=== PATIENT | male | born 1990 | race Caucasian/White ===

== ENCOUNTER 2021-10-04 11:43 | Outpatient (CLI) | payer OTHER, SELFPAY ==
--- NOTE | 2021-10-04 13:00 | CT_ITS ---
Final Report Patient: EMELYN ASKEW Facility:?[facility] Patient ID:?[id number] Site Patient ID:?[id number]. Site :?[id number] Study:?CT Abdomen/Pelvis W/O-10/04/2021 12:26:21 PM Ordering Physician:Franko Barroso Final Report: INDICATION: Personal history of urinary calculi. TECHNIQUE: CT of the abdomen and pelvis without intravenous contrast. Coronal and sagittal reconstructions. COMPARISON: CT of the abdomen and pelvis 07/11/2021. FINDINGS: There is a stable tiny low-attenuation lesion in the superior right hepatic lobe which is too small to characterize but likely benign. The unenhanced gallbladder, spleen, pancreas, and adrenal glands are normal in appearance. No biliary dilation. Stable small hyperdense lesion arising from the upper pole of the right kidney measuring 43 HU (series 3, image 53). Few tiny bilateral nonobstructing renal caliceal stones. There is a 5 mm stone in the distal right ureter approximately 3 cm above the ureterovesicular junction (series 2 image 110). No significant upstream signs of obstruction. No left hydronephrosis or ureteral dilation. Resolution of previously seen bilateral proximal ureteral stones. The bladder is normal in appearance. Moderately enlarged prostate gland. No bowel dilation. Moderate to large amount of stool throughout the colon. Appendectomy. No intraperitoneal free air or fluid. Retroaortic left renal vein. No lymphadenopathy. The lung bases are clear. Pectus excavatum with leftward tilt of the sternum. IMPRESSION: 1. 5 mm stone in the distal right ureter without significant signs of upstream obstruction. Resolution of previously seen bilateral proximal ureteral stones. Few tiny bilateral nonobstructing renal caliceal stones. 2. Stable small indeterminate lesion arising from the upper pole of the right kidney. This could be further evaluated with renal ultrasound. 3. Moderately enlarged prostate gland greater than expected for patient`s age. 4. Findings discussed with Dharmesh Glynn at 1:09 p.m. on 10/04/2021. Please note that all CT scans at this facility use dose modulation, iterative reconstruction, and/or weight-based dosing when appropriate to reduce radiation dose to as low as reasonably achievable. Dictated by Indira Cedeño MD @ 10/04/2021 1:12:28 PM (Electronic Signature)
== END 2021-10-04 11:44 | disposition home or self-care (01) ==
PROVIDERS: PCP Family Medicine; Visit Provider Family Medicine
DX: R10.9 Unspecified abdominal pain (principal); N20.1 Calculus of ureter; N28.9 Disorder of kidney and ureter, unspecified; N40.0 Benign prostatic hyperplasia without lower urinary tract symptoms; Z87.442 Personal history of urinary calculi
CPT/HCPCS: 74176

== ENCOUNTER 2021-10-04 11:44 | Outpatient (CLI) | payer OTHER, SELFPAY ==
[2021-10-04 15:48] LABS: Albumin* 4.1 g/dL (3.3-5.0); Chloride* 104 mmol/L (96-114)
[2021-10-04 15:49] LABS: Potassium* 4.6 mmol/L (3.6-5.1); Sodium* 140 mmol/L (135-149)
[2021-10-04 15:51] LABS: Aspartate Amino Transferase* 38 U/L (12-35); Carbon Dioxide* 29 mmol/L (20-32); Creatinine* 0.8 mg/dL (0.5-1.5); Estimated Glomerular Filt Rate 119.84; Total Protein* 5.9 g/dL (6.0-8.3)
[2021-10-04 15:52] LABS: Alkaline Phosphatase* 47 U/L (40-150); Blood Urea Nitrogen* 12 mg/dL (5-24); Calcium* 9.3 mg/dL (8.4-10.6); Glucose* 98 mg/dL (60-115)
[2021-10-04 16:46] LABS: Alanine Aminotransferase* 31 U/L (4-50)
== END 2021-10-04 11:45 | disposition home or self-care (01) ==
LOC: NFLDREF 11:46
PROVIDERS: PCP Family Medicine; Visit Provider Family Medicine
DX: R10.9 Unspecified abdominal pain (principal)
CPT/HCPCS: 80053

== ENCOUNTER 2022-10-02 11:10 | Outpatient (CLI) | payer OTHER, SELFPAY | END 2022-10-02 11:11 | disposition home or self-care (01) | LOC: NFLDREF 13:40 | PROVIDERS: PCP Family Medicine; Referring Provider Family Medicine; Visit Provider Family Medicine | DX: Z13.1 Encounter for screening for diabetes mellitus (principal); Z13.6 Encounter for screening for cardiovascular disorders | CPT/HCPCS: 80061; 82947 ==

== ENCOUNTER 2023-09-13 14:54 | Emergency (ER) | payer OTHER, SELFPAY ==
[2023-09-13 14:57] VITALS: BP 114/66; PULSE 76; RESP 14; TEMP 36.8; O2SAT 99; BMI 19.9
--- NOTE | 2023-09-13 15:55 | ED.GENADULT ---
HPI - General Adult General Date Seen: 09/13/23 Chief complaint: Skin/Abscess/Foreign Body Stated complaint: rash Time Seen by Provider: 09/13/23 15:14 Source: patient Mode of arrival: ambulatory Limitations: no limitations History of Present Illness HPI narrative: Patient is a 33-year-old who has had a rash for the past couple of days. He 1st noted it on his flank bilaterally and it has spread to his abdomen, minimally on his back, little bit on his proximal upper extremities. Is not particularly itchy. He does note that he was walking in some tall grasses recently. Not had any systemic symptoms such as fever, chills, fatigue or body aches. No history of similar rash. He took little Benadryl yesterday which did not seem to have any effect. Related Data Home Medications ?Medication ?Instructions ?Recorded ?Confirmed acyclovir 400 mg tablet 400 mg PO DAILY 10/04/22 09/13/23 doxycycline hyclate 100 mg capsule 100 mg PO BID 10/04/22 09/13/23 multivitamin (Daily Multi-Vitamin 1 tab PO QDAY 10/04/22 09/13/23 tablet) Previous Rx's ?Medication ?Instructions ?Recorded bupropion HCl 300 mg 24 hr tablet, 300 mg PO QAM #90 tabs 08/09/23 extended release methylphenidate HCl 18 mg 18 mg PO DAILY #30 tabs 08/27/23 tablet,extended release 24 hr methylphenidate HCl 10 mg tablet 10 mg PO DAILY #30 tabs 08/30/23 Allergies Allergy/AdvReac Type Severity Reaction Status Date / Time No Known Allergies Allergy Verified 09/13/23 14:59 [facility] Medical History (Updated 09/13/23 @ 16:22 by Melissa Burns MD) History of renal calculi (2017) ?Z87.442 - Personal history of urinary calculi (ICD-10) History of herpes simplex keratitis ?Z86.19 - Personal history of other infectious and parasitic diseases (ICD-10) History of chronic kidney disease ?Z87.448 - Personal history of other diseases of urinary system (ICD-10) Surgical History (Updated 08/13/22 @ 18:14 by Nancy Mariscal) History of appendectomy (07/13/18) ?Z90.49 - Acquired absence of other specified parts of digestive tract (ICD-10) Family History Unknown Bladder disorder Kidney disorder Genetic disorder Hyperlipidemia High blood pressure Mental disorder Scoliosis Substance abuse Social History (Updated 08/09/23 @ 16:01 by Octavia Beach~[facility], [facility]) What is your current living situation?: I presently have a place to live Problems where you live: no known problems In the past 12 months, utilities in danger of being shut off: no In past 12 months, lack of transportation kept you from medical appts, meetings, work, or getting things needed for daily living: no In the past 12 mos, have been you worried that your food would run out before you had money to buy more?: never true In the past 12 mos, the food you bought just didn't last and you didn't have money to buy more?: never true Smoking Status: Never smoker How often do you have a drink containing alcohol: never AUDIT-C Alcohol total score: 0 Non-prescribed substance use: denies use How often does anyone, including family, friends and others, physically hurt you: never How often does anyone, including family, friends and others, insult or talk down to you: never How often does anyone, including family, friends and others, threaten you with harm: never How often does anyone, including family, friends and others, scream or curse at you: never Little interest or pleasure in doing things: several days Feeling down, depressed, or hopeless: several days service: No Exam Narrative: Exam Narrative: Signs reviewed In general, alert, well-appearing male. ENT: No intraoral lesions. Skin: Const: Vital Signs, click to edit/add: Vital Signs - 24 hr 09/13/23 14:57 Temperature 98.2 F Pulse Rate [Pulse Oximeter] 76 Respiratory Rate 14 Blood Pressure [Ri ght Upper Arm] 114/66 Pulse Oximetry 99 Oxygen Delivery Me thod Room Air Course Course ED Course: Patient presents with a largely asymptomatic rash over the past couple of days. Diagnostic considerations I think would include pityriasis rosea, tinea versicolor, or good 8 psoriasis. There is not significant scaling at this time, I did do a ANALI which does not show fungal elements. Suspect that this is pityriasis rosacea, discussed natural course of this with him. For now he is not complaining of significant itching but discussed that he can use topical hydrocortisone if he develops any itching. If he is significantly worsening would recommend he come back, otherwise he can follow up with Dermatology if no improvement over the next couple of months or if he feels the rash is changing significantly. Vital Signs Vital signs: Initial Vital Signs Temperature 98.2 F 09/13/23 14:57 Temperature Source Temporal Artery Scan 09/13/23 14:57 Pulse Rate 76 09/13/23 14:57 Respiratory Rate 14 09/13/23 14:57 Blood Pressure 114/66 09/13/23 14:57 Blood Pressure Mean 82 09/13/23 14:57 Blood Pressure Position Sitting 09/13/23 14:57 Pulse Oximetry 99 09/13/23 14:57 Oxygen Delivery Method Room Air 09/13/23 14:57 Vital Signs Temperature 98.2 F 09/13/23 14:57 Pulse Rate 76 09/13/23 14:57 Respiratory Rate 14 09/13/23 14:57 Blood Pressure 114/66 09/13/23 14:57 Pulse Oximetry 99 09/13/23 14:57 Oxygen Delivery Method Room Air 09/13/23 14:57 Temperature 98.2 F 09/13/23 14:57 Pulse Rate 76 09/13/23 14:57 Respiratory Rate 14 09/13/23 14:57 Blood Pressure 114/66 09/13/23 14:57 Pulse Oximetry 99 09/13/23 14:57 Oxygen Delivery Method Room Air 09/13/23 14:57 Medical Decision Making Lab Data Labs: Lab Results 09/13/23 Range/Units 15:35 ANALI Result No Fungal Elements (None Seen) ANALI Prep Source Skin Discharge Plan Discharge Clinical Impression: Pityriasis rosea Patient Disposition: Home, Self-Care Condition: Stable Instructions: Pityriasis rosea (ED) Additional Instructions: I suspect that this is pityriasis rosacea, but there is no specific diagnostic test. If the rash is significantly changing or worsening, if you have new symptoms such as sores in her mouth, high fevers, etcetera, would recommend return to the emergency department. Pityriasis rosea it does not require specific treatment and should resolve on its own over the next 2-3 months. If the rash does not resolve or you feel it is changing, I would recommend dermatology follow-up. You can use a topical hydrocortisone if needed for mild itching. Prescriptions: No Action doxycycline hyclate 100 mg capsule 100 mg PO BID acyclovir 400 mg tablet 400 mg PO DAILY methylphenidate HCl 10 mg tablet 10 mg PO DAILY Qty: 30 0RF Rx Instructions: take in afternoon in addition to long-acting morning methylphenidate multivitamin [Daily Multi-Vitamin] Tablet 1 tab PO QDAY bupropion HCl 300 mg tablet extended release 24 hr 300 mg PO QAM Qty: 90 3RF methylphenidate HCl 18 mg tablet extended release 24hr 18 mg PO DAILY Qty: 30 0RF Follow Up/Referrals: Dharmesh Glynn MD [Primary Care Provider] - Stand Alone Forms: [employer] Apart Info Instructions
--- OUTSIDE RECORDS SUMMARY | 2023-09-13 16:15 | XMS_ITS ---
Author Name Lupillo Ashraf Address Unknown Phone [phone] Organization [facility] al Phone [phone] Care Team Providers Care Equipment Application Specialist Name Role Phone Lupillo Ashraf Attending [phone] Allergies and Intolerances Substance Reaction Severity Activated Date Status No Known Drug Allergies No Known Food Allergies ASSESSMENT Assessment Charted Date/Time No assessment available Encounter Diagnosis Encounter Diagnosis Diagnosis Date/Time Status Hydronephrosis with renal an d ureteral calculous obstruction [N13.2] 08/21/2021 11:35 completed IMMUNIZATIONS Vaccine Administration Date Status Reason COVID-19 PFIZER 08/02/2021 Completed influenza, injectable, quadrivalent 01/25/2021 Compl eted COVID-19 PFIZER 08/23/2020 Completed COVID-19 PFIZER 08/02/2020 Completed Influenza, seasonal, injectable 05/08/2017 Completed Tdap 08/23/2016 Completed Influenza, seasonal, injectable 03/12/2007 Completed H1N1 02/13/2006 Completed meningococcal MCV4P 01/25/2007 Completed H1N1 02/22/2005 Completed H1N1 01/26/2004 Completed Td (adult), adsorbed 03/13/2000 Completed polio, unspecified formulation 03/13/1990 Completed polio, unspecified formulation 1988 Completed polio, unspecified formulation 1988 Completed pneumococcal polysaccharide PPV23 01/25/2004 Complet ed MMR 03/13/2000 Completed MMR 11/07/1989 Completed Hib, unspecified formulation 03/13/1990 Completed Hep B, unspecified formulation 10/16/2000 Completed Hep B, unspecified formulation 03/13/2000 Completed Hep B, unspecified formulation 02/16/2000 Completed DTaP 1988 Completed DTaP 1988 Completed DTaP 03/14/1989 Completed DTaP 03/13/1990 Completed Medications Medication Strength Dosage Route Frequency Start Date Stop Date Status acyclovir 400 mg tablet 400 mg tablet 1 tablet by mouth once a day activ e Concerta 18 mg tablet extended release 24hr 18 mg tablet extended release 24hr 1 tablet by mouth once a day active doxycycline hyclate 50 mg tablet 50 mg tablet 50 tablet by mouth twice a day activ e hydrocodone-acet aminophen 5-325 mg tablet 5-325 mg tablet 1-2 tablet by mouth every four to six hours as needed active Ritalin 10 mg tablet 10 mg tablet 1 tablet by mouth once a day as needed active Plan of Treatment Plan Description Date Medication acyclovir(acyclovir) Medication Concerta(methylphenidate hcl) Medication doxycycline hyclate(doxycycline hyclate) Medication hydrocodone-acetaminophen(hydroc odone-acetaminophen) Medication Ritalin(methylphenidate hcl) Social History SOCIAL HISTORY TOBACCO USE Type Status Start Date End Date Last Reviewed Current Smoking Status Tobacco smoking c onsumption unknown Gender Identity and Sexual O rientation Type Status Last Reviewed Sex Male 00:00
--- OUTSIDE RECORDS SUMMARY | 2023-09-13 16:15 | XMS_ITS ---
Author Name Lupillo Ashraf Address Unknown Phone [phone] Organization [facility] Phone [phone] Care Team Providers Care Education Liaison Name Role Phone Lupillo Ashraf Attending [phone] Lupillo Ashraf Ordering [phone] Allergies and Intolerances Substance Reaction Severity Activated [...] mouth once a day as needed active Procedures Procedure Frequency Last Procedure Date Status CT ABDOMEN/PELVIS WO CONTRAST ONCE 08/22/2021 09:47 completed Vital Signs Description Result Charted Date/Time LOINC Blood Pressure - Systolic mm[Hg] 127 08/22/19 22 11:40 8480-6 Blood Pressure - Diastolic mm[Hg] 80 022 11:40 8462-4 MAP mm/Hg 95.67 08/21/2021 11:40 8478-0 Temperature deg F/Emiliana 96.4 / 35.8 08/21/2021 11:40 83 10-5 Heart Rate /min 57 08/21/2021 11:40 8867-4 Respiration /min 20 08/21/2021 11:40 9279-1 Pain Scale 3 08/21/2021 12:41 53948-5 SpO2 % 100 08/21/2021 11:40 05034-9 Medications Administered Medication Start Date Dosage Route Frequency Last Adm inistered KETOROLAC [30MG/ML] VIAL (TORADOL) 08/21/2021 12:04 30 mg IV PUSH ONCE 08/21/2021 12:08 TAMSULOSIN [0.4MG] CAPSULE (FLOMAX) 08/21/2021 13:11 0.4 mg Oral ONCE 022 13:13 Plan of Treatment Plan Description Date Medication acyclovir(acyclovir) Medication Concerta(methylphenidate hcl) Medication doxycycline hyclate(doxycycline hyclate) Medication hydrocodone-acetaminophen(hydroc odone-acetaminophen) Medication Ritalin(methylphenidate hcl) Social History SOCIAL HISTORY TOBACCO USE Type Status Start Date End Date Last Reviewed Current Smoking Status Tobacco smoking c onsumption unknown Gender Identity and Sexual O rientation Type Status Last Reviewed Sex Male 00:00 Clinical Notes Notes Name Date/Time Description ED Disposition Summary 08/21/2021 13:28 Signed D ate/Time: 08/21/2021 13:28 Signed By: ALFONZO TANG Entered By: ALFONZO TANG <div></div><div class='heade rFont'><b>[facility]</b></div> <div></div><b>Emergency Department Visit Record</b> <div></div><table class='tableFont' border=0 cellspacing=0 cellpadding=0 style= margin-left: 21pt;border-collapse: collapse; border: none> <tr> <td width=16 height=11 style= ></td> <td coysm=714 style= > Patient Name</td> <td width=16 style= > :</td> <td uhgtf=555 style= > EMELYN ASKEW</td> </tr> <tr> <td width=16 height=11 style= ></td> <td bfmks=815 style= > MR #</td> <td width=16 style= > :</td> <td hyzjf=028 style= > [id number]</td> </tr> <tr> <td width=16 height=11 style= ></td> <td hioyb=970 style= > </td> <td width=16 style= > :</td> <td srfbi=045 style= > 1990 [31 years]</td> </tr> <tr> <td width=16 height=11 style= ></td> <td ndcwe=498 style= > Visit #</td> <td width=16 style= > :</td> <td ivnwm=276 style= > [id number]</td> </tr> <tr> <td width=16 height=11 style= ></td> <td lrunu=968 style= > Administrative Gender</td> <td width=16 style= > :</td> <td ofduj=785 style= > Male</td> </tr> <tr> <td width=16 height=11 style= ></td> <td nlkzd=832 style= > Sex</td> <td width=16 style= > :</td> <td xjtjw=623 style= > Male</td> </tr> <tr> <td width=16 height=11 style= ></td> <td vjmaq=844 style= > Admission Date/Time</td> <td width=16 style= > :</td> <td fxuxh=413 style= > 08/21/2021 11:35</td> </tr> <tr> <td width=16 height=11 style= ></td> <td ylcwd=335 style= > Attending Provider</td> <td width=16 style= > :</td> <td citny=670 style= > Lupillo Ashraf</td> </tr></table> <div></div><b>Patient Data</b> <div></div><table class='tableFont' border=0 cellspacing=0 cellpadding=0 style= margin-left: 21pt;border-collapse: collapse; border: none> <tr> <td width=16 height=11 style= ></td> <td sgtov=986 style= > Chief Complaint</td> <td width=16 style= > :</td> <td oxbzt=681 style= > Right flank pain</td> </tr> <tr> <td width=16 height=11 style= ></td> <td syitp=978 style= > Body System/Complaint</td> <td width=16 style= > :</td> <td nshsp=378 style= > Genitourinary / Flank Pain</td> </tr> <tr> <td width=16 height=11 style= ></td> <td rnfov=909 style= > Historian</td> <td width=16 style= > :</td> <td gsagq=862 style= > Patient</td> </tr> <tr> <td width=16 height=11 style= ></td> <td opgzo=169 style= > Triage Time</td> <td width=16 style= > :</td> <td qlqvn=740 style= > 08/21/2021 11:40</td> </tr> <tr> <td width=16 height=11 style= ></td> <td satbr=852 style= > Triage Level</td> <td width=16 style= > :</td> <td sklbe=553 style= > 4 - Semi-Urgent</td> </tr> <tr> <td width=16 height=11 style= ></td> <td aqqfj=803 style= > Provider</td> <td width=16 style= > :</td> <td mcijp=350 style= > Lupillo Ashraf</td> </tr> <tr> <td width=16 height=11 style= ></td> <td gfldl=038 style= > Registered Nurse</td> <td width=16 style= > :</td> <td qnztm=454 style= > -</td> </tr> <tr> <td width=16 height=11 style= ></td> <td afeju=536 style= > Breaker Engineer</td> <td width=16 style= > :</td> <td pkhta=508 style= > - </td> </tr> <tr> <td width=16 height=11 style= ></td> <td dyuuw=388 style= > Bed</td> <td width=16 style= > :</td> <td kgyzb=469 style= > ER-3</td> </tr> <tr> <td width=16 height=11 style= ></td> <td nwamv=305 style= > Pain Scale</td> <td width=16 style= > :</td> <td leeyp=717 style= > 10</td> </tr></table> <div></div><b>First Vital Signs</b> <div></div><table class='tableFont' border=0 cellspacing=0 cellpadding=0 style= margin-left: 21pt;border-collapse: collapse; border: none> <tr> <td width=16 height=11 style= ></td> <td mfrcb=612 style= > Date/Time</td> <td width=16 style= > :</td> <td rctcl=382 style= > 08/21/2021 11:40</td> </tr> <tr> <td width=16 height=11 style= ></td> <td enhzn=225 style= > HR</td> <td width=16 style= > :</td> <td wqrcz=390 style= > 57</td> </tr> <tr> <td width=16 height=11 style= ></td> <td qsrls=479 style= > BP(mm/Hg)</td> <td width=16 style= > :</td> <td uyzac=691 style= > 127/80</td> </tr> <tr> <td width=16 height=11 style= ></td> <td dqkzy=915 style= > BP Site</td> <td width=16 style= > :</td> <td mucmj=914 style= > -</td> </tr> <tr> <td width=16 height=11 style= ></td> <td vanxu=740 style= > BP Position</td> <td width=16 style= > :</td> <td stvwv=243 style= > -</td> </tr> <tr> <td width=16 height=11 style= ></td> <td jmekr=614 style= > MAP(mm/Hg)</td> <td width=16 style= > :</td> <td tiity=651 style= > 95.67</td> </tr> <tr> <td width=16 height=11 style= ></td> <td xphbq=707 style= > Temp(F)</td> <td width=16 style= > :</td> <td njvyr=972 style= > 96.4</td> </tr> <tr> <td width=16 height=11 style= ></td> <td tudgl=820 style= > Resp</td> <td width=16 style= > :</td> <td gpmsf=395 style= > 20</td> </tr> <tr> <td width=16 height=11 style= ></td> <td yiwnw=893 style= > SpO2(%)</td> <td width=16 style= > :</td> <td hnygn=996 style= > 100</td> </tr> <tr> <td width=16 height=11 style= ></td> <td vexag=660 style= > O2 Device</td> <td width=16 style= > :</td> <td ekaha=766 style= > Room Air</td> </tr> <tr> <td width=16 height=11 style= ></td> <td tjcxt=366 style= > O2 Amount</td> <td width=16 style= > :</td> <td pxaan=082 style= > -</td> </tr> <tr> <td width=16 height=11 style= ></td> <td supae=145 style= > BS (mg/dL)</td> <td width=16 style= > :</td> <td lofvu=881 style= > -</td> </tr> <tr> <td width=16 height=11 style= ></td> <td eqzhj=514 style= > Pain Scale</td> <td width=16 style= > :</td> <td hwtqs=391 style= > 10</td> </tr> <tr> <td width=16 height=11 style= ></td> <td dmznu=068 style= > Ht/Length(in)</td> <td width=16 style= > :</td> <td hqtvh=375 style= > -</td> </tr> <tr> <td width=16 height=11 style= ></td> <td ueplt=770 style= > Wt(lb/oz)</td> <td width=16 style= > :</td> <td gysoc=606 style= > -</td> </tr> <tr> <td width=16 height=11 style= ></td> <td tvknu=305 style= > Wt Descriptor</td> <td width=16 style= > :</td> <td echjm=592 style= > -</td> </tr> <tr> <td width=16 height=11 style= ></td> <td dmujk=860 style= > BMI</td> <td width=16 style= > :</td> <td ybral=134 style= > -</td> </tr> <tr> <td width=16 height=11 style= ></td> <td jwrhr=386 style= > Head Circum.(in)</td> <td width=16 style= > :</td> <td fdwvl=199 style= > -</td> </tr> <tr> <td width=16 height=11 style= ></td> <td allju=674 style= > Entered By</td> <td width=16 style= > :</td> <td bgwim=313 style= > ALFONZO TANG</td> </tr></table> <div></div><b>Allergies</b> <div></div><b>Visit Details</b> <div></div><b>Triage</b> <div></div><table class='tableFont' border=0 cellspacing=0 cellpadding=0 style= margin-left: 21pt;border-collapse: collapse; border: none> <tr> <td sduki=867 height=11 > <b>Level</b> </td> <td cvqch=541 > <b>Start Date</b> </td> <td tgaae=155 > <b>End Date</b> </td> <td ntzcm=923 > <b>Length of Stay (Mins)</b> </td> <td jsmmp=951 > <b>Entered By</b> </td> </tr> <tr> <td ijhdr=498 height=11 style= > 4 - Semi-Urgent </td> <td uzaux=723 style= > 08/21/2021 11:40 </td> <td nixct=892 style= > 08/21/2021 13:20 </td> <td ibqpf=336 style= > 100 </td> <td aioor=498 style= > ALFONZO TANG </td> </tr></table> <div></div><b>Stages Of Care</b> <div></div><b>Staff Appointments</b> <div></div><b>Providers</b> <div></div><table class='tableFont' border=0 cellspacing=0 cellpadding=0 style= margin-left: 21pt;border-collapse: collapse; border: none> <tr> <td fsbzw=227 height=11 > <b>Name</b> </td> <td ygigc=518 > <b>Start Date</b> </td> <td jycdd=393 > <b>End Date</b> </td> <td rsnbo=417 > <b>Length of Stay (Mins)</b> </td> <td htxes=935 > <b>Appointed By</b> </td> </tr> <tr> <td ynqfe=823 height=11 style= > Lupillo Ashraf </td> <td xcmxr=735 style= > 08/21/2021 11:36 </td> <td jxlhd=716 style= > 08/21/2021 13:20 </td> <td ivfrq=683 style= > 104 </td> <td omjep=562 style= > STEFANI MENDEZ </td> </tr></table> <div></div><b>Provider</b> <div></div><table class='tableFont' border=0 cellspacing=0 cellpadding=0 style= margin-left: 21pt;border-collapse: collapse; border: none> <tr> <td width=16 height=11 style= ></td> <td snkba=905 style= > Provider Notified Time</td> <td width=16 style= > :</td> <td pkpcv=563 style= > -</td> </tr> <tr> <td width=16 height=11 style= ></td> <td ugpcd=937 style= > Provider Arrival Time</td> <td width=16 style= > :</td> <td fvgjs=742 style= > -</td> </tr></table> <div></div><b>Patient Stated Complaint</b> <div></div><table class='tableFont' border=0 cellspacing=0 cellpadding=0 style= margin-left: 21pt;border- collapse: collapse; border: none> <tr> <td width=16 height=11 style= ></td> <td hoclr=472 style= > Stated Complaint</td> <td width=16 style= > :</td> <td ymeko=196 style= > KIDNEY STONES</td> </tr></table> <div></div><b>Treatment Prior to Arrival</b> <div></div><table class='tableFont' border=0 cellspacing=0 cellpadding=0 style= margin-left: 21pt;border-collapse: collapse; border: none> <tr> <td width=16 height=11 style= ></td> <td yvefy=973 style= > Arrival Mode</td> <td width=16 style= > :</td> <td njvmt=217 style= > -</td> </tr></table> <div></div><b>Immediate Treatment</b> <div></div><b>Treatment</b> <div></div><table class='tableFont' border=0 cellspacing=0 cellpadding=0 style= margin-left: 21pt;border-collapse: collapse; border: none> <tr> <td width=16 height=11 style= ></td> <td ykwfn=814 style= > Treatment Outcome</td> <td width=16 style= > :</td> <td xnlmx=036 style= > -</td> </tr> <tr> <td width=16 height=11 style= ></td> <td vvkfs=233 style= > Bed</td> <td width=16 style= > :</td> <td bhofo=210 style= > ER-3</td> </tr></table> <div></div><b>Past Medical History</b> <div></div><b>Health Status Observation</b> <div></div><table class='tableFont' border=0 cellspacing=0 cellpadding=0 style= margin-left: 21pt;border-collapse: collapse; border: none> <tr> <td width=16 height=11 style= ></td> <td vaehg=453 style= > No health status observation available </td> </tr></table> <div></div><b>Impairments</b> <div></div><table class='tableFont' border=0 cellspacing=0 cellpadding=0 style= margin-left: 21pt;border-collapse: collapse; border: none> <tr> <td width=16 height=11 style= ></td> <td zjcza=522 style= > No impairments available</td> <td width=16 style= ></td> <td wtndg=293 style= ></td> </tr></table> <div></div><b>Assessment and Plan</b> <div></div><b>Surgical History</b> <div></div><b>Family History</b> <div></div><b>Allergies</b> <div></div><table class='tableFont' border=0 cellspacing=0 cellpadding=0 style= margin- left: 21pt;border-collapse: collapse; border: none> <tr> <td width=16 height=11 style= ></td> <td colspan=3 thxdc=630 style= > No Known Allergies</td> <td width=16 style= ></td> <td wqljr=617 style= ></td> </tr> <tr> <td width=16 height=11 style= ></td> <td flgsd=726 style= > Allergy band placed on patient</td> <td width=16 style= > :</td> <td colspan=3 tbrov=669 style= > No</td> </tr> <tr> <td width=16></td> <td bixkv=328></td> <td width=16></td> <td bimre=244></td> <td width=16></td> <td jvjtr=168></td> </tr></table> <div></div><b>Precautions</b> <div></div><table class='tableFont' border=0 cellspacing=0 cellpadding=0 style= margin-left: 21pt;border-collapse: collapse; border: none> <tr> <td width=16 height=11 style= ></td> <td bjoiq=650 style= > No Precautions Available</td> <td width=16 style= ></td> <td wwwba=655 style= ></td> </tr></table> <div></div><b>Medication History</b> <div></div><table class='tableFont' border=0 cellspacing=0 cellpadding=0 style= margin-left: 21pt;border-collapse: collapse; border: none> <tr> <td hfyye=415 height=11 > <b>Medication Name</b> </td> <td width=74 > <b>Dose</b> </td> <td width=74 > <b>Unit</b> </td> <td ypclq=548 > <b>Frequency</b> </td> <td ikude=524 > <b>Assessed By</b> </td> <td xkoed=211 > <b>Start Date/Time</b> </td> <td ctlqu=441 > <b>Source</b> </td> </tr></table> <div></div><table class='tableFont' border=0 cellspacing=0 cellpadding=0 style= margin-left: 21pt;border-collapse: collapse; border: none> <tr> <td kvymv=656 height=11 style= > hydrocodone-acetaminophen(hydrocodone-acetaminophen) </td> <td width=74 style= > 1-2 tablet </td> <td width=74 style= > tablet </td> <td uldkz=367 style= > every four to six hours as needed </td> <td xfmdm=793 style= > ylphmje22 </td> <td cbucj=114 style= ></td> <td mmzoq=640 style= > ePrescription </td> </tr></table> <div></div><table class='tableFont' border=0 cellspacing=0 cellpadding=0 style= margin-left: 21pt;border-collapse: collapse; border: none> <tr> <td qwusl=985 height=11 style= > Ritalin(methylphenidate hcl) </td> <td width=74 style= > 1 tablet </td> <td width=74 style= > tablet </td> <td gleuv=193 style= > once a day as needed </td> <td oydxa=001 style= > atmpflw16 </td> <td dkwzl=965 style= ></td> <td mzdjm=880 style= > ePrescription </td> </tr></table> <div></div><table class='tableFont' border=0 cellspacing=0 cellpadding=0 style= margin-left: 21pt;border-collapse: collapse; border: none> <tr> <td lxejf=851 height=11 style= > Concerta(methylphenidate hcl) </td> <td width=74 style= > 1 tablet </td> <td width=74 style= > tablet </td> <td rwbdo=544 style= > once a day </td> <td tkrlv=053 style= > wvvwunl12 </td> <td vhsjb=150 style= ></td> <td pxutd=895 style= > ePrescription </td> </tr></table> <div></div><table class='tableFont' border=0 cellspacing=0 cellpadding=0 style= margin-left: 21pt;border-collapse: collapse; border: none> <tr> <td myzab=900 height=11 style= > acyclovir(acyclovir) </td> <td width=74 style= > 1 tablet </td> <td width=74 style= > tablet </td> <td bgyrv=673 style= > once a day </td> <td ndjom=568 style= > mhmydjb15 </td> <td eydfy=591 style= ></td> <td zfegw=402 style= > ePrescription </td> </tr></table> <div></div><table class='tableFont' border=0 cellspacing=0 cellpadding=0 style= margin-left: 21pt;border-collapse: collapse; border: none> <tr> <td cnwjh=557 height=11 style= > doxycycline hyclate(doxycycline hyclate) </td> <td width=74 style= > 50 tablet </td> <td width=74 style= > tablet </td> <td ixocx=266 style= > twice a day </td> <td ipmxk=591 style= > sbuxmgd50 </td> <td fxwjt=914 style= ></td> <td mhzgm=138 style= > ePrescription </td> </tr></table> <div></div><b>Social Profile</b> <div></div><table class='tableFont' border=0 cellspacing=0 cellpadding=0 style= margin-left: 21pt;border-collapse: collapse; border: none> <tr> <td width=16 height=11 style= ></td> <td ddoij=600 style= > No social profile available</td> <td width=16 style= ></td> <td cofxb=197 style= ></td> </tr></table> <div></div><b>Triage Pain Assessments</b> <div></div><table class='tableFont' border=0 cellspacing=0 cellpadding=0 style= margin-left: 21pt;border-collapse: collapse; border: none> <tr> <td ftpnb=416 height=11 > <b>Body System</b> </td> <td ayipx=926 > <b>Numerical Pain Scale</b> </td> <td width=82 > <b>Duration</b> </td> <td glqxt=995 > <b>Location</b> </td> </tr> <tr> <td ncxon=465 height=11 style= > Genitourinary </td> <td albdc=471 style= > 10 </td> <td width=82 style= > 2Hrs </td> <td bfujw=240 style= > Right flank </td> </tr></table> <div></div><b>Assessments </b> <div></div><table class='tableFont' border=0 cellspacing=0 cellpadding=0 style= margin-left: 21pt;border- collapse: collapse; border: none> <tr> <td width=16 height=11 style= border-left:solid #[id number] 0px; border-top:solid #283452 1px; border-right:solid #386752 0px; border-bottom:solid #060581 0px;></td> <td iwevo=064 style= border-left:solid #012993 0px; border-top:solid #652775 1px; border-right:solid #905091 0px; border-bottom:solid #021008 0px;> <b>Name</b></td> <td width=16 style= border-left:solid #[id number] 0px; border-top:solid #773986 1px; border-right:solid #997710 0px; border-bottom:solid #125493 0px;></td> <td utfdv=512 style= border-left:solid #028630 0px; border-top:solid #407095 1px; border-right:solid #655889 0px; border- bottom:solid #586604 0px;> <b>: ED: Discharge Checklist</b></td> </tr> <tr> <td width=16 height=11 style= ></td> <td lfzax=330 style= > <b>Charted Date</b></td> <td width=16 style= ></td> <td ftqay=025 style= > <b>: 08/21/2021 13:26</b></td> </tr> <tr> <td width=16 height=11 style= ></td> <td yojmf=410 style= > <b>Entered By</b></td> <td width=16 style= ></td> <td frakk=210 style= > <b>: ALFONZO TANG</b></td> </tr> <tr> <td width=16 height=11 style= ></td> <td nzvnt=791 style= > <b>Signed On</b></td> <td width=16 style= ></td> <td xodul=781 style= > <b>: 08/21/2021 13:27</b></td> </tr> <tr> <td width=16 height=11 style= border-left:solid #[id number] 0px; border-top:solid #872311 0px; border-right:solid #553686 0px; border-bottom:solid #650868 1px;></td> <td qqdjm=204 style= border-left:solid #387474 0px; border-top:solid #334077 0px; border-right:solid #272700 0px; border- bottom:solid #527897 1px;> <b>Signed By</b></td> <td width=16 style= border-left:solid #129068 0px; border-top:solid #693631 0px; border-right:solid #160823 0px; border-bottom:solid #861074 1px;></td> <td ywhqa=406 style= border-left:solid #679611 0px; border-top:solid #534148 0px; border-right:solid #690606 0px; border-bottom:solid #525667 1px;> <b>: ALFONZO TANG RN</b></td> </tr></table> <div></div><b>DC: Medications</b> <div></div><table class='tableFont' border=0 cellspacing=0 cellpadding=0 style= margin- left: 21pt;border-collapse: collapse; border: none> <tr> <td width=16 height=11 style= ></td> <td qspwf=110 style= > Discharge instructions reviewed</td> <td width=16 style= > :</td> <td jsbbo=096 style= > With patient</td> </tr> <tr> <td width=16 height=11 style= ></td> <td npebz=480 style= > Prescriptions given</td> <td width=16 style= > :</td> <td rfkwu=880 style= > Paper script given</td> </tr> <tr> <td width=16 height=11 style= ></td> <td uaqel=433 style= > Paper script given to:</td> <td width=16 style= > :</td> <td sqdxm=317 style= > Paper script given to patient</td> </tr> <tr> <td width=16 height=11 style= ></td> <td ccjxc=371 style= > Medication education given</td> <td width=16 style= > :</td> <td qwwdr=448 style= > Yes</td> </tr> <tr> <td width=16 height=11 style= ></td> <td pytkm=494 style= > Reviewed with</td> <td width=16 style= > :</td> <td zyzpc=570 style= > Patient and family</td> </tr> <tr> <td width=16 height=11 style= ></td> <td zesqb=448 style= > Patient home meds returned</td> <td width=16 style= > :</td> <td idxoe=590 style= > NA</td> </tr></table> <div></div><b>DC: Discharge instructions</b> <div></div><table class='tableFont' border=0 cellspacing=0 cellpadding=0 style= margin- left: 21pt;border-collapse: collapse; border: none> <tr> <td width=16 height=11 style= ></td> <td ihwnq=170 style= > PCI reviewed</td> <td width=16 style= > :</td> <td dujuh=751 style= > Yes</td> </tr> <tr> <td width=16 height=11 style= ></td> <td gejjb=145 style= > Reviewed with</td> <td width=16 style= > :</td> <td fmsjn=124 style= > Patient and family</td> </tr></table> <div></div><b>DC: Referral</b> <div></div><table class='tableFont' border=0 cellspacing=0 cellpadding=0 style= margin- left: 21pt;border-collapse: collapse; border: none> <tr> <td width=16 height=11 style= ></td> <td vbjfi=419 style= > Discharge orders faxed</td> <td width=16 style= > :</td> <td bnrht=911 style= > NA</td> </tr></table> <div></div><b>DC: In house referral (ORTHO, Therapy,EGD,Echo)</b> <div></div><table class='tableFont' border=0 cellspacing=0 cellpadding=0 style= margin- left: 21pt;border-collapse: collapse; border: none> <tr> <td width=16 height=11 style= ></td> <td axyay=928 style= > Referral made:</td> <td width=16 style= > :</td> <td xocxh=995 style= > NA</td> </tr></table> <div></div><b>DC: Radiology orders</b> <div></div><table class='tableFont' border=0 cellspacing=0 cellpadding=0 style= margin-left: 21pt;border-collapse: collapse; border: none> <tr> <td width=16 height=11 style= ></td> <td ofaxe=508 style= > Radiology tests needed after ER visit</td> <td width=16 style= > :</td> <td giqro=870 style= > NA</td> </tr></table> <div></div><b>Radiology test to be done at OUTSIDE facility</b> <div></div><table class='tableFont' border=0 cellspacing=0 cellpadding=0 style= margin-left: 21pt;border-collapse: collapse; border: none> <tr> <td width=16 height=11 style= ></td> <td ugnhb=812 style= > Outside facility radiology orders needed?</td> <td width=16 style= > :</td> <td blnqn=243 style= > NA</td> </tr></table> <div></div><b>Outreach Provider follow up needed</b> <div></div><table class='tableFont' border=0 cellspacing=0 cellpadding=0 style= margin-left: 21pt;border- collapse: collapse; border: none> <tr> <td width=16 height=11 style= ></td> <td nxkgu=920 style= > Order for outreach follow up obtained</td> <td width=16 style= > :</td> <td krjwk=285 style= > NA</td> </tr></table> <div></div><b>DC: Nursing documentation</b> <div></div><table class='tableFont' border=0 cellspacing=0 cellpadding=0 style= margin-left: 21pt;border-collapse: collapse; border: none> <tr> <td width=16 height=11 style= ></td> <td ikcnp=788 style= > Valuables returned</td> <td width=16 style= > :</td> <td giqqt=417 style= > NA</td> </tr> <tr> <td width=16 height=11 style= ></td> <td mgtel=701 style= > Removed IV and charted</td> <td width=16 style= > :</td> <td hqeei=810 style= > Yes</td> </tr></table> <div></div><b>DC: Medication stop times charted in [facility]</b> <div></div><table class='tableFont' border=0 cellspacing=0 cellpadding=0 style= margin- left: 21pt;border-collapse: collapse; border: none> <tr> <td width=16 height=11 style= ></td> <td sdack=908 style= > Medication stop times charted in [facility]</td> <td width=16 style= > :</td> <td phvxp=211 style= > NA</td> </tr></table> <div></div><b>Discharge</b> <div></div><table class='tableFont' border=0 cellspacing=0 cellpadding=0 style= margin-left: 21pt;border-collapse: collapse; border: none> <tr> <td width=16 height=11 style= ></td> <td pmsrn=531 style= > Date/Time</td> <td width=16 style= > :</td> <td bldhz=850 style= > 08/21/2021 13:20</td> </tr> <tr> <td width=16 height=11 style= ></td> <td jafvh=814 style= > Condition on discharge</td> <td width=16 style= > :</td> <td uxlpx=192 style= > Improved</td> </tr> <tr> <td width=16 height=11 style= ></td> <td aqwqy=419 style= > Destination</td> <td width=16 style= > :</td> <td gzvkv=681 style= > Home</td> </tr> <tr> <td width=16 height=11 style= ></td> <td cepfs=009 style= > Accompanied by</td> <td width=16 style= > :</td> <td lkgit=763 style= > Family</td> </tr></table> <div></div><b>DC: Transportation</b> <div></div><table class='tableFont' border=0 cellspacing=0 cellpadding=0 style= margin-left: 21pt;border-collapse: collapse; border: none> <tr> <td width=16 height=11 style= ></td> <td tcapz=158 style= > Mode</td> <td width=16 style= > :</td> <td opvee=387 style= > Ambulatory</td> </tr></table> <div></div><b>DC: Additional</b> <div></div><table class='tableFont' border=0 cellspacing=0 cellpadding=0 style= margin-left: 21pt;border-collapse: collapse; border: none> <tr> <td width=16 height=11 style= ></td> <td kilku=110 style= > Comments</td> <td width=16 style= > :</td> <td zbeoe=360 style= > Sent with strainer for urine and sample cup</td> </tr></table> <div></div><table class='tableFont' border=0 cellspacing=0 cellpadding=0 style= margin-left: 21pt;border-collapse: collapse; border: none> <tr> <td width=16 height=11 style= border-left:solid #[id number] 0px; border-top:solid #765854 1px; border- right:solid #000888 0px; border-bottom:solid #712546 0px;></td> <td colspan=3 fizru=549 style= border-left:solid #409845 0px; border-top:solid #535851 1px; border-right:solid #757519 0px; border-bottom:solid #640087 0px;> <b>Name</b></td> <td width=16 style= border-left:solid #285420 0px; border-top:solid #203700 1px; border-right:solid #312788 0px; border-bottom:solid #023247 0px;></td> <td sgqks=902 style= border-left:solid #870265 0px; border-top:solid #850466 1px; border-right:solid #629274 0px; border- bottom:solid #826005 0px;> <b>: ED: Full Assessment</b></td> </tr> <tr> <td width=16 height=11 style= ></td> <td colspan=3 cpoce=129 style= > <b>Charted Date</b></td> <td width=16 style= ></td> <td mjutw=262 style= > <b>: 08/21/2021 11:43</b></td> </tr> <tr> <td width=16 height=11 style= ></td> <td colspan=3 yvmqd=218 style= > <b>Entered By</b></td> <td width=16 style= ></td> <td jeuoj=836 style= > <b>: ALFONZO TANG</b></td> </tr> <tr> <td width=16 height=11 style= ></td> <td colspan=3 jlhxu=524 style= > <b>Signed On</b></td> <td width=16 style= ></td> <td omdyv=529 style= > <b>: 08/21/2021 11:52</b></td> </tr> <tr> <td width=16 height=11 style= border-left:solid #617746 0px; border-top:solid #427529 0px; border-right:solid #757702 0px; border-bottom:solid #285664 1px;></td> <td colspan=3 hbttj=696 style= border-left:solid #859732 0px; border-top:solid #559659 0px; border-right:solid #873479 0px; border-bottom:solid #140938 1px;> <b>Signed By</b></td> <td width=16 style= border-left:solid #286397 0px; border-top:solid #397393 0px; border-right:solid #639107 0px; border-bottom:solid #372271 1px;></td> <td xeapr=775 style= border-left:solid #381933 0px; border-top:solid #276098 0px; border-right:solid #043172 0px; border- bottom:solid #344094 1px;> <b>: ALFONZO TANG A, RN</b></td> </tr> <tr> <td width=16 height=11 style= border-left:solid #054920 0px; border-top:solid #816098 1px; border-right:solid #046616 0px; border-bottom:solid #399474 0px;></td> <td colspan=3 kwtda=849 style= border-left:solid #837415 0px; border-top:solid #261260 1px; border-right:solid #910757 0px; border-bottom:solid #816440 0px;> <b>Last Modified By</b></td> <td width=16 style= border-left:solid #869996 0px; border-top:solid #203172 1px; border-right:solid #193540 0px; border-bottom:solid #276829 0px;></td> <td noxnm=708 style= border-left:solid #731273 0px; border-top:solid #589781 1px; border-right:solid #601179 0px; border-bottom:solid #987070 0px;> <b>: ALFONZO TANG</b></td> </tr> <tr> <td width=16 height=11 style= ></td> <td colspan=3 ltfcr=425 style= > <b>Reason For Modification</b></td> <td width=16 style= ></td> <td ktlmm=912 style= ></td> </tr> <tr> <td width=16 height=11 style= border-left:solid #935388 0px; border-top:solid #555461 0px; border- right:solid #681194 0px; border-bottom:solid #983020 1px;></td> <td width=24 style= border-left:solid #456262 0px; border- top:solid #038864 0px; border-right:solid #283003 0px; border-bottom:solid #357739 1px;></td> <td width=16 style= border-left:solid #226888 0px; border-top:solid #428875 0px; border-right:solid #586633 0px; border-bottom:solid #113477 1px;></td> <td colspan=3 pthtj=575 style= border-left:solid #118378 0px; border-top:solid #081689 0px; border-right:solid #276712 0px; border- bottom:solid #117945 1px;> Continuation of Care</td> </tr> <tr> <td width=16></td> <td width=24></td> <td width=16></td> <td xchsx=573></td> <td width=16></td> <td jjrrb=653></td> </tr></table> <div></div><b>Trauma</b> <div></div><table class='tableFont' border=0 cellspacing=0 cellpadding=0 style= margin-left: 21pt;border-collapse: collapse; border: none> <tr> <td width=16 height=11 style= ></td> <td lwcai=784 style= > Trauma patient</td> <td width=16 style= > :</td> <td iwsqj=363 style= > No</td> </tr> <tr> <td width=16 height=11 style= ></td> <td diohf=848 style= > Trauma team activated</td> <td width=16 style= > :</td> <td klolf=572 style= > No</td> </tr></table> <div></div><b>[place] Coma Scale</b> <div></div><table class='tableFont' border=0 cellspacing=0 cellpadding=0 style= margin-left: 21pt;border-collapse: collapse; border: none> <tr> <td width=16 height=11 style= ></td> <td amvrj=740 style= > Buddy Coma Scale</td> <td width=16 style= > :</td> <td jlrmy=912 style= > 08/21/2021 11:43:00 AM</td> </tr> <tr> <td width=16 height=11 style= ></td> <td yjvng=310 style= ><div align=right > Risk Level</td> <td width=16 style= > :</td> <td hyllf=648 style= > 15 - Minor Head Injury</td> </tr></table> <div></div><b>COVID-19 Symptom Screening</b> <div></div><table class='tableFont' border=0 cellspacing=0 cellpadding=0 style= margin- left: 21pt;border-collapse: collapse; border: none> <tr> <td width=16 height=11 style= ></td> <td pzqyl=982 style= > Patient reported criteria:</td> <td width=16 style= > :</td> <td bqluz=033 style= > None</td> </tr></table> <div></div><b>Medications</b> <div></div><table class='tableFont' border=0 cellspacing=0 cellpadding=0 style= margin-left: 21pt;border-collapse: collapse; border: none> <tr> <td width=16 height=11 style= ></td> <td qsrff=364 style= > Review home medications</td> <td width=16 style= > :</td> <td hyrhu=765 style= > Reviewed with patient</td> </tr> <tr> <td width=16 height=11 style= ></td> <td asqek=983 style= > If HC pt, call HC dental professional for medlist.(can identify in care team or visit list)</td> <td width=16 style= > :</td> <td joove=782 style= > NA</td> </tr></table> <div></div><b>Primary Care Provider</b> <div></div><table class='tableFont' border=0 cellspacing=0 cellpadding=0 style= margin-left: 21pt;border-collapse: collapse; border: none> <tr> <td width=16 height=11 style= ></td> <td jimmp=153 style= > List Provider</td> <td width=16 style= > :</td> <td wyait=689 style= > [place]</td> </tr></table> <div></div><b>Pain assessment</b> <div></div><table class='tableFont' border=0 cellspacing=0 cellpadding=0 style= margin-left: 21pt;border-collapse: collapse; border: none> <tr> <td width=16 height=11 style= ></td> <td anpmr=890 style= > Pain scale</td> <td width=16 style= > :</td> <td jlvak=171 style= > 10</td> </tr> <tr> <td width=16 height=11 style= ></td> <td qlkiu=857 style= > Pain location:</td> <td width=16 style= > :</td> <td hkhmh=767 style= > Right flank</td> </tr> <tr> <td width=16 height=11 style= ></td> <td bwmxj=251 style= > Pain description:</td> <td width=16 style= > :</td> <td mavfh=916 style= > Sharp</td> </tr> <tr> <td width=16 height=11 style= ></td> <td zofza=299 style= > Pain management intervations prior to ER:</td> <td width=16 style= > :</td> <td zbzrl=195 style= > [place] 4-329zo-nlld 2 tabs at 1000</td> </tr> <tr> <td width=16 height=11 style= ></td> <td hlmei=342 style= > Interventions - Pain</td> <td width=16 style= > :</td> <td icqeg=138 style= > Positioned for comfort</td> </tr></table> <div></div><b>Cardiac</b> <div></div><table class='tableFont' border=0 cellspacing=0 cellpadding=0 style= margin-left: 21pt;border-collapse: collapse; border: none> <tr> <td width=16 height=11 style= ></td> <td ctilk=019 style= > Heart Sounds</td> <td width=16 style= > :</td> <td mkqif=872 style= > Normal S1 S2</td> </tr> <tr> <td width=16 height=11 style= ></td> <td mcvdl=897 style= > Rhythm</td> <td width=16 style= > :</td> <td acwax=721 style= > Normal Sinus</td> </tr> <tr> <td width=16 height=11 style= ></td> <td pdeah=971 style= ></td> <td width=16 style= ></td> <td acovf=622 style= > Regular Rhythm</td> </tr> <tr> <td width=16 height=11 style= ></td> <td pvejm=426 style= > Chest Pain</td> <td width=16 style= > :</td> <td etebx=759 style= > Denies pain</td> </tr> <tr> <td width=16 height=11 style= ></td> <td okwjx=653 style= > Chest Pain Radiation to</td> <td width=16 style= > :</td> <td aewod=307 style= > No radiation of pain</td> </tr> <tr> <td width=16 height=11 style= ></td> <td iehgk=869 style= > Circulation</td> <td width=16 style= > :</td> <td obgmt=335 style= > Capillary refill < 3 seconds</td> </tr> <tr> <td width=16 height=11 style= ></td> <td ylpte=690 style= > Edema</td> <td width=16 style= > :</td> <td nsdag=012 style= > No edema present</td> </tr></table> <div></div><b>Gastrointestinal</b> <div></div><table class='tableFont' border=0 cellspacing=0 cellpadding=0 style= margin-left: 21pt;border-collapse: collapse; border: none> <tr> <td width=16 height=11 style= ></td> <td ffucq=963 style= > Abdomen</td> <td width=16 style= > :</td> <td phsov=107 style= > Soft, non- tender</td> </tr> <tr> <td width=16 height=11 style= ></td> <td bqhvs=683 style= > Bowel sounds</td> <td width=16 style= > :</td> <td rsloy=513 style= > Present and active all quadrants</td> </tr> <tr> <td width=16 height=11 style= ></td> <td akprs=954 style= > Last normal bowel movement</td> <td width=16 style= > :</td> <td gkeyv=264 style= > 08/21/2021 11:00</td> </tr> <tr> <td width=16 height=11 style= ></td> <td rroto=499 style= > Nausea</td> <td width=16 style= > :</td> <td mctgr=837 style= > Intermittent</td> </tr> <tr> <td width=16 height=11 style= ></td> <td bhzww=217 style= > Vomiting</td> <td width=16 style= > :</td> <td plbzq=871 style= > No</td> </tr> <tr> <td width=16 height=11 style= ></td> <td uwtdn=455 style= > Bowel pattern</td> <td width=16 style= > :</td> <td tnmuj=912 style= > Normal for patient</td> </tr> <tr> <td width=16 height=11 style= ></td> <td gdzxy=532 style= > Blood/bleeding</td> <td width=16 style= > :</td> <td ukjuw=913 style= > Denies</td> </tr> <tr> <td width=16 height=11 style= ></td> <td ftdwr=123 style= > Appliances</td> <td width=16 style= > :</td> <td faiui=208 style= > None</td> </tr></table> <div></div><b>Genitourinary</b> <div></div><table class='tableFont' border=0 cellspacing=0 cellpadding=0 style= margin-left: 21pt;border-collapse: collapse; border: none> <tr> <td width=16 height=11 style= ></td> <td iolvx=594 style= > Urination</td> <td width=16 style= > :</td> <td eubjy=103 style= > Continent</td> </tr> <tr> <td width=16 height=11 style= ></td> <td cslnj=004 style= ></td> <td width=16 style= ></td> <td hzkle=768 style= > Urine clear/ normal in color</td> </tr> <tr> <td width=16 height=11 style= ></td> <td ypznr=676 style= ></td> <td width=16 style= ></td> <td gxowh=281 style= > Denies urgency, frequency, burning</td> </tr></table> <div></div><b>Integumentary</b> <div></div><table class='tableFont' border=0 cellspacing=0 cellpadding=0 style= margin-left: 21pt;border- collapse: collapse; border: none> <tr> <td width=16 height=11 style= ></td> <td qqgti=036 style= > Skin</td> <td width=16 style= > :</td> <td kzede=945 style= > Warm and pink</td> </tr> <tr> <td width=16 height=11 style= ></td> <td zbxvd=354 style= ></td> <td width=16 style= ></td> <td bvmtm=478 style= > Dry</td> </tr> <tr> <td width=16 height=11 style= ></td> <td euzir=756 style= ></td> <td width=16 style= ></td> <td loufc=278 style= > Flushed/reddened</td> </tr></table> <div></div><b>Psych</b> <div></div><table class='tableFont' border=0 cellspacing=0 cellpadding=0 style= margin- left: 21pt;border-collapse: collapse; border: none> <tr> <td width=16 height=11 style= ></td> <td xclks=072 style= > Behavior</td> <td width=16 style= > :</td> <td pmiqa=050 style= > Appropriate for age and situation</td> </tr> <tr> <td width=16 height=11 style= ></td> <td xzmfi=344 style= ></td> <td width=16 style= ></td> <td xqifp=396 style= > Cooperative with staff</td> </tr> <tr> <td width=16 height=11 style= ></td> <td yvyuk=086 style= > Communication</td> <td width=16 style= > :</td> <td chtvv=527 style= > Communicates effectively</td> </tr> <tr> <td width=16 height=11 style= ></td> <td mmrta=821 style= ></td> <td width=16 style= ></td> <td wjmul=532 style= > Responds appropriately to questions</td> </tr> <tr> <td width=16 height=11 style= ></td> <td xxvgi=254 style= > Affect</td> <td width=16 style= > :</td> <td glkok=835 style= > Normal for patient</td> </tr> <tr> <td width=16 height=11 style= ></td> <td cwzic=919 style= ></td> <td width=16 style= ></td> <td vdpxg=249 style= > Calm</td> </tr> <tr> <td width=16 height=11 style= ></td> <td amduh=114 style= > Update Social Profile</td> <td width=16 style= > :</td> <td jenai=738 style= > Complete</td> </tr> <tr> <td width=16 height=11 style= ></td> <td wnhyt=940 style= > Update Care Team</td> <td width=16 style= > :</td> <td vfskq=419 style= > Complete</td> </tr></table> <div></div><b>Fall risk</b> <div></div><table class='tableFont' border=0 cellspacing=0 cellpadding=0 style= margin-left: 21pt;border-collapse: collapse; border: none> <tr> <td width=16 height=11 style= ></td> <td sdhxe=054 style= > [place] Fall Scale</td> <td width=16 style= > :</td> <td hvxsc=629 style= > 08/21/2021 11:43:00 AM</td> </tr> <tr> <td width=16 height=11 style= ></td> <td uruky=625 style= ><div align=right > Risk Level</td> <td width=16 style= > :</td> <td zcheg=997 style= > 0 - No Risk</td> </tr></table> <div></div><b>Notes</b> <div></div><table class='tableFont' border=0 cellspacing=0 cellpadding=0 style= margin-left: 21pt;border-collapse: collapse; border: none> <tr> <td width=98 height=11 style= > <b>Charted Date</b> </td> <td eeglu=492 style= > 08/21/2021 12:49 </td> </tr> <tr> <td width=98 height=11 style= > <b>Charted By</b> </td> <td zaxsu=549 style= > ALFONZO TANG </td> </tr> <tr> <td width=98 height=11 style= > <b>Type</b> </td> <td fvtrn=767 style= > Nurses Note </td> </tr> <tr> <td width=98 height=11 style= > <b>Note</b> </td> <td hkrmk=345 style= > <div>Patient's pain has improved from a 01/16 to 06/16. Is visiting with family in room. Will monitor.</div> </td> </tr> <tr> <td width=98 height=11 style= > <b>Signed On</b> </td> <td sgnzu=659 style= > 08/21/2021 12:49 </td> </tr> <tr> <td width=98 height=11 style= > <b>Signed by</b> </td> <td ybbxi=027 style= > ALFONZO TANG </td> </tr> <tr> <td width=98 height=11 style= > <b>Cosigned On</b> </td> <td vfill=551 style= ></td> </tr> <tr> <td width=98 height=11 style= > <b>Cosigned by</b> </td> <td mggim=109 style= ></td> </tr></table> <div></div><table class='tableFont' border=0 cellspacing=0 cellpadding=0 style= margin-left: 21pt;border-collapse: collapse; border: none> <tr> <td width=98 height=11 style= > <b>Charted Date</b> </td> <td tfxaj=985 style= > 08/21/2021 12:10 </td> </tr> <tr> <td width=98 height=11 style= > <b>Charted By</b> </td> <td pqmvn=444 style= > KITTY, ALFONZO A </td> </tr> <tr> <td width=98 height=11 style= > <b>Type</b> </td> <td ruwcg=995 style= > Nurses Note </td> </tr> <tr> <td width=98 height=11 style= > <b>Note</b> </td> <td agccq=859 style= > <div><renderedtemplate template=86><div style=text-indent:0pt><span style=font-size:12px><span style=font-family:Itmann,Helvetica,sans-serif><span style=color:#[id number]><strong>IV Start using aseptic technique.</strong></span></span></span></div><div style=text-indent:0pt><span style=font-size:12px><span style=font-family:Itmann,Helvetica,sans-serif><span style=color:#[id number]>Explained procedure to patient/family.</span></span></span></div><div style=text-indent:0pt><span style=font-size:12px><span style=font-family:Itmann,Helvetica,sans-serif><span style=color:#[id number]>Indication for PIV: Meds</span></span></span></div><div style=text-indent:0pt><span style=font-size:12px><span style=font-family:Itmann,Helvetica,sans-serif><span style=color:#[id number]>Site: Left AC</span></span></span></div><div style=text- indent:0pt><span style=font-size:12px><span style=font-family:Itmann,Helvetica,sans-serif><span style=color:#[id number]>Size: 20 g</span></span></span></div><div style=text-indent:0pt><span style=font-size:12px><span style=font-family:Itmann,Helvetica,sans-serif><span style=color:#[id number]>Solution and rate or Saline lock: S.L.</span></span></span></div><div style=text-indent:0pt><span style=font-size:12px><span style=font-family:Itmann,Helvetica,sans-serif><span style=color:#[id number]>Dressing type/securement: [place] Shield</span></span></span></div><div style=text-indent:0pt><span style=font-size:12px><span style=font-family:Itmann,Helvetica,sans-serif><span style=color:#[id number]>Number of attempts & location(s): 1</span></span></span></div><div style=text-indent:0pt><span style=font- size:12px><span style=font-family:Itmann,Helvetica,sans-serif><span style=color:#[id number]>Lidocaine used (no/yes per policy): No</span></span></span></div><div style=text-indent:0pt><span style=font- size:12px><span style=font-family:Itmann,Helvetica,sans-serif><span style=color:#[id number]>IV site, tubing labeled: Yes</span></span></span></div><div style=text-indent:0pt><span style=font-size:12px><span style=font-family:Itmann,Helvetica,sans-serif><span style=color:#[id number]>Patient tolerated procedure well without any complications or complaints. </span></span></span></div><div style=text-indent:0pt></div></renderedtemplate></div> </td> </tr> <tr> <td width=98 height=11 style= > <b>Signed On</b> </td> <td abicd=309 style= > 08/21/2021 12:11 </td> </tr> <tr> <td width=98 height=11 style= > <b>Signed by</b> </td> <td dhgjx=556 style= > ALFONZO TANG A </td> </tr> <tr> <td width=98 height=11 style= > <b>Cosigned On</b> </td> <td wexsg=730 style= ></td> </tr> <tr> <td width=98 height=11 style= > <b>Cosigned by</b> </td> <td tisui=595 style= ></td> </tr></table> <div></div><table class='tableFont' border=0 cellspacing=0 cellpadding=0 style= margin-left: 21pt;border-collapse: collapse; border: none> <tr> <td width=98 height=11 style= > <b>Charted Date</b> </td> <td uimxg=356 style= > 08/21/2021 11:43 </td> </tr> <tr> <td width=98 height=11 style= > <b>Charted By</b> </td> <td ypmny=009 style= > ALFONZO TANG </td> </tr> <tr> <td width=98 height=11 style= > <b>Type</b> </td> <td pvovn=584 style= > Abnormal Assessment Note </td> </tr> <tr> <td width=98 height=11 style= > <b>Note</b> </td> <td rhztu=950 style= > <P>Assessment : </FONT> ED: Full Assessment</P><P>Gastrointestinal <FONT style=BACKGROUND-COLOR: #ffffff; FONT- SIZE: 9pt; face=Itmann>: </FONT>Nausea <FONT style=BACKGROUND-COLOR: #ffffff; FONT-SIZE: 9pt; face=Itmann>: </FONT> Intermittent</P> <P>Integumentary <FONT style=BACKGROUND-COLOR: #ffffff; FONT-SIZE: 9pt; face=Itmann>: </FONT>Skin <FONT style=BACKGROUND- COLOR: #ffffff; FONT-SIZE: 9pt; face=Itmann>: </FONT> Flushed/reddened</P> </td> </tr> <tr> <td width=98 height=11 style= > <b>Signed On</b> </td> <td mnims=773 style= > 08/21/2021 11:45 </td> </tr> <tr> <td width=98 height=11 style= > <b>Signed by</b> </td> <td zalgd=679 style= > ALFONZO TANG </td> </tr> <tr> <td width=98 height=11 style= > <b>Cosigned On</b> </td> <td yrsof=764 style= ></td> </tr> <tr> <td width=98 height=11 style= > <b>Cosigned by</b> </td> <td nvrry=050 style= ></td> </tr></table> <div></div><b>Vital Signs</b> <div></div><table class='tableFont' border=0 cellspacing=0 cellpadding=0 style= margin-left: 21pt;border-collapse: collapse; border: none> <tr> <td width=98 height=11 style= > <b>Date/Time</b> </td> <td width=98 style= > <b>08/21/2021 11:40</b> </td> <td width=0 style= > <b>08/21/2021 12:41</b> </td> </tr> <tr> <td width=98 height=11 style= > <b>HR</b> </td> <td width=98 style= > 57 </td> <td width=0 style= ></td> </tr> <tr> <td width=98 height=11 style= > <b>Systolic(mm/Hg)</b> </td> <td width=98 style= > 127 </td> <td width=0 style= ></td> </tr> <tr> <td width=98 height=11 style= > <b>Diastolic(mm/Hg)</b> </td> <td width=98 style= > 80 </td> <td width=0 style= ></td> </tr> <tr> <td width=98 height=11 style= > <b>BP Site</b> </td> <td width=98 style= ></td> <td width=0 style= ></td> </tr> <tr> <td width=98 height=11 style= > <b>BP Position</b> </td> <td width=98 style= ></td> <td width=0 style= ></td> </tr> <tr> <td width=98 height=11 style= > <b>MAP(mm/Hg)</b> </td> <td width=98 style= > 95.67 </td> <td width=0 style= ></td> </tr> <tr> <td width=98 height=11 style= > <b>Temp(F)</b> </td> <td width=98 style= > 96.4 F </td> <td width=0 style= ></td> </tr> <tr> <td width=98 height=11 style= > <b>T Method</b> </td> <td width=98 style= > Axillary </td> <td width=0 style= > </td> </tr> <tr> <td width=98 height=11 style= > <b>Resp</b> </td> <td width=98 style= > 20 </td> <td width=0 style= ></td> </tr> <tr> <td width=98 height=11 style= > <b>SpO2(%)</b> </td> <td width=98 style= > 100 % </td> <td width=0 style= ></td> </tr> <tr> <td width=98 height=11 style= > <b>O2</b> </td> <td width=98 style= > Room Air </td> <td width=0 style= ></td> </tr> <tr> <td width=98 height=11 style= > <b>BS (mg/dL)</b> </td> <td width=98 style= ></td> <td width=0 style= ></td> </tr> <tr> <td width=98 height=11 style= > <b>Pain Scale</b> </td> <td width=98 style= > 10 </td> <td width=0 style= > 3 </td> </tr></table> <div></div><b>Intake/Output</b> <div></div><b>Intake:</b> <div></div><table class='tableFont' border=0 cellspacing=0 cellpadding=0 style= margin-left: 21pt;border-collapse: collapse; border: none> <tr> <td width=16 height=11 style= ></td> <td fgnxh=908 style= > Intake</td> <td width=16 style= > :</td> <td uwcvf=322 style= > 0</td> </tr></table> <div></div><b>Output:</b> <div></div><table class='tableFont' border=0 cellspacing=0 cellpadding=0 style= margin-left: 21pt;border-collapse: collapse; border: none> <tr> <td width=16 height=11 style= ></td> <td ixxfp=602 style= > Output</td> <td width=16 style= > :</td> <td jzehq=588 style= > 0</td> </tr></table> <div></div><b>FluidBalance:</b> <div></div><table class='tableFont' border=0 cellspacing=0 cellpadding=0 style= margin- left: 21pt;border-collapse: collapse; border: none> <tr> <td width=16 height=11 style= ></td> <td qpngh=851 style= > FluidBalance</td> <td width=16 style= > :</td> <td yuzep=526 style= > 0</td> </tr></table> <div></div><b>Other:</b> <div></div><table class='tableFont' border=0 cellspacing=0 cellpadding=0 style= margin-left: 21pt;border-collapse: collapse; border: none> <tr> <td width=16 height=11 style= ></td> <td umbrk=439 style= > Other</td> <td width=16 style= > :</td> <td ejlhb=246 style= > 0</td> </tr></table> <div></div><b>Orders</b> <div></div><b>Medication Order</b> <div></div><table class='tableFont' border=0 cellspacing=0 cellpadding=0 style= margin-left: 21pt;border-collapse: collapse; border: none> <tr> <td colspan=4 tqfyl=1856 height=11 style= > <b>IV Site Info</b> </td> </tr> <tr> <td width=82 height=11 style= ></td> <td irddo=628 style= > No IV sites created </td> <td colspan=2 width=82 style= ></td> </tr> <tr> <td width=82></td> <td hawrb=737></td> <td width=82></td> <td lcblm=428></td> </tr></table> <div></div><table class='tableFont' border=0 cellspacing=0 cellpadding=0 style= margin-left: 21pt;border-collapse: collapse; border: none> <tr> <td colspan=2 width=16 height=11 style= border- left:solid #[id number] 0px; border-top:solid #[id number] 1px; border-right:solid #[id number] 0px; border-bottom:solid #[id number] 0px;></td> <td colspan=3 hmyts=750 style= border-left:solid #[id number] 0px; border-top:solid #725902 1px; border-right:solid #[id number] 0px; border- bottom:solid #[id number] 0px;> <div></div><b>Medication Order</b></td> <td width=16 style= border-left:solid #[id number] 0px; border- top:solid #[id number] 1px; border-right:solid #[id number] 0px; border-bottom:solid #[id number] 0px;></td> <td colspan=11 bloqb=287 style= border-left:solid #[id number] 0px; border-top:solid #254060 1px; border-right:solid #096261 0px; border-bottom:solid #212549 0px;> <b>: KETOROLAC [30MG/ML] VIAL (TORADOL)</b></td> </tr> <tr> <td colspan=2 width=16 height=11 style= border-left:solid #091812 0px; border-top:solid #283005 0px; border-right:solid #884392 0px; border-bottom:solid #514965 1px;></td> <td colspan=3 zarre=984 style= border-left:solid #715530 0px; border-top:solid #065735 0px; border-right:solid #707157 0px; border-bottom:solid #628199 1px;> <b>Current Status</b></td> <td width=16 style= border-left:solid #262080 0px; border-top:solid #200190 0px; border-right:solid #860254 0px; border-bottom:solid #460620 1px;></td> <td colspan=11 exatf=206 style= border-left:solid #086895 0px; border-top:solid #391097 0px; border-right:solid #385719 0px; border-bottom:solid #921147 1px;> <b>: Complete - 08/21/2021 12:08 </b></td> </tr> <tr> <td colspan=2 width=16 height=11 style= ></td> <td colspan=5 evhpa=901 style= > Created By </td> <td colspan=4 toxsq=401 style= > : ALFONZO TANG </td> <td colspan=2 khkqh=324 style= > Created on </td> <td colspan=2 pigyp=922 style= > : 08/21/2021 12:04 </td> <td jpilh=977 style= > Receive Type </td> <td xnkul=114 style= > : Verbal </td> </tr> <tr> <td colspan=2 width=16 height=11 style= ></td> <td colspan=5 sjwvp=102 style= > Ordering MD </td> <td colspan=4 ifeow=004 style= > : Endeavor, Lupillo </td> <td colspan=2 gcjsk=653 style= > Priority </td> <td colspan=2 bjpai=052 style= > : STAT </td> <td msmqt=804 style= > Frequency </td> <td aimio=578 style= > : ONCE </td> </tr> <tr> <td colspan=2 width=16 height=11 style= ></td> <td colspan=5 uzrst=827 style= > Times </td> <td colspan=4 vwudy=783 style= > : 12:04 </td> <td colspan=2 tihgj=995 style= > Special Instructions </td> <td colspan=2 hvxin=356 style= > : must document waste quantity in the waste log during administration </td> <td jgmem=713 style= > Location </td> <td yyukl=290 style= > : ED </td> </tr> <tr> <td colspan=2 width=16 height=11 style= ></td> <td colspan=5 yundg=294 style= > Type </td> <td colspan=4 qlvtn=575 style= > : Verbal </td> <td colspan=2 zveaa=695 style= > Duration </td> <td colspan=2 kqbum=039 style= > : 2 Days </td> <td suojz=112 style= > Reason </td> <td doujq=434 style= > : </td> </tr> <tr> <td colspan=2 width=16 height=11 style= ></td> <td colspan=5 ruczx=695 style= > Start DateTime </td> <td colspan=4 srfkm=072 style= > 08/21/2021 12:04 </td> <td colspan=2 citew=466 style= > Stop DateTime </td> <td colspan=2 zljaj=485 style= > 08/23/2021 12:04 </td> <td epatn=331 style= > Strength </td> <td hnfsa=860 style= > : 30 MG/ML Solution </td> </tr> <tr> <td colspan=2 width=16 height=11 style= ></td> <td colspan=5 bmjtk=621 style= > Home Medication </td> <td colspan=4 zvtas=526 style= > : False </td> <td colspan=2 aicva=248 style= > Route </td> <td colspan=2 sfakn=279 style= > : IVP IV PUSH </td> <td izjty=490 style= > Dosage </td> <td ftxxc=428 style= > : 30 mg </td> </tr> <tr> <td colspan=2 width=16 height=11 style= ></td> <td colspan=15 ssyks=007 style= > Order Notes : - </td> </tr> <tr> <td width=0 height=11 style= ></td> <td width=0 style= > </td> <td width=0 style= ></td> <td width=0 style= ></td> <td width=0 style= ></td> <td width=0 style= ></td> <td width=0 style= ></td> </tr> <tr> <td colspan=2 width=16 height=11 style= ></td> <td colspan=9 dbskh=1680 style= > <b>Diagnosis</b> </td> <td colspan=2 morff=625 style= ></td> <td colspan=4 gxxcs=451 style= ></td> </tr> <tr> <td width=0 height=11 style= ></td> <td width=0 style= ></td> <td width=0 style= > No items available </td> <td width=0 style= ></td> <td width=0 style= ></td> <td width=0 style= ></td> <td width=0 style= ></td> </tr> <tr> <td width=0 height=11 style= ></td> <td width=0 style= > </td> <td width=0 style= ></td> <td width=0 style= ></td> <td width=0 style= ></td> <td width=0 style= ></td> <td width=0 style= ></td> </tr> <tr> <td colspan=2 width=16 height=11 style= ></td> <td colspan=3 gwnoc=001 style= > <b>Validation</b></td> <td width=16 style= ></td> <td colspan=11 yjmwr=694 style= ></td> </tr> <tr> <td colspan=3 width=82 height=11 style= ></td> <td gccfh=160 style= > Validated On</td> <td colspan=13 dqexo=478 style= > : 08/21/2021 12:04 </td> </tr> <tr> <td colspan=3 width=82 height=11 style= ></td> <td rehvb=339 style= > Validated By </td> <td colspan=13 kozyy=838 style= > : ALFONZO TANG </td> </tr> <tr> <td colspan=3 width=82 height=11 style= ></td> <td kcmfv=583 style= > Validation Notes </td> <td colspan=13 vkvnh=169 style= > : - </td> </tr> <tr> <td colspan=17 ecnej=1096 height=11 style= > <b>Administration</b> </td> </tr> <tr> <td width=0></td> <td width=16></td> <td width=66></td> <td kktte=518></td> <td width=16></td> <td width=16></td> <td width=66></td> <td ryjaf=559></td> <td width=0></td> <td width=0></td> <td lwcrc=649></td> <td eqxop=248></td> <td agvym=169></td> <td lsetn=550></td> <td bznbw=189></td> <td srtqp=636></td> <td xanea=126></td> </tr></table> <div></div><table class='tableFont' border=0 cellspacing=0 cellpadding=0 style= margin-left: 21pt;border-collapse: collapse; border: none> <tr> <td width=82 height=11 style= ></td> <td iemle=513 style= > Started On </td> <td jqxbj=560 style= > : 08/21/2021 12:08 </td> </tr> <tr> <td width=82 height=11 style= ></td> <td djffi=869 style= > Administered By </td> <td hdmju=219 style= > : ALFONZO TANG RN </td> </tr> <tr> <td width=82 height=11 style= ></td> <td sxivk=316 style= > Route </td> <td whpqp=797 style= > : IVP IV PUSH </td> </tr> <tr> <td width=82 height=11 style= ></td> <td jahmu=673 style= > Site </td> <td zvubn=358 style= > : </td> </tr> <tr> <td width=82 height=11 style= ></td> <td tvtvc=861 style= > Administration Notes </td> <td iiedd=760 style= > : - </td> </tr></table> <div></div><table class='tableFont' border=0 cellspacing=0 cellpadding=0 style= margin-left: 21pt;border-collapse: collapse; border: none> <tr> <td colspan=2 width=16 height=11 style= border-left:solid #728159 0px; border-top:solid #651547 1px; border-right:solid #101240 0px; border-bottom:solid #235684 0px;></td> <td colspan=3 inbwd=140 style= border-left:solid #527665 0px; border-top:solid #745923 1px; border-right:solid #301891 0px; border-bottom:solid #127357 0px;> <div></div><b>Medication Order</b></td> <td width=16 style= border-left:solid #418275 0px; border-top:solid #422271 1px; border-right:solid #921965 0px; border- bottom:solid #933328 0px;></td> <td colspan=11 fcyrv=156 style= border-left:solid #263058 0px; border-top:solid #874497 1px; border- right:solid #248613 0px; border-bottom:solid #830941 0px;> <b>: TAMSULOSIN [0.4MG] CAPSULE (FLOMAX)</b></td> </tr> <tr> <td colspan=2 width=16 height=11 style= border-left:solid #899674 0px; border-top:solid #440464 0px; border-right:solid #153834 0px; border- bottom:solid #597452 1px;></td> <td colspan=3 nxcaq=152 style= border-left:solid #134629 0px; border-top:solid #996043 0px; border- right:solid #687982 0px; border-bottom:solid #738054 1px;> <b>Current Status</b></td> <td width=16 style= border-left:solid #182429 0px; border-top:solid #230796 0px; border-right:solid #229440 0px; border-bottom:solid #567560 1px;></td> <td colspan=11 oiqqw=780 style= border-left:solid #886711 0px; border-top:solid #803480 0px; border-right:solid #343959 0px; border-bottom:solid #110466 1px;> <b>: Complete - 08/21/2021 13:13 </b></td> </tr> <tr> <td colspan=2 width=16 height=11 style= ></td> <td colspan=5 zongn=847 style= > Created By </td> <td colspan=4 ujkos=458 style= > : ALFONZO TANG </td> <td colspan=2 qxsem=729 style= > Created on </td> <td colspan=2 uyvuz=328 style= > : 08/21/2021 13:12 </td> <td xsanj=201 style= > Receive Type </td> <td zbgse=589 style= > : Verbal </td> </tr> <tr> <td colspan=2 width=16 height=11 style= ></td> <td colspan=5 oskwb=713 style= > Ordering MD </td> <td colspan=4 vwkmy=598 style= > : Lupillo Ashraf </td> <td colspan=2 xyhdn=913 style= > Priority </td> <td colspan=2 wczjg=396 style= > : STAT </td> <td egqij=608 style= > Frequency </td> <td fuusj=432 style= > : ONCE </td> </tr> <tr> <td colspan=2 width=16 height=11 style= ></td> <td colspan=5 nkiwm=092 style= > Times </td> <td colspan=4 gclxl=229 style= > : 13:11 </td> <td colspan=2 ttewi=256 style= > Special Instructions </td> <td colspan=2 bhwvp=284 style= > : </td> <td dpvmm=797 style= > Location </td> <td zzcsv=816 style= > : ED </td> </tr> <tr> <td colspan=2 width=16 height=11 style= ></td> <td colspan=5 uiosb=533 style= > Type </td> <td colspan=4 wzdnl=664 style= > : Verbal </td> <td colspan=2 kjlnx=708 style= > Duration </td> <td colspan=2 hgrka=130 style= > : 2 Days </td> <td fqlqs=533 style= > Reason </td> <td hfuvg=508 style= > : </td> </tr> <tr> <td colspan=2 width=16 height=11 style= ></td> <td colspan=5 fszwf=571 style= > Start DateTime </td> <td colspan=4 ibciz=087 style= > 08/21/2021 13:11 </td> <td colspan=2 vqtga=367 style= > Stop DateTime </td> <td colspan=2 qyfza=743 style= > 08/23/2021 13:11 </td> <td pcwdw=369 style= > Strength </td> <td awonv=073 style= > : 0.4 MG Capsule </td> </tr> <tr> <td colspan=2 width=16 height=11 style= ></td> <td colspan=5 vnaod=852 style= > Home Medication </td> <td colspan=4 tntbm=451 style= > : False </td> <td colspan=2 wlmxb=431 style= > Route </td> <td colspan=2 hroac=297 style= > : PO Oral </td> <td oavar=943 style= > Dosage </td> <td yjjpm=222 style= > : 0.4 mg </td> </tr> <tr> <td colspan=2 width=16 height=11 style= ></td> <td colspan=5 clgaw=905 style= > Volume </td> <td colspan=4 cokap=983 style= > : 0.818293hh </td> <td colspan=2 luoha=986 style= ></td> <td colspan=2 tkvef=781 style= ></td> <td exsow=259 style= ></td> <td bxxvr=807 style= ></td> </tr> <tr> <td colspan=2 width=16 height=11 style= ></td> <td colspan=15 pwpqz=498 style= > Order Notes : - </td> </tr> <tr> <td width=0 height=11 style= ></td> <td width=0 style= > </td> <td width=0 style= ></td> <td width=0 style= ></td> <td width=0 style= ></td> <td width=0 style= ></td> <td width=0 style= ></td> </tr> <tr> <td colspan=2 width=16 height=11 style= ></td> <td colspan=9 zumxc=1787 style= > <b>Diagnosis</b> </td> <td colspan=2 tllmo=142 style= ></td> <td colspan=4 sqwdn=957 style= ></td> </tr> <tr> <td width=0 height=11 style= ></td> <td width=0 style= ></td> <td width=0 style= > No items available </td> <td width=0 style= ></td> <td width=0 style= ></td> <td width=0 style= ></td> <td width=0 style= ></td> </tr> <tr> <td width=0 height=11 style= ></td> <td width=0 style= > </td> <td width=0 style= ></td> <td width=0 style= ></td> <td width=0 style= ></td> <td width=0 style= ></td> <td width=0 style= ></td> </tr> <tr> <td colspan=2 width=16 height=11 style= ></td> <td colspan=3 loxav=717 style= > <b>Validation</b></td> <td width=16 style= ></td> <td colspan=11 rarru=466 style= ></td> </tr> <tr> <td colspan=3 width=82 height=11 style= ></td> <td nkrgf=727 style= > Validated On</td> <td colspan=13 ziwun=810 style= > : 08/21/2021 13:12 </td> </tr> <tr> <td colspan=3 width=82 height=11 style= ></td> <td svyfo=252 style= > Validated By </td> <td colspan=13 zptax=877 style= > : ALFONZO TANG </td> </tr> <tr> <td colspan=3 width=82 height=11 style= ></td> <td bowev=497 style= > Validation Notes </td> <td colspan=13 qpgax=249 style= > : - </td> </tr> <tr> <td colspan=17 vrzgk=3561 height=11 style= > <b>Administration</b> </td> </tr> <tr> <td width=0></td> <td width=16></td> <td width=66></td> <td fytvh=960></td> <td width=16></td> <td width=16></td> <td width=66></td> <td qicdr=076></td> <td width=0></td> <td width=0></td> <td ljfpr=006></td> <td kloue=629></td> <td qwzgi=180></td> <td ufiml=084></td> <td zcbdv=799></td> <td ffghi=498></td> <td tqbhy=856></td> </tr></table> <div></div><table class='tableFont' border=0 cellspacing=0 cellpadding=0 style= margin-left: 21pt;border-collapse: collapse; border: none> <tr> <td width=82 height=11 style= ></td> <td dwhkb=979 style= > Started On </td> <td yikcj=747 style= > : 08/21/2021 13:13 </td> </tr> <tr> <td width=82 height=11 style= ></td> <td xgtxn=055 style= > Administered By </td> <td tvrzv=451 style= > : ALFONZO TANG RN </td> </tr> <tr> <td width=82 height=11 style= ></td> <td zoocy=327 style= > Route </td> <td ylzew=995 style= > : PO Oral </td> </tr> <tr> <td width=82 height=11 style= ></td> <td cecpz=183 style= > Site </td> <td tfiig=140 style= > : </td> </tr> <tr> <td width=82 height=11 style= ></td> <td wqear=735 style= > Administration Notes </td> <td sygof=386 style= > : - </td> </tr></table> <div></div><b>Radiology Order</b> <div></div><table class='tableFont' border=0 cellspacing=0 cellpadding=0 style= margin-left: 21pt;border-collapse: collapse; border: none> <tr> <td colspan=2 width=16 height=11 style= border- left:solid #151358 0px; border-top:solid #941914 1px; border-right:solid #943878 0px; border-bottom:solid #277995 0px;></td> <td colspan=2 mvlmn=456 style= border-left:solid #299904 0px; border-top:solid #187284 1px; border-right:solid #460237 0px; border- bottom:solid #293393 0px;> <div></div><b>Radiology Order</b></td> <td width=16 style= border-left:solid #091115 0px; border- top:solid #220602 1px; border-right:solid #954929 0px; border-bottom:solid #400722 0px;></td> <td colspan=13 awniu=411 style= border-left:solid #104893 0px; border-top:solid #582375 1px; border-right:solid #760855 0px; border-bottom:solid #124983 0px;> <b>: HSP_00001 (CT ABDOMEN/PELVIS WO CONTRAST)</b></td> </tr> <tr> <td colspan=2 width=16 height=11 style= border-left:solid #120586 0px; border-top:solid #584649 0px; border-right:solid #147529 0px; border-bottom:solid #334849 1px;></td> <td colspan=2 lseie=164 style= border-left:solid #220436 0px; border-top:solid #039573 0px; border-right:solid #204008 0px; border-bottom:solid #959768 1px;> <b>Current Status</b></td> <td width=16 style= border-left:solid #443595 0px; border-top:solid #774103 0px; border-right:solid #860542 0px; border-bottom:solid #225973 1px;></td> <td colspan=13 clqzh=634 style= border-left:solid #122463 0px; border-top:solid #709586 0px; border-right:solid #281317 0px; border-bottom:solid #775144 1px;> <b>: Complete - 08/21/2021 12:24 </b></td> </tr> <tr> <td colspan=2 width=16 height=11 style= ></td> <td colspan=7 mirrl=010 style= > Created By </td> <td colspan=4 uzizy=789 style= > : ALFONZO TANG </td> <td kmfjz=736 style= > Created on </td> <td colspan=2 sbmzr=922 style= > : 08/21/2021 12:02 </td> <td cysek=094 style= > Receive Type </td> <td yefdt=722 style= > : Verbal </td> </tr> <tr> <td colspan=2 width=16 height=11 style= ></td> <td colspan=7 uszjq=681 style= > Ordering MD </td> <td colspan=4 tudes=416 style= > : Andriy, Lupillo </td> <td adikw=120 style= > Priority </td> <td colspan=2 flxdr=355 style= > : STAT </td> <td uezwo=351 style= > Frequency </td> <td swpgb=555 style= > : ONCE </td> </tr> <tr> <td colspan=2 width=16 height=11 style= ></td> <td colspan=7 rqspp=070 style= > Times </td> <td colspan=4 mrnqm=203 style= > : 12:01 </td> <td nadcp=768 style= > Special Instructions </td> <td colspan=2 gngqb=626 style= > : </td> <td qtcfm=930 style= > Location </td> <td lcgbh=274 style= > : ED </td> </tr> <tr> <td colspan=2 width=16 height=11 style= ></td> <td colspan=7 vtrek=095 style= > Type </td> <td colspan=4 wosxl=648 style= > : Verbal </td> <td ikzav=975 style= > Duration </td> <td colspan=2 durxc=167 style= > : 2 Days </td> <td svzar=777 style= > Reason </td> <td vrpdv=164 style= > : Right flank pain </td> </tr> <tr> <td colspan=2 width=16 height=11 style= ></td> <td colspan=7 tobye=124 style= > Start DateTime </td> <td colspan=4 iuccq=439 style= > 08/21/2021 12:01 </td> <td jxdgp=694 style= > Stop DateTime </td> <td colspan=2 iizzp=766 style= > 08/23/2021 12:01 </td> <td ldmyk=946 style= > Strength </td> <td lgaso=486 style= > : </td> </tr> <tr> <td colspan=2 width=16 height=11 style= ></td> <td colspan=7 flrlx=897 style= > Order Notes </td> <td colspan=9 sfnch=772 style= > : *No Prev VRad prleim hx of appendectomy </td> </tr> <tr> <td width=0 height=11 style= ></td> <td width=0 style= > </td> <td width=0 style= ></td> <td width=0 style= ></td> <td width=0 style= ></td> <td width=0 style= ></td> <td width=0 style= ></td> </tr> <tr> <td colspan=2 width=16 height=11 style= ></td> <td colspan=11 xalxd=3327 style= > <b>Diagnosis</b> </td> <td ganlg=383 style= ></td> <td colspan=4 jykvs=880 style= ></td> </tr> <tr> <td width=0 height=11 style= ></td> <td width=0 style= ></td> <td width=0 style= > No items available </td> <td width=0 style= ></td> <td width=0 style= ></td> <td width=0 style= ></td> <td width=0 style= ></td> </tr> <tr> <td width=0 height=11 style= ></td> <td width=0 style= > </td> <td width=0 style= ></td> <td width=0 style= ></td> <td width=0 style= ></td> <td width=0 style= ></td> <td width=0 style= ></td> </tr> <tr> <td colspan=2 width=16 height=11 style= ></td> <td colspan=5 yeueb=161 style= > <b>Validation</b></td> <td width=16 style= ></td> <td colspan=10 hbomi=446 style= ></td> </tr> <tr> <td colspan=3 width=82 height=11 style= ></td> <td colspan=3 grbbo=510 style= > Validated On</td> <td colspan=12 nffts=249 style= > : 08/21/2021 12:02 </td> </tr> <tr> <td colspan=3 width=82 height=11 style= ></td> <td colspan=3 oanze=257 style= > Validated By </td> <td colspan=12 wrsgo=799 style= > : KITTYALFONZO SOTO </td> </tr> <tr> <td colspan=3 width=82 height=11 style= ></td> <td colspan=3 iikju=720 style= > Validation Notes </td> <td colspan=12 glkwk=105 style= > : - </td> </tr> <tr> <td colspan=2 width=16 height=11 style= ></td> <td colspan=5 rbzsu=061 style= > <b>Radiology Results</b></td> <td width=16 style= ></td> <td colspan=10 yauoe=332 style= ></td> </tr> <tr> <td colspan=3 width=82 height=11 style= ></td> <td colspan=7 qnqij=590 style= > No results yet</td> <td colspan=8 width=82 style= ></td> </tr> <tr> <td width=0></td> <td width=16></td> <td width=66></td> <td width=98></td> <td width=16></td> <td width=49></td> <td width=16></td> <td width=16></td> <td width=66></td> <td oisuy=889></td> <td width=82></td> <td width=0></td> <td vxblt=802></td> <td jlnxz=856></td> <td comsx=488></td> <td slqlh=568></td> <td pdtzl=185></td> <td geawp=757></td> </tr></table> <div></div><b>Laboratory Order</b> <div></div><table class='tableFont' border=0 cellspacing=0 cellpadding=0 style= margin-left: 11pt;border-collapse: collapse; border: none> <tr> <td colspan=2 width=16 height=11 style= border-left:solid #627651 0px; border-top:solid #147731 1px; border-right:solid #077455 0px; border-bottom:solid #259181 0px;></td> <td colspan=3 vccdh=495 style= border-left:solid #263074 0px; border-top:solid #330961 1px; border-right:solid #516288 0px; border-bottom:solid #509429 0px;> <div></div><b>Laboratory Order</b></td> <td width=16 style= border-left:solid #951866 0px; border-top:solid #076850 1px; border-right:solid #284436 0px; border- bottom:solid #381500 0px;></td> <td colspan=20 lchow=071 style= border-left:solid #885604 0px; border-top:solid #797986 1px; border- right:solid #881924 0px; border-bottom:solid #256184 0px;> <b>: UA W MICRO RFLX (URINALYSIS (UA) W MICRO, UC REFLEX)</b></td> </tr> <tr> <td colspan=2 width=16 height=11 style= border-left:solid #481846 0px; border-top:solid #361396 0px; border-right:solid #481368 0px; border-bottom:solid #617214 1px;></td> <td colspan=3 pxsun=130 style= border-left:solid #775119 0px; border-top:solid #648644 0px; border-right:solid #611704 0px; border-bottom:solid #284656 1px;> <b>Current Status</b></td> <td width=16 style= border-left:solid #145553 0px; border-top:solid #599172 0px; border-right:solid #815236 0px; border-bottom:solid #555238 1px;></td> <td colspan=20 vrmrz=133 style= border-left:solid #280641 0px; border-top:solid #289397 0px; border-right:solid #631200 0px; border-bottom:solid #821811 1px;> <b>: Complete - 08/21/2021 13:05 </b></td> </tr> <tr> <td colspan=2 width=16 height=11 style= ></td> <td colspan=10 hilbe=542 style= > Created By </td> <td colspan=9 xgxya=057 style= > : ALFONZO TANG </td> <td hlhsg=702 style= > Created on </td> <td colspan=2 fgevu=557 style= > : 08/21/2021 12:40 </td> <td cxlwz=190 style= > Receive Type </td> <td bulms=029 style= > : Verbal </td> </tr> <tr> <td colspan=2 width=16 height=11 style= ></td> <td colspan=10 bokph=157 style= > Ordering MD </td> <td colspan=9 juecm=525 style= > : Lupillo Ashraf </td> <td uwxxy=061 style= > Priority </td> <td colspan=2 gquie=745 style= > : STAT </td> <td yakkq=216 style= > Frequency </td> <td zdmgy=044 style= > : ONCE </td> </tr> <tr> <td colspan=2 width=16 height=11 style= ></td> <td colspan=10 fssbi=082 style= > Times </td> <td colspan=9 bxbsu=499 style= > : 12:39 </td> <td xmesu=323 style= > Special Instructions </td> <td colspan=2 eqxoc=496 style= > : </td> <td ifizk=667 style= > Location </td> <td lhuwh=243 style= > : ED </td> </tr> <tr> <td colspan=2 width=16 height=11 style= ></td> <td colspan=10 rgsof=583 style= > Type </td> <td colspan=9 vaxcu=191 style= > : Verbal </td> <td zzzla=162 style= > Duration </td> <td colspan=2 knnkc=156 style= > : 2 Days </td> <td rubcr=685 style= > Reason </td> <td yywho=238 style= > : </td> </tr> <tr> <td colspan=2 width=16 height=11 style= ></td> <td colspan=10 inepi=349 style= > Start DateTime </td> <td colspan=9 uidlq=430 style= > 08/21/2021 12:39 </td> <td vhhby=332 style= > Stop DateTime </td> <td colspan=2 hknwf=256 style= > 08/23/2021 12:39 </td> <td rorkb=069 style= > Strength </td> <td mbwgh=948 style= > : </td> </tr> <tr> <td colspan=2 width=16 height=11 style= ></td> <td colspan=24 kourn=738 style= > Order Notes : - </td> </tr> <tr> <td width=0 height=11 style= ></td> <td width=0 style= > </td> <td width=0 style= ></td> <td width=0 style= ></td> <td width=0 style= ></td> <td width=0 style= ></td> <td width=0 style= ></td> </tr> <tr> <td colspan=2 width=16 height=11 style= ></td> <td colspan=19 cribw=7713 style= > <b>Diagnosis</b> </td> <td oaxix=594 style= ></td> <td colspan=4 tzptz=410 style= ></td> </tr> <tr> <td width=0 height=11 style= ></td> <td width=0 style= ></td> <td width=0 style= > No items available </td> <td width=0 style= ></td> <td width=0 style= ></td> <td width=0 style= ></td> <td width=0 style= ></td> </tr> <tr> <td width=0 height=11 style= ></td> <td width=0 style= > </td> <td width=0 style= ></td> <td width=0 style= ></td> <td width=0 style= ></td> <td width=0 style= ></td> <td width=0 style= ></td> </tr> <tr> <td colspan=2 width=16 height=11 style= ></td> <td colspan=7 dksmw=025 style= > <b>Validation</b></td> <td width=16 style= ></td> <td colspan=16 vxnge=967 style= ></td> </tr> <tr> <td colspan=3 width=82 height=11 style= ></td> <td colspan=5 xnhir=486 style= > Validated On</td> <td colspan=18 sifud=031 style= > : 08/21/2021 12:40 </td> </tr> <tr> <td colspan=3 width=82 height=11 style= ></td> <td colspan=5 wddoq=880 style= > Validated By </td> <td colspan=18 iglum=132 style= > : ALFONZO TANG </td> </tr> <tr> <td colspan=3 width=82 height=11 style= ></td> <td colspan=5 krlqx=411 style= > Validation Notes </td> <td colspan=18 niekl=315 style= > : - </td> </tr> <tr> <td colspan=2 width=16 height=11 style= ></td> <td colspan=7 aonau=702 style= > <b>Laboratory Results</b></td> <td width=16 style= ></td> <td colspan=16 eewav=609 style= ></td> </tr> <tr> <td colspan=2 width=16 height=11 style= ></td> <td colspan=2 ktqkn=914 > <b>Test</b></td> <td colspan=3 width=82 > <b>Result</b> </td> <td colspan=4 width=65 > <b>Units</b> </td> <td colspan=2 jwktb=500 > <b>Reference Ranges</b> </td> <td width=41 > <b>Flag</b> </td> <td width=82 > <b>Status</b> </td> <td width=82 > <b>Verified By</b> </td> <td width=82 > <b>Canceled By</b> </td> <td colspan=9 ttvkv=441 > <b>Canceled Reason</b> </td> </tr> <tr> <td colspan=2 width=16 height=11 style= ></td> <td colspan=2 fglhf=230 style= > COLOR UA </td> <td colspan=3 width=82 style= > yellow </td> <td colspan=4 width=65 style= ></td> <td colspan=2 qzzvb=746 style= > YELLOW </td> <td width=41 style= > N </td> <td width=82 style= > Final </td> <td width=82 style= > ILYA DIEGO </td> <td width=82 style= ></td> <td colspan=9 rsrhe=865 style= ></td> </tr> <tr> <td colspan=2 width=16 height=11 style= ></td> <td colspan=2 dbtrz=960 style= > APPEARANCE UA </td> <td colspan=3 width=82 style= > sl.cloudy </td> <td colspan=4 width=65 style= ></td> <td colspan=2 nsrkn=928 style= > CLEAR </td> <td width=41 style= ></td> <td width=82 style= > Final </td> <td width=82 style= > ILYA DIEGO </td> <td width=82 style= ></td> <td colspan=9 qfyhc=832 style= ></td> </tr> <tr> <td colspan=2 width=16 height=11 style= ></td> <td colspan=2 qmtdw=986 style= > SPECIFIC GRAVITY UA </td> <td colspan=3 width=82 style= > 1.020 </td> <td colspan=4 width=65 style= ></td> <td colspan=2 djydf=624 style= > 1.000 - 1.030 </td> <td width=41 style= > N </td> <td width=82 style= > Final </td> <td width=82 style= > ILYA DIEGO </td> <td width=82 style= ></td> <td colspan=9 ccaxv=020 style= ></td> </tr> <tr> <td colspan=2 width=16 height=11 style= ></td> <td colspan=2 clizf=678 style= > PH UA </td> <td colspan=3 width=82 style= > 6 </td> <td colspan=4 width=65 style= ></td> <td colspan=2 oxpwa=198 style= > 5.0 - 9.0 </td> <td width=41 style= ></td> <td width=82 style= > Final </td> <td width=82 style= > ILYA DIEGO </td> <td width=82 style= ></td> <td colspan=9 uclfc=489 style= ></td> </tr> <tr> <td colspan=2 width=16 height=11 style= ></td> <td colspan=2 yccib=508 style= > LEUKOCYTE UA </td> <td colspan=3 width=82 style= > 25 </td> <td colspan=4 width=65 style= > Leuk-uL </td> <td colspan=2 eyczx=171 style= > 0-5 </td> <td width=41 style= > AB </td> <td width=82 style= > Final </td> <td width=82 style= > ILYA DIEGO </td> <td width=82 style= ></td> <td colspan=9 vvzch=519 style= ></td> </tr> <tr> <td colspan=2 width=16 height=11 style= ></td> <td colspan=2 ikjxf=384 style= > NITRITE UA </td> <td colspan=3 width=82 style= > neg </td> <td colspan=4 width=65 style= ></td> <td colspan=2 pjhpd=500 style= > NEGATIVE </td> <td width=41 style= ></td> <td width=82 style= > Final </td> <td width=82 style= > ILYA DIEGO </td> <td width=82 style= ></td> <td colspan=9 ieqhk=626 style= ></td> </tr> <tr> <td colspan=2 width=16 height=11 style= ></td> <td colspan=2 mxmbe=621 style= > PROTEIN UA </td> <td colspan=3 width=82 style= > 30 </td> <td colspan=4 width=65 style= > mg-dL </td> <td colspan=2 romyk=447 style= > 0-30 </td> <td width=41 style= > N </td> <td width=82 style= > Final </td> <td width=82 style= > ILYA DIEGO </td> <td width=82 style= ></td> <td colspan=9 bgggf=362 style= ></td> </tr> <tr> <td colspan=2 width=16 height=11 style= ></td> <td colspan=2 kksiw=460 style= > GLUCOSE UA </td> <td colspan=3 width=82 style= > norm </td> <td colspan=4 width=65 style= > mg-dL </td> <td colspan=2 qwsrr=728 style= > 0-49 </td> <td width=41 style= > N </td> <td width=82 style= > Final </td> <td width=82 style= > ILYA DIEGO </td> <td width=82 style= ></td> <td colspan=9 kbbqc=660 style= ></td> </tr> <tr> <td colspan=2 width=16 height=11 style= ></td> <td colspan=2 lbpfd=964 style= > KETONES UA </td> <td colspan=3 width=82 style= > neg </td> <td colspan=4 width=65 style= > mg-dL </td> <td colspan=2 ewvor=583 style= > 0-4 </td> <td width=41 style= ></td> <td width=82 style= > Final </td> <td width=82 style= > ILYA DIEGO </td> <td width=82 style= ></td> <td colspan=9 tkszh=109 style= ></td> </tr> <tr> <td colspan=2 width=16 height=11 style= ></td> <td colspan=2 pjfut=944 style= > UROBILINOGEN UA </td> <td colspan=3 width=82 style= > norm </td> <td colspan=4 width=65 style= > mg-dL </td> <td colspan=2 pntpc=409 style= > 0-1 </td> <td width=41 style= > N </td> <td width=82 style= > Final </td> <td width=82 style= > ILYA DIEGO </td> <td width=82 style= ></td> <td colspan=9 kmwgv=865 style= ></td> </tr> <tr> <td colspan=2 width=16 height=11 style= ></td> <td colspan=2 gzwnq=414 style= > BILIRUBIN UA </td> <td colspan=3 width=82 style= > neg </td> <td colspan=4 width=65 style= > mg-dL </td> <td colspan=2 rlidc=971 style= > 0.0-0.9 </td> <td width=41 style= ></td> <td width=82 style= > Final </td> <td width=82 style= > ILYA DIEGO </td> <td width=82 style= ></td> <td colspan=9 qcjrp=886 style= ></td> </tr> <tr> <td colspan=2 width=16 height=11 style= ></td> <td colspan=2 rqsdk=083 style= > BLOOD UA </td> <td colspan=3 width=82 style= > 250 </td> <td colspan=4 width=65 style= > Bernardo-uL </td> <td colspan=2 atwae=006 style= > 0-3 </td> <td width=41 style= > AB </td> <td width=82 style= > Final </td> <td width=82 style= > ILYA DIEGO </td> <td width=82 style= ></td> <td colspan=9 stwao=719 style= ></td> </tr> <tr> <td colspan=2 width=16 height=11 style= ></td> <td colspan=2 ionlx=212 style= > U WBC MICRO </td> <td colspan=3 width=82 style= > 0-5 </td> <td colspan=4 width=65 style= > per HPF </td> <td colspan=2 miptp=100 style= > 0-5 </td> <td width=41 style= > N </td> <td width=82 style= > Final </td> <td width=82 style= > ILYA DIEGO </td> <td width=82 style= ></td> <td colspan=9 lwilb=055 style= ></td> </tr> <tr> <td colspan=2 width=16 height=11 style= ></td> <td colspan=2 dkahc=729 style= > U RBC MICRO </td> <td colspan=3 width=82 style= > 51-99 </td> <td colspan=4 width=65 style= > per HPF </td> <td colspan=2 ubmou=926 style= > 0-5 </td> <td width=41 style= > AB </td> <td width=82 style= > Final </td> <td width=82 style= > ILYA DIEGO </td> <td width=82 style= ></td> <td colspan=9 vwpft=153 style= ></td> </tr> <tr> <td colspan=2 width=16 height=11 style= ></td> <td colspan=2 narvh=244 style= > U EPITHELIAL CELLS </td> <td colspan=3 width=82 style= > RARE </td> <td colspan=4 width=65 style= > per LPF </td> <td colspan=2 flzxp=384 style= > NONE SEEN - SMALL </td> <td width=41 style= > N </td> <td width=82 style= > Final </td> <td width=82 style= > ILYA DIEGO </td> <td width=82 style= ></td> <td colspan=9 xvgbb=981 style= ></td> </tr> <tr> <td colspan=2 width=16 height=11 style= ></td> <td colspan=2 iqixo=811 style= > U BACTERIA </td> <td colspan=3 width=82 style= > 1+ </td> <td colspan=4 width=65 style= > per HPF </td> <td colspan=2 vgsxv=646 style= > NONE SEEN - TRACE </td> <td width=41 style= > AB </td> <td width=82 style= > Final </td> <td width=82 style= > ILYA DIEGO </td> <td width=82 style= ></td> <td colspan=9 tknci=671 style= ></td> </tr> <tr> <td colspan=2 width=16 height=11 style= ></td> <td colspan=2 hnrxj=645 style= > U MUCOUS THREADS </td> <td colspan=3 width=82 style= > MODERATE </td> <td colspan=4 width=65 style= > per HPF </td> <td colspan=2 zlwmd=680 style= > SMALL </td> <td width=41 style= > AB </td> <td width=82 style= > Final </td> <td width=82 style= > ILYA DIEGO </td> <td width=82 style= ></td> <td colspan=9 fusyb=047 style= ></td> </tr> <tr> <td colspan=2 width=16 height=11 style= ></td> <td colspan=2 cksvf=436 style= > SPECIMEN REJECTED FOR CULTURE </td> <td colspan=3 width=82 style= > NO WBCS </td> <td colspan=4 width=65 style= ></td> <td colspan=2 avyvk=328 style= ></td> <td width=41 style= ></td> <td width=82 style= > Final </td> <td width=82 style= > ILYA DIEGO </td> <td width=82 style= ></td> <td colspan=9 ljvrn=819 style= ></td> </tr> <tr> <td colspan=2 width=16 height=11 style= ></td> <td colspan=2 spgpb=706 style= > SPECIMEN REFLEXED TO CULTURE? </td> <td colspan=3 width=82 style= > NO </td> <td colspan=4 width=65 style= ></td> <td colspan=2 bygwb=389 style= ></td> <td width=41 style= > N </td> <td width=82 style= > Final </td> <td width=82 style= > ILYA DIEGO </td> <td width=82 style= ></td> <td colspan=9 aavwt=582 style= ></td> </tr> <tr> <td colspan=2 width=16 style= ></td> <td colspan=24 iennu=275 style= border-left:solid #[id number] 0px; border-top:solid #655610 1px; border-right:solid #350237 0px; border-bottom:solid #257398 0px;></td> </tr> <tr> <td width=0></td> <td width=16></td> <td width=66></td> <td width=57></td> <td width=41></td> <td width=16></td> <td width=24></td> <td width=24></td> <td width=16></td> <td width=16></td> <td width=8></td> <td width=57></td> <td width=65></td> <td width=41></td> <td width=82></td> <td width=82></td> <td width=82></td> <td iopxc=207></td> <td width=0></td> <td width=0></td> <td sujeo=349></td> <td asiqp=157></td> <td hqrjo=108></td> <td omvef=487></td> <td liuyo=164></td> <td bhquw=038></td> </tr></table> <div></div><b>Department Order</b> <div></div><table class='tableFont' border=0 cellspacing=0 cellpadding=0 style= margin-left: 21pt;border-collapse: collapse; border: none> <tr> <td colspan=2 width=16 height=11 style= border-left:solid #[id number] 0px; border-top:solid #027977 1px; border-right:solid #244212 0px; border- bottom:solid #589067 0px;></td> <td colspan=2 vvliv=269 style= border-left:solid #921729 0px; border-top:solid #453758 1px; border- right:solid #543317 0px; border-bottom:solid #784201 0px;> <div></div><b>Department Order</b></td> <td width=16 style= border-left:solid #167043 0px; border-top:solid #795661 1px; border-right:solid #054814 0px; border-bottom:solid #391808 0px;></td> <td colspan=14 mamdf=668 style= border-left:solid #205232 0px; border-top:solid #037440 1px; border-right:solid #200742 0px; border- bottom:solid #865884 0px;> <b>: [facility] [id number] (IV: [facility])</b></td> </tr> <tr> <td colspan=2 width=16 height=11 style= border- left:solid #328375 0px; border-top:solid #428108 0px; border-right:solid #994894 0px; border-bottom:solid #642154 1px;></td> <td colspan=2 wjbkb=234 style= border-left:solid #729364 0px; border-top:solid #173631 0px; border-right:solid #837324 0px; border- bottom:solid #782581 1px;> <b>Current Status</b></td> <td width=16 style= border-left:solid #304429 0px; border-top:solid #215342 0px; border-right:solid #033469 0px; border-bottom:solid #292295 1px;></td> <td colspan=14 pblwy=002 style= border-left:solid #731748 0px; border-top:solid #943892 0px; border-right:solid #999712 0px; border-bottom:solid #826386 1px;> <b>: New - 08/21/2021 12:10 </b></td> </tr> <tr> <td colspan=2 width=16 height=11 style= ></td> <td colspan=7 zjcgv=185 style= > Created By </td> <td colspan=5 lsehv=901 style= > : ALFONZO TANG </td> <td pxtwg=209 style= > Created on </td> <td colspan=2 muzad=808 style= > : 08/21/2021 12:10 </td> <td vqisq=197 style= > Receive Type </td> <td hspcv=701 style= > : Verbal </td> </tr> <tr> <td colspan=2 width=16 height=11 style= ></td> <td colspan=7 klhup=913 style= > Ordering MD </td> <td colspan=5 pfpsl=490 style= > : Endeavor, Lupillo </td> <td uuris=890 style= > Priority </td> <td colspan=2 xhmvs=333 style= > : STAT </td> <td smvtg=090 style= > Frequency </td> <td ciyoe=644 style= > : ONCE </td> </tr> <tr> <td colspan=2 width=16 height=11 style= ></td> <td colspan=7 zvivu=877 style= > Times </td> <td colspan=5 afkhc=368 style= > : 12:10 </td> <td yvbzs=718 style= > Special Instructions </td> <td colspan=2 tifxd=695 style= > : </td> <td lmydo=843 style= > Location </td> <td lwmla=908 style= > : ED </td> </tr> <tr> <td colspan=2 width=16 height=11 style= ></td> <td colspan=7 zwuax=465 style= > Type </td> <td colspan=5 btvkw=106 style= > : Verbal </td> <td imibg=379 style= > Duration </td> <td colspan=2 zsehb=133 style= > : 2 Days </td> <td wbtup=281 style= > Reason </td> <td mqxad=514 style= > : </td> </tr> <tr> <td colspan=2 width=16 height=11 style= ></td> <td colspan=7 plotj=210 style= > Start DateTime </td> <td colspan=5 mxwdc=132 style= > 08/21/2021 12:10 </td> <td yonpj=260 style= > Stop DateTime </td> <td colspan=2 muewa=755 style= > 08/23/2021 12:10 </td> <td yacvc=869 style= > Strength </td> <td ycgqz=631 style= > : </td> </tr> <tr> <td colspan=2 width=16 height=11 style= ></td> <td colspan=17 wtuhd=806 style= > Order Notes : - </td> </tr> <tr> <td width=0 height=11 style= ></td> <td width=0 style= > </td> <td width=0 style= ></td> <td width=0 style= ></td> <td width=0 style= ></td> <td width=0 style= ></td> <td width=0 style= ></td> </tr> <tr> <td colspan=2 width=16 height=11 style= ></td> <td colspan=12 qmsdc=2044 style= > <b>Diagnosis</b> </td> <td xefte=576 style= ></td> <td colspan=4 yucti=404 style= ></td> </tr> <tr> <td width=0 height=11 style= ></td> <td width=0 style= ></td> <td width=0 style= > No items available </td> <td width=0 style= ></td> <td width=0 style= ></td> <td width=0 style= ></td> <td width=0 style= ></td> </tr> <tr> <td width=0 height=11 style= ></td> <td width=0 style= > </td> <td width=0 style= ></td> <td width=0 style= ></td> <td width=0 style= ></td> <td width=0 style= ></td> <td width=0 style= ></td> </tr> <tr> <td colspan=2 width=16 height=11 style= ></td> <td colspan=5 gealf=219 style= > <b>Validation</b></td> <td width=16 style= ></td> <td colspan=11 qwgex=914 style= ></td> </tr> <tr> <td colspan=3 width=82 height=11 style= ></td> <td colspan=3 vswje=788 style= > Validated On</td> <td colspan=13 txiob=608 style= > : 08/21/2021 12:10 </td> </tr> <tr> <td colspan=3 width=82 height=11 style= ></td> <td colspan=3 qkgld=561 style= > Validated By </td> <td colspan=13 gvsnn=839 style= > : ALFONZO TANG </td> </tr> <tr> <td colspan=3 width=82 height=11 style= ></td> <td colspan=3 owcae=221 style= > Validation Notes </td> <td colspan=13 luygi=112 style= > : - </td> </tr> <tr> <td colspan=2 width=16 height=11 style= ></td> <td colspan=5 tskvr=427 style= > <b>Sign- off</b></td> <td width=16 style= ></td> <td colspan=11 tffoo=888 style= ></td> </tr> <tr> <td colspan=3 width=82 height=11 style= ></td> <td colspan=7 ysaxg=710 style= > Not yet Signed-off</td> <td colspan=9 width=82 style= ></td> </tr> <tr> <td width=0></td> <td width=16></td> <td width=66></td> <td width=98></td> <td width=16></td> <td width=49></td> <td width=16></td> <td width=16></td> <td width=66></td> <td qahku=104></td> <td width=82></td> <td width=0></td> <td width=0></td> <td ketev=578></td> <td warmz=812></td> <td dzzgk=296></td> <td xgady=404></td> <td iuoei=483></td> <td igexe=568></td> </tr></table> <div></div><b>Respiratory Order</b> <div></div><b>Disposition </b> <div></div><table class='tableFont' border=0 cellspacing=0 cellpadding=0 style= margin-left: 21pt;border-collapse: collapse; border: none> <tr> <td width=16 height=11 style= ></td> <td etyeb=967 style= > Discharge Date/Time</td> <td width=16 style= > :</td> <td fhdyt=738 style= > 08/21/2021 13:20</td> </tr> <tr> <td width=16 height=11 style= ></td> <td xjfdt=279 style= > Disposition Type</td> <td width=16 style= > :</td> <td yrajf=706 style= > 01 - Discharge to home or self care (routine discharge).</td> </tr> <tr> <td width=16 height=11 style= ></td> <td orhnt=090 style= > Notes</td> <td width=16 style= > :</td> <td jmkjv=824 style= > -</td> </tr></table> ER Note - Provider 08/21/2021 13:20 Signed Date/ Time: 08/21/2021 16:28 Signed By: Lupillo Ashraf Entered By: Lupillo Ashraf <renderedtemplate template= 612><div style=text-align:center><strong>[facility]</strong></div><div></div><div><div></div><div><customfilter class=healthlandplugin notefilterhistoryid=47><span><strong>Chief Complaint:</strong>Right flank pain</span></customfilter></div></div><div></div><div><strong><span style=font- size:12px><span style=font-family:aleksey chen,suleman>HPI:</span></span></strong></div> <div><span style=font-size:12px><span style=font-family:aleksey chen,mindyserizzy>31-year-old male here with right lower abdominal pain over the last 1.5 hours. He had sudden onset of symptoms 1.5 hours ago. He has had recent history of kidney stones on the left successfully passed with increased oral fluids. He is from [facility] and is here visiting his father. He has no nausea. He has hydrocodone tablets at home and these have not been successful in getting him pain relief today. He does have some urinary urgency related to his increased oral fluids today. He does not have any dysuria or flank pain.</span></span></div><div></div><div><customfilter class=healthlandplugin notefilterhistoryid=14><span><strong>Problem List</strong>: No Problems Available</span></customfilter><div></div><div><customfilter class=[facility] notefilterhistoryid=30><span><strong>Surgery List</strong>: No Surgical History Available</span></customfilter><div></div></div></div><div><span style=font- size:12px><span style=font-family:arial,helvetica,sans-serif><customfilter class=[facility] notefilterhistoryid=13><table border=1> <thead> <tr> <th colspan=10 style=text-align: center;>Active Home Meds</th> </tr> <tr> <th style=width:198px; text-align: center;>Medication</th> <th style=width:83px; text-align: center;>Strength</> <th style=width:78px; text-align: center;>Dosage</th> <th style=width:83px; text-align: center;>Route</th> <th style=width:83px; text-align: center;>Frequency</> <th style=width:83px; text-align: center;>Start Date</th> <th style=width:83px; text-align: center;>Last Dose Date</> <th style=width:83px; text-align: center;>Last Fill Date</th> <th style=width:25px; text-align: center;>Prescribing MD</th> <th style=width:83px; text-align: center;>Special Instructions</th> </tr> </thead> <tbody> <tr> <td style=text-align:center>hydrocodone-acetaminophen(hydrocodone-acetaminophen)</ td> <td style=text-align:center>5-325 mg tablet</td> <td style=text-align:center>1-2 tablet</td> <td style=text-align:center>by mouth</td> <td style=text-align:center>every four to six hours as needed</td> <td style=text-align:center></td> <td style=text-align:center></td> <td style=text-align:center></td> <td style=text-align:center></td> <td style=text-align:center></td> </tr> <tr> <td style=text- align:center>Ritalin(methylphenidate hcl)</td> <td style=text-align:center>10 mg tablet</td> <td style=text-align:center>1 tablet</td> <td style=text-align:center>by mouth</td> <td style=text-align:center>once a day as needed</td> <td style=text-align:center></td> <td style=text-align:center></td> <td style=text-align:center></td> <td style=text-align:center></td> <td style=text-align:center></td> </tr> <tr> <td style=text- align:center>Concerta(methylphenidate hcl)</td> <td style=text- align:center>18 mg tablet extended release 24hr</td> <td style=text-align:center>1 tablet</td> <td style=text-align:center>by mouth</td> <td style=text-align:center>once a day</td> <td style=text-align:center></td> <td style=text-align:center></td> <td style=text-align:center></td> <td style=text-align:center></td> <td style=text-align:center></td> </tr> <tr> <td style=text- align:center>acyclovir(acyclovir)</td> <td style=text-align:center>400 mg tablet</td> <td style=text-align:center>1 tablet</td> <td style=text-align:center>by mouth</td> <td style=text-align:center>once a day</td> <td style=text-align:center></td> <td style=text-align:center></td> <td style=text-align:center></td> <td style=text-align:center></td> <td style=text-align:center></td> </tr> <tr> <td style=text- align:center>doxycycline hyclate(doxycycline hyclate)</td> <td style=text- align:center>50 mg tablet</td> <td style=text-align:center>50 tablet</td> <td style=text- align:center>by mouth</td> <td style=text-align:center>twice a day</td> <td style=text-align:center></td> <td style=text-align:center></td> <td style=text-align:center></td> <td style=text-align:center></td> <td style=text-align:center></td> </tr> </tbody></table></customfilter> </span></span><div><span style=font-size:12px><span style=font-family:arial,helvetica,sans-serif></span></span></div></div><div><s mcmahan style=font-size:12px><span style=font-family:arial,helvetica,sans-serif><customfilter [facility] notefilterhistoryid=7><span><span><strong>Allergy List</strong></span> No Known Food Allergies No Known Allergies</span></customfilter> </span></span><div></div></div><div><span style=font-size:12px><span style=font-family:arial,helvetica,sans-serif><customfilter [facility] notefilterhistoryid=28><span><strong>Family History List</strong>: No Family History Available</span></customfilter> </span></span><div></div><div><strong>SOCIAL HISTORY</strong></div><div></div></div><div><div><span style=font-size:12px><span style=font-family:arial,helvetica,sans-serif><customfilter [facility] notefilterhistoryid=39><span>No Social History Available</span></customfilter> </span></span></div><div></div></div><div><strong>ROS</strong></div><div></div>< div><span style=font-size:12px><span style=font-family:arial,helvetica,sans-serif><strong>OBJECTIVE:</strong></span ></span></div><div>Heart: RRR, no murmurs. Lungs: CTA Abdomen: Soft with mild to moderate right-sided lower abdominal tenderness. No masses palpable. No CVA tenderness bilaterally.</div><div>Neuro: WNL</div><div></div><div><customfilter class=[facility] notefilterhistoryid=23><table border=1> <thead> <tr> <th colspan=13 style=text-align: center;>Vital Signs: This Visit</th> </tr> <tr> <th style=width:61.44813618607022mu; text-align: center;>Date/Time</th> <th style=width:61.68788632490634mj; text-align: center;>Blood Pressure (mm/Hg)</th> <th style=width:61.90327834248872no; text-align: center;>Heart Rate</th> <th style=width:61.06258391664190an; text-align: center;>Respiration</th> <th style=width:61.70978257615781le; text-align: center;>Temperature</th> <th style=width:61.37345938858086lo; text-align: center;>SPO2%</th> <th style=width:61.35217722029459si; text-align: center;>O2 Device</th> <th style=width:61.18024315174279tf; text-align: center;>Blood Sugar (mg/dL)</th> <th style=width:61.19773185402105ce; text-align: center;>Pain Score</th> <th style=width:61.01180778200559oi; text-align: center;>Height</th> <th style=width:61.23931440122314yo; text-align: center;>Weight</th> <th style=width:61.89274510509886gu; text-align: center;>BMI</th> <th style=width:61.05220238230631gx; text-align: center;>Head Circumference</th> </tr> </thead> <tbody> <tr> <td style=text-align:center>08/21/2021 12:41</td> <td style=text-align:center></td> <td style=text-align:center></td> <td style=text-align:center></td> <td style=text-align:center></td> <td style=text-align:center></td> <td style=text-align:center></td> <td style=text-align:center></td> <td style=text-align:center>3</td> <td style=text-align:center></td> <td style=text-align:center></td> <td style=text-align:center></td> <td style=text-align:center></td> </tr> <tr> <td style=text-align:center>08/21/2021 11:40</td> <td style=text-align:center>127/80</td> <td style=text-align:center>57</td> <td style=text-align:center>20</td> <td style=text-align:center>96.4 F Axillary</td> <td style=text-align:center>100</td> <td style=text- align:center>Room Air</td> <td style=text-align:center></td> <td style=text-align:center>10</td> <td style=text-align:center></td> <td style=text-align:center></td> <td style=text-align:center></td> <td style=text-align:center></td> </tr> </tbody></table></customfilter><div></div></div><div><customfilter class=healthlandplugin notefilterhistoryid=32><table border=1> <thead> <tr> <th colspan=7 style=text-align: center;>Lab Results: This Visit</th> </tr> <tr> <th style=width:144px; text-align: center;>Test</th> <th style=width:107px; text- align: center;>Results</th> <th style=width:107px; text-align: center;>Units</th> <th style=width:107px; text-align: center;>Reference Range</th> <th style=width:107px; text-align: center;>Ordered</th> <th style=width:107px; text-align: center;>Collected</th> <th style=width:107px; text-align: center;>Status</th> </tr> </thead> <tbody> <tr> <td style=text-align:center>COLOR UA</td> <td style=text-align:center>yellow N</td> <td style=text-align:center></td> <td style=text-align:center></td> <td style=text-align:center></td> <td style=text-align:center>08/21/2021 12:46</td> <td style=text-align:center>Final</td> </tr> <tr> <td style=text-align:center>APPEARANCE UA</td> <td style=text- align:center>sl.cloudy</td> <td style=text-align:center></td> <td style=text-align:center></td> <td style=text-align:center></td> <td style=text-align:center>08/21/2021 12:46</td> <td style=text-align:center>Final</td> </tr> <tr> <td style=text- align:center>SPECIFIC GRAVITY UA</td> <td style=text-align:center>1.020 N</td> <td style=text-align:center></td> <td style=text-align:center></td> <td style=text-align:center></td> <td style=text-align:center>08/21/2021 12:46</td> <td style=text-align:center>Final</td> </tr> <tr> <td style=text- align:center>PH UA</td> <td style=text-align:center>6</td> <td style=text-align:center></td> <td style=text-align:center></td> <td style=text-align:center></td> <td style=text-align:center>08/21/2021 12:46</td> <td style=text-align:center>Final</td> </tr> <tr> <td style=text- align:center>LEUKOCYTE UA</td> <td style=text-align:center>25 AB</td> <td style=text-align:center>Leuk-uL</td> <td style=text-align:center>0-5 (Leuk- uL)</td> <td style=text-align:center></td> <td style=text-align:center>08/21/2021 12:46</td> <td style=text- align:center>Final</td> </tr> <tr> <td style=text-align:center>NITRITE UA</td> <td style=text-align:center>neg</td> <td style=text-align:center></td> <td style=text-align:center></td> <td style=text-align:center></td> <td style=text-align:center>08/21/2021 12:46</td> <td style=text- align:center>Final</td> </tr> <tr> <td style=text-align:center>PROTEIN UA</td> <td style=text-align:center>30 N</td> <td style=text-align:center>mg-dL</td> <td style=text-align:center>0-30 (mg-dL)</td> <td style=text-align:center></td> <td style=text-align:center>08/21/2021 12:46</td> <td style=text-align:center>Final</td> </tr> <tr> <td style=text-align:center>GLUCOSE UA</td> <td style=text-align:center>norm N</td> <td style=text-align:center>mg-dL</td> <td style=text-align:center>0-49 (mg-dL)</td> <td style=text-align:center></td> <td style=text-align:center>08/21/2021 12:46</td> <td style=text-align:center>Final</td> </tr> <tr> <td style=text- align:center>KETONES UA</td> <td style=text-align:center>neg</td> <td style=text-align:center>mg-dL</td> <td style=text-align:center>0-4 (mg- dL)</td> <td style=text-align:center></td> <td style=text-align:center>08/21/2021 12:46</td> <td style=text- align:center>Final</td> </tr> <tr> <td style=text-align:center>UROBILINOGEN UA</td> <td style=text-align:center>norm N</td> <td style=text-align:center>mg-dL</td> <td style=text-align:center>0-1 (mg-dL)</td> <td style=text-align:center></td> <td style=text-align:center>08/21/2021 12:46</td> <td style=text-align:center>Final</td> </tr> <tr> <td style=text-align:center>BILIRUBIN UA</td> <td style=text- align:center>neg</td> <td style=text-align:center>mg-dL</td> <td style=text-align:center>0.0-0.9 (mg-dL)</td> <td style=text- align:center></td> <td style=text-align:center>08/21/2021 12:46</td> <td style=text-align:center>Final</td> </tr> <tr> <td style=text- align:center>BLOOD UA</td> <td style=text-align:center>250 AB</td> <td style=text-align:center>Bernardo-uL</td> <td style=text-align:center>0-3 (Bernardo- uL)</td> <td style=text-align:center></td> <td style=text-align:center>08/21/2021 12:46</td> <td style=text- align:center>Final</td> </tr> <tr> <td style=text-align:center>U WBC MICRO</td> <td style=text-align:center>0-5 N</td> <td style=text-align:center>per HPF</td> <td style=text-align:center>0-5 (per HPF)</td> <td style=text-align:center></td> <td style=text-align:center>08/21/2021 12:46</td> <td style=text-align:center>Final</td> </tr> <tr> <td style=text-align:center>U RBC MICRO</td> <td style=text-align:center>51-99 AB</td> <td style=text-align:center>per HPF</td> <td style=text-align:center>0-5 (per HPF)</td> <td style=text-align:center></td> <td style=text-align:center>08/21/2021 12:46</td> <td style=text-align:center>Final</td> </tr> <tr> <td style=text-align:center>U EPITHELIAL CELLS</td> <td style=text-align:center>RARE N</td> <td style=text-align:center>per LPF</td> <td style=text-align:center>NONE SEEN - SMALL (per LPF)</td> <td style=text-align:center></td> <td style=text-align:center>08/21/2021 12:46</td> <td style=text- align:center>Final</td> </tr> <tr> <td style=text-align:center>U BACTERIA</td> <td style=text-align:center>1+ AB</td> <td style=text-align:center>per HPF</td> <td style=text-align:center>NONE SEEN - TRACE (per HPF)</td> <td style=text-align:center></td> <td style=text-align:center>08/21/2021 12:46</td> <td style=text-align:center>Final</td> </tr> <tr> <td style=text-align:center>U RENAL EPITHELIAL CELLS</td> <td style=text- align:center></td> <td style=text-align:center>per LPF</td> <td style=text-align:center></td> <td style=text-align:center></td> <td style=text-align:center>08/21/2021 12:46</td> <td style=text-align:center>Final</td> </tr> <tr> <td style=text-align:center>U TRANSITIONAL EPITHELIAL CELLS</td> <td style=text-align:center></td> <td style=text-align:center>per LPF</td> <td style=text-align:center></td> <td style=text-align:center></td> <td style=text-align:center>08/21/2021 12:46</td> <td style=text-align:center>Final</td> </tr> <tr> <td style=text- align:center>U YEAST</td> <td style=text-align:center></td> <td style=text-align:center></td> <td style=text-align:center></td> <td style=text-align:center></td> <td style=text-align:center>08/21/2021 12:46</td> <td style=text-align:center>Final</td> </tr> <tr> <td style=text- align:center>U MUCOUS THREADS</td> <td style=text-align:center>MODERATE AB</td> <td style=text-align:center>per HPF</td> <td style=text-align:center>SMALL (per HPF)</td> <td style=text-align:center></td> <td style=text-align:center>08/21/2021 12:46</td> <td style=text- align:center>Final</td> </tr> <tr> <td style=text-align:center>U HYALINE CAST</td> <td style=text-align:center></td> <td style=text-align:center>per LPF</td> <td style=text-align:center></td> <td style=text-align:center></td> <td style=text-align:center>08/21/2021 12:46</td> <td style=text- align:center>Final</td> </tr> <tr> <td style=text-align:center>U GRANULAR CAST</td> <td style=text-align:center></td> <td style=text-align:center>per LPF</td> <td style=text-align:center></td> <td style=text-align:center></td> <td style=text-align:center>08/21/2021 12:46</td> <td style=text- align:center>Final</td> </tr> <tr> <td style=text-align:center>U RBC CAST</td> <td style=text-align:center></td> <td style=text-align:center>per LPF</td> <td style=text-align:center></td> <td style=text-align:center></td> <td style=text-align:center>08/21/2021 12:46</td> <td style=text- align:center>Final</td> </tr> <tr> <td style=text-align:center>U WBC CAST</td> <td style=text-align:center></td> <td style=text-align:center>per LPF</td> <td style=text-align:center></td> <td style=text-align:center></td> <td style=text-align:center>08/21/2021 12:46</td> <td style=text- align:center>Final</td> </tr> <tr> <td style=text-align:center>U CAST OTHER</td> <td style=text-align:center></td> <td style=text-align:center>per LPF</td> <td style=text-align:center></td> <td style=text-align:center></td> <td style=text-align:center>08/21/2021 12:46</td> <td style=text- align:center>Final</td> </tr> <tr> <td style=text-align:center>U URIC ACID CRYSTAL</td> <td style=text-align:center></td> <td style=text-align:center>per HPF</td> <td style=text-align:center></td> <td style=text-align:center></td> <td style=text-align:center>08/21/2021 12:46</td> <td style=text- align:center>Final</td> </tr> <tr> <td style=text-align:center>U CALCIUM OXALATE CRYSTAL</td> <td style=text-align:center></td> <td style=text- align:center></td> <td style=text-align:center></td> <td style=text- align:center></td> <td style=text-align:center>08/21/2021 12:46</td> <td style=text- align:center>Final</td> </tr> <tr> <td style=text-align:center>U AMORPHOUS CRYSTALS</td> <td style=text-align:center></td> <td style=text- align:center>per HPF</td> <td style=text-align:center></td> <td style=text-align:center></td> <td style=text-align:center>08/21/2021 12:46</td> <td style=text-align:center>Final</td> </tr> <tr> <td style=text-align:center>U TRIPLE PHOSPHATE CRYSTAL</td> <td style=text- align:center></td> <td style=text-align:center></td> <td style=text-align:center></td> <td style=text-align:center></td> <td style=text-align:center>08/21/2021 12:46</td> <td style=text-align:center>Final</td> </tr> <tr> <td style=text-align:center>U CRYSTAL OTHER</td> <td style=text-align:center></td> <td style=text-align:center>per HPF</td> <td style=text-align:center></td> <td style=text-align:center></td> <td style=text-align:center>08/21/2021 12:46</td> <td style=text-align:center>Final</td> </tr> <tr> <td style=text- align:center>U SPERMATOZOA</td> <td style=text-align:center></td> <td style=text-align:center></td> <td style=text-align:center></td> <td style=text-align:center></td> <td style=text-align:center>08/21/2021 12:46</td> <td style=text-align:center>Final</td> </tr> <tr> <td style=text- align:center>U TRICHOMONAS</td> <td style=text-align:center></td> <td style=text-align:center></td> <td style=text-align:center></td> <td style=text-align:center></td> <td style=text-align:center>08/21/2021 12:46</td> <td style=text-align:center>Final</td> </tr> <tr> <td style=text- align:center>U STARCH GRANULES</td> <td style=text-align:center></td> <td style=text-align:center></td> <td style=text-align:center></td> <td style=text-align:center></td> <td style=text-align:center>08/21/2021 12:46</td> <td style=text-align:center>Final</td> </tr> <tr> <td style=text- align:center>U MISC FIBER CONTAMINATION</td> <td style=text- align:center></td> <td style=text-align:center>per HPF</td> <td style=text-align:center></td> <td style=text-align:center></td> <td style=text-align:center>08/21/2021 12:46</td> <td style=text-align:center>Final</td> </tr> <tr> <td style=text- align:center>URINE OTHER</td> <td style=text-align:center></td> <td style=text-align:center></td> <td style=text-align:center></td> <td style=text-align:center></td> <td style=text-align:center>08/21/2021 12:46</td> <td style=text-align:center>Final</td> </tr> <tr> <td style=text- align:center>OVAL FAT BODIES</td> <td style=text-align:center></td> <td style=text-align:center></td> <td style=text-align:center></td> <td style=text-align:center></td> <td style=text-align:center>08/21/2021 12:46</td> <td style=text-align:center>Final</td> </tr> <tr> <td style=text- align:center>SPECIMEN REJECTED FOR CULTURE</td> <td style=text- align:center>NO WBCS</td> <td style=text-align:center></td> <td style=text- align:center></td> <td style=text-align:center></td> <td style=text- align:center>08/21/2021 12:46</td> <td style=text-align:center>Final</td> </tr> <tr> <td style=text-align:center>SPECIMEN REFLEXED TO CULTURE?</td> <td style=text-align:center>NO N</td> <td style=text-align:center></td> <td style=text-align:center></td> <td style=text-align:center></td> <td style=text-align:center>08/21/2021 12:46</td> <td style=text- align:center>Final</td> </tr> </tbody></table></customfilter><div></div></div><div><span style=font-size:12px><span style=font-family:arial,helvetica,sans-serif><strong>EMERGENCY ROOM FINDINGS:</strong></span></span></div><div>X-rays: Abdominal CT scan without contrast shows multiple small kidney stones bilaterally. There is a 4 mm kidney stone in the right UVJ area. There is mild right hydronephrosis and ureteral dilation.</div><div></div><div><span style=font- size:12px><span style=font-family:arial,helvetica,sans-serif><strong>ASSESSMENT:</strong></spa n></span></div><div>Acute kidney stone causing some obstruction in the right UVJ area with mild ureteral dilation and hydronephrosis.</div><div></div><div><strong>Plan:</strong></div><div>1. Patient was given Toradol 30 mg IV as a one-time pain relief treatment which worked very well for him. 2. He will increase his oral fluids daily. He was given a Flomax 0.4 mg tablet today with an Rx to be filled tomorrow 3. He will strain his urine to catch any stones that come out. He will continue with his pain medications at home as needed. 4. He plans on going home today. He will follow-up with his primary provider in the next 1 to 2 days as needed. He will go to his local ER if his symptoms worsen.</div><div></div><div></div><div><span style=font-size:12px><span style=font-family:arial,helvetica,sans-serif>This note has been formulated using voice recognition software, and may contain unintended word substitutions.</span></span></div></renderedtemplate> Nurses Note 08/21/2021 13:19 Signed Date/Gabriel e: 05/09/2023 22:20 Signed By: ALFONZO TANG Entered By: ALFONZO TANG <div><renderedtemplate templ ate=85><div style=text-indent:0pt><span style=font-size:12px><span style=font-family:Itmann,Helvetica,sans-serif><span style=color:#[id number]>IV Discontinuation with aseptic technique</span></span></span></div><div style=text-indent:0pt><span style=font-size:12px><span style=font-family:Itmann,Helvetica,sans-serif><span style=color:#[id number]>Explained procedure to patient. </span></span></span></div><div style=text-indent:0pt><span style=font- size:12px><span style=font-family:Itmann,Helvetica,sans-serif><span style=color:#[id number]>Indication for DC of PIV: Discharge</span></span></span></div><div style=text-indent:0pt><span style=font-size:12px><span style=font-family:Itmann,Helvetica,sans-serif><span style=color:#[id number]>Site: Left AC</span></span></span></div><div style=text-indent:0pt><span style=font-size:12px><span style=font-family:Itmann,Helvetica,sans-serif><span style=color:#[id number]>Removed tape and other securement measures, removed IV catheter.</span></span></span></div><div style=text-indent:0pt><span style=font-size:12px><span style=font-family:Itmann,Helvetica,sans-serif><span style=color:#[id number]>Catheter intact: Yes</span></span></span></div><div style=text-indent:0pt><span style=font-size:12px><span style=font-family:Itmann,Helvetica,sans-serif><span style=color:#[id number]>IV site/skin status: WNL</span></span></span></div><div style=text-indent:0pt><span style=font-size:12px><span style=font-family:Itmann,Helvetica,sans-serif><span style=color:#[id number]>Pressure applied to site, clotting within acceptable parameters. Dressing applied over site. </span></span></span></div><div style=text-indent:0pt><span style=font- size:12px><span style=color:#[id number]; font-family:arial><span style=font-family:Itmann,Helvetica,sans-serif>Patient tolerated procedure well without complications. </span></span></span></div><div style=text-indent:0pt></div><div style=text-indent:0pt></div></renderedtemplate></div> Nurses Note 08/21/2021 12:49 Signed Date/Gabriel e: 08/21/2021 12:49 Signed By: ALFONZO TANG Entered By: ALFONZO TANG <div>Patient's pain has impr dylan from a 01/16 to 06/16. Is visiting with family in room. Will monitor.</div> Nurses Note 08/21/2021 12:10 Signed Date/Gabriel e: 08/21/2021 12:11 Signed By: ALFONZO TANG Entered By: ALFONZO TANG <div><renderedtemplate templ ate=86><div style=text-indent:0pt><span style=font-size:12px><span style=font-family:Itmann,Helvetica,sans-serif><span style=color:#[id number]><strong>IV Start using aseptic technique.</strong></span></span></span></div><div style=text-indent:0pt><span style=font-size:12px><span style=font-family:Itmann,Helvetica,sans-serif><span style=color:#[id number]>Explained procedure to patient/family.</span></span></span></div><div style=text-indent:0pt><span style=font-size:12px><span style=font-family:Itmann,Helvetica,sans-serif><span style=color:#[id number]>Indication for PIV: Meds</span></span></span></div><div style=text-indent:0pt><span style=font-size:12px><span style=font-family:Itmann,Helvetica,sans-serif><span style=color:#[id number]>Site: Left AC</span></span></span></div><div style=text- indent:0pt><span style=font-size:12px><span style=font-family:Itmann,Helvetica,sans-serif><span style=color:#[id number]>Size: 20 g</span></span></span></div><div style=text-indent:0pt><span style=font-size:12px><span style=font-family:Itmann,Helvetica,sans-serif><span style=color:#[id number]>Solution and rate or Saline lock: S.L.</span></span></span></div><div style=text-indent:0pt><span style=font-size:12px><span style=font-family:Itmann,Helvetica,sans-serif><span style=color:#[id number]>Dressing type/securement: Sorbaview Shield</span></span></span></div><div style=text-indent:0pt><span style=font-size:12px><span style=font-family:Itmann,Helvetica,sans-serif><span style=color:#[id number]>Number of attempts & location(s): 1</span></span></span></div><div style=text-indent:0pt><span style=font- size:12px><span style=font-family:Itmann,Helvetica,sans-serif><span style=color:#[id number]>Lidocaine used (no/yes per policy): No</span></span></span></div><div style=text-indent:0pt><span style=font- size:12px><span style=font-family:Itmann,Helvetica,sans-serif><span style=color:#[id number]>IV site, tubing labeled: Yes</span></span></span></div><div style=text-indent:0pt><span style=font-size:12px><span style=font-family:Itmann,Helvetica,sans-serif><span style=color:#[id number]>Patient tolerated procedure well without any complications or complaints. </span></span></span></div><div style=text-indent:0pt></div></renderedtemplate></div> Abnormal Assessment Note 08/21/2021 11:43 Signed Date/Time: 08/21/2021 11:45 Signed By: ALFONZO TANG Entered By: ALFONZO TANG <P>Assessment : </FONT> ED: Full Assessment</P><P>Gastrointestinal <FONT style=BACKGROUND-COLOR: #ffffff; FONT-SIZE: 9pt; face=Itmann>: </FONT>Nausea <FONT style=BACKGROUND-COLOR: #ffffff; FONT-SIZE: 9pt; face=Itmann>: </FONT> Intermittent</P> <P>Integumentary <FONT style=BACKGROUND-COLOR: #ffffff; FONT-SIZE: 9pt; face=Itmann>: </FONT>Skin <FONT style=BACKGROUND-COLOR: #ffffff; FONT-SIZE: 9pt; face=Itmann>: </FONT> Flushed/reddened</P> Transcribed Documents Name Date/Time Description No transcribed documents james ilable Results Radiology Results Name Exam Date Time CT ABDOMEN/PELVIS WO CONTRAST 08/21/2021 12:24 EXAM: CT ABDOMEN/PELVIS WO C ONTRAST INDICATION: Right flank pain COMPARISON(S): None. TECHNIQUE: Helical acquisition CT performed from the lung bases through the ischial tuberosities. From the source data, axial reconstructed images obtained. Sagittal and coronal reformations additionally provided. FINDINGS: LUNG BASES: The visualized lung bases are clear. ABDOMEN Liver and Biliary: No worrisome findings within the liver. The gallbladder is unremarkable. Pancreas, Spleen and Adrenals: The adrenals, spleen and pancreas are normal. Kidneys: Bilateral nephrolithiasis. Largest nonobstructing right-sided stone measures up to 6 mm. Left-sided renal stone measures 2 mm. Mild right-sided hydronephrosis. Distention of the right ureter is noted. There is a 5 mm obstructing stone within the distal right ureter. Bowel: No pathologic bowel distention. Vessels: Negative. Lymph Nodes: No lymphadenopathy. Peritoneum and Retroperitoneum: No free fluid. PELVIS Genitourinary: The bladder is mildly distended. Soft Tissues: Negative. Bones: No worrisome osteolytic or osteoblastic lesions. IMPRESSION: 5 mm obstructing stone distal right ureter. Mild right-sided hydronephrosis and hydroureter noted. Electronically signed: ARTUR GARCIA MD08/22/2021 09:47 Lab Results Description Value Unit Flag Normal Range Date/ Time URINALYSIS (UA) W MICRO, UC REFLEX APPEARANCE UA sl.cloudy 1 CLEAR 2021 13:06 U BACTERIA 1+ per HPF Abnormal NONE SEEN - TRACE 0 08/21/2021 13:06 BILIRUBIN UA neg mg-dL 0.0-0.9 022 13:06 COLOR UA yellow 1 Normal YELLOW 08/21/2021 13:06 U EPITHELIAL CELLS RARE per LPF Normal NONE SEEN - SMALL 08/21/2021 13:06 GLUCOSE UA norm mg-dL Normal 0-49 13:06 BLOOD UA 250 Bernardo-uL Abnormal 0-3 08/21/2021 13:06 KETONES UA neg mg-dL 0-4 2 13:06 LEUKOCYTE UA 25 Leuk-uL Abnormal 0-5 022 13:06 U MUCOUS THREADS MODERATE per HPF Abnormal SMALL 13:06 NITRITE UA neg 1 NEGATIVE 13:06 PH UA 6 1 5.0 - 9.0 08/21/2021 13:06 PROTEIN UA 30 mg-dL Normal 0-30 2 13:06 U RBC MICRO 51-99 per HPF Abnormal 0-5 08/22/19 22 13:06 SPECIMEN REJECTED FOR CULTURE NO WBCS 1 08/21/2021 13:0 6 SPECIFIC GRAVITY UA 1.020 1 Normal 1.000 - 1. 030 08/21/2021 13:06 UROBILINOGEN UA norm mg-dL Normal 0-1 08/07 13:06 U WBC MICRO 0-5 per HPF Normal 0-5 08/22/19 22 13:06 SPECIMEN REFLEXED TO CULTURE? NO 1 Normal 08/21/2021 13:0 6 Microbiology Results No microbiology results avai lable
[2023-09-13 16:32] VITALS: BP 114/66; PULSE 76; RESP 14; TEMP 36.8
== END 2023-09-13 16:32 | disposition home or self-care (01) ==
PROVIDERS: Emergency Provider Emergency Medicine; PCP Family Medicine
DX: L42 Pityriasis rosea (principal)
CPT/HCPCS: 87210; 99282; 99283; 99284

== ENCOUNTER 2024-01-01 12:36 | Emergency (ER) | payer OTHER, SELFPAY ==
[2024-01-01 12:40] VITALS: BP 136/88; PULSE 90; RESP 20; TEMP 36.5; O2SAT 99; BMI 19.2
--- NOTE | 2024-01-01 13:00 | CRLHL7_ITS ---
For Patients: As a result of the Century Cures Act, medical imaging exams and procedure reports are released immediately into your electronic medical record. You may view this report before your referring provider. If you have questions, please contact your health care provider. INDICATION: Left flank pain TECHNIQUE: Axial images were obtained from the diaphragm to the pubic symphysis. Reformats were obtained in the coronal and sagittal plane. IV Contrast: None Oral Contrast: None COMPARISON: None. FINDINGS: Lower chest: Unremarkable. Liver: Unremarkable. Normal in size and attenuation. No masses. Gallbladder and bile ducts: Unremarkable. No stones or inflammation. No biliary dilatation. Spleen: Unremarkable. Normal in size without mass. Pancreas: Unremarkable. No mass or inflammation. Adrenal glands: Unremarkable. No nodules. Kidneys: Nephrolithiasis with mild left hydronephrosis and distal left ureteral stone measuring 4 x 3 millimeters just above the ureterovesicular junction. Vasculature: Unremarkable. GI tract: No dilated loops of large or small intestine. Surgical clips adjacent to the cecal tip suggesting prior appendectomy. Pelvis: Unremarkable. Bones: Unremarkable for age. IMPRESSION: Nephrolithiasis with mild left hydronephrosis and obstructing distal left ureteral stone measuring 4 x 3 millimeters. Please note that all CT scans at this facility use dose modulation, iterative reconstruction, and/or weight-based dosing when appropriate to reduce radiation dose to as low as reasonably achievable. Dictated by Rg Childers MD @ 01/01/2024 2:58:00 PM (Electronically Signed)
--- OUTSIDE RECORDS SUMMARY | 2024-01-01 13:16 | XMS_ITS ---
Author Name Lupillo Ashraf Address Unknown Phone [phone] Organization [facility] al Phone [phone] Care Team Providers Care Rubber Flap Cutter Name Role Phone Lupillo Ashraf Attending [phone] Allergies and Intolerances Substance Reaction Severity Activated [...]
--- OUTSIDE RECORDS SUMMARY | 2024-01-01 13:16 | XMS_ITS ---
Author Name Lupillo Ashraf Address Unknown Phone [phone] Organization [facility] Phone [phone] Care Team Providers Care Driver Retraining Instructor Name Role Phone Lupillo Ashraf Attending [phone] Lupillo Ashraf Ordering [phone] Allergies and Intolerances Substance Reaction Severity Activated [...] 11:40 9279-1 Pain Scale 3 08/21/2021 12:41 80199-8 SpO2 % 100 08/21/2021 11:40 50659-3 Medications Administered Medication Start Date Dosage Route [...] TANG Entered By: ALFONZO TANG <div></div><div class='heade rFont'><b>[facility]</b></div> <div></div><b>Emergency Department Visit Record</b> <div></div><table class='tableFont' border=0 cellspacing=0 cellpadding=0 style= margin-left: 21pt;border-collapse: collapse; border: none> <tr> <td width=16 height=11 style= ></td> <td cdzlc=210 style= > Patient Name</td> <td width=16 style= > :</td> <td hlrxz=949 style= > EMELYN ASKEW</td> </tr> <tr> <td width=16 height=11 style= ></td> <td pccov=433 style= > MR #</td> <td width=16 style= > :</td> <td qhapm=770 style= > [id number]</td> </tr> <tr> <td width=16 height=11 style= ></td> <td tbdpv=572 style= > </td> <td width=16 style= > :</td> <td kgrwt=945 style= > 1990 [31 years]</td> </tr> <tr> <td width=16 height=11 style= ></td> <td ueecs=173 style= > Visit #</td> <td width=16 style= > :</td> <td iwknu=759 style= > [id number]</td> </tr> <tr> <td width=16 height=11 style= ></td> <td gxndf=010 style= > Administrative Gender</td> <td width=16 style= > :</td> <td mdvyu=846 style= > Male</td> </tr> <tr> <td width=16 height=11 style= ></td> <td dzswu=109 style= > Sex</td> <td width=16 style= > :</td> <td klplx=560 style= > Male</td> </tr> <tr> <td width=16 height=11 style= ></td> <td aocwx=413 style= > Admission Date/Time</td> <td width=16 style= > :</td> <td imaop=128 style= > 08/21/2021 11:35</td> </tr> <tr> <td width=16 height=11 style= ></td> <td dmlyt=458 style= > Attending Provider</td> <td width=16 style= > :</td> <td dpumb=040 style= > Lupillo Ashraf</td> </tr></table> <div></div><b>Patient Data</b> <div></div><table class='tableFont' border=0 cellspacing=0 cellpadding=0 style= margin-left: 21pt;border-collapse: collapse; border: none> <tr> <td width=16 height=11 style= ></td> <td vqlhn=451 style= > Chief Complaint</td> <td width=16 style= > :</td> <td rbnrf=271 style= > Right flank pain</td> </tr> <tr> <td width=16 height=11 style= ></td> <td nghty=105 style= > Body System/Complaint</td> <td width=16 style= > :</td> <td ilmws=783 style= > Genitourinary / Flank Pain</td> </tr> <tr> <td width=16 height=11 style= ></td> <td wpajr=133 style= > Historian</td> <td width=16 style= > :</td> <td cothp=419 style= > Patient</td> </tr> <tr> <td width=16 height=11 style= ></td> <td nqjim=709 style= > Triage Time</td> <td width=16 style= > :</td> <td klmoy=422 style= > 08/21/2021 11:40</td> </tr> <tr> <td width=16 height=11 style= ></td> <td vwihv=413 style= > Triage Level</td> <td width=16 style= > :</td> <td driip=797 style= > 4 - Semi-Urgent</td> </tr> <tr> <td width=16 height=11 style= ></td> <td norhp=309 style= > Provider</td> <td width=16 style= > :</td> <td rwjst=220 style= > Lupillo Ashraf</td> </tr> <tr> <td width=16 height=11 style= ></td> <td jdhak=051 style= > Registered Nurse</td> <td width=16 style= > :</td> <td mrnvq=075 style= > -</td> </tr> <tr> <td width=16 height=11 style= ></td> <td grpch=709 style= > Personnel Monitor</td> <td width=16 style= > :</td> <td qmkyf=399 style= > - </td> </tr> <tr> <td width=16 height=11 style= ></td> <td bppmi=344 style= > Bed</td> <td width=16 style= > :</td> <td yvwrs=157 style= > ER-3</td> </tr> <tr> <td width=16 height=11 style= ></td> <td xtzak=755 style= > Pain Scale</td> <td width=16 style= > :</td> <td ehlbr=291 style= > 10</td> </tr></table> <div></div><b>First Vital Signs</b> <div></div><table class='tableFont' border=0 cellspacing=0 cellpadding=0 style= margin-left: 21pt;border-collapse: collapse; border: none> <tr> <td width=16 height=11 style= ></td> <td caxjv=974 style= > Date/Time</td> <td width=16 style= > :</td> <td dmzye=735 style= > 08/21/2021 11:40</td> </tr> <tr> <td width=16 height=11 style= ></td> <td kjmiq=356 style= > HR</td> <td width=16 style= > :</td> <td fszqz=863 style= > 57</td> </tr> <tr> <td width=16 height=11 style= ></td> <td iebrp=975 style= > BP(mm/Hg)</td> <td width=16 style= > :</td> <td wayoe=723 style= > 127/80</td> </tr> <tr> <td width=16 height=11 style= ></td> <td denks=023 style= > BP Site</td> <td width=16 style= > :</td> <td vxxnb=938 style= > -</td> </tr> <tr> <td width=16 height=11 style= ></td> <td udyml=959 style= > BP Position</td> <td width=16 style= > :</td> <td rhjvt=193 style= > -</td> </tr> <tr> <td width=16 height=11 style= ></td> <td ttpsx=318 style= > MAP(mm/Hg)</td> <td width=16 style= > :</td> <td ovnxi=470 style= > 95.67</td> </tr> <tr> <td width=16 height=11 style= ></td> <td ofrrk=286 style= > Temp(F)</td> <td width=16 style= > :</td> <td uvxsp=635 style= > 96.4</td> </tr> <tr> <td width=16 height=11 style= ></td> <td uhsnq=442 style= > Resp</td> <td width=16 style= > :</td> <td peftw=591 style= > 20</td> </tr> <tr> <td width=16 height=11 style= ></td> <td zduco=355 style= > SpO2(%)</td> <td width=16 style= > :</td> <td vkggm=468 style= > 100</td> </tr> <tr> <td width=16 height=11 style= ></td> <td kmkdd=815 style= > O2 Device</td> <td width=16 style= > :</td> <td hrvrh=813 style= > Room Air</td> </tr> <tr> <td width=16 height=11 style= ></td> <td jfsds=655 style= > O2 Amount</td> <td width=16 style= > :</td> <td iphbl=848 style= > -</td> </tr> <tr> <td width=16 height=11 style= ></td> <td kiqgx=019 style= > BS (mg/dL)</td> <td width=16 style= > :</td> <td tcpuo=099 style= > -</td> </tr> <tr> <td width=16 height=11 style= ></td> <td jnqua=433 style= > Pain Scale</td> <td width=16 style= > :</td> <td xwtle=101 style= > 10</td> </tr> <tr> <td width=16 height=11 style= ></td> <td kaqcl=355 style= > Ht/Length(in)</td> <td width=16 style= > :</td> <td myylr=989 style= > -</td> </tr> <tr> <td width=16 height=11 style= ></td> <td ldwtg=201 style= > Wt(lb/oz)</td> <td width=16 style= > :</td> <td dkfds=325 style= > -</td> </tr> <tr> <td width=16 height=11 style= ></td> <td epvfo=858 style= > Wt Descriptor</td> <td width=16 style= > :</td> <td fkgvi=448 style= > -</td> </tr> <tr> <td width=16 height=11 style= ></td> <td irxgv=421 style= > BMI</td> <td width=16 style= > :</td> <td bktzb=087 style= > -</td> </tr> <tr> <td width=16 height=11 style= ></td> <td riwdz=950 style= > Head Circum.(in)</td> <td width=16 style= > :</td> <td zgovf=331 style= > -</td> </tr> <tr> <td width=16 height=11 style= ></td> <td btopy=557 style= > Entered By</td> <td width=16 style= > :</td> <td hjsxt=636 style= > ALFONZO TANG</td> </tr></table> <div></div><b>Allergies</b> <div></div><b>Visit Details</b> <div></div><b>Triage</b> <div></div><table class='tableFont' border=0 cellspacing=0 cellpadding=0 style= margin-left: 21pt;border-collapse: collapse; border: none> <tr> <td nobjr=758 height=11 > <b>Level</b> </td> <td qvsyi=371 > <b>Start Date</b> </td> <td omvpb=596 > <b>End Date</b> </td> <td uotii=339 > <b>Length of Stay (Mins)</b> </td> <td ixnaf=094 > <b>Entered By</b> </td> </tr> <tr> <td aneoi=292 height=11 style= > 4 - Semi-Urgent </td> <td yvcms=214 style= > 08/21/2021 11:40 </td> <td jhxlb=823 style= > 08/21/2021 13:20 </td> <td spcbp=384 style= > 100 </td> <td tnhdp=523 style= > ALFONZO TANG </td> </tr></table> <div></div><b>Stages Of Care</b> <div></div><b>Staff Appointments</b> <div></div><b>Providers</b> <div></div><table class='tableFont' border=0 cellspacing=0 cellpadding=0 style= margin-left: 21pt;border-collapse: collapse; border: none> <tr> <td qjtqe=972 height=11 > <b>Name</b> </td> <td jnrba=802 > <b>Start Date</b> </td> <td uvomf=032 > <b>End Date</b> </td> <td dpbam=823 > <b>Length of Stay (Mins)</b> </td> <td lkbcz=781 > <b>Appointed By</b> </td> </tr> <tr> <td bplum=756 height=11 style= > Lupillo Ashraf </td> <td deuvi=305 style= > 08/21/2021 11:36 </td> <td azawe=681 style= > 08/21/2021 13:20 </td> <td rlzbk=660 style= > 104 </td> <td ygkdr=458 style= > STEFANI MENDEZ </td> </tr></table> <div></div><b>Provider</b> <div></div><table class='tableFont' border=0 cellspacing=0 cellpadding=0 style= margin-left: 21pt;border-collapse: collapse; border: none> <tr> <td width=16 height=11 style= ></td> <td djsgq=749 style= > Provider Notified Time</td> <td width=16 style= > :</td> <td qyeef=678 style= > -</td> </tr> <tr> <td width=16 height=11 style= ></td> <td mlcgz=286 style= > Provider Arrival Time</td> <td width=16 style= > :</td> <td seqbi=268 style= > -</td> </tr></table> <div></div><b>Patient Stated Complaint</b> <div></div><table class='tableFont' border=0 cellspacing=0 cellpadding=0 style= margin-left: 21pt;border- collapse: collapse; border: none> <tr> <td width=16 height=11 style= ></td> <td nffyx=978 style= > Stated Complaint</td> <td width=16 style= > :</td> <td jsank=440 style= > KIDNEY STONES</td> </tr></table> <div></div><b>Treatment Prior to Arrival</b> <div></div><table class='tableFont' border=0 cellspacing=0 cellpadding=0 style= margin-left: 21pt;border-collapse: collapse; border: none> <tr> <td width=16 height=11 style= ></td> <td dzxuq=148 style= > Arrival Mode</td> <td width=16 style= > :</td> <td pacgh=936 style= > -</td> </tr></table> <div></div><b>Immediate Treatment</b> <div></div><b>Treatment</b> <div></div><table class='tableFont' border=0 cellspacing=0 cellpadding=0 style= margin-left: 21pt;border-collapse: collapse; border: none> <tr> <td width=16 height=11 style= ></td> <td yavmn=306 style= > Treatment Outcome</td> <td width=16 style= > :</td> <td bhaxl=032 style= > -</td> </tr> <tr> <td width=16 height=11 style= ></td> <td enhun=411 style= > Bed</td> <td width=16 style= > :</td> <td tezxl=363 style= > ER-3</td> </tr></table> <div></div><b>Past Medical History</b> <div></div><b>Health Status Observation</b> <div></div><table class='tableFont' border=0 cellspacing=0 cellpadding=0 style= margin-left: 21pt;border-collapse: collapse; border: none> <tr> <td width=16 height=11 style= ></td> <td hmtpc=630 style= > No health status observation available </td> </tr></table> <div></div><b>Impairments</b> <div></div><table class='tableFont' border=0 cellspacing=0 cellpadding=0 style= margin-left: 21pt;border-collapse: collapse; border: none> <tr> <td width=16 height=11 style= ></td> <td hdkco=661 style= > No impairments available</td> <td width=16 style= ></td> <td amhyv=537 style= ></td> </tr></table> <div></div><b>Assessment and Plan</b> <div></div><b>Surgical History</b> <div></div><b>Family History</b> <div></div><b>Allergies</b> <div></div><table class='tableFont' border=0 cellspacing=0 cellpadding=0 style= margin- left: 21pt;border-collapse: collapse; border: none> <tr> <td width=16 height=11 style= ></td> <td colspan=3 gqxdr=160 style= > No Known Allergies</td> <td width=16 style= ></td> <td vscgc=518 style= ></td> </tr> <tr> <td width=16 height=11 style= ></td> <td neaxu=919 style= > Allergy band placed on patient</td> <td width=16 style= > :</td> <td colspan=3 vhwaz=750 style= > No</td> </tr> <tr> <td width=16></td> <td ddgyq=411></td> <td width=16></td> <td addac=149></td> <td width=16></td> <td eoqek=773></td> </tr></table> <div></div><b>Precautions</b> <div></div><table class='tableFont' border=0 cellspacing=0 cellpadding=0 style= margin-left: 21pt;border-collapse: collapse; border: none> <tr> <td width=16 height=11 style= ></td> <td ggren=965 style= > No Precautions Available</td> <td width=16 style= ></td> <td qcvlq=190 style= ></td> </tr></table> <div></div><b>Medication History</b> <div></div><table class='tableFont' border=0 cellspacing=0 cellpadding=0 style= margin-left: 21pt;border-collapse: collapse; border: none> <tr> <td qrmgw=354 height=11 > <b>Medication Name</b> </td> <td width=74 > <b>Dose</b> </td> <td width=74 > <b>Unit</b> </td> <td ckkeo=894 > <b>Frequency</b> </td> <td brjyr=348 > <b>Assessed By</b> </td> <td ukrav=183 > <b>Start Date/Time</b> </td> <td ptixd=318 > <b>Source</b> </td> </tr></table> <div></div><table class='tableFont' border=0 cellspacing=0 cellpadding=0 style= margin-left: 21pt;border-collapse: collapse; border: none> <tr> <td rihva=681 height=11 style= > hydrocodone-acetaminophen(hydrocodone-acetaminophen) </td> <td width=74 style= > 1-2 tablet </td> <td width=74 style= > tablet </td> <td dphns=770 style= > every four to six hours as needed </td> <td chfvs=264 style= > ejmdibs48 </td> <td stain=300 style= ></td> <td lhjvw=414 style= > ePrescription </td> </tr></table> <div></div><table class='tableFont' border=0 cellspacing=0 cellpadding=0 style= margin-left: 21pt;border-collapse: collapse; border: none> <tr> <td syroj=569 height=11 style= > Ritalin(methylphenidate hcl) </td> <td width=74 style= > 1 tablet </td> <td width=74 style= > tablet </td> <td ybzbp=142 style= > once a day as needed </td> <td letzq=444 style= > </td> <td dumfh=253 style= ></td> <td zjovk=680 style= > ePrescription </td> </tr></table> <div></div><table class='tableFont' border=0 cellspacing=0 cellpadding=0 style= margin-left: 21pt;border-collapse: collapse; border: none> <tr> <td fgxqp=088 height=11 style= > Concerta(methylphenidate hcl) </td> <td width=74 style= > 1 tablet </td> <td width=74 style= > tablet </td> <td ypwqz=996 style= > once a day </td> <td thnqt=908 style= > euozewv28 </td> <td psgcp=341 style= ></td> <td rvodo=385 style= > ePrescription </td> </tr></table> <div></div><table class='tableFont' border=0 cellspacing=0 cellpadding=0 style= margin-left: 21pt;border-collapse: collapse; border: none> <tr> <td jhyub=117 height=11 style= > acyclovir(acyclovir) </td> <td width=74 style= > 1 tablet </td> <td width=74 style= > tablet </td> <td fleed=657 style= > once a day </td> <td lglfs=898 style= > lgeakba97 </td> <td akrld=938 style= ></td> <td ueivd=792 style= > ePrescription </td> </tr></table> <div></div><table class='tableFont' border=0 cellspacing=0 cellpadding=0 style= margin-left: 21pt;border-collapse: collapse; border: none> <tr> <td nfgda=927 height=11 style= > doxycycline hyclate(doxycycline hyclate) </td> <td width=74 style= > 50 tablet </td> <td width=74 style= > tablet </td> <td ljsnz=377 style= > twice a day </td> <td rcknd=128 style= > uqtgepg36 </td> <td szhdo=193 style= ></td> <td mnlgp=705 style= > ePrescription </td> </tr></table> <div></div><b>Social Profile</b> <div></div><table class='tableFont' border=0 cellspacing=0 cellpadding=0 style= margin-left: 21pt;border-collapse: collapse; border: none> <tr> <td width=16 height=11 style= ></td> <td gqnpu=507 style= > No social profile available</td> <td width=16 style= ></td> <td oqcmr=401 style= ></td> </tr></table> <div></div><b>Triage Pain Assessments</b> <div></div><table class='tableFont' border=0 cellspacing=0 cellpadding=0 style= margin-left: 21pt;border-collapse: collapse; border: none> <tr> <td rufzz=309 height=11 > <b>Body System</b> </td> <td rkcay=086 > <b>Numerical Pain Scale</b> </td> <td width=82 > <b>Duration</b> </td> <td bsgop=717 > <b>Location</b> </td> </tr> <tr> <td mkxmn=082 height=11 style= > Genitourinary </td> <td kvjpf=982 style= > 10 </td> <td width=82 style= > 2Hrs </td> <td djztk=683 style= > Right flank </td> </tr></table> <div></div><b>Assessments </b> <div></div><table class='tableFont' border=0 cellspacing=0 cellpadding=0 style= margin-left: 21pt;border- collapse: collapse; border: none> <tr> <td width=16 height=11 style= border-left:solid #[id number] 0px; border-top:solid #277042 1px; border-right:solid #811641 0px; border-bottom:solid #368452 0px;></td> <td ohytt=488 style= border-left:solid #073387 0px; border-top:solid #024979 1px; border-right:solid #691518 0px; border-bottom:solid #411764 0px;> <b>Name</b></td> <td width=16 style= border-left:solid #564996 0px; border-top:solid #760839 1px; border-right:solid #616446 0px; border-bottom:solid #718294 0px;></td> <td edanb=189 style= border-left:solid #990195 0px; border-top:solid #870879 1px; border-right:solid #990628 0px; border- bottom:solid #411781 0px;> <b>: ED: Discharge Checklist</b></td> </tr> <tr> <td width=16 height=11 style= ></td> <td qyjks=273 style= > <b>Charted Date</b></td> <td width=16 style= ></td> <td lseom=951 style= > <b>: 08/21/2021 13:26</b></td> </tr> <tr> <td width=16 height=11 style= ></td> <td hzwzd=882 style= > <b>Entered By</b></td> <td width=16 style= ></td> <td uqjwf=329 style= > <b>: ALFONZO TANG</b></td> </tr> <tr> <td width=16 height=11 style= ></td> <td olxkl=136 style= > <b>Signed On</b></td> <td width=16 style= ></td> <td yypbn=692 style= > <b>: 08/21/2021 13:27</b></td> </tr> <tr> <td width=16 height=11 style= border-left:solid #[id number] 0px; border-top:solid #653435 0px; border-right:solid #514325 0px; border-bottom:solid #412575 1px;></td> <td yrxvv=158 style= border-left:solid #826058 0px; border-top:solid #684702 0px; border-right:solid #927946 0px; border- bottom:solid #470709 1px;> <b>Signed By</b></td> <td width=16 style= border-left:solid #345040 0px; border-top:solid #819693 0px; border-right:solid #557603 0px; border-bottom:solid #362779 1px;></td> <td lient=237 style= border-left:solid #023510 0px; border-top:solid #657700 0px; border-right:solid #302414 0px; border-bottom:solid #831807 1px;> <b>: ALFONZO TANG RN</b></td> </tr></table> <div></div><b>DC: Medications</b> <div></div><table class='tableFont' border=0 cellspacing=0 cellpadding=0 style= margin- left: 21pt;border-collapse: collapse; border: none> <tr> <td width=16 height=11 style= ></td> <td idhrg=372 style= > Discharge instructions reviewed</td> <td width=16 style= > :</td> <td ajejt=211 style= > With patient</td> </tr> <tr> <td width=16 height=11 style= ></td> <td tedfi=819 style= > Prescriptions given</td> <td width=16 style= > :</td> <td itkbi=927 style= > Paper script given</td> </tr> <tr> <td width=16 height=11 style= ></td> <td mwdzk=168 style= > Paper script given to:</td> <td width=16 style= > :</td> <td zqohs=234 style= > Paper script given to patient</td> </tr> <tr> <td width=16 height=11 style= ></td> <td thtzl=596 style= > Medication education given</td> <td width=16 style= > :</td> <td fiabf=136 style= > Yes</td> </tr> <tr> <td width=16 height=11 style= ></td> <td dbwml=866 style= > Reviewed with</td> <td width=16 style= > :</td> <td lhjvl=260 style= > Patient and family</td> </tr> <tr> <td width=16 height=11 style= ></td> <td lnlbr=051 style= > Patient home meds returned</td> <td width=16 style= > :</td> <td kdkik=074 style= > NA</td> </tr></table> <div></div><b>DC: Discharge instructions</b> <div></div><table class='tableFont' border=0 cellspacing=0 cellpadding=0 style= margin- left: 21pt;border-collapse: collapse; border: none> <tr> <td width=16 height=11 style= ></td> <td ywaec=155 style= > PCI reviewed</td> <td width=16 style= > :</td> <td lizky=237 style= > Yes</td> </tr> <tr> <td width=16 height=11 style= ></td> <td wbmdg=035 style= > Reviewed with</td> <td width=16 style= > :</td> <td nswnf=760 style= > Patient and family</td> </tr></table> <div></div><b>DC: Referral</b> <div></div><table class='tableFont' border=0 cellspacing=0 cellpadding=0 style= margin- left: 21pt;border-collapse: collapse; border: none> <tr> <td width=16 height=11 style= ></td> <td smsgs=790 style= > Discharge orders faxed</td> <td width=16 style= > :</td> <td oasur=314 style= > NA</td> </tr></table> <div></div><b>DC: In house referral (ORTHO, Therapy,EGD,Echo)</b> <div></div><table class='tableFont' border=0 cellspacing=0 cellpadding=0 style= margin- left: 21pt;border-collapse: collapse; border: none> <tr> <td width=16 height=11 style= ></td> <td dszxt=532 style= > Referral made:</td> <td width=16 style= > :</td> <td nuglw=050 style= > NA</td> </tr></table> <div></div><b>DC: Radiology orders</b> <div></div><table class='tableFont' border=0 cellspacing=0 cellpadding=0 style= margin-left: 21pt;border-collapse: collapse; border: none> <tr> <td width=16 height=11 style= ></td> <td isgpo=719 style= > Radiology tests needed after ER visit</td> <td width=16 style= > :</td> <td jtzzb=472 style= > NA</td> </tr></table> <div></div><b>Radiology test to be done at OUTSIDE facility</b> <div></div><table class='tableFont' border=0 cellspacing=0 cellpadding=0 style= margin-left: 21pt;border-collapse: collapse; border: none> <tr> <td width=16 height=11 style= ></td> <td uoama=361 style= > Outside facility radiology orders needed?</td> <td width=16 style= > :</td> <td nvyws=044 style= > NA</td> </tr></table> <div></div><b>Outreach Provider follow up needed</b> <div></div><table class='tableFont' border=0 cellspacing=0 cellpadding=0 style= margin-left: 21pt;border- collapse: collapse; border: none> <tr> <td width=16 height=11 style= ></td> <td qqwao=355 style= > Order for outreach follow up obtained</td> <td width=16 style= > :</td> <td jjbwp=305 style= > NA</td> </tr></table> <div></div><b>DC: Nursing documentation</b> <div></div><table class='tableFont' border=0 cellspacing=0 cellpadding=0 style= margin-left: 21pt;border-collapse: collapse; border: none> <tr> <td width=16 height=11 style= ></td> <td ymuqf=754 style= > Valuables returned</td> <td width=16 style= > :</td> <td frckk=374 style= > NA</td> </tr> <tr> <td width=16 height=11 style= ></td> <td osicf=956 style= > Removed IV and charted</td> <td width=16 style= > :</td> <td nzgku=578 style= > Yes</td> </tr></table> <div></div><b>DC: Medication stop times charted in [facility]</b> <div></div><table class='tableFont' border=0 cellspacing=0 cellpadding=0 style= margin- left: 21pt;border-collapse: collapse; border: none> <tr> <td width=16 height=11 style= ></td> <td qfaoq=327 style= > Medication stop times charted in [facility]</td> <td width=16 style= > :</td> <td nfryq=764 style= > NA</td> </tr></table> <div></div><b>Discharge</b> <div></div><table class='tableFont' border=0 cellspacing=0 cellpadding=0 style= margin-left: 21pt;border-collapse: collapse; border: none> <tr> <td width=16 height=11 style= ></td> <td qhwvl=693 style= > Date/Time</td> <td width=16 style= > :</td> <td koqih=008 style= > 08/21/2021 13:20</td> </tr> <tr> <td width=16 height=11 style= ></td> <td bpbbj=697 style= > Condition on discharge</td> <td width=16 style= > :</td> <td lbypi=785 style= > Improved</td> </tr> <tr> <td width=16 height=11 style= ></td> <td actlc=460 style= > Destination</td> <td width=16 style= > :</td> <td imlrf=364 style= > Home</td> </tr> <tr> <td width=16 height=11 style= ></td> <td wdose=100 style= > Accompanied by</td> <td width=16 style= > :</td> <td pcnbj=287 style= > Family</td> </tr></table> <div></div><b>DC: Transportation</b> <div></div><table class='tableFont' border=0 cellspacing=0 cellpadding=0 style= margin-left: 21pt;border-collapse: collapse; border: none> <tr> <td width=16 height=11 style= ></td> <td ifule=065 style= > Mode</td> <td width=16 style= > :</td> <td wnlgq=484 style= > Ambulatory</td> </tr></table> <div></div><b>DC: Additional</b> <div></div><table class='tableFont' border=0 cellspacing=0 cellpadding=0 style= margin-left: 21pt;border-collapse: collapse; border: none> <tr> <td width=16 height=11 style= ></td> <td iacgw=792 style= > Comments</td> <td width=16 style= > :</td> <td xaqay=709 style= > Sent with strainer for urine and sample cup</td> </tr></table> <div></div><table class='tableFont' border=0 cellspacing=0 cellpadding=0 style= margin-left: 21pt;border-collapse: collapse; border: none> <tr> <td width=16 height=11 style= border-left:solid #[id number] 0px; border-top:solid #[id number] 1px; border- right:solid #[id number] 0px; border-bottom:solid #[id number] 0px;></td> <td colspan=3 msaet=941 style= border-left:solid #[id number] 0px; border-top:solid #[id number] 1px; border-right:solid #[id number] 0px; border-bottom:solid #[id number] 0px;> <b>Name</b></td> <td width=16 style= border-left:solid #[id number] 0px; border-top:solid #165096 1px; border-right:solid #[id number] 0px; border-bottom:solid #[id number] 0px;></td> <td jhahp=694 style= border-left:solid #[id number] 0px; border-top:solid #352427 1px; border-right:solid #886414 0px; border- bottom:solid #477572 0px;> <b>: ED: Full Assessment</b></td> </tr> <tr> <td width=16 height=11 style= ></td> <td colspan=3 jakks=330 style= > <b>Charted Date</b></td> <td width=16 style= ></td> <td zaifq=118 style= > <b>: 08/21/2021 11:43</b></td> </tr> <tr> <td width=16 height=11 style= ></td> <td colspan=3 cbewf=001 style= > <b>Entered By</b></td> <td width=16 style= ></td> <td foxkc=858 style= > <b>: ALFONZO TANG</b></td> </tr> <tr> <td width=16 height=11 style= ></td> <td colspan=3 rqzmn=519 style= > <b>Signed On</b></td> <td width=16 style= ></td> <td emzar=846 style= > <b>: 08/21/2021 11:52</b></td> </tr> <tr> <td width=16 height=11 style= border-left:solid #312320 0px; border-top:solid #219284 0px; border-right:solid #240497 0px; border-bottom:solid #192717 1px;></td> <td colspan=3 qdxtj=225 style= border-left:solid #610266 0px; border-top:solid #670831 0px; border-right:solid #196973 0px; border-bottom:solid #707228 1px;> <b>Signed By</b></td> <td width=16 style= border-left:solid #797483 0px; border-top:solid #207423 0px; border-right:solid #031196 0px; border-bottom:solid #561883 1px;></td> <td qylrm=732 style= border-left:solid #500216 0px; border-top:solid #273001 0px; border-right:solid #445617 0px; border- bottom:solid #642585 1px;> <b>: ALFONZO TANG A, RN</b></td> </tr> <tr> <td width=16 height=11 style= border-left:solid #616102 0px; border-top:solid #143205 1px; border-right:solid #621156 0px; border-bottom:solid #143483 0px;></td> <td colspan=3 rmrhr=010 style= border-left:solid #522061 0px; border-top:solid #762330 1px; border-right:solid #040897 0px; border-bottom:solid #030357 0px;> <b>Last Modified By</b></td> <td width=16 style= border-left:solid #689517 0px; border-top:solid #303932 1px; border-right:solid #383889 0px; border-bottom:solid #837240 0px;></td> <td zgbnv=647 style= border-left:solid #687505 0px; border-top:solid #808228 1px; border-right:solid #409687 0px; border-bottom:solid #832346 0px;> <b>: ALFONZO TANG</b></td> </tr> <tr> <td width=16 height=11 style= ></td> <td colspan=3 ijrbp=689 style= > <b>Reason For Modification</b></td> <td width=16 style= ></td> <td bexuv=474 style= ></td> </tr> <tr> <td width=16 height=11 style= border-left:solid #844472 0px; border-top:solid #974675 0px; border- right:solid #052569 0px; border-bottom:solid #932212 1px;></td> <td width=24 style= border-left:solid #943629 0px; border- top:solid #434496 0px; border-right:solid #720991 0px; border-bottom:solid #401839 1px;></td> <td width=16 style= border-left:solid #008572 0px; border-top:solid #370665 0px; border-right:solid #130638 0px; border-bottom:solid #107839 1px;></td> <td colspan=3 yksmg=902 style= border-left:solid #814618 0px; border-top:solid #535630 0px; border-right:solid #350978 0px; border- bottom:solid #531705 1px;> Continuation of Care</td> </tr> <tr> <td width=16></td> <td width=24></td> <td width=16></td> <td lojxu=513></td> <td width=16></td> <td abodt=432></td> </tr></table> <div></div><b>Trauma</b> <div></div><table class='tableFont' border=0 cellspacing=0 cellpadding=0 style= margin-left: 21pt;border-collapse: collapse; border: none> <tr> <td width=16 height=11 style= ></td> <td gebin=022 style= > Trauma patient</td> <td width=16 style= > :</td> <td aemzh=958 style= > No</td> </tr> <tr> <td width=16 height=11 style= ></td> <td nihnj=775 style= > Trauma team activated</td> <td width=16 style= > :</td> <td bzsuc=912 style= > No</td> </tr></table> <div></div><b>Glascow Coma Scale</b> <div></div><table class='tableFont' border=0 cellspacing=0 cellpadding=0 style= margin-left: 21pt;border-collapse: collapse; border: none> <tr> <td width=16 height=11 style= ></td> <td dxbpp=722 style= > Buddy Coma Scale</td> <td width=16 style= > :</td> <td vcdvh=319 style= > 08/21/2021 11:43:00 AM</td> </tr> <tr> <td width=16 height=11 style= ></td> <td vpcot=685 style= ><div align=right > Risk Level</td> <td width=16 style= > :</td> <td qktju=485 style= > 15 - Minor Head Injury</td> </tr></table> <div></div><b>COVID-19 Symptom Screening</b> <div></div><table class='tableFont' border=0 cellspacing=0 cellpadding=0 style= margin- left: 21pt;border-collapse: collapse; border: none> <tr> <td width=16 height=11 style= ></td> <td pvxnf=911 style= > Patient reported criteria:</td> <td width=16 style= > :</td> <td jrbpq=099 style= > None</td> </tr></table> <div></div><b>Medications</b> <div></div><table class='tableFont' border=0 cellspacing=0 cellpadding=0 style= margin-left: 21pt;border-collapse: collapse; border: none> <tr> <td width=16 height=11 style= ></td> <td eenmn=116 style= > Review home medications</td> <td width=16 style= > :</td> <td lwfih=795 style= > Reviewed with patient</td> </tr> <tr> <td width=16 height=11 style= ></td> <td ihbgz=470 style= > If HC pt, call HC personal computer specialist for medlist.(can identify in care team or visit list)</td> <td width=16 style= > :</td> <td atwzh=169 style= > NA</td> </tr></table> <div></div><b>Primary Care Provider</b> <div></div><table class='tableFont' border=0 cellspacing=0 cellpadding=0 style= margin-left: 21pt;border-collapse: collapse; border: none> <tr> <td width=16 height=11 style= ></td> <td acorl=061 style= > List Provider</td> <td width=16 style= > :</td> <td payue=181 style= > Roberts</td> </tr></table> <div></div><b>Pain assessment</b> <div></div><table class='tableFont' border=0 cellspacing=0 cellpadding=0 style= margin-left: 21pt;border-collapse: collapse; border: none> <tr> <td width=16 height=11 style= ></td> <td meytk=240 style= > Pain scale</td> <td width=16 style= > :</td> <td gaklh=143 style= > 10</td> </tr> <tr> <td width=16 height=11 style= ></td> <td sjtcb=529 style= > Pain location:</td> <td width=16 style= > :</td> <td rdipn=520 style= > Right flank</td> </tr> <tr> <td width=16 height=11 style= ></td> <td givyp=931 style= > Pain description:</td> <td width=16 style= > :</td> <td yaong=743 style= > Sharp</td> </tr> <tr> <td width=16 height=11 style= ></td> <td bfcvw=996 style= > Pain management intervations prior to ER:</td> <td width=16 style= > :</td> <td kxxhg=694 style= > [place] 8-417mh-vsnm 2 tabs at 1000</td> </tr> <tr> <td width=16 height=11 style= ></td> <td ghuxj=156 style= > Interventions - Pain</td> <td width=16 style= > :</td> <td voinn=147 style= > Positioned for comfort</td> </tr></table> <div></div><b>Cardiac</b> <div></div><table class='tableFont' border=0 cellspacing=0 cellpadding=0 style= margin-left: 21pt;border-collapse: collapse; border: none> <tr> <td width=16 height=11 style= ></td> <td ouxge=198 style= > Heart Sounds</td> <td width=16 style= > :</td> <td btvqw=290 style= > Normal S1 S2</td> </tr> <tr> <td width=16 height=11 style= ></td> <td aklvo=683 style= > Rhythm</td> <td width=16 style= > :</td> <td ooqqy=796 style= > Normal Sinus</td> </tr> <tr> <td width=16 height=11 style= ></td> <td tzinb=998 style= ></td> <td width=16 style= ></td> <td vkipp=428 style= > Regular Rhythm</td> </tr> <tr> <td width=16 height=11 style= ></td> <td buehb=384 style= > Chest Pain</td> <td width=16 style= > :</td> <td ffahe=134 style= > Denies pain</td> </tr> <tr> <td width=16 height=11 style= ></td> <td righb=156 style= > Chest Pain Radiation to</td> <td width=16 style= > :</td> <td rwltf=688 style= > No radiation of pain</td> </tr> <tr> <td width=16 height=11 style= ></td> <td iouav=066 style= > Circulation</td> <td width=16 style= > :</td> <td uvtep=109 style= > Capillary refill < 3 seconds</td> </tr> <tr> <td width=16 height=11 style= ></td> <td slxyp=697 style= > Edema</td> <td width=16 style= > :</td> <td clpim=684 style= > No edema present</td> </tr></table> <div></div><b>Gastrointestinal</b> <div></div><table class='tableFont' border=0 cellspacing=0 cellpadding=0 style= margin-left: 21pt;border-collapse: collapse; border: none> <tr> <td width=16 height=11 style= ></td> <td yktre=210 style= > Abdomen</td> <td width=16 style= > :</td> <td mqeus=324 style= > Soft, non- tender</td> </tr> <tr> <td width=16 height=11 style= ></td> <td widse=112 style= > Bowel sounds</td> <td width=16 style= > :</td> <td aixgw=654 style= > Present and active all quadrants</td> </tr> <tr> <td width=16 height=11 style= ></td> <td sqzfi=697 style= > Last normal bowel movement</td> <td width=16 style= > :</td> <td vprwf=060 style= > 08/21/2021 11:00</td> </tr> <tr> <td width=16 height=11 style= ></td> <td fthod=822 style= > Nausea</td> <td width=16 style= > :</td> <td xtabj=463 style= > Intermittent</td> </tr> <tr> <td width=16 height=11 style= ></td> <td tiskx=153 style= > Vomiting</td> <td width=16 style= > :</td> <td hscri=889 style= > No</td> </tr> <tr> <td width=16 height=11 style= ></td> <td isjtf=858 style= > Bowel pattern</td> <td width=16 style= > :</td> <td ulueo=497 style= > Normal for patient</td> </tr> <tr> <td width=16 height=11 style= ></td> <td gqpgn=759 style= > Blood/bleeding</td> <td width=16 style= > :</td> <td hfxnt=958 style= > Denies</td> </tr> <tr> <td width=16 height=11 style= ></td> <td vodfd=817 style= > Appliances</td> <td width=16 style= > :</td> <td nwgfl=851 style= > None</td> </tr></table> <div></div><b>Genitourinary</b> <div></div><table class='tableFont' border=0 cellspacing=0 cellpadding=0 style= margin-left: 21pt;border-collapse: collapse; border: none> <tr> <td width=16 height=11 style= ></td> <td wppue=256 style= > Urination</td> <td width=16 style= > :</td> <td vfhbu=630 style= > Continent</td> </tr> <tr> <td width=16 height=11 style= ></td> <td kwfsn=504 style= ></td> <td width=16 style= ></td> <td tzvit=808 style= > Urine clear/ normal in color</td> </tr> <tr> <td width=16 height=11 style= ></td> <td cmtky=055 style= ></td> <td width=16 style= ></td> <td xjqqu=167 style= > Denies urgency, frequency, burning</td> </tr></table> <div></div><b>Integumentary</b> <div></div><table class='tableFont' border=0 cellspacing=0 cellpadding=0 style= margin-left: 21pt;border- collapse: collapse; border: none> <tr> <td width=16 height=11 style= ></td> <td uwyvf=202 style= > Skin</td> <td width=16 style= > :</td> <td jienr=800 style= > Warm and pink</td> </tr> <tr> <td width=16 height=11 style= ></td> <td tbcut=414 style= ></td> <td width=16 style= ></td> <td iicfp=221 style= > Dry</td> </tr> <tr> <td width=16 height=11 style= ></td> <td txsow=570 style= ></td> <td width=16 style= ></td> <td vsoyr=001 style= > Flushed/reddened</td> </tr></table> <div></div><b>Psych</b> <div></div><table class='tableFont' border=0 cellspacing=0 cellpadding=0 style= margin- left: 21pt;border-collapse: collapse; border: none> <tr> <td width=16 height=11 style= ></td> <td zcsbv=569 style= > Behavior</td> <td width=16 style= > :</td> <td qlsdj=032 style= > Appropriate for age and situation</td> </tr> <tr> <td width=16 height=11 style= ></td> <td suyqq=571 style= ></td> <td width=16 style= ></td> <td hqgal=442 style= > Cooperative with staff</td> </tr> <tr> <td width=16 height=11 style= ></td> <td rihyi=807 style= > Communication</td> <td width=16 style= > :</td> <td rgecr=643 style= > Communicates effectively</td> </tr> <tr> <td width=16 height=11 style= ></td> <td gujis=309 style= ></td> <td width=16 style= ></td> <td oeeju=193 style= > Responds appropriately to questions</td> </tr> <tr> <td width=16 height=11 style= ></td> <td rzopk=355 style= > Affect</td> <td width=16 style= > :</td> <td wxfor=682 style= > Normal for patient</td> </tr> <tr> <td width=16 height=11 style= ></td> <td azsax=808 style= ></td> <td width=16 style= ></td> <td qlzva=560 style= > Calm</td> </tr> <tr> <td width=16 height=11 style= ></td> <td wtcbl=717 style= > Update Social Profile</td> <td width=16 style= > :</td> <td dxgta=362 style= > Complete</td> </tr> <tr> <td width=16 height=11 style= ></td> <td nhwzl=386 style= > Update Care Team</td> <td width=16 style= > :</td> <td hemxl=901 style= > Complete</td> </tr></table> <div></div><b>Fall risk</b> <div></div><table class='tableFont' border=0 cellspacing=0 cellpadding=0 style= margin-left: 21pt;border-collapse: collapse; border: none> <tr> <td width=16 height=11 style= ></td> <td hzpgp=278 style= > [place] Fall Scale</td> <td width=16 style= > :</td> <td wrwxs=125 style= > 08/21/2021 11:43:00 AM</td> </tr> <tr> <td width=16 height=11 style= ></td> <td oejyc=875 style= ><div align=right > Risk Level</td> <td width=16 style= > :</td> <td bsoah=816 style= > 0 - No Risk</td> </tr></table> <div></div><b>Notes</b> <div></div><table class='tableFont' border=0 cellspacing=0 cellpadding=0 style= margin-left: 21pt;border-collapse: collapse; border: none> <tr> <td width=98 height=11 style= > <b>Charted Date</b> </td> <td tnmje=262 style= > 08/21/2021 12:49 </td> </tr> <tr> <td width=98 height=11 style= > <b>Charted By</b> </td> <td zdcib=351 style= > ALFONZO TANG </td> </tr> <tr> <td width=98 height=11 style= > <b>Type</b> </td> <td mengw=971 style= > Nurses Note </td> </tr> <tr> <td width=98 height=11 style= > <b>Note</b> </td> <td jnytd=818 style= > <div>Patient's pain has improved from a 01/16 to 06/16. Is visiting with family in room. Will monitor.</div> </td> </tr> <tr> <td width=98 height=11 style= > <b>Signed On</b> </td> <td ttbmb=864 style= > 08/21/2021 12:49 </td> </tr> <tr> <td width=98 height=11 style= > <b>Signed by</b> </td> <td jxzlf=017 style= > ALFONZO TANG </td> </tr> <tr> <td width=98 height=11 style= > <b>Cosigned On</b> </td> <td wrzus=638 style= ></td> </tr> <tr> <td width=98 height=11 style= > <b>Cosigned by</b> </td> <td nadfh=180 style= ></td> </tr></table> <div></div><table class='tableFont' border=0 cellspacing=0 cellpadding=0 style= margin-left: 21pt;border-collapse: collapse; border: none> <tr> <td width=98 height=11 style= > <b>Charted Date</b> </td> <td ikmum=761 style= > 08/21/2021 12:10 </td> </tr> <tr> <td width=98 height=11 style= > <b>Charted By</b> </td> <td bwcox=217 style= > KITTY, ALFONZO A </td> </tr> <tr> <td width=98 height=11 style= > <b>Type</b> </td> <td hledv=895 style= > Nurses Note </td> </tr> <tr> <td width=98 height=11 style= > <b>Note</b> </td> <td lbatt=474 style= > <div><renderedtemplate template=86><div style=text-indent:0pt><span style=font-size:12px><span style=font-family:Suncrest,Helvetica,sans-serif><span style=color:#[id number]><strong>IV Start using aseptic technique.</strong></span></span></span></div><div style=text-indent:0pt><span style=font-size:12px><span style=font-family:Suncrest,Helvetica,sans-serif><span style=color:#[id number]>Explained procedure to patient/family.</span></span></span></div><div style=text-indent:0pt><span style=font-size:12px><span style=font-family:Suncrest,Helvetica,sans-serif><span style=color:#[id number]>Indication for PIV: Meds</span></span></span></div><div style=text-indent:0pt><span style=font-size:12px><span style=font-family:Suncrest,Helvetica,sans-serif><span style=color:#[id number]>Site: Left AC</span></span></span></div><div style=text- indent:0pt><span style=font-size:12px><span style=font-family:Suncrest,Helvetica,sans-serif><span style=color:#[id number]>Size: 20 g</span></span></span></div><div style=text-indent:0pt><span style=font-size:12px><span style=font-family:Suncrest,Helvetica,sans-serif><span style=color:#[id number]>Solution and rate or Saline lock: S.L.</span></span></span></div><div style=text-indent:0pt><span style=font-size:12px><span style=font-family:Suncrest,Helvetica,sans-serif><span style=color:#[id number]>Dressing type/securement: [place]av[place] Shield</span></span></span></div><div style=text-indent:0pt><span style=font-size:12px><span style=font-family:Suncrest,Helvetica,sans-serif><span style=color:#[id number]>Number of attempts & location(s): 1</span></span></span></div><div style=text-indent:0pt><span style=font- size:12px><span style=font-family:Suncrest,Helvetica,sans-serif><span style=color:#[id number]>Lidocaine used (no/yes per policy): No</span></span></span></div><div style=text-indent:0pt><span style=font- size:12px><span style=font-family:Suncrest,Helvetica,sans-serif><span style=color:#[id number]>IV site, tubing labeled: Yes</span></span></span></div><div style=text-indent:0pt><span style=font-size:12px><span style=font-family:Suncrest,Helvetica,sans-serif><span style=color:#[id number]>Patient tolerated procedure well without any complications or complaints. </span></span></span></div><div style=text-indent:0pt></div></renderedtemplate></div> </td> </tr> <tr> <td width=98 height=11 style= > <b>Signed On</b> </td> <td cyjro=877 style= > 08/21/2021 12:11 </td> </tr> <tr> <td width=98 height=11 style= > <b>Signed by</b> </td> <td nyasf=664 style= > ALFONZO TANG A </td> </tr> <tr> <td width=98 height=11 style= > <b>Cosigned On</b> </td> <td gmfbj=461 style= ></td> </tr> <tr> <td width=98 height=11 style= > <b>Cosigned by</b> </td> <td ukqjr=519 style= ></td> </tr></table> <div></div><table class='tableFont' border=0 cellspacing=0 cellpadding=0 style= margin-left: 21pt;border-collapse: collapse; border: none> <tr> <td width=98 height=11 style= > <b>Charted Date</b> </td> <td qrmrl=395 style= > 08/21/2021 11:43 </td> </tr> <tr> <td width=98 height=11 style= > <b>Charted By</b> </td> <td qedeh=924 style= > ALFONZO TANG </td> </tr> <tr> <td width=98 height=11 style= > <b>Type</b> </td> <td ttaom=849 style= > Abnormal Assessment Note </td> </tr> <tr> <td width=98 height=11 style= > <b>Note</b> </td> <td upyoa=408 style= > <P>Assessment : </FONT> ED: Full Assessment</P><P>Gastrointestinal <FONT style=BACKGROUND-COLOR: #ffffff; FONT- SIZE: 9pt; face=Suncrest>: </FONT>Nausea <FONT style=BACKGROUND-COLOR: #ffffff; FONT-SIZE: 9pt; face=Suncrest>: </FONT> Intermittent</P> <P>Integumentary <FONT style=BACKGROUND-COLOR: #ffffff; FONT-SIZE: 9pt; face=Suncrest>: </FONT>Skin <FONT style=BACKGROUND- COLOR: #ffffff; FONT-SIZE: 9pt; face=Suncrest>: </FONT> Flushed/reddened</P> </td> </tr> <tr> <td width=98 height=11 style= > <b>Signed On</b> </td> <td hsyem=927 style= > 08/21/2021 11:45 </td> </tr> <tr> <td width=98 height=11 style= > <b>Signed by</b> </td> <td sncar=226 style= > ALFONZO TANG </td> </tr> <tr> <td width=98 height=11 style= > <b>Cosigned On</b> </td> <td dkabd=902 style= ></td> </tr> <tr> <td width=98 height=11 style= > <b>Cosigned by</b> </td> <td qopuc=469 style= ></td> </tr></table> <div></div><b>Vital Signs</b> <div></div><table class='tableFont' [...] <tr> <td width=16 height=11 style= ></td> <td glfiz=024 style= > Intake</td> <td width=16 style= > :</td> <td jtzst=279 style= > 0</td> </tr></table> <div></div><b>Output:</b> <div></div><table class='tableFont' border=0 cellspacing=0 cellpadding=0 style= margin-left: 21pt;border-collapse: collapse; border: none> <tr> <td width=16 height=11 style= ></td> <td zrfii=486 style= > Output</td> <td width=16 style= > :</td> <td vovtn=244 style= > 0</td> </tr></table> <div></div><b>FluidBalance:</b> <div></div><table class='tableFont' border=0 cellspacing=0 cellpadding=0 style= margin- left: 21pt;border-collapse: collapse; border: none> <tr> <td width=16 height=11 style= ></td> <td bhnqb=528 style= > FluidBalance</td> <td width=16 style= > :</td> <td rzqkg=390 style= > 0</td> </tr></table> <div></div><b>Other:</b> <div></div><table class='tableFont' border=0 cellspacing=0 cellpadding=0 style= margin-left: 21pt;border-collapse: collapse; border: none> <tr> <td width=16 height=11 style= ></td> <td ahkzd=099 style= > Other</td> <td width=16 style= > :</td> <td hsdjs=056 style= > 0</td> </tr></table> <div></div><b>Orders</b> <div></div><b>Medication Order</b> <div></div><table class='tableFont' border=0 cellspacing=0 cellpadding=0 style= margin-left: 21pt;border-collapse: collapse; border: none> <tr> <td colspan=4 npzpr=1452 height=11 style= > <b>IV Site Info</b> </td> </tr> <tr> <td width=82 height=11 style= ></td> <td pymrn=522 style= > No IV sites created </td> <td colspan=2 width=82 style= ></td> </tr> <tr> <td width=82></td> <td egorq=873></td> <td width=82></td> <td yffrf=123></td> </tr></table> <div></div><table class='tableFont' border=0 cellspacing=0 cellpadding=0 style= margin-left: 21pt;border-collapse: collapse; border: none> <tr> <td colspan=2 width=16 height=11 style= border- left:solid #373515 0px; border-top:solid #596662 1px; border-right:solid #054182 0px; border-bottom:solid #206100 0px;></td> <td colspan=3 qfgkt=482 style= border-left:solid #649011 0px; border-top:solid #423798 1px; border-right:solid #917586 0px; border- bottom:solid #974685 0px;> <div></div><b>Medication Order</b></td> <td width=16 style= border-left:solid #609805 0px; border- top:solid #365775 1px; border-right:solid #735325 0px; border-bottom:solid #558382 0px;></td> <td colspan=11 kmgfk=001 style= border-left:solid #331356 0px; border-top:solid #570075 1px; border-right:solid #529270 0px; border-bottom:solid #382844 0px;> <b>: KETOROLAC [30MG/ML] VIAL (TORADOL)</b></td> </tr> <tr> <td colspan=2 width=16 height=11 style= border-left:solid #651377 0px; border-top:solid #360154 0px; border-right:solid #783529 0px; border-bottom:solid #498008 1px;></td> <td colspan=3 xhjis=503 style= border-left:solid #233914 0px; border-top:solid #392096 0px; border-right:solid #447747 0px; border-bottom:solid #072588 1px;> <b>Current Status</b></td> <td width=16 style= border-left:solid #694428 0px; border-top:solid #[id number] 0px; border-right:solid #[id number] 0px; border-bottom:solid #[id number] 1px;></td> <td colspan=11 fvlsc=685 style= border-left:solid #[id number] 0px; border-top:solid #[id number] 0px; border-right:solid #[id number] 0px; border-bottom:solid #[id number] 1px;> <b>: Complete - 08/21/2021 12:08 </b></td> </tr> <tr> <td colspan=2 width=16 height=11 style= ></td> <td colspan=5 woeml=465 style= > Created By </td> <td colspan=4 vgeug=817 style= > : ALFONZO TANG </td> <td colspan=2 dgdkd=139 style= > Created on </td> <td colspan=2 pvdgw=953 style= > : 08/21/2021 12:04 </td> <td tsqiu=106 style= > Receive Type </td> <td kacnc=376 style= > : Verbal </td> </tr> <tr> <td colspan=2 width=16 height=11 style= ></td> <td colspan=5 mcbnw=186 style= > Ordering MD </td> <td colspan=4 xlvmi=579 style= > : [place], [place] </td> <td colspan=2 mtjxt=809 style= > Priority </td> <td colspan=2 lkgwy=407 style= > : STAT </td> <td vokhb=018 style= > Frequency </td> <td eaqrm=061 style= > : ONCE </td> </tr> <tr> <td colspan=2 width=16 height=11 style= ></td> <td colspan=5 fnyub=091 style= > Times </td> <td colspan=4 jllwa=911 style= > : 12:04 </td> <td colspan=2 wcxpt=306 style= > Special Instructions </td> <td colspan=2 qcrim=770 style= > : must document waste quantity in the waste log during administration </td> <td gdjyu=242 style= > Location </td> <td barkz=485 style= > : ED </td> </tr> <tr> <td colspan=2 width=16 height=11 style= ></td> <td colspan=5 rvmjr=239 style= > Type </td> <td colspan=4 fadzr=660 style= > : Verbal </td> <td colspan=2 jtmpa=065 style= > Duration </td> <td colspan=2 yowca=323 style= > : 2 Days </td> <td igygu=745 style= > Reason </td> <td znspx=052 style= > : </td> </tr> <tr> <td colspan=2 width=16 height=11 style= ></td> <td colspan=5 aliuj=366 style= > Start DateTime </td> <td colspan=4 socqy=253 style= > 08/21/2021 12:04 </td> <td colspan=2 fpnbq=891 style= > Stop DateTime </td> <td colspan=2 ztitm=780 style= > 08/23/2021 12:04 </td> <td kozjn=204 style= > Strength </td> <td zrmru=085 style= > : 30 MG/ML Solution </td> </tr> <tr> <td colspan=2 width=16 height=11 style= ></td> <td colspan=5 cgima=449 style= > Home Medication </td> <td colspan=4 xyefx=659 style= > : False </td> <td colspan=2 tppau=814 style= > Route </td> <td colspan=2 xeziu=243 style= > : IVP IV PUSH </td> <td keelz=867 style= > Dosage </td> <td qzkjd=794 style= > : 30 mg </td> </tr> <tr> <td colspan=2 width=16 height=11 style= ></td> <td colspan=15 ljazh=125 style= > Order Notes : - </td> </tr> <tr> <td width=0 height=11 style= ></td> <td width=0 style= > </td> <td width=0 style= ></td> <td width=0 style= ></td> <td width=0 style= ></td> <td width=0 style= ></td> <td width=0 style= ></td> </tr> <tr> <td colspan=2 width=16 height=11 style= ></td> <td colspan=9 dzskm=2569 style= > <b>Diagnosis</b> </td> <td colspan=2 hyfad=118 style= ></td> <td colspan=4 yotms=742 style= ></td> </tr> <tr> <td width=0 height=11 [...] colspan=2 width=16 height=11 style= ></td> <td colspan=3 mofic=571 style= > <b>Validation</b></td> <td width=16 style= ></td> <td colspan=11 vgovo=539 style= ></td> </tr> <tr> <td colspan=3 width=82 height=11 style= ></td> <td hpytx=712 style= > Validated On</td> <td colspan=13 zxgga=924 style= > : 08/21/2021 12:04 </td> </tr> <tr> <td colspan=3 width=82 height=11 style= ></td> <td xxayf=299 style= > Validated By </td> <td colspan=13 nvhpt=471 style= > : ALFONZO TANG </td> </tr> <tr> <td colspan=3 width=82 height=11 style= ></td> <td vtdnr=192 style= > Validation Notes </td> <td colspan=13 ewyqv=862 style= > : - </td> </tr> <tr> <td colspan=17 yquwy=3054 height=11 style= > <b>Administration</b> </td> </tr> <tr> <td width=0></td> <td width=16></td> <td width=66></td> <td xbiav=712></td> <td width=16></td> <td width=16></td> <td width=66></td> <td emwuy=866></td> <td width=0></td> <td width=0></td> <td qrtme=051></td> <td tcnef=929></td> <td hvioa=172></td> <td eekcr=927></td> <td hfexj=334></td> <td mgxoc=575></td> <td bpmgb=394></td> </tr></table> <div></div><table class='tableFont' border=0 cellspacing=0 cellpadding=0 style= margin-left: 21pt;border-collapse: collapse; border: none> <tr> <td width=82 height=11 style= ></td> <td voeor=897 style= > Started On </td> <td ygnyf=561 style= > : 08/21/2021 12:08 </td> </tr> <tr> <td width=82 height=11 style= ></td> <td slago=331 style= > Administered By </td> <td btsqq=843 style= > : ALFONZO TANG RN </td> </tr> <tr> <td width=82 height=11 style= ></td> <td qqkxu=758 style= > Route </td> <td uctax=063 style= > : IVP IV PUSH </td> </tr> <tr> <td width=82 height=11 style= ></td> <td tjvjs=833 style= > Site </td> <td pqckd=943 style= > : </td> </tr> <tr> <td width=82 height=11 style= ></td> <td fjudk=436 style= > Administration Notes </td> <td svwwy=119 style= > : - </td> </tr></table> <div></div><table class='tableFont' border=0 cellspacing=0 cellpadding=0 style= margin-left: 21pt;border-collapse: collapse; border: none> <tr> <td colspan=2 width=16 height=11 style= border-left:solid #[id number] 0px; border-top:solid #294699 1px; border-right:solid #487136 0px; border-bottom:solid #668892 0px;></td> <td colspan=3 kviff=734 style= border-left:solid #925933 0px; border-top:solid #476325 1px; border-right:solid #482411 0px; border-bottom:solid #024755 0px;> <div></div><b>Medication Order</b></td> <td width=16 style= border-left:solid #120368 0px; border-top:solid #633111 1px; border-right:solid #162656 0px; border- bottom:solid #110695 0px;></td> <td colspan=11 wcran=452 style= border-left:solid #519627 0px; border-top:solid #172358 1px; border- right:solid #589678 0px; border-bottom:solid #015857 0px;> <b>: TAMSULOSIN [0.4MG] CAPSULE (FLOMAX)</b></td> </tr> <tr> <td colspan=2 width=16 height=11 style= border-left:solid #373776 0px; border-top:solid #305902 0px; border-right:solid #879829 0px; border- bottom:solid #655688 1px;></td> <td colspan=3 qbbha=937 style= border-left:solid #444377 0px; border-top:solid #226234 0px; border- right:solid #778606 0px; border-bottom:solid #947509 1px;> <b>Current Status</b></td> <td width=16 style= border-left:solid #770910 0px; border-top:solid #830152 0px; border-right:solid #676395 0px; border-bottom:solid #680291 1px;></td> <td colspan=11 pnihs=658 style= border-left:solid #054593 0px; border-top:solid #588937 0px; border-right:solid #185273 0px; border-bottom:solid #967135 1px;> <b>: Complete - 08/21/2021 13:13 </b></td> </tr> <tr> <td colspan=2 width=16 height=11 style= ></td> <td colspan=5 ietsx=356 style= > Created By </td> <td colspan=4 pjajk=340 style= > : ALFONZO TANG </td> <td colspan=2 kzwyp=616 style= > Created on </td> <td colspan=2 ctkqz=519 style= > : 08/21/2021 13:12 </td> <td fqllq=042 style= > Receive Type </td> <td pbblk=124 style= > : Verbal </td> </tr> <tr> <td colspan=2 width=16 height=11 style= ></td> <td colspan=5 remze=984 style= > Ordering MD </td> <td colspan=4 fihgu=263 style= > : Lupillo Ashraf </td> <td colspan=2 vboaj=748 style= > Priority </td> <td colspan=2 rvdho=473 style= > : STAT </td> <td ewaay=939 style= > Frequency </td> <td tcwjh=982 style= > : ONCE </td> </tr> <tr> <td colspan=2 width=16 height=11 style= ></td> <td colspan=5 resdk=609 style= > Times </td> <td colspan=4 ytzip=725 style= > : 13:11 </td> <td colspan=2 rbmfx=526 style= > Special Instructions </td> <td colspan=2 nthez=732 style= > : </td> <td ibrjw=628 style= > Location </td> <td gnxie=943 style= > : ED </td> </tr> <tr> <td colspan=2 width=16 height=11 style= ></td> <td colspan=5 wcbzw=674 style= > Type </td> <td colspan=4 tyrnh=801 style= > : Verbal </td> <td colspan=2 qhioj=595 style= > Duration </td> <td colspan=2 ufoah=670 style= > : 2 Days </td> <td jiplz=697 style= > Reason </td> <td lyjca=674 style= > : </td> </tr> <tr> <td colspan=2 width=16 height=11 style= ></td> <td colspan=5 nkowe=145 style= > Start DateTime </td> <td colspan=4 owrsa=988 style= > 08/21/2021 13:11 </td> <td colspan=2 vpkwt=716 style= > Stop DateTime </td> <td colspan=2 xpbjl=206 style= > 08/23/2021 13:11 </td> <td jdkkx=282 style= > Strength </td> <td bjanj=810 style= > : 0.4 MG Capsule </td> </tr> <tr> <td colspan=2 width=16 height=11 style= ></td> <td colspan=5 xjhvk=077 style= > Home Medication </td> <td colspan=4 csoli=655 style= > : False </td> <td colspan=2 faeii=504 style= > Route </td> <td colspan=2 yajok=902 style= > : PO Oral </td> <td frbqj=585 style= > Dosage </td> <td waicc=910 style= > : 0.4 mg </td> </tr> <tr> <td colspan=2 width=16 height=11 style= ></td> <td colspan=5 ttznv=484 style= > Volume </td> <td colspan=4 fnfcs=849 style= > : 0.557952qr </td> <td colspan=2 ajyst=860 style= ></td> <td colspan=2 vnjul=668 style= ></td> <td jxpmz=697 style= ></td> <td aomow=637 style= ></td> </tr> <tr> <td colspan=2 width=16 height=11 style= ></td> <td colspan=15 ttyqu=333 style= > Order Notes : - </td> </tr> <tr> <td width=0 height=11 style= ></td> <td width=0 style= > </td> <td width=0 style= ></td> <td width=0 style= ></td> <td width=0 style= ></td> <td width=0 style= ></td> <td width=0 style= ></td> </tr> <tr> <td colspan=2 width=16 height=11 style= ></td> <td colspan=9 afqck=6299 style= > <b>Diagnosis</b> </td> <td colspan=2 uhrye=853 style= ></td> <td colspan=4 gdkbb=687 style= ></td> </tr> <tr> <td width=0 height=11 [...] colspan=2 width=16 height=11 style= ></td> <td colspan=3 yavad=914 style= > <b>Validation</b></td> <td width=16 style= ></td> <td colspan=11 lezac=546 style= ></td> </tr> <tr> <td colspan=3 width=82 height=11 style= ></td> <td vwlqe=722 style= > Validated On</td> <td colspan=13 wrhxj=504 style= > : 08/21/2021 13:12 </td> </tr> <tr> <td colspan=3 width=82 height=11 style= ></td> <td qprqn=867 style= > Validated By </td> <td colspan=13 wwicn=615 style= > : ALFONZO TANG </td> </tr> <tr> <td colspan=3 width=82 height=11 style= ></td> <td brabe=500 style= > Validation Notes </td> <td colspan=13 hribc=410 style= > : - </td> </tr> <tr> <td colspan=17 booty=8417 height=11 style= > <b>Administration</b> </td> </tr> <tr> <td width=0></td> <td width=16></td> <td width=66></td> <td jugmg=313></td> <td width=16></td> <td width=16></td> <td width=66></td> <td fqpqm=046></td> <td width=0></td> <td width=0></td> <td pblbt=025></td> <td aivwn=567></td> <td iozyp=043></td> <td hezij=846></td> <td eatxd=850></td> <td hkltd=414></td> <td gmwuk=164></td> </tr></table> <div></div><table class='tableFont' border=0 cellspacing=0 cellpadding=0 style= margin-left: 21pt;border-collapse: collapse; border: none> <tr> <td width=82 height=11 style= ></td> <td eiqmm=820 style= > Started On </td> <td dwitg=900 style= > : 08/21/2021 13:13 </td> </tr> <tr> <td width=82 height=11 style= ></td> <td ixfpy=025 style= > Administered By </td> <td mjsab=834 style= > : ALFONZO TANG RN </td> </tr> <tr> <td width=82 height=11 style= ></td> <td hpcsg=643 style= > Route </td> <td kfdrg=150 style= > : PO Oral </td> </tr> <tr> <td width=82 height=11 style= ></td> <td uijdr=053 style= > Site </td> <td wqpqy=915 style= > : </td> </tr> <tr> <td width=82 height=11 style= ></td> <td bltok=350 style= > Administration Notes </td> <td fcgrf=537 style= > : - </td> </tr></table> <div></div><b>Radiology Order</b> <div></div><table class='tableFont' border=0 cellspacing=0 cellpadding=0 style= margin-left: 21pt;border-collapse: collapse; border: none> <tr> <td colspan=2 width=16 height=11 style= border- left:solid #158952 0px; border-top:solid #395884 1px; border-right:solid #001932 0px; border-bottom:solid #061340 0px;></td> <td colspan=2 ednnm=289 style= border-left:solid #076552 0px; border-top:solid #979623 1px; border-right:solid #668147 0px; border- bottom:solid #336982 0px;> <div></div><b>Radiology Order</b></td> <td width=16 style= border-left:solid #122022 0px; border- top:solid #159337 1px; border-right:solid #418307 0px; border-bottom:solid #244195 0px;></td> <td colspan=13 xojcz=684 style= border-left:solid #416868 0px; border-top:solid #525756 1px; border-right:solid #078123 0px; border-bottom:solid #785688 0px;> <b>: HSP_00001 (CT ABDOMEN/PELVIS WO CONTRAST)</b></td> </tr> <tr> <td colspan=2 width=16 height=11 style= border-left:solid #664022 0px; border-top:solid #773107 0px; border-right:solid #697587 0px; border-bottom:solid #842125 1px;></td> <td colspan=2 jbgcz=063 style= border-left:solid #135340 0px; border-top:solid #600462 0px; border-right:solid #302023 0px; border-bottom:solid #499281 1px;> <b>Current Status</b></td> <td width=16 style= border-left:solid #923026 0px; border-top:solid #051938 0px; border-right:solid #330314 0px; border-bottom:solid #479584 1px;></td> <td colspan=13 ohfsc=529 style= border-left:solid #869401 0px; border-top:solid #230092 0px; border-right:solid #416622 0px; border-bottom:solid #624608 1px;> <b>: Complete - 08/21/2021 12:24 </b></td> </tr> <tr> <td colspan=2 width=16 height=11 style= ></td> <td colspan=7 qmcqf=120 style= > Created By </td> <td colspan=4 xgcnt=383 style= > : ALFONZO TANG </td> <td unscj=725 style= > Created on </td> <td colspan=2 zodyz=355 style= > : 08/21/2021 12:02 </td> <td guykv=267 style= > Receive Type </td> <td vobkn=172 style= > : Verbal </td> </tr> <tr> <td colspan=2 width=16 height=11 style= ></td> <td colspan=7 psdck=661 style= > Ordering MD </td> <td colspan=4 nvqbb=012 style= > : Andriy, Lupillo </td> <td wvmrt=162 style= > Priority </td> <td colspan=2 mxptj=647 style= > : STAT </td> <td mjcxa=648 style= > Frequency </td> <td ditmf=841 style= > : ONCE </td> </tr> <tr> <td colspan=2 width=16 height=11 style= ></td> <td colspan=7 iecez=063 style= > Times </td> <td colspan=4 ulqpp=557 style= > : 12:01 </td> <td zsuyl=036 style= > Special Instructions </td> <td colspan=2 mqovf=615 style= > : </td> <td wvfur=732 style= > Location </td> <td yypav=804 style= > : ED </td> </tr> <tr> <td colspan=2 width=16 height=11 style= ></td> <td colspan=7 brhzt=731 style= > Type </td> <td colspan=4 ictwm=104 style= > : Verbal </td> <td yjhsz=408 style= > Duration </td> <td colspan=2 kqhcs=177 style= > : 2 Days </td> <td uqusy=304 style= > Reason </td> <td alfrr=037 style= > : Right flank pain </td> </tr> <tr> <td colspan=2 width=16 height=11 style= ></td> <td colspan=7 nctzm=942 style= > Start DateTime </td> <td colspan=4 ozgoz=844 style= > 08/21/2021 12:01 </td> <td rwakc=752 style= > Stop DateTime </td> <td colspan=2 bfyvt=743 style= > 08/23/2021 12:01 </td> <td epuof=454 style= > Strength </td> <td icyip=267 style= > : </td> </tr> <tr> <td colspan=2 width=16 height=11 style= ></td> <td colspan=7 opdpd=729 style= > Order Notes </td> <td colspan=9 yyeyz=205 style= > : *No Prev VRad prleim hx of appendectomy </td> </tr> <tr> <td width=0 height=11 style= ></td> <td width=0 style= > </td> <td width=0 style= ></td> <td width=0 style= ></td> <td width=0 style= ></td> <td width=0 style= ></td> <td width=0 style= ></td> </tr> <tr> <td colspan=2 width=16 height=11 style= ></td> <td colspan=11 yomzl=6451 style= > <b>Diagnosis</b> </td> <td zkjjl=024 style= ></td> <td colspan=4 fhghs=294 style= ></td> </tr> <tr> <td width=0 height=11 [...] colspan=2 width=16 height=11 style= ></td> <td colspan=5 oslym=442 style= > <b>Validation</b></td> <td width=16 style= ></td> <td colspan=10 zlahq=149 style= ></td> </tr> <tr> <td colspan=3 width=82 height=11 style= ></td> <td colspan=3 nffna=082 style= > Validated On</td> <td colspan=12 aecmi=204 style= > : 08/21/2021 12:02 </td> </tr> <tr> <td colspan=3 width=82 height=11 style= ></td> <td colspan=3 adfdj=515 style= > Validated By </td> <td colspan=12 jklnx=070 style= > : KITTYALFONZO SOTO </td> </tr> <tr> <td colspan=3 width=82 height=11 style= ></td> <td colspan=3 ifasa=169 style= > Validation Notes </td> <td colspan=12 rqovb=693 style= > : - </td> </tr> <tr> <td colspan=2 width=16 height=11 style= ></td> <td colspan=5 kyfeo=660 style= > <b>Radiology Results</b></td> <td width=16 style= ></td> <td colspan=10 dskgn=829 style= ></td> </tr> <tr> <td colspan=3 width=82 height=11 style= ></td> <td colspan=7 wkrtn=551 style= > No results yet</td> <td colspan=8 width=82 style= ></td> </tr> <tr> <td width=0></td> <td width=16></td> <td width=66></td> <td width=98></td> <td width=16></td> <td width=49></td> <td width=16></td> <td width=16></td> <td width=66></td> <td qdifl=933></td> <td width=82></td> <td width=0></td> <td wfute=817></td> <td anxdl=393></td> <td xwvrf=110></td> <td tkrrb=669></td> <td ipmjs=276></td> <td hcvai=417></td> </tr></table> <div></div><b>Laboratory Order</b> <div></div><table class='tableFont' border=0 cellspacing=0 cellpadding=0 style= margin-left: 11pt;border-collapse: collapse; border: none> <tr> <td colspan=2 width=16 height=11 style= border-left:solid #807935 0px; border-top:solid #066706 1px; border-right:solid #790802 0px; border-bottom:solid #729323 0px;></td> <td colspan=3 cheik=377 style= border-left:solid #333261 0px; border-top:solid #558432 1px; border-right:solid #139559 0px; border-bottom:solid #523560 0px;> <div></div><b>Laboratory Order</b></td> <td width=16 style= border-left:solid #725176 0px; border-top:solid #655581 1px; border-right:solid #547765 0px; border- bottom:solid #626212 0px;></td> <td colspan=20 cgqww=931 style= border-left:solid #729759 0px; border-top:solid #357610 1px; border- right:solid #279473 0px; border-bottom:solid #502067 0px;> <b>: UA W MICRO RFLX (URINALYSIS (UA) W MICRO, UC REFLEX)</b></td> </tr> <tr> <td colspan=2 width=16 height=11 style= border-left:solid #607901 0px; border-top:solid #388898 0px; border-right:solid #666672 0px; border-bottom:solid #041179 1px;></td> <td colspan=3 qhwyf=013 style= border-left:solid #088325 0px; border-top:solid #065179 0px; border-right:solid #327403 0px; border-bottom:solid #663175 1px;> <b>Current Status</b></td> <td width=16 style= border-left:solid #119655 0px; border-top:solid #047952 0px; border-right:solid #922549 0px; border-bottom:solid #067582 1px;></td> <td colspan=20 ptvbr=752 style= border-left:solid #135595 0px; border-top:solid #849384 0px; border-right:solid #145394 0px; border-bottom:solid #975017 1px;> <b>: Complete - 08/21/2021 13:05 </b></td> </tr> <tr> <td colspan=2 width=16 height=11 style= ></td> <td colspan=10 spmdf=449 style= > Created By </td> <td colspan=9 nkbwi=807 style= > : ALFONZO TANG </td> <td pqbjs=683 style= > Created on </td> <td colspan=2 qomzh=271 style= > : 08/21/2021 12:40 </td> <td hayzg=856 style= > Receive Type </td> <td hxxox=677 style= > : Verbal </td> </tr> <tr> <td colspan=2 width=16 height=11 style= ></td> <td colspan=10 ozcqn=029 style= > Ordering MD </td> <td colspan=9 zkrrz=835 style= > : Lupillo Ashraf </td> <td gdxzq=433 style= > Priority </td> <td colspan=2 mfajh=866 style= > : STAT </td> <td zgjln=467 style= > Frequency </td> <td ojmgp=437 style= > : ONCE </td> </tr> <tr> <td colspan=2 width=16 height=11 style= ></td> <td colspan=10 ictcn=768 style= > Times </td> <td colspan=9 kbpyc=280 style= > : 12:39 </td> <td iyxsb=110 style= > Special Instructions </td> <td colspan=2 urfah=971 style= > : </td> <td zcarp=592 style= > Location </td> <td feujn=499 style= > : ED </td> </tr> <tr> <td colspan=2 width=16 height=11 style= ></td> <td colspan=10 mzcxj=266 style= > Type </td> <td colspan=9 gdrnu=564 style= > : Verbal </td> <td qrhyz=819 style= > Duration </td> <td colspan=2 ztufu=067 style= > : 2 Days </td> <td leqfo=911 style= > Reason </td> <td bccwy=592 style= > : </td> </tr> <tr> <td colspan=2 width=16 height=11 style= ></td> <td colspan=10 mwyno=194 style= > Start DateTime </td> <td colspan=9 pfloy=178 style= > 08/21/2021 12:39 </td> <td xlhry=126 style= > Stop DateTime </td> <td colspan=2 bzquk=062 style= > 08/23/2021 12:39 </td> <td sopyj=931 style= > Strength </td> <td cjmrr=577 style= > : </td> </tr> <tr> <td colspan=2 width=16 height=11 style= ></td> <td colspan=24 oacda=768 style= > Order Notes : - </td> </tr> <tr> <td width=0 height=11 style= ></td> <td width=0 style= > </td> <td width=0 style= ></td> <td width=0 style= ></td> <td width=0 style= ></td> <td width=0 style= ></td> <td width=0 style= ></td> </tr> <tr> <td colspan=2 width=16 height=11 style= ></td> <td colspan=19 lebjg=1644 style= > <b>Diagnosis</b> </td> <td vtcin=674 style= ></td> <td colspan=4 jltdh=321 style= ></td> </tr> <tr> <td width=0 height=11 [...] colspan=2 width=16 height=11 style= ></td> <td colspan=7 owuos=060 style= > <b>Validation</b></td> <td width=16 style= ></td> <td colspan=16 bdebl=877 style= ></td> </tr> <tr> <td colspan=3 width=82 height=11 style= ></td> <td colspan=5 ripds=917 style= > Validated On</td> <td colspan=18 aosqg=525 style= > : 08/21/2021 12:40 </td> </tr> <tr> <td colspan=3 width=82 height=11 style= ></td> <td colspan=5 eqezi=482 style= > Validated By </td> <td colspan=18 zgglp=444 style= > : ALFONZO TANG </td> </tr> <tr> <td colspan=3 width=82 height=11 style= ></td> <td colspan=5 xcrwy=065 style= > Validation Notes </td> <td colspan=18 mmfbn=637 style= > : - </td> </tr> <tr> <td colspan=2 width=16 height=11 style= ></td> <td colspan=7 agzfu=185 style= > <b>Laboratory Results</b></td> <td width=16 style= ></td> <td colspan=16 sqzig=149 style= ></td> </tr> <tr> <td colspan=2 width=16 height=11 style= ></td> <td colspan=2 lmzfo=831 > <b>Test</b></td> <td colspan=3 width=82 > <b>Result</b> </td> <td colspan=4 width=65 > <b>Units</b> </td> <td colspan=2 pjuji=227 > <b>Reference Ranges</b> </td> <td width=41 > <b>Flag</b> </td> <td width=82 > <b>Status</b> </td> <td width=82 > <b>Verified By</b> </td> <td width=82 > <b>Canceled By</b> </td> <td colspan=9 ugjxi=201 > <b>Canceled Reason</b> </td> </tr> <tr> <td colspan=2 width=16 height=11 style= ></td> <td colspan=2 orpyz=726 style= > COLOR UA </td> <td colspan=3 width=82 style= > yellow </td> <td colspan=4 width=65 style= ></td> <td colspan=2 ayuyb=236 style= > YELLOW </td> <td width=41 style= > N </td> <td width=82 style= > Final </td> <td width=82 style= > ILYA DIEGO </td> <td width=82 style= ></td> <td colspan=9 lsufp=189 style= ></td> </tr> <tr> <td colspan=2 width=16 height=11 style= ></td> <td colspan=2 yadxr=741 style= > APPEARANCE UA </td> <td colspan=3 width=82 style= > sl.cloudy </td> <td colspan=4 width=65 style= ></td> <td colspan=2 ruivh=447 style= > CLEAR </td> <td width=41 style= ></td> <td width=82 style= > Final </td> <td width=82 style= > ILYA DIEGO </td> <td width=82 style= ></td> <td colspan=9 wovjb=383 style= ></td> </tr> <tr> <td colspan=2 width=16 height=11 style= ></td> <td colspan=2 bvoqu=130 style= > SPECIFIC GRAVITY UA </td> <td colspan=3 width=82 style= > 1.020 </td> <td colspan=4 width=65 style= ></td> <td colspan=2 ifmey=610 style= > 1.000 - 1.030 </td> <td width=41 style= > N </td> <td width=82 style= > Final </td> <td width=82 style= > ILYA DIEGO </td> <td width=82 style= ></td> <td colspan=9 debdy=347 style= ></td> </tr> <tr> <td colspan=2 width=16 height=11 style= ></td> <td colspan=2 tyfmt=305 style= > PH UA </td> <td colspan=3 width=82 style= > 6 </td> <td colspan=4 width=65 style= ></td> <td colspan=2 rozcz=457 style= > 5.0 - 9.0 </td> <td width=41 style= ></td> <td width=82 style= > Final </td> <td width=82 style= > ILYA DIEGO </td> <td width=82 style= ></td> <td colspan=9 oemtn=719 style= ></td> </tr> <tr> <td colspan=2 width=16 height=11 style= ></td> <td colspan=2 ufhux=230 style= > LEUKOCYTE UA </td> <td colspan=3 width=82 style= > 25 </td> <td colspan=4 width=65 style= > Leuk-uL </td> <td colspan=2 emcmo=007 style= > 0-5 </td> <td width=41 style= > AB </td> <td width=82 style= > Final </td> <td width=82 style= > ILYA DIEGO </td> <td width=82 style= ></td> <td colspan=9 ppdvd=503 style= ></td> </tr> <tr> <td colspan=2 width=16 height=11 style= ></td> <td colspan=2 yhqzs=719 style= > NITRITE UA </td> <td colspan=3 width=82 style= > neg </td> <td colspan=4 width=65 style= ></td> <td colspan=2 zjfja=139 style= > NEGATIVE </td> <td width=41 style= ></td> <td width=82 style= > Final </td> <td width=82 style= > ILYA DIEGO </td> <td width=82 style= ></td> <td colspan=9 sldmb=262 style= ></td> </tr> <tr> <td colspan=2 width=16 height=11 style= ></td> <td colspan=2 zsoex=024 style= > PROTEIN UA </td> <td colspan=3 width=82 style= > 30 </td> <td colspan=4 width=65 style= > mg-dL </td> <td colspan=2 fuuvy=239 style= > 0-30 </td> <td width=41 style= > N </td> <td width=82 style= > Final </td> <td width=82 style= > ILYA DIEGO </td> <td width=82 style= ></td> <td colspan=9 vqsrl=343 style= ></td> </tr> <tr> <td colspan=2 width=16 height=11 style= ></td> <td colspan=2 vqgsl=768 style= > GLUCOSE UA </td> <td colspan=3 width=82 style= > norm </td> <td colspan=4 width=65 style= > mg-dL </td> <td colspan=2 jfbrl=381 style= > 0-49 </td> <td width=41 style= > N </td> <td width=82 style= > Final </td> <td width=82 style= > ILYA DIEGO </td> <td width=82 style= ></td> <td colspan=9 cinsl=522 style= ></td> </tr> <tr> <td colspan=2 width=16 height=11 style= ></td> <td colspan=2 hgqsn=585 style= > KETONES UA </td> <td colspan=3 width=82 style= > neg </td> <td colspan=4 width=65 style= > mg-dL </td> <td colspan=2 hrerp=051 style= > 0-4 </td> <td width=41 style= ></td> <td width=82 style= > Final </td> <td width=82 style= > ILYA DIEGO </td> <td width=82 style= ></td> <td colspan=9 iuzku=938 style= ></td> </tr> <tr> <td colspan=2 width=16 height=11 style= ></td> <td colspan=2 ifquw=740 style= > UROBILINOGEN UA </td> <td colspan=3 width=82 style= > norm </td> <td colspan=4 width=65 style= > mg-dL </td> <td colspan=2 xjvrv=914 style= > 0-1 </td> <td width=41 style= > N </td> <td width=82 style= > Final </td> <td width=82 style= > ILYA DIEGO </td> <td width=82 style= ></td> <td colspan=9 gotah=313 style= ></td> </tr> <tr> <td colspan=2 width=16 height=11 style= ></td> <td colspan=2 ukgdn=408 style= > BILIRUBIN UA </td> <td colspan=3 width=82 style= > neg </td> <td colspan=4 width=65 style= > mg-dL </td> <td colspan=2 ruomm=463 style= > 0.0-0.9 </td> <td width=41 style= ></td> <td width=82 style= > Final </td> <td width=82 style= > ILYA DIEGO </td> <td width=82 style= ></td> <td colspan=9 yvifz=301 style= ></td> </tr> <tr> <td colspan=2 width=16 height=11 style= ></td> <td colspan=2 uupim=164 style= > BLOOD UA </td> <td colspan=3 width=82 style= > 250 </td> <td colspan=4 width=65 style= > Bernardo-uL </td> <td colspan=2 vxfem=962 style= > 0-3 </td> <td width=41 style= > AB </td> <td width=82 style= > Final </td> <td width=82 style= > ILYA DIEGO </td> <td width=82 style= ></td> <td colspan=9 lskpl=347 style= ></td> </tr> <tr> <td colspan=2 width=16 height=11 style= ></td> <td colspan=2 phqcf=021 style= > U WBC MICRO </td> <td colspan=3 width=82 style= > 0-5 </td> <td colspan=4 width=65 style= > per HPF </td> <td colspan=2 mzewp=762 style= > 0-5 </td> <td width=41 style= > N </td> <td width=82 style= > Final </td> <td width=82 style= > ILYA DIEGO </td> <td width=82 style= ></td> <td colspan=9 dxgme=863 style= ></td> </tr> <tr> <td colspan=2 width=16 height=11 style= ></td> <td colspan=2 hadqo=476 style= > U RBC MICRO </td> <td colspan=3 width=82 style= > 51-99 </td> <td colspan=4 width=65 style= > per HPF </td> <td colspan=2 vfuih=683 style= > 0-5 </td> <td width=41 style= > AB </td> <td width=82 style= > Final </td> <td width=82 style= > ILYA DIEGO </td> <td width=82 style= ></td> <td colspan=9 xqrat=703 style= ></td> </tr> <tr> <td colspan=2 width=16 height=11 style= ></td> <td colspan=2 yyaan=829 style= > U EPITHELIAL CELLS </td> <td colspan=3 width=82 style= > RARE </td> <td colspan=4 width=65 style= > per LPF </td> <td colspan=2 lqage=570 style= > NONE SEEN - SMALL </td> <td width=41 style= > N </td> <td width=82 style= > Final </td> <td width=82 style= > ILYA DIEGO </td> <td width=82 style= ></td> <td colspan=9 acblf=847 style= ></td> </tr> <tr> <td colspan=2 width=16 height=11 style= ></td> <td colspan=2 kbnkd=362 style= > U BACTERIA </td> <td colspan=3 width=82 style= > 1+ </td> <td colspan=4 width=65 style= > per HPF </td> <td colspan=2 vjprr=781 style= > NONE SEEN - TRACE </td> <td width=41 style= > AB </td> <td width=82 style= > Final </td> <td width=82 style= > ILYA DIEGO </td> <td width=82 style= ></td> <td colspan=9 tmdyf=491 style= ></td> </tr> <tr> <td colspan=2 width=16 height=11 style= ></td> <td colspan=2 myeac=675 style= > U MUCOUS THREADS </td> <td colspan=3 width=82 style= > MODERATE </td> <td colspan=4 width=65 style= > per HPF </td> <td colspan=2 xfzvn=875 style= > SMALL </td> <td width=41 style= > AB </td> <td width=82 style= > Final </td> <td width=82 style= > ILYA DIEGO </td> <td width=82 style= ></td> <td colspan=9 ghpne=108 style= ></td> </tr> <tr> <td colspan=2 width=16 height=11 style= ></td> <td colspan=2 gndnc=123 style= > SPECIMEN REJECTED FOR CULTURE </td> <td colspan=3 width=82 style= > NO WBCS </td> <td colspan=4 width=65 style= ></td> <td colspan=2 pacfo=024 style= ></td> <td width=41 style= ></td> <td width=82 style= > Final </td> <td width=82 style= > ILYA DIEGO </td> <td width=82 style= ></td> <td colspan=9 xwjtr=906 style= ></td> </tr> <tr> <td colspan=2 width=16 height=11 style= ></td> <td colspan=2 rmgyj=567 style= > SPECIMEN REFLEXED TO CULTURE? </td> <td colspan=3 width=82 style= > NO </td> <td colspan=4 width=65 style= ></td> <td colspan=2 lgfkn=846 style= ></td> <td width=41 style= > N </td> <td width=82 style= > Final </td> <td width=82 style= > ILYA DIEGO </td> <td width=82 style= ></td> <td colspan=9 sjmte=807 style= ></td> </tr> <tr> <td colspan=2 width=16 style= ></td> <td colspan=24 ysjfi=752 style= border-left:solid #[id number] 0px; border-top:solid #379128 1px; border-right:solid #149614 0px; border-bottom:solid #696398 0px;></td> </tr> <tr> <td width=0></td> <td width=16></td> <td width=66></td> <td width=57></td> <td width=41></td> <td width=16></td> <td width=24></td> <td width=24></td> <td width=16></td> <td width=16></td> <td width=8></td> <td width=57></td> <td width=65></td> <td width=41></td> <td width=82></td> <td width=82></td> <td width=82></td> <td wnlam=341></td> <td width=0></td> <td width=0></td> <td pxmlc=271></td> <td qciar=162></td> <td zfqgh=916></td> <td sjdps=562></td> <td xpvmj=975></td> <td mebtn=930></td> </tr></table> <div></div><b>Department Order</b> <div></div><table class='tableFont' border=0 cellspacing=0 cellpadding=0 style= margin-left: 21pt;border-collapse: collapse; border: none> <tr> <td colspan=2 width=16 height=11 style= border-left:solid #[id number] 0px; border-top:solid #594794 1px; border-right:solid #094898 0px; border- bottom:solid #290109 0px;></td> <td colspan=2 jibcf=393 style= border-left:solid #997216 0px; border-top:solid #663884 1px; border- right:solid #454598 0px; border-bottom:solid #892096 0px;> <div></div><b>Department Order</b></td> <td width=16 style= border-left:solid #045155 0px; border-top:solid #530910 1px; border-right:solid #419284 0px; border-bottom:solid #542126 0px;></td> <td colspan=14 igwbs=106 style= border-left:solid #059095 0px; border-top:solid #405642 1px; border-right:solid #223205 0px; border- bottom:solid #064670 0px;> <b>: [facility] [id number] [place]: [place]b></td> </tr> <tr> <td colspan=2 width=16 height=11 style= border- left:solid #374550 0px; border-top:solid #509556 0px; border-right:solid #335175 0px; border-bottom:solid #003056 1px;></td> <td colspan=2 cbeti=896 style= border-left:solid #643239 0px; border-top:solid #154956 0px; border-right:solid #541883 0px; border- bottom:solid #909878 1px;> <b>Current Status</b></td> <td width=16 style= border-left:solid #259484 0px; border-top:solid #152147 0px; border-right:solid #824772 0px; border-bottom:solid #866248 1px;></td> <td colspan=14 eixmf=460 style= border-left:solid #442320 0px; border-top:solid #247336 0px; border-right:solid #340316 0px; border-bottom:solid #920016 1px;> <b>: New - 08/21/2021 12:10 </b></td> </tr> <tr> <td colspan=2 width=16 height=11 style= ></td> <td colspan=7 ubfhq=030 style= > Created By </td> <td colspan=5 awbxg=577 style= > : ALFONZO TANG </td> <td qsbgn=364 style= > Created on </td> <td colspan=2 ybfaw=646 style= > : 08/21/2021 12:10 </td> <td rqtzn=026 style= > Receive Type </td> <td auiwf=957 style= > : Verbal </td> </tr> <tr> <td colspan=2 width=16 height=11 style= ></td> <td colspan=7 tpmpm=209 style= > Ordering MD </td> <td colspan=5 qncut=203 style= > : [place], Lupillo </td> <td nbtne=764 style= > Priority </td> <td colspan=2 vczvm=665 style= > : STAT </td> <td pjltk=206 style= > Frequency </td> <td lfkeu=624 style= > : ONCE </td> </tr> <tr> <td colspan=2 width=16 height=11 style= ></td> <td colspan=7 gzmcq=416 style= > Times </td> <td colspan=5 dcvfm=478 style= > : 12:10 </td> <td iihqb=039 style= > Special Instructions </td> <td colspan=2 qixsn=685 style= > : </td> <td lqfbj=005 style= > Location </td> <td twtdg=913 style= > : ED </td> </tr> <tr> <td colspan=2 width=16 height=11 style= ></td> <td colspan=7 jtjsp=811 style= > Type </td> <td colspan=5 wkvfj=415 style= > : Verbal </td> <td pvbiq=335 style= > Duration </td> <td colspan=2 udwvi=201 style= > : 2 Days </td> <td xxyfv=563 style= > Reason </td> <td culir=849 style= > : </td> </tr> <tr> <td colspan=2 width=16 height=11 style= ></td> <td colspan=7 beyeb=094 style= > Start DateTime </td> <td colspan=5 kiqtz=859 style= > 08/21/2021 12:10 </td> <td xvpkp=924 style= > Stop DateTime </td> <td colspan=2 khfam=158 style= > 08/23/2021 12:10 </td> <td cjlva=035 style= > Strength </td> <td rytto=092 style= > : </td> </tr> <tr> <td colspan=2 width=16 height=11 style= ></td> <td colspan=17 rvlse=975 style= > Order Notes : - </td> </tr> <tr> <td width=0 height=11 style= ></td> <td width=0 style= > </td> <td width=0 style= ></td> <td width=0 style= ></td> <td width=0 style= ></td> <td width=0 style= ></td> <td width=0 style= ></td> </tr> <tr> <td colspan=2 width=16 height=11 style= ></td> <td colspan=12 ojzws=5880 style= > <b>Diagnosis</b> </td> <td fwejz=239 style= ></td> <td colspan=4 mcnun=336 style= ></td> </tr> <tr> <td width=0 height=11 [...] colspan=2 width=16 height=11 style= ></td> <td colspan=5 chslq=775 style= > <b>Validation</b></td> <td width=16 style= ></td> <td colspan=11 tetsr=550 style= ></td> </tr> <tr> <td colspan=3 width=82 height=11 style= ></td> <td colspan=3 relnp=279 style= > Validated On</td> <td colspan=13 ububv=732 style= > : 08/21/2021 12:10 </td> </tr> <tr> <td colspan=3 width=82 height=11 style= ></td> <td colspan=3 zpppq=595 style= > Validated By </td> <td colspan=13 ogoef=274 style= > : ALFONZO TANG </td> </tr> <tr> <td colspan=3 width=82 height=11 style= ></td> <td colspan=3 zsdea=344 style= > Validation Notes </td> <td colspan=13 nhkgo=969 style= > : - </td> </tr> <tr> <td colspan=2 width=16 height=11 style= ></td> <td colspan=5 eevhn=102 style= > <b>Sign- off</b></td> <td width=16 style= ></td> <td colspan=11 jtiux=552 style= ></td> </tr> <tr> <td colspan=3 width=82 height=11 style= ></td> <td colspan=7 xpame=887 style= > Not yet Signed-off</td> <td colspan=9 width=82 style= ></td> </tr> <tr> <td width=0></td> <td width=16></td> <td width=66></td> <td width=98></td> <td width=16></td> <td width=49></td> <td width=16></td> <td width=16></td> <td width=66></td> <td azsbe=246></td> <td width=82></td> <td width=0></td> <td width=0></td> <td dbujj=445></td> <td izzan=336></td> <td yyrkg=744></td> <td hubzb=054></td> <td hdoxi=330></td> <td dazyn=813></td> </tr></table> <div></div><b>Respiratory Order</b> <div></div><b>Disposition </b> <div></div><table class='tableFont' border=0 cellspacing=0 cellpadding=0 style= margin-left: 21pt;border-collapse: collapse; border: none> <tr> <td width=16 height=11 style= ></td> <td fnhoo=347 style= > Discharge Date/Time</td> <td width=16 style= > :</td> <td zvzdy=161 style= > 08/21/2021 13:20</td> </tr> <tr> <td width=16 height=11 style= ></td> <td ujdyp=994 style= > Disposition Type</td> <td width=16 style= > :</td> <td lechs=699 style= > 01 - Discharge to home or self care (routine discharge).</td> </tr> <tr> <td width=16 height=11 style= ></td> <td rxvyg=611 style= > Notes</td> <td width=16 style= > :</td> <td bltgl=858 style= > -</td> </tr></table> ER Note - Provider 08/21/2021 13:20 Signed Date/ Time: 08/21/2021 16:28 Signed By: Lupillo Ashraf Entered By: Lupillo Ashraf <renderedtemplate template= 612><div style=text-align:center><strong>[facility]</strong></div><div></div><div><div></div><div><customfilter class=healthlandplugin notefilterhistoryid=47><span><strong>Chief Complaint:</strong>Right flank pain</span></customfilter></div></div><div></div><div><strong><span style=font- size:12px><span style=font-family:aleksey chen,suleman>HPI:</span></span></strong></div> <div><span style=font-size:12px><span style=font-family:aleksey chen,mindyserizzy>31-year-old male here with right lower abdominal pain over the last 1.5 hours. He had sudden onset of symptoms 1.5 hours ago. He has had recent history of kidney stones on the left successfully passed with increased oral fluids. He is from [facility] and is here visiting his father. He has no nausea. He has hydrocodone tablets at home and these have not been successful in getting him pain relief today. He does have some urinary urgency related to his increased oral fluids today. He does not have any dysuria or flank pain.</span></span></div><div></div><div><customfilter class=healthlandplugin notefilterhistoryid=14><span><strong>Problem List</strong>: No Problems Available</span></customfilter><div></div><div><customfilter [facility] notefilterhistoryid=30><span><strong>Surgery List</strong>: No Surgical History Available</span></customfilter><div></div></div></div><div><span style=font- size:12px><span style=font-family:arial,helvetica,sans-serif><customfilter class=[facility] notefilterhistoryid=13><table border=1> <thead> <tr> <th colspan=10 style=text-align: [...] </tbody></table></customfilter> </span></span><div><span style=font-size:12px><span style=font-family:arial,helvetica,sans-serif></span></span></div></div><div><s mcmahan style=font-size:12px><span style=font-family:arial,helvetica,sans-serif><customfilter [facility] notefilterhistoryid=7><span><span><strong>Allergy List</strong></span> No Known Food Allergies No Known Allergies</span></customfilter> </span></span><div></div></div><div><span style=font-size:12px><span style=font-family:arial,helvetica,sans-serif><customfilter [facility] notefilterhistoryid=28><span><strong>Family History List</strong>: No Family History Available</span></customfilter> </span></span><div></div><div><strong>SOCIAL HISTORY</strong></div><div></div></div><div><div><span style=font-size:12px><span style=font-family:arial,helvetica,sans-serif><customfilter [facility] notefilterhistoryid=39><span>No Social History Available</span></customfilter> </span></span></div><div></div></div><div><strong>ROS</strong></div><div></div>< div><span style=font-size:12px><span style=font-family:arial,helvetica,sans-serif><strong>OBJECTIVE:</strong></span ></span></div><div>Heart: RRR, no murmurs. Lungs: CTA Abdomen: Soft with mild to moderate right-sided lower abdominal tenderness. No masses palpable. No CVA tenderness bilaterally.</div><div>Neuro: WNL</div><div></div><div><customfilter class=[facility] notefilterhistoryid=23><table border=1> <thead> <tr> <th colspan=13 style=text-align: center;>Vital Signs: This Visit</th> </tr> <tr> <th style=width:61.38925434285058yc; text-align: center;>Date/Time</th> <th style=width:61.44165530307076ov; text-align: center;>Blood Pressure (mm/Hg)</th> <th style=width:61.99187731286421rh; text-align: center;>Heart Rate</th> <th style=width:61.72736344250878py; text-align: center;>Respiration</th> <th style=width:61.86723967476127ji; text-align: center;>Temperature</th> <th style=width:61.48112424333745cu; text-align: center;>SPO2%</th> <th style=width:61.21194324738693mv; text-align: center;>O2 Device</th> <th style=width:61.14638650381191ru; text-align: center;>Blood Sugar (mg/dL)</th> <th style=width:61.65227117619374gc; text-align: center;>Pain Score</th> <th style=width:61.43231214367460ea; text-align: center;>Height</th> <th style=width:61.66785336431858ra; text-align: center;>Weight</th> <th style=width:61.72079623019433pj; text-align: center;>BMI</th> <th style=width:61.87581665644549bk; text-align: center;>Head Circumference</th> </tr> </thead> <tbody> <tr> [...] ALFONZO TANG <div><renderedtemplate templ ate=85><div style=text-indent:0pt><span style=font-size:12px><span style=font-family:Suncrest,Helvetica,sans-serif><span style=color:#[id number]>IV Discontinuation with aseptic technique</span></span></span></div><div style=text-indent:0pt><span style=font-size:12px><span style=font-family:Suncrest,Helvetica,sans-serif><span style=color:#[id number]>Explained procedure to patient. </span></span></span></div><div style=text-indent:0pt><span style=font- size:12px><span style=font-family:Suncrest,Helvetica,sans-serif><span style=color:#[id number]>Indication for DC of PIV: Discharge</span></span></span></div><div style=text-indent:0pt><span style=font-size:12px><span style=font-family:Suncrest,Helvetica,sans-serif><span style=color:#[id number]>Site: Left AC</span></span></span></div><div style=text-indent:0pt><span style=font-size:12px><span style=font-family:Suncrest,Helvetica,sans-serif><span style=color:#[id number]>Removed tape and other securement measures, removed IV catheter.</span></span></span></div><div style=text-indent:0pt><span style=font-size:12px><span style=font-family:Suncrest,Helvetica,sans-serif><span style=color:#[id number]>Catheter intact: Yes</span></span></span></div><div style=text-indent:0pt><span style=font-size:12px><span style=font-family:Suncrest,Helvetica,sans-serif><span style=color:#[id number]>IV site/skin status: WNL</span></span></span></div><div style=text-indent:0pt><span style=font-size:12px><span style=font-family:Suncrest,Helvetica,sans-serif><span style=color:#[id number]>Pressure applied to site, clotting within acceptable parameters. Dressing applied over site. </span></span></span></div><div style=text-indent:0pt><span style=font- size:12px><span style=color:#[id number]; font-family:arial><span style=font-family:Suncrest,Helvetica,sans-serif>Patient tolerated procedure well without complications. </span></span></span></div><div style=text-indent:0pt></div><div [...] ALFONZO TANG <div><renderedtemplate templ ate=86><div style=text-indent:0pt><span style=font-size:12px><span style=font-family:Suncrest,Helvetica,sans-serif><span style=color:#[id number]><strong>IV Start using aseptic technique.</strong></span></span></span></div><div style=text-indent:0pt><span style=font-size:12px><span style=font-family:Suncrest,Helvetica,sans-serif><span style=color:#[id number]>Explained procedure to patient/family.</span></span></span></div><div style=text-indent:0pt><span style=font-size:12px><span style=font-family:Suncrest,Helvetica,sans-serif><span style=color:#[id number]>Indication for PIV: Meds</span></span></span></div><div style=text-indent:0pt><span style=font-size:12px><span style=font-family:Suncrest,Helvetica,sans-serif><span style=color:#[id number]>Site: Left AC</span></span></span></div><div style=text- indent:0pt><span style=font-size:12px><span style=font-family:Suncrest,Helvetica,sans-serif><span style=color:#[id number]>Size: 20 g</span></span></span></div><div style=text-indent:0pt><span style=font-size:12px><span style=font-family:Suncrest,Helvetica,sans-serif><span style=color:#[id number]>Solution and rate or Saline lock: S.L.</span></span></span></div><div style=text-indent:0pt><span style=font-size:12px><span style=font-family:Suncrest,Helvetica,sans-serif><span style=color:#[id number]>Dressing type/securement: Sorbaview Shield</span></span></span></div><div style=text-indent:0pt><span style=font-size:12px><span style=font-family:Suncrest,Helvetica,sans-serif><span style=color:#[id number]>Number of attempts & location(s): 1</span></span></span></div><div style=text-indent:0pt><span style=font- size:12px><span style=font-family:Suncrest,Helvetica,sans-serif><span style=color:#[id number]>Lidocaine used (no/yes per policy): No</span></span></span></div><div style=text-indent:0pt><span style=font- size:12px><span style=font-family:Suncrest,Helvetica,sans-serif><span style=color:#[id number]>IV site, tubing labeled: Yes</span></span></span></div><div style=text-indent:0pt><span style=font-size:12px><span style=font-family:Suncrest,Helvetica,sans-serif><span style=color:#[id number]>Patient tolerated procedure well without any complications or complaints. </span></span></span></div><div style=text-indent:0pt></div></renderedtemplate></div> Abnormal Assessment Note 08/21/2021 11:43 Signed Date/Time: 08/21/2021 11:45 Signed By: ALFONZO TANG Entered By: ALFONZO TANG <P>Assessment : </FONT> ED: Full Assessment</P><P>Gastrointestinal <FONT style=BACKGROUND-COLOR: #ffffff; FONT-SIZE: 9pt; face=Suncrest>: </FONT>Nausea <FONT style=BACKGROUND-COLOR: #ffffff; FONT-SIZE: 9pt; face=Suncrest>: </FONT> Intermittent</P> <P>Integumentary <FONT style=BACKGROUND-COLOR: #ffffff; FONT-SIZE: 9pt; face=Sun[place]>: </FONT>Skin <FONT style=BACKGROUND-COLOR: #ffffff; FONT-SIZE: 9pt; face=Sun[place]st>: </FONT> Flushed/reddened</P> Transcribed Documents Name Date/Time Description [...]
[2024-01-01] MEDS: KETOROLAC 15 MG/ML inj IVP (13:27)
[2024-01-01] MEDS: LACTATED RINGERS 1000 ML 1,000 ML IV (13:27)
[2024-01-01 13:42] LABS: Basophils Absolute Auto 0.01 K/uL (0.00-0.30); Basophils Percent Auto 0.2 % (0.0-3.0); Eosinophils Absolute Auto 0.05 K/uL (0.00-0.50); Eosinophils Percent Auto 1.1 % (0.0-7.0); Hematocrit 43.6 % (37.0-53.0); Hemoglobin* 14.5 gm/dL (13.5-17.5); Immature Granulocytes Abs Auto 0.01 K/uL (0.00-0.30); Immature Granulocytes Pct Auto 0.2 %; Lymphocytes Absolute Auto 1.52 K/uL (0.90-2.90); Lymphocytes Percent Auto 32.3 % (20-44); Mean Corpuscular HGB Conc 33 gm/dL (32-36); Mean Corpuscular Hemoglobin 31 pg (26-34); Mean Corpuscular Volume 94 fL (80-100); Monocytes Percent Auto 9.1 % (0.0-11.0); Neutrophils Absolute Auto 2.68 K/uL (1.7-7.0); Neutrophils Percent Auto 57.1 % (42.0-72.0); Platelet Count* 190 K/uL (140-440); Red Blood Count 4.62 m/uL (4.30-5.90)
[2024-01-01 13:47] LABS: Slide Review Reflex No
[2024-01-01 13:52] LABS: Appearance Urine Slightly Cloudy (Clear); Bilirubin Urine Negative (Negative); Blood Urine 3+ (Negative); Color Urine Yellow (Yellow); Glucose Urine Negative (Negative); Ketones Urine Negative (Negative); Leukocyte Esterase Urine Trace (Negative); Nitrite Urine Negative (Negative); Protein Urine Negative (Negative); Specific Gravity Urine 1.015 (1.000-1.030); Urobilinogen Urine 0.2 (0.2-1.0)
[2024-01-01 13:57] LABS: RBC Urine >100 (0-2)
[2024-01-01 13:58] LABS: WBC Urine 0-2 (0-5)
[2024-01-01 13:59] LABS: Albumin* 4.6 g/dL (3.3-5.0); Chloride* 105 mmol/L (96-114)
[2024-01-01 14:00] LABS: Potassium* 3.7 mmol/L (3.6-5.1); Sodium* 142 mmol/L (135-149)
[2024-01-01 14:02] LABS: Anion Gap 6 mEq/L (7-15); Bilirubin Total* 0.6 mg/dL (0.1-1.5); Carbon Dioxide* 31 mmol/L (20-32); Creatinine* 0.8 mg/dL (0.5-1.5); Est. Creatinine Clearance* 107.49; Estimated Glomerular Filt Rate 118 ml/min; Total Protein* 6.8 g/dL (6.0-8.3)
[2024-01-01 14:03] LABS: Alanine Aminotransferase* 30 U/L (4-50); Alkaline Phosphatase* 52 U/L (40-150); Aspartate Amino Transferase* 37 U/L (12-35); Blood Urea Nitrogen* 12 mg/dL (5-24); Glucose* 88 mg/dL (60-115)
--- NOTE | 2024-01-01 15:06 | ED_ITS ---
HPI - General Adult General Date Seen: 01/01/24 Chief complaint: Back Injury/Pain Stated complaint: Severe flank low back pain Time Seen by Provider: 01/01/24 12:44 Source: patient Mode of arrival: ambulatory Limitations: no limitations History of Present Illness HPI narrative: Patient is a 33-year-old male presenting to the emergency department for left flank pain. He states the flank pain started abruptly about 1 hour ago while he was standing for work. Denies any recent heavy lifting. States he has had symptoms like this in the past with previous kidney stones and this feels very similar. Has not had any pain with urination has not noticed any blood in his urine. Has already been able to give a urine sample since the symptoms started. Denies any recent back injuries or previous issues with his back. Pain does not radiate anywhere. Denies fevers, chills, abdominal pain, nausea/vomiting, diarrhea, constipation, headache, lightheadedness, dizziness. No other concerns noted at this time. Related Data Home Medications ?Medication ?Instructions ?Recorded ?Confirmed acyclovir 400 mg tablet 400 mg PO DAILY 10/04/22 01/01/24 doxycycline hyclate 100 mg capsule 100 mg PO BID 10/04/22 01/01/24 multivitamin (Daily Multi-Vitamin 1 tab PO QDAY 10/04/22 09/17/23 tablet) tadalafil 8.5 mg PO QDAY 09/17/23 01/01/24 Previous Rx's ?Medication ?Instructions ?Recorded bupropion HCl 300 mg 24 hr tablet, 300 mg PO QAM #90 tabs 08/09/23 extended release methylphenidate HCl 10 mg tablet 10 mg PO DAILY #30 tabs 11/29/23 methylphenidate HCl 18 mg 18 mg PO DAILY #30 tabs 11/29/23 tablet,extended release 24 hr ketorolac 10 mg tablet 10 mg PO Q6H PRN pain #20 tabs 01/01/24 oxycodone 5 mg tablet 5 mg PO Q6H PRN pain #12 tabs 01/01/24 tamsulosin 0.4 mg capsule (Flomax) 0.4 mg PO DAILY #10 caps 01/01/24 Allergies Allergy/AdvReac Type Severity Reaction Status Date / Time No Known Allergies Allergy Verified 09/17/23 13:33 Review of Systems Status of ROS: Reports: 10 or more systems reviewed and unremarkable except as noted in History and below [facility] Medical History (Updated 01/01/24 @ 15:16 by Jacob Urias DO) History of renal calculi (2017) ?Z87.442 - Personal history of urinary calculi (ICD-10) History of herpes simplex keratitis ?Z86.19 - Personal history of other infectious and parasitic diseases (ICD- 10) History of chronic kidney disease ?Z87.448 - Personal history of other diseases of urinary system (ICD-10) Surgical History (Updated 08/13/22 @ 18:14 by Nancy Mariscal) History of appendectomy (07/13/18) ?Z90.49 - Acquired absence of other specified parts of digestive tract (ICD- 10) Family History Unknown Bladder disorder Kidney disorder Genetic disorder Hyperlipidemia High blood pressure Mental disorder Scoliosis Substance abuse Social History (Updated 08/09/23 @ 16:01 by Octavia Beach~[facility] [address], [facility] [address]) What is your current living situation?: I presently have a place to live Problems where you live: no known problems In the past 12 months, utilities in danger of being shut off: no In past 12 months, lack of transportation kept you from medical appts, meetings, work, or getting things needed for daily living: no In the past 12 mos, have been you worried that your food would run out before you had money to buy more?: never true In the past 12 mos, the food you bought just didn't last and you didn't have money to buy more?: never true Smoking Status: Never smoker How often do you have a drink containing alcohol: never How often do you have six or more drinks on one occasion: Never AUDIT-C Alcohol total score: 0 Non-prescribed substance use: denies use How often does anyone, including family, friends and others, physically hurt you : never How often does anyone, including family, friends and others, insult or talk down to you: never How often does anyone, including family, friends and others, threaten you with harm: never How often does anyone, including family, friends and others, scream or curse at you: never Little interest or pleasure in doing things: several days Feeling down, depressed, or hopeless: several days service: No Exam Narrative: Exam Narrative: Const: Well-nourished, Well-developed, in moderate distress Eyes: PERRL, no conjunctival injection, and symmetrical lids HENT: Atraumatic external nose and ears. Moist mucous membranes. Neck: Symmetric, trachea midline, No thyromegaly. CVS: RRR, No murmurs or gallops. Peripheral pulses 2+ and equal in all extremities RESP: Unlabored respiratory effort. Clear to auscultation bilaterally. GI: Nontender/Nondistended, No rebound or guarding. No CVA tenderness MSK:Extremities w/o deformity, Normal Active ROM Skin: Warm, Dry. No rashes or lesions. Neuro: Normal Muscle tone, No focal neurological deficits. Psych: Awake, Alert, & Oriented x3. Appropriate mood and affect. Const: Vital Signs, click to edit/add: Vital Signs - 24 hr 01/01/24 12:40 Temperature 97.7 F Pulse Rate [Pulse Oximeter] 90 Respiratory Rate 20 Blood Pressure [Ri ght Upper Arm] 136/88 Pulse Oximetry 99 Oxygen Delivery Me thod Room Air Course Vital Signs Vital signs: Initial Vital Signs Temperature 97.7 F 01/01/24 12:40 Temperature Source Temporal Artery Scan 01/01/24 12:40 Pulse Rate 90 01/01/24 12:40 Respiratory Rate 01/01/24 12:40 Blood Pressure 136/88 01/01/24 12:40 Blood Pressure Mean 104 01/01/24 12:40 Blood Pressure Position Supine 01/01/24 12:40 Pulse Oximetry 99 01/01/24 12:40 Oxygen Delivery Method Room Air 01/01/24 12:40 Vital Signs Temperature 97.7 F 01/01/24 12:40 Pulse Rate 90 01/01/24 12:40 Respiratory Rate 20 01/01/24 12:40 Blood Pressure 136/88 01/01/24 12:40 Pulse Oximetry 99 01/01/24 12:40 Oxygen Delivery Method Room Air 01/01/24 12:40 Temperature 97.7 F 01/01/24 12:40 Pulse Rate 90 01/01/24 12:40 Respiratory Rate 20 01/01/24 12:40 Blood Pressure 136/88 01/01/24 12:40 Pulse Oximetry 99 01/01/24 12:40 Oxygen Delivery Method Room Air 01/01/24 12:40 Medications Administered Medications: Discontinued Medications Generic Name Dose Route Start Last Admin Trade Name Jen PRN Reason Stop Dose Admin Lactated Ringer's 1,000 mls @ 1,000 mls/hr 01/01/24 13:00 01/01/24 14:48 Lactated Ringers 1000 Ml IV 01/01/24 13:59 Infused .Q1H ONE Infusion Ketorolac Tromethamine 15 mg 01/01/24 13:00 01/01/24 13:27 Ketorolac 15 Mg/Ml Inj IVP 01/01/24 13:01 15 mg ONCE ONE Administration Medical Decision Making MDM Narrative Medical decision making narrative: Patient is a 33-year-old male presenting for left flank pain. Symptoms are consistent with previous kidney stone a CT scan with out contrast will be ordered. Will stool urinalysis check for signs of infected kidney stone. CBC and CMP also ordered. Seems unlikely to be a AAA rupture considering is unilateral and he is not of high risk. No signs of pyelonephritis on initial exam I do not believe any contrast. Patient will be given Toradol for pain and 1 L of normal is of fluids. Toradol improved significantly says he states he feels comfortable at this point. CBC shows no concerning abnormalities. CMP shows no concerning findings. Urinalysis shows blood in his urine but no signs of a UTI. CT returned showing a stone at the right UVJ consistent with his symptoms. Patient is doing well at this time will be discharged. Will prescribe Toradol, oxycodone, from a Lab Data Labs: Lab Results 01/01/24 Range/Units 13:22 WBC 4.70 (4.50-11.00) K/uL RBC 4.62 (4.30-5.90) m/uL Hgb 14.5 (13.5-17.5) gm/dL Hct 43.6 (37.0-53.0) % MCV 94 (80-100) fL MCH 31 (26-34) pg MCHC 33 (32-36) gm/dL RDW Coeff of [place] 13.0 (11.5-15.5) % Plt Count 190 (140-440) K/uL Neut % (Auto) 57.1 (42.0-72.0) % Lymph % (Auto) 32.3 (20-44) % [place] % (Auto) 9.1 (0.0-11.0) % Eos % (Auto) 1.1 (0.0-7.0) % Baso % (Auto) 0.2 (0.0-3.0) % Neut # (Auto) 2.68 (1.7-7.0) K/uL Lymph # (Auto) 1.52 (0.90-2.90) K/uL [place] # (Auto) 0.40 (0.00-0.90) K/UL Eos # (Auto) 0.05 (0.00-0.50) K/uL Baso # (Auto) 0.01 (0.00-0.30) K/uL Abs Immat Gran (auto) 0.01 (0.00-0.30) K/uL Imm/Tot Granulo (auto) 0.2 % Sodium 142 (135-149) mmol/L Potassium 3.7 (3.6-5.1) mmol/L Chloride 105 (96-114) mmol/L Carbon Dioxide 31 (20-32) mmol/L Anion Gap 6 L (7-15) mEq/L BUN 12 (5-24) mg/dL Creatinine 0.8 (0.5-1.5) mg/dL Estimated Creat Clear 107.49 Estimated GFR 118 ml/min Glucose 88 (60-115) mg/dL Calcium 10.0 (8.4-10.6) mg/dL Total Bilirubin 0.6 (0.1-1.5) mg/dL AST 37 H (12-35) U/L ALT 30 (4-50) U/L Alkaline Phosphatase 52 (40-150) U/L Total Protein 6.8 (6.0-8.3) g/dL Albumin 4.6 (3.3-5.0) g/dL Urine Color Yellow (Yellow) Urine Appearance Slightly Cloudy A (Clear) Urine pH 7.0 (5.0-8.5) Ur Specific [place] 1.015 (1.000-1.030) Urine Protein Negative (Negative) Urine Glucose (UA) Negative (Negative) Urine Ketones Negative (Negative) Urine Blood 3+ A (Negative) Urine Nitrite Negative (Negative) Urine Bilirubin Negative (Negative) Urine Urobilinogen 0.2 (0.2-1.0) Ur Leukocyte Esterase Trace A (Negative) Urine RBC >100 A (0-2) Urine WBC 0-2 (0-5) Ur Squamous Epith Cells None (None-Few) Urine Bacteria None (None) Imaging Data CT scan abdomen pelvis: Radiologist's impression: Nephrolithiasis with mild left hydronephrosis and obstructing distal left ureteral stone measuring 4 x 3 millimeters. Please note that all CT scans at this facility use dose modulation, iterative reconstruction, and/or weight-based dosing when appropriate to reduce radiation dose to as low as reasonably achievable. Dictated by Rg Childers MD @ 01/01/2024 2:58:00 PM Discharge Plan Discharge Clinical Impression: Ureteral stone Patient Disposition: Home, Self-Care Condition: Improved Instructions: How to Strain Your Urine (ED), Ureteral Stones (ED) Additional Instructions: Take Tylenol and Toradol for pain. If that is not helping and tried the oxycodone. Use the Flomax as directed. Return to emergency department for new or worsening symptoms. While taking Toradol do not use ibuprofen or other NSAIDs as they are the same class of drugs. If you are unable to pass the stone tried calling [phone] set up with a nephrology appointment Prescriptions: New ketorolac 10 mg tablet 10 mg PO Q6H PRN (Reason: pain) Qty: 20 0RF Rx Instructions: maximum total duration of 5 days from all oral, intranasal, or parenteral formulations oxycodone 5 mg tablet 5 mg PO Q6H PRN (Reason: pain) Qty: 12 0RF tamsulosin [Flomax] 0.4 mg capsule 0.4 mg PO DAILY Qty: 10 2RF No Action doxycycline hyclate 100 mg capsule 100 mg PO BID acyclovir 400 mg tablet 400 mg PO DAILY tadalafil 8.5 mg PO QDAY multivitamin [Daily Multi-Vitamin] Tablet 1 tab PO QDAY bupropion HCl 300 mg tablet extended release 24 hr 300 mg PO QAM Qty: 90 3RF methylphenidate HCl 18 mg tablet extended release 24hr 18 mg PO DAILY Qty: 30 0RF methylphenidate HCl 10 mg tablet 10 mg PO DAILY Qty: 30 0RF Rx Instructions: take in afternoon in addition to long-acting morning methylphenidate Follow Up/Referrals: Dharmesh Glynn MD [Primary Care Provider] - Stand Alone Forms: BlogHer Info Instructions
== END 2024-01-01 15:36 | disposition home or self-care (01) ==
PROVIDERS: Emergency Provider Student in an Organized Health Care Education/Training Program; PCP Family Medicine
DX: N20.1 Calculus of ureter (principal)
CPT/HCPCS: 36415; 74176; 80053; 81001; 85025; 87086; 96361; 96374; 99283; 99284; J1885; J7120

== ENCOUNTER 2024-01-08 12:51 | Outpatient (CLI) | payer OTHER, SELFPAY ==
--- OUTSIDE RECORDS SUMMARY | 2024-01-09 13:45 | XMS_ITS | Encounter Summary ---
Author Organization [facility] Address [address] [place] [address] Care Team Providers Care Book Salesman Name Role Phone Yuri Chow MD Primary Care Provider [phone] Reason for Visit * Reason Comments EYE PAIN Encounter Details Date Type Department Care Team (Late st Contact Info) Description 12/23/2016 Nurse Triage Careline [address] [place] [address] [place] [address] [place], [place] [phone] EYE PAIN Social History Tobacco Use Types Packs/Day Years Used Date Smoking Tobacco: Never Smokeless Tobacco: Never Alcohol Use Standard Drinks/Week Comments No 0 (1 standard drink = 0.6 oz pur e alcohol) Sex and Gender Information Value Date Recorded Sex Assigned at Not on file Gender Identity Not on file Sexual Orientation Not on file documented as of this encounter Nursing Notes * Marielle Gomez RN - 12/23/2016 9:22 AM CDT Reason for Disposition ??? [1] Eye pain/discomfort AND [2] more than mild Answer Assessment - Initial Assessment Questions 1. ONSET: When did the pain start? (e.g., minutes, hours, days) Yesterday morning 2. TIMING: Does the pain come and go, or has it been constant since it started? (e.g., constant, intermittent, fleeting) constant 3. SEVERITY: How bad is the pain? (Scale 1-10; mild, moderate or severe) - MILD (1-3): doesn't interfere with normal activities - MODERATE (4-7): interferes with normal activities or awakens from sleep - SEVERE (8-10): excruciating pain and patient unable to do normal activities mod 4. LOCATION: Where does it hurt? (e.g., eyelid, eye, cheekbone) Right eye 5. CAUSE: What do you think is causing the pain? stye 6. VISION: Do you have blurred vision or changes in your vision? blurry 7. EYE DISCHARGE: Is there any discharge (pus) from the eye(s)? If yes, ask: What color is it? no 8. FEVER: Do you have a fever? If so, ask: What is it, how was it measured, and when did it start? no 9. OTHER SYMPTOMS: Do you have any other symptoms? (e.g., headache, nasal discharge, facial rash) Protocols used: EYE [id number] Patient/caller encouraged to call back to the Careline at # [phone] with any questions and advised to call back or seek immediate care for worsening symptoms. Patient/caller encouraged to follow up with PCP/Clinic as needed. Patient/caller verbalized understanding of recommendations and is agreeable with plan. Marielle Gomez RN * Marielle Gomez RN - 12/23/2016 9:12 AM CDT Call transferred from the [facility]. Pt calling stating he has eye pain. Verified patient identity using three identifiers: yes Situation/Background:pt calling stating yesterday morning he developed pressure/pain in his right eye. Eye is sensitive to light. Has been treated for chalazion in the past (06-14-16) Dr had to drain the lesion. Asking where he can be seen today as the eye clinic is closed. Reviewed with patient pertinent medical history(as it related to the call):yes Reviewed with patient pertinent medications (as they relate to call): yes documented in this encounter Plan of Treatment Not on file documented as of this encounter Visit Diagnoses Not on filedocumented in this encounter Additional Health Concerns Infection Onset Date Last Indicated Resolved Time R/O COVID19 12/05/2019 12/05/2019 12/06/2019 3:50 PM CDT R/O COVID19 01/13/2021 01/13/2021 01/13/2021 9:53 PM CDT documented as of this encounter Care Teams Book Salesman Relationship Specialty [place] [address] [place] [address] PCP - General Family Practice 07/10/18 documented as of this encounter
--- OUTSIDE RECORDS SUMMARY | 2024-01-09 13:45 | XMS_ITS | Encounter Summary ---
Author Organization [facility] Address [address] [place] [address] Care Team Providers Care Stained Glass Window Designer Name Role Phone Yuri Chow MD Primary Care Provider [phone] Encounter Details Date Type Department Care Team (Late st Contact Info) Description 01/02/2017 Consent for Procedure/Treatme [facility] Ophthalmology [address] [place], [place] [phone] Ha Richards MD [address] [place], [place] [phone] CONSENT FOR SURGICAL PROCEDURE Social History Tobacco Use Types Packs/Day Years Used Date Smoking Tobacco: Never Smokeless Tobacco: Never Alcohol Use Standard Drinks/Week Comments No 0 (1 standard drink = 0.6 oz pur e alcohol) Sex and Gender Information Value Date Recorded Sex Assigned at Not on file Gender Identity Not on file Sexual Orientation Not on file documented as of this encounter Plan of Treatment Not on file documented as of this encounter Visit Diagnoses Not on filedocumented in this encounter Additional Health Concerns Infection Onset Date Last Indicated Resolved Time R/O COVID19 12/05/2019 12/05/2019 12/06/2019 3:50 PM CDT R/O COVID19 01/13/2021 01/13/2021 01/13/2021 9:53 PM CDT documented as of this encounter Care Teams Stained Glass Window Designer Relationship Specialty [place] [address] [place] [address] PCP - General Family Practice 07/10/18 documented as of this encounter
--- OUTSIDE RECORDS SUMMARY | 2024-01-09 13:45 | XMS_ITS ---
Author Name Lupillo Ashraf Address Unknown Phone [phone] Organization [facility] al Phone [phone] Care Team Providers Care Pharmacy Informatics Specialist Name Role Phone Lupillo Ashraf Attending [phone] Allergies and Intolerances Substance Reaction Severity Activated [...]
--- OUTSIDE RECORDS SUMMARY | 2024-01-09 13:45 | XMS_ITS | Encounter Summary ---
Author Organization [facility] Address [address] [address] Care Team Providers Care Senior Managing Director Name Role Phone Yuri Chow MD Primary Care Provider Encounter Details Date Type Department Care Team (Late st Contact Info) Description 11/13/2023 4:20 PM CDT Lab Visit [facility] [address] [place] [address] Onychomycosis Social History Tobacco Use Types Packs/Day Years Used Date Smoking Tobacco: Never Smokeless Tobacco: Never Alcohol Use Standard Drinks/Week Comments No 0 (1 standard drink = 0.6 oz pur e alcohol) PHQ-2 Answer Date Recorded PHQ-2 Score 0 11/29/2020 Sex and Gender Information Value Date Recorded Sex Assigned at Not on file Gender Identity Not on file Sexual Orientation Not on file documented as of this encounter Plan of Treatment Not on file documented as of this encounter Procedures Procedure Name Priority Date/Time Associated Diagnosis Comments LIVER PANEL(HEPATIC FUNCTION PANEL) Routine 11/13/2023 4:23 PM CDT Onychomycosis documented in this encounter Results * (ABNORMAL) Liver Panel(Hepatic Function Panel) (11/13/2023 4:23 PM CDT) Alkaline Phosphatase 42 40 - 150 U/L 11/13/2023 6:33 PM CDT [facility] Bilirubin, Total 0.7 0.2 - 1.2 mg/dL 11/13/2023 6:33 PM T [facility] Bilirubin, Direct 0.2 0.0 - 0.5 mg/dL 11/13/2023 6:33 PM CDT [facility] AST (SGOT) 26 10 - 40 U/L 11/13/2023 6:33 PM CDT [facility] ALT (SGPT) 24 <=55 U/L 11/13/2023 6:33 PM T [facility] Protein, Total 6.2(L) 6.4 - 8.3 g/dL 11/13/2023 6:33 PM T [facility] Albumin 4.1 3.5 - 5.0 g/dL 11/13/2023 6:33 PM T [facility] Blood Venipuncture / Unknown 11/13/2023 4:23 PM CDT 11/13/2023 4:26 PM CDT Torsten Chin [facility] [address] [place] [address] documented in this encounter Visit Diagnoses Diagnosis Onychomycosis Dermatophytosis of nail documented in this encounter Care Teams Senior Managing Director Relationship Specialty [place] [address] [place] [address] PCP - General Family Practice 07/10/18 documented as of this encounter
--- OUTSIDE RECORDS SUMMARY | 2024-01-09 13:45 | XMS_ITS | Encounter Summary ---
Author Organization [facility] Address [address] [place] [address] Care Team Providers Care Student Accounts Coordinator Name Role Phone Yuri Chow MD Primary Care Provider [phone] Encounter Details Date Type Department Care Team (Latest Contact Info) Description 12/03/2015 Consent for Procedure[facility]Treatm [facility] [address] [place] [address] Naveen Jones MD CONSENT FOR SURGICAL LASER PROCEDURE Social History Tobacco Use Types Packs/Day Years Used Date Smoking Tobacco: Never Sex and Gender Information Value Date Recorded [...] documented as of this encounter Care Teams Student Accounts Coordinator Relationship Specialty [place] [address] [place] [address] PCP - General Family Practice 07/10/18 documented as of this encounter
--- OUTSIDE RECORDS SUMMARY | 2024-01-09 13:45 | XMS_ITS | Encounter Summary ---
Author Organization [facility] Address [address] [address] Care Team Providers Care Mass Spectrometry Specialist Name Role Phone Yuri Chow MD Primary Care Provider Encounter Details Date Type Department Care Team (Late st Contact Info) Description 12/28/2017 Correspondence [facility] [address] [place], [place] [phone] Jose Guadalupe Parker PA-C [address] [place], [place] [phone] ATTENDING PHYSICIANS STATEMENT Social History Tobacco Use Types Packs/Day Years [...] documented as of this encounter Care Teams Mass Spectrometry Specialist Relationship Specialty [place] [address] [place] [address] PCP - General Family Practice 07/10/18 documented as of this encounter
--- OUTSIDE RECORDS SUMMARY | 2024-01-09 13:45 | XMS_ITS | Encounter Summary ---
Author Organization [facility] Address [address] [place] [address] Care Team Providers Care Reprint Sorter Name Role Phone Yuri Chow MD Primary Care Provider Reason for Visit * Reason Comments NAIL PROBLEM Encounter Details Date Type Department Care Team ([facility] st Contact Info) Description 11/13/2023 3:45 PM CDT Office Visit [facility] [address] Podiatric MedSurg [address] [place] [address] Torsten Chin DPM [address] [place] [address] Onychomycosis (Primary Dx) Social History Tobacco Use Types Packs/Day Years [...] on file documented as of this encounter Progress Notes * Torsten Chin DPM - 11/13/2023 3:45 PM CDT [facility] Date of Service: 11/13/2023 CSN: [id number] CC: Nail concerns PATIENT HISTORY: Bhavin Galaviz is a 33 y.o. old male being seen today for evaluation of nail concerns on both feet.This has been going on for about 6 years. He has not tried anything for treatment. He does have some discomfort with these nails when there is pressure from shoes. REVIEW OF SYSTEMS: Positive per HPI above. Ten point review of systems is otherwise negative. 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 [employer] Tobacco Use Smoking status: Never Smokeless tobacco: Never Vaping Use Vaping status: Never Used Substance and Sexual Activity Alcohol use: No Alcohol/week: 0.0 standard drinks of alcohol Drug use: No Sexual activity: Never Other Topics Concern Not on file Social History Narrative Not on file Social Determinants of Health Financial Resource Strain: Not on file Food Insecurity: Not on file Transportation Needs: Not on file Physical Activity: Not on file Stress: Not on file Social Connections: Not on file Intimate Partner Violence: Not on file Housing Stability: Not on file FAMILY HISTORY: Family History Problem Relation Name Age of Onset Alcohol Abuse Father Drug Abuse Father Anxiety Father Depression Father Genetic Disorder Father Hyperlipidemia Father Hypertension Father Alcohol Abuse Maternal Grandfather Cerebrovascular Disease Maternal Grandfather Coronary Artery Disease Maternal Grandfather Hypertension Maternal Grandfather Thromboembolic Disease Maternal Grandfather Alcohol Abuse Paternal Grandfather Genetic Disorder Paternal Grandfather Anxiety Mother Depression Mother Hypertension Mother Kidney/Bladder Disease Mother Obesity Mother Scoliosis Mother Cancer, Ovary Maternal Grandmother Cataract Maternal Grandmother COPD Maternal Grandmother Diabetes, Type II Maternal Grandmother Hyperlipidemia Maternal Grandmother Hypertension Maternal Grandmother Obesity Maternal Grandmother Thromboembolic Disease Maternal Grandmother Depression Sister Emphysema Paternal Grandmother Genetic Disorder Sister Genetic Disorder Brother Obesity Sister Glaucoma Negative Family History Macular Degeneration Negative Family History Retinal Detachment Negative Family History ALLERGIES: No Known Allergies EXAM: General appearance: Patient is alert and fully cooperative with history & exam. No sign of distress is noted during the visit. Musculoskeletal: Patient is ambulatory without assistive device or brace. No gross ankle deformity noted. No foot or ankle joint effusion is noted. Vascular: DP and PT pulses are intact and regular. No significant edema or varicosities noted. CFT and skin temperature is normal. Neurologic: Lower extremity sensation is intact to light touch. No evidence of weakness or contracture. No evidence of neuropathy. Dermatologic: Skin is intact without significant lesions, rash or abrasion. Multiple nails thickened, dystrophic, discolored. No paronychia or evidence of soft tissue infection is noted. Lymph: No evidence of lymphadenopathy or lymphedema is noted. Respiratory: Breathing is regular and unlabored while sitting. HEENT: Hearing is intact to spoken word. No evidence of visual impairment that would impact self care or ambulation. Psychiatric: Affect is pleasant and appropriate. No unusual anxiety or depression noted. Patient appears motivated to improve health and follow direction. Imaging: X-ray No new IMPRESSION: Onychomycosis PLAN: Patient seen and evaluated Discussed their condition and available treatment options Discussed topical therapy versus oral therapy. We also discussed removal of painful nail should they not respond to conservative care Discussed possible hepatic side effects of oral antifungal medication and the need for LFT monitoring Patient wishes to pursue oral antifungal medication. Rx Lamisil 250 mg p.o. daily for 3 months. LFT today and again at 6 weeks. RTC 3 months Patient agrees to plan Torsten Chin DPM, FACFAS documented in this encounter Plan of Treatment Scheduled Orders Name Type Priority Associated Diagnoses Orde r Schedule Liver Panel(Hepatic Function Panel) Lab Routine Onychomycosis Expected: 12/14/2023, Expires: 01/13/2024 documented as of this encounter Results * (ABNORMAL) Liver Panel(Hepatic Function Panel) (11/13/2023 4:23 PM CDT) Alkaline Phosphatase 42 40 - 150 U/L 11/13/2023 6:33 PM CDT [facility] Bilirubin, Total 0.7 0.2 - 1.2 mg/dL 11/13/2023 6:33 PM CDT [facility] Bilirubin, Direct 0.2 0.0 - 0.5 mg/dL 11/13/2023 6:33 PM CDT [facility] AST (SGOT) 26 10 - 40 U/L 11/13/2023 6:33 PM CDT [facility] ALT (SGPT) 24 <=55 U/L 11/13/2023 6:33 PM CDT [facility] Protein, Total 6.2(L) 6.4 - 8.3 g/dL 11/13/2023 6:33 PM CDT [facility] Albumin 4.1 3.5 - 5.0 g/dL 11/13/2023 6:33 PM CDT [facility] Blood Venipuncture / Unknown 11/13/2023 4:23 PM CDT 11/13/2023 4:26 PM CDT Torsten Chin DP LAB_1 [facility] [address] [place] [address] documented in this encounter Visit Diagnoses Diagnosis Onychomycosis- Primary Dermatophytosis of nail documented in this encounter Care Teams Reprint Sorter Relationship Specialty [place] [address] [place] [address] PCP - General Family Practice 07/10/18 documented as of this encounter
--- OUTSIDE RECORDS SUMMARY | 2024-01-09 13:45 | XMS_ITS | Clinical Summary ---
Author Organization [facility] Address [address] [place] [address] Care Team Providers Care Leasing Professional Name Role Phone Yuri Chow MD Primary Care Provider [phone] Source Comments You are receiving this document as you are listed as the primary care provider,follow-up provider, or the patient has been referred to you for consultation.This is in compliance with the Medicare and[facility] EHR Incentive Program,which states Providers who transition their patient to another setting of careor provider of care or refers their patient to another provider of care shouldprovide summary care record for each transition of care or referral. [facility] Allergies No known active allergies Medications Medication Sig Dispensed Refills Start Date End Date Status acetaminophen (TYLENOL) 325 MG tablet Take 2 Tablets by mouth every 4 hours as needed for Pain. 100 Tablet 11/19/2017 Active ibuprofen (MOTRIN) 200 MG tablet Take 3 Tablets by mouth every 6 hours as needed for Pain. 100 Tablet 11/19/2017 Active ALBUterol sulfate HFA 108 (90 Base) MCG/ACT inhaler Inhale 2 Puffs every 4 hours as needed for Wheezing or Shortness of Breath. 8.5 g 12/05/2019 Active acyclovir (ZOVIRAX) 400 MG tablet Take 1 Tablet by mouth two times a day. 90 Tablet 4 05/28/2020 Active doxycycline (VIBRAMYCIN) 50 MG capsule Take 1 Capsule by mouth two times a day. Take with food please 100 Capsule 4 05/28/2020 Active methylphenidate (RITALIN) 10 MG tabletIndications:I diopathic hypersomnia TAKE ONE TABLET BY MOUTH ONE TIME DAILY 30 Tablet 04/29/2021 Active CONCERTA 18 MG controlled release tabletIndications:I diopathic hypersomnia TAKE ONE TABLET BY MOUTH ONE TIME DAILY 30 Tablet 06/08/2021 Active terbinafine (LAMISIL) 250 MG tabletIndications:O nychomycosis Take 1 Tablet (250 mg) by mouth daily. 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 Doing well with concerta 18mg once qam and ritalin 10mg later in day if needed CAREPLAN: PLAN OF CARE 05/26/2016 Overview (05/26/2016): Takes concerta 18mg qam Ritalin 10mg qd later in day prn Dx hypersomnolence due to medical condition. Was diagnosed and treated through sleep neurology at [facility]. Agrees to f/u at [facility] q6mo No early refills. 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 Overview (11/29/2016): LW Modifier: Borderline - 3.1 LW Onset: Echo ; Dilated Aortic Root Pectus carinatum 04/10/2006 Overview (11/12/2015): LW Modifier: R >> L Encounters Date Type Department Care Team Description 11/13/2023 4:20 PM CDT Lab Visit [facility] [address] [place] [address] Onychomycosis 11/13/2023 3:45 PM CDT Office Visit [facility] [address] Pod[facility] MedSurg [address] [place] [address] Torsten Chin, DPM Onychomycosis (Primary Dx) from Last 3 Months Immunizations Name Administration Dates Next Due DTaP 03/13/1990,03/14/1989,1988 ,1988 Flu Vac (3+ yrs) 05/08/2017,03/12/2007 HepB, Unspecified Formulation 10/16/2000, 000,02/16/2000 Hib (ActHIB) 03/13/1990 MCV4 (Menactra) 01/25/2007 MMR 03/13/2000,11/07/1989 OPV, Trivalent (Orimune or tOPV) 03/13/1990,08/1988,1988 PPSV23 (Pneumovax) 01/25/2004 Pfizer Monovalent 12+ Purple Top 08/23/2020,042 09/2020 Polio, Unspecified Formulation 03/13/1990,1988,1988 Tdap 08/23/2016,03/13/2000 Family History Medical History Relation Name Comments Alcohol Abuse Father Anxiety Father Depression Father Drug Abuse Father Genetic Disorder Father Hyperlipidemia Father Hypertension Father Anxiety Mother Depression Mother Hypertension Mother Kidney/Bladder Disease Mother Obesity Mother Scoliosis Mother Genetic Disorder Brother Alcohol Abuse Maternal Grandfather Cerebrovascular Disease Maternal Grandfather Coronary Artery Disease Maternal Grandfather Hypertension Maternal Grandfather Thromboembolic Disease Maternal Grandfather COPD Maternal Grandmother Cancer, Ovary Maternal Grandmother Cataract Maternal Grandmother Diabetes, Type II Maternal Grandmother Hyperlipidemia Maternal Grandmother Hypertension Maternal Grandmother Obesity Maternal Grandmother Thromboembolic Disease Maternal Grandmother Alcohol Abuse Paternal Grandfather Genetic Disorder Paternal Grandfather Emphysema Paternal Grandmother Depression Sister 1 Genetic Disorder Sister 2 Obesity Sister 3 Glaucoma Negative Family History Macular Degeneration Negative Family History Retinal Detachment Negative Family History Relation Name Status Comments Father Mother Brother Maternal Grandfather Maternal Grandmother Paternal Grandfather Paternal Grandmother Sister 1 Sister 2 Sister 3 Social History Tobacco Use Types Packs/Day Years Used Date Smoking Tobacco: Never Smokeless Tobacco: Never Alcohol Use Standard Drinks/Week Comments No 0 (1 standard drink = 0.6 oz pur e alcohol) PHQ-2 Answer Date Recorded PHQ-2 Score 0 11/29/2020 Sex and Gender Information Value Date Recorded Sex Assigned at Not on file Gender Identity Not on file Sexual Orientation Not on file Last Filed Vital Signs Vital Sign Reading Time Taken Comments Blood Pressure 105/57 05/31/2020 4:35 PM OUTPATIENT PHYSICAL THERAPIST ASSISTANT Pulse 58 05/31/2020 4:35 PM OUTPATIENT PHYSICAL THERAPIST ASSISTANT Temperature 37.3 ??C (99.1 ??F) 03/28/2019 6:43 PM CS T Respiratory Rate 16 03/28/2019 6:43 PM OUTPATIENT PHYSICAL THERAPIST ASSISTANT Oxygen Saturation 100% 03/28/2019 6:43 PM OUTPATIENT PHYSICAL THERAPIST ASSISTANT Inhaled Oxygen Concentration - - Weight 58.5 kg (129 lb) 05/31/2020 4:35 PM OUTPATIENT PHYSICAL THERAPIST ASSISTANT Height 177.8 cm (5' 10) 07/14/2018 6:57 AM CDT Body Mass Index 18.51 07/14/2018 6:57 AM CDT Plan of Treatment Health Maintenance Due Date Last Done Comments Hep C Screening (Preventive Services) 1988 IPV (Polio) (5 of 5 - 5-dose series) 1992 03/13/1990, 03/13/1990, 1988, Additional history exists Adult Preventive Visit 2006 Cholesterol 2023 COVID-19 Vaccine ( season) 2023 02/01/2023, 08/02/2021, 08/23/2020, Additional history exists Influenza (#1) 2023 02/01/2023, 01/07, 01/25/2021, Additional history exists DTaP/Tdap/Td (7 - Tdap) 08/23/2026 08/24/19 17, 03/13/2000, 03/13/1990, Additional history exists Zoster/Shingles (1 of 2) 2038 Hib Completed 03/13/1990 HepB Completed 10/16/2000, 08/1999, 02/16/2000 Pneumococcal Aged Out 01/25/2004 No longer eligi ble based on patient's age to complete this topic MCV4 Completed 01/25/2007 HIV Screening (Preventive Services) Completed 10/25/2018, 08/23/2016 HPV Vaccine Aged Out No longer eligi ble based on patient's age to complete this topic HepA Aged Out No longer eligi ble based on patient's age to complete this topic Procedures Procedure Name Priority Date/Time Associated Diagnosis Comments LIVER PANEL(HEPATIC FUNCTION PANEL) Routine 11/13/2023 4:23 PM CDT Onychomycosis HIV 1/2 AG/AB 4TH GEN Routine 10/25/2018 11:54 AM CDT Screening for STDs (sexually transmitted diseases) from Last 3 Months or Most Recently Relevant to Health Maintenance Results * (ABNORMAL) Liver Panel(Hepatic Function Panel) (11/13/2023 4:23 PM CDT) Alkaline Phosphatase 42 40 - 150 U/L 11/13/2023 6:33 PM [facility] Bilirubin, Total 0.7 0.2 - 1.2 mg/dL 11/13/2023 6:33 PM [facility] Bilirubin, Direct 0.2 0.0 - 0.5 mg/dL 11/13/2023 6:33 PM [facility] AST (SGOT) 26 10 - 40 U/L 11/13/2023 6:33 PM [facility] ALT (SGPT) 24 <=55 U/L 11/13/2023 6:33 PM [facility] Protein, Total 6.2(L) 6.4 - 8.3 g/dL 11/13/2023 6:33 PM [facility] Albumin 4.1 3.5 - 5.0 g/dL 11/13/2023 6:33 PM [facility] Blood Venipuncture / Unknown 11/13/2023 4:23 PM CDT 11/13/2023 4:26 PM CDT Torsten Chin DPJoe LAB_1 [facility] [address] [place] [address] * HIV 1/2 Ag/Ab 4th Generation (10/25/2018 11:54 AM CDT) [facility] HIV 1/2 Antigen/Anti body (4th generation) Negative (Non Reactive) Negative (Non Reactive) 10/25/2018 3:40 PM CDT [facility] Comment:HIV-1 p24 Antigen an d HIV-1/HIV-2 Antibody not detected Blood Venipuncture / Unknown 10/25/2018 11:54 AM CDT 10/25/2018 11:54 AM CDT Yuri Chow MD LAB_1 Performing Organization Address City/[facility]/ZIP Co de Phone Number [facility] [address] [phone] from Last 3 Months or Most Recently Relevant to Health Maintenance Advance Directives * Full Code (Latest Code Status on File) Date Activated Date Inactivated Comments 07/14/2018 2:03 AM 07/14/2018 6:27 PM Care Teams Leasing Professional Relationship Specialty [place] [address] [place] [address] PCP - General Family Practice 07/10/18
--- OUTSIDE RECORDS SUMMARY | 2024-01-09 13:45 | XMS_ITS | Encounter Summary ---
Author Organization [facility] Address [address] [place] [address] Care Team Providers Care Installation Technician Name Role Phone Yuri Chow MD Primary Care Provider [phone] Encounter Details Date Type Department Care Team (Late st Contact Info) Description 07/26/2018 Correspondence None No Primary/Referring, Phy NEW PATIENT HISTORY Social History Tobacco Use Types Packs/Day Years [...] documented as of this encounter Care Teams Installation Technician Relationship Specialty [place] [address] [place] [address] PCP - General Family Practice 07/10/18 documented as of this encounter
--- OUTSIDE RECORDS SUMMARY | 2024-01-09 13:45 | XMS_ITS ---
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 Name Role Phone Lupillo Ashraf Attending [phone] Lupillo Ashraf Ordering [phone] Allergies and Intolerances Substance Reaction Severity Activated [...] 11:40 9279-1 Pain Scale 3 08/21/2021 12:41 84416-4 SpO2 % 100 08/21/2021 11:40 46756-7 Medications Administered Medication Start Date Dosage Route [...] TANG Entered By: ALFONZO TANG <div></div><div class='heade rFont'><b>[facility]</b></div> <div></div><b>Emergency Department Visit Record</b> <div></div><table class='tableFont' border=0 cellspacing=0 cellpadding=0 style= margin-left: 21pt;border-collapse: collapse; border: none> <tr> <td width=16 height=11 style= ></td> <td xkwnk=832 style= > Patient Name</td> <td width=16 style= > :</td> <td uyktq=804 style= > EMELYN ASKEW</td> </tr> <tr> <td width=16 height=11 style= ></td> <td wfddw=168 style= > MR #</td> <td width=16 style= > :</td> <td ptkqv=720 style= > [address]3569</td> </tr> <tr> <td width=16 height=11 style= ></td> <td sgymd=796 style= > </td> <td width=16 style= > :</td> <td zxxfc=769 style= > 1990 [31 years]</td> </tr> <tr> <td width=16 height=11 style= ></td> <td inesj=237 style= > Visit #</td> <td width=16 style= > :</td> <td hqtou=165 style= > [id number]</td> </tr> <tr> <td width=16 height=11 style= ></td> <td oszej=470 style= > Administrative Gender</td> <td width=16 style= > :</td> <td nzhrq=630 style= > Male</td> </tr> <tr> <td width=16 height=11 style= ></td> <td uopwn=766 style= > Sex</td> <td width=16 style= > :</td> <td cegdk=631 style= > Male</td> </tr> <tr> <td width=16 height=11 style= ></td> <td aiwsb=780 style= > Admission Date/Time</td> <td width=16 style= > :</td> <td yolzu=819 style= > 08/21/2021 11:35</td> </tr> <tr> <td width=16 height=11 style= ></td> <td ufgrt=227 style= > Attending Provider</td> <td width=16 style= > :</td> <td dhqvp=691 style= > Lupillo Ashraf</td> </tr></table> <div></div><b>Patient Data</b> <div></div><table class='tableFont' border=0 cellspacing=0 cellpadding=0 style= margin-left: 21pt;border-collapse: collapse; border: none> <tr> <td width=16 height=11 style= ></td> <td rhcdf=135 style= > Chief Complaint</td> <td width=16 style= > :</td> <td htvsb=611 style= > Right flank pain</td> </tr> <tr> <td width=16 height=11 style= ></td> <td oodft=932 style= > Body System/Complaint</td> <td width=16 style= > :</td> <td mmpun=128 style= > Genitourinary / Flank Pain</td> </tr> <tr> <td width=16 height=11 style= ></td> <td szdxp=965 style= > Historian</td> <td width=16 style= > :</td> <td cnnfv=838 style= > Patient</td> </tr> <tr> <td width=16 height=11 style= ></td> <td rpiae=803 style= > Triage Time</td> <td width=16 style= > :</td> <td wuifz=504 style= > 08/21/2021 11:40</td> </tr> <tr> <td width=16 height=11 style= ></td> <td ocgfh=387 style= > Triage Level</td> <td width=16 style= > :</td> <td mleom=642 style= > 4 - Semi-Urgent</td> </tr> <tr> <td width=16 height=11 style= ></td> <td vqfmq=370 style= > Provider</td> <td width=16 style= > :</td> <td okcel=984 style= > Lupillo Ashraf</td> </tr> <tr> <td width=16 height=11 style= ></td> <td viamo=700 style= > Registered Nurse</td> <td width=16 style= > :</td> <td tmaas=794 style= > -</td> </tr> <tr> <td width=16 height=11 style= ></td> <td azbmt=475 style= > Painter Apprentice</td> <td width=16 style= > :</td> <td ymvgr=622 style= > - </td> </tr> <tr> <td width=16 height=11 style= ></td> <td ciyab=419 style= > Bed</td> <td width=16 style= > :</td> <td iwkam=655 style= > ER-3</td> </tr> <tr> <td width=16 height=11 style= ></td> <td ikguu=633 style= > Pain Scale</td> <td width=16 style= > :</td> <td kypgk=820 style= > 10</td> </tr></table> <div></div><b>First Vital Signs</b> <div></div><table class='tableFont' border=0 cellspacing=0 cellpadding=0 style= margin-left: 21pt;border-collapse: collapse; border: none> <tr> <td width=16 height=11 style= ></td> <td ohsei=219 style= > Date/Time</td> <td width=16 style= > :</td> <td hihjy=596 style= > 08/21/2021 11:40</td> </tr> <tr> <td width=16 height=11 style= ></td> <td whnmu=141 style= > HR</td> <td width=16 style= > :</td> <td shnsb=665 style= > 57</td> </tr> <tr> <td width=16 height=11 style= ></td> <td qzsga=114 style= > BP(mm/Hg)</td> <td width=16 style= > :</td> <td uibkq=939 style= > 127/80</td> </tr> <tr> <td width=16 height=11 style= ></td> <td wenfz=056 style= > BP Site</td> <td width=16 style= > :</td> <td afams=030 style= > -</td> </tr> <tr> <td width=16 height=11 style= ></td> <td nmrpv=696 style= > BP Position</td> <td width=16 style= > :</td> <td jerhe=306 style= > -</td> </tr> <tr> <td width=16 height=11 style= ></td> <td kweuu=705 style= > MAP(mm/Hg)</td> <td width=16 style= > :</td> <td celpn=761 style= > 95.67</td> </tr> <tr> <td width=16 height=11 style= ></td> <td hrxcw=294 style= > Temp(F)</td> <td width=16 style= > :</td> <td xqujm=782 style= > 96.4</td> </tr> <tr> <td width=16 height=11 style= ></td> <td rdypu=380 style= > Resp</td> <td width=16 style= > :</td> <td uukln=520 style= > 20</td> </tr> <tr> <td width=16 height=11 style= ></td> <td cncgs=120 style= > SpO2(%)</td> <td width=16 style= > :</td> <td ymgcn=105 style= > 100</td> </tr> <tr> <td width=16 height=11 style= ></td> <td sxiya=057 style= > O2 Device</td> <td width=16 style= > :</td> <td vepvv=241 style= > Room Air</td> </tr> <tr> <td width=16 height=11 style= ></td> <td tuile=415 style= > O2 Amount</td> <td width=16 style= > :</td> <td xvnio=992 style= > -</td> </tr> <tr> <td width=16 height=11 style= ></td> <td rewse=271 style= > BS (mg/dL)</td> <td width=16 style= > :</td> <td dvkht=820 style= > -</td> </tr> <tr> <td width=16 height=11 style= ></td> <td lgqwm=843 style= > Pain Scale</td> <td width=16 style= > :</td> <td jpzib=049 style= > 10</td> </tr> <tr> <td width=16 height=11 style= ></td> <td giktl=064 style= > Ht/Length(in)</td> <td width=16 style= > :</td> <td yfwym=310 style= > -</td> </tr> <tr> <td width=16 height=11 style= ></td> <td eoacd=995 style= > Wt(lb/oz)</td> <td width=16 style= > :</td> <td yyjbr=305 style= > -</td> </tr> <tr> <td width=16 height=11 style= ></td> <td sdazx=483 style= > Wt Descriptor</td> <td width=16 style= > :</td> <td fqnoy=424 style= > -</td> </tr> <tr> <td width=16 height=11 style= ></td> <td pszue=562 style= > BMI</td> <td width=16 style= > :</td> <td bphsi=720 style= > -</td> </tr> <tr> <td width=16 height=11 style= ></td> <td kuxyx=958 style= > Head Circum.(in)</td> <td width=16 style= > :</td> <td ggzlr=036 style= > -</td> </tr> <tr> <td width=16 height=11 style= ></td> <td xmpmm=979 style= > Entered By</td> <td width=16 style= > :</td> <td nenys=243 style= > ALFONZO TANG</td> </tr></table> <div></div><b>Allergies</b> <div></div><b>Visit Details</b> <div></div><b>Triage</b> <div></div><table class='tableFont' border=0 cellspacing=0 cellpadding=0 style= margin-left: 21pt;border-collapse: collapse; border: none> <tr> <td wehir=918 height=11 > <b>Level</b> </td> <td mdblg=346 > <b>Start Date</b> </td> <td syksf=630 > <b>End Date</b> </td> <td klslc=319 > <b>Length of Stay (Mins)</b> </td> <td kuzdz=900 > <b>Entered By</b> </td> </tr> <tr> <td ebalh=738 height=11 style= > 4 - Semi-Urgent </td> <td cjwvt=821 style= > 08/21/2021 11:40 </td> <td ujzzd=884 style= > 08/21/2021 13:20 </td> <td floon=897 style= > 100 </td> <td iotwq=720 style= > ALFONZO TANG </td> </tr></table> <div></div><b>Stages Of Care</b> <div></div><b>Staff Appointments</b> <div></div><b>Providers</b> <div></div><table class='tableFont' border=0 cellspacing=0 cellpadding=0 style= margin-left: 21pt;border-collapse: collapse; border: none> <tr> <td vtweu=647 height=11 > <b>Name</b> </td> <td piyby=567 > <b>Start Date</b> </td> <td xxvmv=628 > <b>End Date</b> </td> <td vwydq=578 > <b>Length of Stay (Mins)</b> </td> <td szsln=384 > <b>Appointed By</b> </td> </tr> <tr> <td karxa=334 height=11 style= > Lupillo Ashraf </td> <td usdxp=624 style= > 08/21/2021 11:36 </td> <td mwgqy=021 style= > 08/21/2021 13:20 </td> <td mkqgn=891 style= > 104 </td> <td txtzc=775 style= > STEFANI MENDEZ </td> </tr></table> <div></div><b>Provider</b> <div></div><table class='tableFont' border=0 cellspacing=0 cellpadding=0 style= margin-left: 21pt;border-collapse: collapse; border: none> <tr> <td width=16 height=11 style= ></td> <td wbtpq=454 style= > Provider Notified Time</td> <td width=16 style= > :</td> <td xbvqs=039 style= > -</td> </tr> <tr> <td width=16 height=11 style= ></td> <td yptky=826 style= > Provider Arrival Time</td> <td width=16 style= > :</td> <td oxnbv=343 style= > -</td> </tr></table> <div></div><b>Patient Stated Complaint</b> <div></div><table class='tableFont' border=0 cellspacing=0 cellpadding=0 style= margin-left: 21pt;border- collapse: collapse; border: none> <tr> <td width=16 height=11 style= ></td> <td qgiul=617 style= > Stated Complaint</td> <td width=16 style= > :</td> <td oxunn=608 style= > KIDNEY STONES</td> </tr></table> <div></div><b>Treatment Prior to Arrival</b> <div></div><table class='tableFont' border=0 cellspacing=0 cellpadding=0 style= margin-left: 21pt;border-collapse: collapse; border: none> <tr> <td width=16 height=11 style= ></td> <td msyww=516 style= > Arrival Mode</td> <td width=16 style= > :</td> <td rbqjh=991 style= > -</td> </tr></table> <div></div><b>Immediate Treatment</b> <div></div><b>Treatment</b> <div></div><table class='tableFont' border=0 cellspacing=0 cellpadding=0 style= margin-left: 21pt;border-collapse: collapse; border: none> <tr> <td width=16 height=11 style= ></td> <td iudff=861 style= > Treatment Outcome</td> <td width=16 style= > :</td> <td hvugz=101 style= > -</td> </tr> <tr> <td width=16 height=11 style= ></td> <td wjjna=999 style= > Bed</td> <td width=16 style= > :</td> <td tvzkt=577 style= > ER-3</td> </tr></table> <div></div><b>Past Medical History</b> <div></div><b>Health Status Observation</b> <div></div><table class='tableFont' border=0 cellspacing=0 cellpadding=0 style= margin-left: 21pt;border-collapse: collapse; border: none> <tr> <td width=16 height=11 style= ></td> <td zyxts=730 style= > No health status observation available </td> </tr></table> <div></div><b>Impairments</b> <div></div><table class='tableFont' border=0 cellspacing=0 cellpadding=0 style= margin-left: 21pt;border-collapse: collapse; border: none> <tr> <td width=16 height=11 style= ></td> <td tbwrw=702 style= > No impairments available</td> <td width=16 style= ></td> <td xvhuw=094 style= ></td> </tr></table> <div></div><b>Assessment and Plan</b> <div></div><b>Surgical History</b> <div></div><b>Family History</b> <div></div><b>Allergies</b> <div></div><table class='tableFont' border=0 cellspacing=0 cellpadding=0 style= margin- left: 21pt;border-collapse: collapse; border: none> <tr> <td width=16 height=11 style= ></td> <td colspan=3 owiln=828 style= > No Known Allergies</td> <td width=16 style= ></td> <td nufok=115 style= ></td> </tr> <tr> <td width=16 height=11 style= ></td> <td soclh=304 style= > Allergy band placed on patient</td> <td width=16 style= > :</td> <td colspan=3 huxdl=804 style= > No</td> </tr> <tr> <td width=16></td> <td hlmcv=978></td> <td width=16></td> <td esdjp=894></td> <td width=16></td> <td votmy=537></td> </tr></table> <div></div><b>Precautions</b> <div></div><table class='tableFont' border=0 cellspacing=0 cellpadding=0 style= margin-left: 21pt;border-collapse: collapse; border: none> <tr> <td width=16 height=11 style= ></td> <td byzrn=888 style= > No Precautions Available</td> <td width=16 style= ></td> <td pmbng=190 style= ></td> </tr></table> <div></div><b>Medication History</b> <div></div><table class='tableFont' border=0 cellspacing=0 cellpadding=0 style= margin-left: 21pt;border-collapse: collapse; border: none> <tr> <td kqtzk=628 height=11 > <b>Medication Name</b> </td> <td width=74 > <b>Dose</b> </td> <td width=74 > <b>Unit</b> </td> <td pjebf=042 > <b>Frequency</b> </td> <td pgnvk=142 > <b>Assessed By</b> </td> <td qvhsf=224 > <b>Start Date/Time</b> </td> <td drdrc=893 > <b>Source</b> </td> </tr></table> <div></div><table class='tableFont' border=0 cellspacing=0 cellpadding=0 style= margin-left: 21pt;border-collapse: collapse; border: none> <tr> <td gtdrs=234 height=11 style= > hydrocodone-acetaminophen(hydrocodone-acetaminophen) </td> <td width=74 style= > 1-2 tablet </td> <td width=74 style= > tablet </td> <td jbrva=016 style= > every four to six hours as needed </td> <td cixjx=305 style= > cetibjh84 </td> <td ocvtr=599 style= ></td> <td slwce=056 style= > ePrescription </td> </tr></table> <div></div><table class='tableFont' border=0 cellspacing=0 cellpadding=0 style= margin-left: 21pt;border-collapse: collapse; border: none> <tr> <td buhag=644 height=11 style= > Ritalin(methylphenidate hcl) </td> <td width=74 style= > 1 tablet </td> <td width=74 style= > tablet </td> <td uxpqj=795 style= > once a day as needed </td> <td vjacc=314 style= > exlxiga62 </td> <td logtb=521 style= ></td> <td jmjpz=541 style= > ePrescription </td> </tr></table> <div></div><table class='tableFont' border=0 cellspacing=0 cellpadding=0 style= margin-left: 21pt;border-collapse: collapse; border: none> <tr> <td hpsot=399 height=11 style= > Concerta(methylphenidate hcl) </td> <td width=74 style= > 1 tablet </td> <td width=74 style= > tablet </td> <td igrme=943 style= > once a day </td> <td ynfzi=279 style= > xybbnxw72 </td> <td rmpdy=304 style= ></td> <td qdjvm=622 style= > ePrescription </td> </tr></table> <div></div><table class='tableFont' border=0 cellspacing=0 cellpadding=0 style= margin-left: 21pt;border-collapse: collapse; border: none> <tr> <td fqrna=482 height=11 style= > acyclovir(acyclovir) </td> <td width=74 style= > 1 tablet </td> <td width=74 style= > tablet </td> <td rzfuw=309 style= > once a day </td> <td xzdda=808 style= > nhetcxz23 </td> <td ylaxq=417 style= ></td> <td vmnhe=003 style= > ePrescription </td> </tr></table> <div></div><table class='tableFont' border=0 cellspacing=0 cellpadding=0 style= margin-left: 21pt;border-collapse: collapse; border: none> <tr> <td vzxqb=342 height=11 style= > doxycycline hyclate(doxycycline hyclate) </td> <td width=74 style= > 50 tablet </td> <td width=74 style= > tablet </td> <td dfcmf=073 style= > twice a day </td> <td sgqhe=856 style= > ptryunq53 </td> <td xzfhe=803 style= ></td> <td npilt=185 style= > ePrescription </td> </tr></table> <div></div><b>Social Profile</b> <div></div><table class='tableFont' border=0 cellspacing=0 cellpadding=0 style= margin-left: 21pt;border-collapse: collapse; border: none> <tr> <td width=16 height=11 style= ></td> <td yiwly=477 style= > No social profile available</td> <td width=16 style= ></td> <td rcwki=675 style= ></td> </tr></table> <div></div><b>Triage Pain Assessments</b> <div></div><table class='tableFont' border=0 cellspacing=0 cellpadding=0 style= margin-left: 21pt;border-collapse: collapse; border: none> <tr> <td niqxq=649 height=11 > <b>Body System</b> </td> <td kjfpj=142 > <b>Numerical Pain Scale</b> </td> <td width=82 > <b>Duration</b> </td> <td spzav=264 > <b>Location</b> </td> </tr> <tr> <td wallq=130 height=11 style= > Genitourinary </td> <td uzbya=526 style= > 10 </td> <td width=82 style= > 2Hrs </td> <td mesmf=948 style= > Right flank </td> </tr></table> <div></div><b>Assessments </b> <div></div><table class='tableFont' border=0 cellspacing=0 cellpadding=0 style= margin-left: 21pt;border- collapse: collapse; border: none> <tr> <td width=16 height=11 style= border-left:solid #218402 0px; border-top:solid #607012 1px; border-right:solid #175073 0px; border-bottom:solid #080286 0px;></td> <td udrop=660 style= border-left:solid #685418 0px; border-top:solid #919179 1px; border-right:solid #978069 0px; border-bottom:solid #425818 0px;> <b>Name</b></td> <td width=16 style= border-left:solid #407724 0px; border-top:solid #081767 1px; border-right:solid #992027 0px; border-bottom:solid #577860 0px;></td> <td sivqb=186 style= border-left:solid #642611 0px; border-top:solid #033422 1px; border-right:solid #614010 0px; border- bottom:solid #164599 0px;> <b>: ED: Discharge Checklist</b></td> </tr> <tr> <td width=16 height=11 style= ></td> <td vlloe=104 style= > <b>Charted Date</b></td> <td width=16 style= ></td> <td dqgev=854 style= > <b>: 08/21/2021 13:26</b></td> </tr> <tr> <td width=16 height=11 style= ></td> <td odwtv=561 style= > <b>Entered By</b></td> <td width=16 style= ></td> <td juqnj=101 style= > <b>: ALFONZO TANG</b></td> </tr> <tr> <td width=16 height=11 style= ></td> <td dtvsd=240 style= > <b>Signed On</b></td> <td width=16 style= ></td> <td pfbkk=823 style= > <b>: 08/21/2021 13:27</b></td> </tr> <tr> <td width=16 height=11 style= border-left:solid #[id number] 0px; border-top:solid #928024 0px; border-right:solid #400042 0px; border-bottom:solid #892505 1px;></td> <td cvmwi=083 style= border-left:solid #836526 0px; border-top:solid #441309 0px; border-right:solid #237737 0px; border- bottom:solid #921680 1px;> <b>Signed By</b></td> <td width=16 style= border-left:solid #763613 0px; border-top:solid #212229 0px; border-right:solid #792075 0px; border-bottom:solid #903155 1px;></td> <td oeyxp=770 style= border-left:solid #037894 0px; border-top:solid #880171 0px; border-right:solid #206041 0px; border-bottom:solid #874401 1px;> <b>: ALFONZO TANG RN</b></td> </tr></table> <div></div><b>DC: Medications</b> <div></div><table class='tableFont' border=0 cellspacing=0 cellpadding=0 style= margin- left: 21pt;border-collapse: collapse; border: none> <tr> <td width=16 height=11 style= ></td> <td cdxws=502 style= > Discharge instructions reviewed</td> <td width=16 style= > :</td> <td ephni=557 style= > With patient</td> </tr> <tr> <td width=16 height=11 style= ></td> <td fiywp=336 style= > Prescriptions given</td> <td width=16 style= > :</td> <td uoodp=667 style= > Paper script given</td> </tr> <tr> <td width=16 height=11 style= ></td> <td tsiqh=011 style= > Paper script given to:</td> <td width=16 style= > :</td> <td frktz=491 style= > Paper script given to patient</td> </tr> <tr> <td width=16 height=11 style= ></td> <td gfoqj=138 style= > Medication education given</td> <td width=16 style= > :</td> <td cozgd=527 style= > Yes</td> </tr> <tr> <td width=16 height=11 style= ></td> <td zaivl=885 style= > Reviewed with</td> <td width=16 style= > :</td> <td snysp=754 style= > Patient and family</td> </tr> <tr> <td width=16 height=11 style= ></td> <td ivmoy=948 style= > Patient home meds returned</td> <td width=16 style= > :</td> <td drswa=702 style= > NA</td> </tr></table> <div></div><b>DC: Discharge instructions</b> <div></div><table class='tableFont' border=0 cellspacing=0 cellpadding=0 style= margin- left: 21pt;border-collapse: collapse; border: none> <tr> <td width=16 height=11 style= ></td> <td flayt=773 style= > PCI reviewed</td> <td width=16 style= > :</td> <td fddqo=217 style= > Yes</td> </tr> <tr> <td width=16 height=11 style= ></td> <td zvqbu=657 style= > Reviewed with</td> <td width=16 style= > :</td> <td xwhqm=278 style= > Patient and family</td> </tr></table> <div></div><b>DC: Referral</b> <div></div><table class='tableFont' border=0 cellspacing=0 cellpadding=0 style= margin- left: 21pt;border-collapse: collapse; border: none> <tr> <td width=16 height=11 style= ></td> <td nmpot=396 style= > Discharge orders faxed</td> <td width=16 style= > :</td> <td hjloq=138 style= > NA</td> </tr></table> <div></div><b>DC: In house referral (ORTHO, Therapy,EGD,Echo)</b> <div></div><table class='tableFont' border=0 cellspacing=0 cellpadding=0 style= margin- left: 21pt;border-collapse: collapse; border: none> <tr> <td width=16 height=11 style= ></td> <td ogwje=415 style= > Referral made:</td> <td width=16 style= > :</td> <td dmlgc=602 style= > NA</td> </tr></table> <div></div><b>DC: Radiology orders</b> <div></div><table class='tableFont' border=0 cellspacing=0 cellpadding=0 style= margin-left: 21pt;border-collapse: collapse; border: none> <tr> <td width=16 height=11 style= ></td> <td sexyy=335 style= > Radiology tests needed after ER visit</td> <td width=16 style= > :</td> <td eikvu=607 style= > NA</td> </tr></table> <div></div><b>Radiology test to be done at OUTSIDE facility</b> <div></div><table class='tableFont' border=0 cellspacing=0 cellpadding=0 style= margin-left: 21pt;border-collapse: collapse; border: none> <tr> <td width=16 height=11 style= ></td> <td sszhg=457 style= > Outside facility radiology orders needed?</td> <td width=16 style= > :</td> <td jmyqj=484 style= > NA</td> </tr></table> <div></div><b>Outreach Provider follow up needed</b> <div></div><table class='tableFont' border=0 cellspacing=0 cellpadding=0 style= margin-left: 21pt;border- collapse: collapse; border: none> <tr> <td width=16 height=11 style= ></td> <td ttffi=611 style= > Order for outreach follow up obtained</td> <td width=16 style= > :</td> <td vayyo=362 style= > NA</td> </tr></table> <div></div><b>DC: Nursing documentation</b> <div></div><table class='tableFont' border=0 cellspacing=0 cellpadding=0 style= margin-left: 21pt;border-collapse: collapse; border: none> <tr> <td width=16 height=11 style= ></td> <td onikb=674 style= > Valuables returned</td> <td width=16 style= > :</td> <td mrwpl=227 style= > NA</td> </tr> <tr> <td width=16 height=11 style= ></td> <td ctrtr=040 style= > Removed IV and charted</td> <td width=16 style= > :</td> <td xhzev=719 style= > Yes</td> </tr></table> <div></div><b>DC: Medication stop times charted in [facility]</b> <div></div><table class='tableFont' border=0 cellspacing=0 cellpadding=0 style= margin- left: 21pt;border-collapse: collapse; border: none> <tr> <td width=16 height=11 style= ></td> <td wafsm=801 style= > Medication stop times charted in [facility]</td> <td width=16 style= > :</td> <td mdjfj=025 style= > NA</td> </tr></table> <div></div><b>Discharge</b> <div></div><table class='tableFont' border=0 cellspacing=0 cellpadding=0 style= margin-left: 21pt;border-collapse: collapse; border: none> <tr> <td width=16 height=11 style= ></td> <td hommn=130 style= > Date/Time</td> <td width=16 style= > :</td> <td bmtfo=652 style= > 08/21/2021 13:20</td> </tr> <tr> <td width=16 height=11 style= ></td> <td egatz=055 style= > Condition on discharge</td> <td width=16 style= > :</td> <td zmroo=571 style= > Improved</td> </tr> <tr> <td width=16 height=11 style= ></td> <td rqbtn=055 style= > Destination</td> <td width=16 style= > :</td> <td gitgu=199 style= > Home</td> </tr> <tr> <td width=16 height=11 style= ></td> <td xnvwz=323 style= > Accompanied by</td> <td width=16 style= > :</td> <td fhuch=298 style= > Family</td> </tr></table> <div></div><b>DC: Transportation</b> <div></div><table class='tableFont' border=0 cellspacing=0 cellpadding=0 style= margin-left: 21pt;border-collapse: collapse; border: none> <tr> <td width=16 height=11 style= ></td> <td xbohe=855 style= > Mode</td> <td width=16 style= > :</td> <td ynodt=789 style= > Ambulatory</td> </tr></table> <div></div><b>DC: Additional</b> <div></div><table class='tableFont' border=0 cellspacing=0 cellpadding=0 style= margin-left: 21pt;border-collapse: collapse; border: none> <tr> <td width=16 height=11 style= ></td> <td tancs=904 style= > Comments</td> <td width=16 style= > :</td> <td pgnwq=347 style= > Sent with strainer for urine and sample cup</td> </tr></table> <div></div><table class='tableFont' border=0 cellspacing=0 cellpadding=0 style= margin-left: 21pt;border-collapse: collapse; border: none> <tr> <td width=16 height=11 style= border-left:solid #[id number] 0px; border-top:solid #[id number] 1px; border- right:solid #[id number] 0px; border-bottom:solid #[id number] 0px;></td> <td colspan=3 dkoxv=636 style= border-left:solid #[id number] 0px; border-top:solid #[id number] 1px; border-right:solid #[id number] 0px; border-bottom:solid #[id number] 0px;> <b>Name</b></td> <td width=16 style= border-left:solid #[id number] 0px; border-top:solid #[id number] 1px; border-right:solid #370970 0px; border-bottom:solid #[id number] 0px;></td> <td lubec=181 style= border-left:solid #842738 0px; border-top:solid #893741 1px; border-right:solid #787119 0px; border- bottom:solid #448525 0px;> <b>: ED: Full Assessment</b></td> </tr> <tr> <td width=16 height=11 style= ></td> <td colspan=3 viuzp=262 style= > <b>Charted Date</b></td> <td width=16 style= ></td> <td bkrmj=996 style= > <b>: 08/21/2021 11:43</b></td> </tr> <tr> <td width=16 height=11 style= ></td> <td colspan=3 avqbs=640 style= > <b>Entered By</b></td> <td width=16 style= ></td> <td oawsr=477 style= > <b>: ALFONZO TANG</b></td> </tr> <tr> <td width=16 height=11 style= ></td> <td colspan=3 afaar=933 style= > <b>Signed On</b></td> <td width=16 style= ></td> <td hsadw=740 style= > <b>: 08/21/2021 11:52</b></td> </tr> <tr> <td width=16 height=11 style= border-left:solid #212814 0px; border-top:solid #548374 0px; border-right:solid #032405 0px; border-bottom:solid #612044 1px;></td> <td colspan=3 owxis=078 style= border-left:solid #441969 0px; border-top:solid #860203 0px; border-right:solid #963379 0px; border-bottom:solid #818418 1px;> <b>Signed By</b></td> <td width=16 style= border-left:solid #114258 0px; border-top:solid #793310 0px; border-right:solid #542659 0px; border-bottom:solid #788202 1px;></td> <td ofdhp=647 style= border-left:solid #609590 0px; border-top:solid #538537 0px; border-right:solid #012767 0px; border- bottom:solid #911121 1px;> <b>: ALFONZO TANG A, RN</b></td> </tr> <tr> <td width=16 height=11 style= border-left:solid #608733 0px; border-top:solid #249646 1px; border-right:solid #753759 0px; border-bottom:solid #952107 0px;></td> <td colspan=3 qrrmi=701 style= border-left:solid #137078 0px; border-top:solid #689832 1px; border-right:solid #923384 0px; border-bottom:solid #407558 0px;> <b>Last Modified By</b></td> <td width=16 style= border-left:solid #943652 0px; border-top:solid #265557 1px; border-right:solid #016471 0px; border-bottom:solid #600795 0px;></td> <td cxwgj=296 style= border-left:solid #654466 0px; border-top:solid #379833 1px; border-right:solid #366695 0px; border-bottom:solid #676847 0px;> <b>: ALFONZO TANG</b></td> </tr> <tr> <td width=16 height=11 style= ></td> <td colspan=3 vgdwt=913 style= > <b>Reason For Modification</b></td> <td width=16 style= ></td> <td whmzs=142 style= ></td> </tr> <tr> <td width=16 height=11 style= border-left:solid #328812 0px; border-top:solid #117174 0px; border- right:solid #377597 0px; border-bottom:solid #400172 1px;></td> <td width=24 style= border-left:solid #733172 0px; border- top:solid #612335 0px; border-right:solid #306664 0px; border-bottom:solid #510465 1px;></td> <td width=16 style= border-left:solid #079550 0px; border-top:solid #489177 0px; border-right:solid #799933 0px; border-bottom:solid #596639 1px;></td> <td colspan=3 hwpue=074 style= border-left:solid #252993 0px; border-top:solid #903294 0px; border-right:solid #072253 0px; border- bottom:solid #160342 1px;> Continuation of Care</td> </tr> <tr> <td width=16></td> <td width=24></td> <td width=16></td> <td rlayh=979></td> <td width=16></td> <td xpqwt=924></td> </tr></table> <div></div><b>Trauma</b> <div></div><table class='tableFont' border=0 cellspacing=0 cellpadding=0 style= margin-left: 21pt;border-collapse: collapse; border: none> <tr> <td width=16 height=11 style= ></td> <td wfeko=102 style= > Trauma patient</td> <td width=16 style= > :</td> <td uijyn=964 style= > No</td> </tr> <tr> <td width=16 height=11 style= ></td> <td iblzt=459 style= > Trauma team activated</td> <td width=16 style= > :</td> <td wdjos=778 style= > No</td> </tr></table> <div></div><b>[place]ow Coma Scale</b> <div></div><table class='tableFont' border=0 cellspacing=0 cellpadding=0 style= margin-left: 21pt;border-collapse: collapse; border: none> <tr> <td width=16 height=11 style= ></td> <td iapsv=968 style= > Buddy Coma Scale</td> <td width=16 style= > :</td> <td jgala=383 style= > 08/21/2021 11:43:00 AM</td> </tr> <tr> <td width=16 height=11 style= ></td> <td ofjfz=204 style= ><div align=right > Risk Level</td> <td width=16 style= > :</td> <td ukwzx=273 style= > 15 - Minor Head Injury</td> </tr></table> <div></div><b>COVID-19 Symptom Screening</b> <div></div><table class='tableFont' border=0 cellspacing=0 cellpadding=0 style= margin- left: 21pt;border-collapse: collapse; border: none> <tr> <td width=16 height=11 style= ></td> <td wncqv=818 style= > Patient reported criteria:</td> <td width=16 style= > :</td> <td kwuvz=320 style= > None</td> </tr></table> <div></div><b>Medications</b> <div></div><table class='tableFont' border=0 cellspacing=0 cellpadding=0 style= margin-left: 21pt;border-collapse: collapse; border: none> <tr> <td width=16 height=11 style= ></td> <td vcqpd=944 style= > Review home medications</td> <td width=16 style= > :</td> <td zyhey=210 style= > Reviewed with patient</td> </tr> <tr> <td width=16 height=11 style= ></td> <td mjdaq=020 style= > If HC pt, call [facility] for medlist.(can identify in care team or visit list)</td> <td width=16 style= > :</td> <td txnsf=551 style= > NA</td> </tr></table> <div></div><b>Primary Care Provider</b> <div></div><table class='tableFont' border=0 cellspacing=0 cellpadding=0 style= margin-left: 21pt;border-collapse: collapse; border: none> <tr> <td width=16 height=11 style= ></td> <td ehgvv=672 style= > List Provider</td> <td width=16 style= > :</td> <td oisbc=552 style= > [facility]</td> </tr></table> <div></div><b>Pain assessment</b> <div></div><table class='tableFont' border=0 cellspacing=0 cellpadding=0 style= margin-left: 21pt;border-collapse: collapse; border: none> <tr> <td width=16 height=11 style= ></td> <td cined=593 style= > Pain scale</td> <td width=16 style= > :</td> <td hsxzi=848 style= > 10</td> </tr> <tr> <td width=16 height=11 style= ></td> <td ifnme=718 style= > Pain location:</td> <td width=16 style= > :</td> <td liadl=484 style= > Right flank</td> </tr> <tr> <td width=16 height=11 style= ></td> <td isbev=077 style= > Pain description:</td> <td width=16 style= > :</td> <td neupd=811 style= > Sharp</td> </tr> <tr> <td width=16 height=11 style= ></td> <td ejmon=415 style= > Pain management intervations prior to ER:</td> <td width=16 style= > :</td> <td vwmds=750 style= > [place] 2-238jq-apra 2 tabs at 1000</td> </tr> <tr> <td width=16 height=11 style= ></td> <td vrxom=392 style= > Interventions - Pain</td> <td width=16 style= > :</td> <td oulul=837 style= > Positioned for comfort</td> </tr></table> <div></div><b>Cardiac</b> <div></div><table class='tableFont' border=0 cellspacing=0 cellpadding=0 style= margin-left: 21pt;border-collapse: collapse; border: none> <tr> <td width=16 height=11 style= ></td> <td eqtxv=997 style= > Heart Sounds</td> <td width=16 style= > :</td> <td yziyc=993 style= > Normal S1 S2</td> </tr> <tr> <td width=16 height=11 style= ></td> <td jilcv=523 style= > Rhythm</td> <td width=16 style= > :</td> <td tircx=665 style= > Normal Sinus</td> </tr> <tr> <td width=16 height=11 style= ></td> <td oawzd=890 style= ></td> <td width=16 style= ></td> <td dcvzs=589 style= > Regular Rhythm</td> </tr> <tr> <td width=16 height=11 style= ></td> <td roigu=818 style= > Chest Pain</td> <td width=16 style= > :</td> <td uutvv=334 style= > Denies pain</td> </tr> <tr> <td width=16 height=11 style= ></td> <td heouh=181 style= > Chest Pain Radiation to</td> <td width=16 style= > :</td> <td stsgf=070 style= > No radiation of pain</td> </tr> <tr> <td width=16 height=11 style= ></td> <td slizv=675 style= > Circulation</td> <td width=16 style= > :</td> <td ynpbt=764 style= > Capillary refill < 3 seconds</td> </tr> <tr> <td width=16 height=11 style= ></td> <td jlsho=044 style= > Edema</td> <td width=16 style= > :</td> <td mhhge=224 style= > No edema present</td> </tr></table> <div></div><b>Gastrointestinal</b> <div></div><table class='tableFont' border=0 cellspacing=0 cellpadding=0 style= margin-left: 21pt;border-collapse: collapse; border: none> <tr> <td width=16 height=11 style= ></td> <td ryfic=779 style= > Abdomen</td> <td width=16 style= > :</td> <td jvnvk=107 style= > Soft, non- tender</td> </tr> <tr> <td width=16 height=11 style= ></td> <td uxadn=171 style= > Bowel sounds</td> <td width=16 style= > :</td> <td fwcsu=536 style= > Present and active all quadrants</td> </tr> <tr> <td width=16 height=11 style= ></td> <td atosf=586 style= > Last normal bowel movement</td> <td width=16 style= > :</td> <td inuok=886 style= > 08/21/2021 11:00</td> </tr> <tr> <td width=16 height=11 style= ></td> <td pjkyk=818 style= > Nausea</td> <td width=16 style= > :</td> <td shhme=496 style= > Intermittent</td> </tr> <tr> <td width=16 height=11 style= ></td> <td nsmxx=554 style= > Vomiting</td> <td width=16 style= > :</td> <td wconx=101 style= > No</td> </tr> <tr> <td width=16 height=11 style= ></td> <td yuipj=234 style= > Bowel pattern</td> <td width=16 style= > :</td> <td furet=807 style= > Normal for patient</td> </tr> <tr> <td width=16 height=11 style= ></td> <td sxief=835 style= > Blood/bleeding</td> <td width=16 style= > :</td> <td bsarv=978 style= > Denies</td> </tr> <tr> <td width=16 height=11 style= ></td> <td nyczf=836 style= > Appliances</td> <td width=16 style= > :</td> <td yhgyi=312 style= > None</td> </tr></table> <div></div><b>Genitourinary</b> <div></div><table class='tableFont' border=0 cellspacing=0 cellpadding=0 style= margin-left: 21pt;border-collapse: collapse; border: none> <tr> <td width=16 height=11 style= ></td> <td kioui=357 style= > Urination</td> <td width=16 style= > :</td> <td zfkry=614 style= > Continent</td> </tr> <tr> <td width=16 height=11 style= ></td> <td cmfme=112 style= ></td> <td width=16 style= ></td> <td gmzzw=537 style= > Urine clear/ normal in color</td> </tr> <tr> <td width=16 height=11 style= ></td> <td lyjin=327 style= ></td> <td width=16 style= ></td> <td iuxru=798 style= > Denies urgency, frequency, burning</td> </tr></table> <div></div><b>Integumentary</b> <div></div><table class='tableFont' border=0 cellspacing=0 cellpadding=0 style= margin-left: 21pt;border- collapse: collapse; border: none> <tr> <td width=16 height=11 style= ></td> <td mlxvo=125 style= > Skin</td> <td width=16 style= > :</td> <td vlgbk=858 style= > Warm and pink</td> </tr> <tr> <td width=16 height=11 style= ></td> <td rlpoe=806 style= ></td> <td width=16 style= ></td> <td pircp=336 style= > Dry</td> </tr> <tr> <td width=16 height=11 style= ></td> <td qpbtl=856 style= ></td> <td width=16 style= ></td> <td eskns=864 style= > Flushed/reddened</td> </tr></table> <div></div><b>Psych</b> <div></div><table class='tableFont' border=0 cellspacing=0 cellpadding=0 style= margin- left: 21pt;border-collapse: collapse; border: none> <tr> <td width=16 height=11 style= ></td> <td pcsvj=107 style= > Behavior</td> <td width=16 style= > :</td> <td gmfae=492 style= > Appropriate for age and situation</td> </tr> <tr> <td width=16 height=11 style= ></td> <td punjz=489 style= ></td> <td width=16 style= ></td> <td tqimz=201 style= > Cooperative with staff</td> </tr> <tr> <td width=16 height=11 style= ></td> <td hmeub=885 style= > Communication</td> <td width=16 style= > :</td> <td tpqnf=120 style= > Communicates effectively</td> </tr> <tr> <td width=16 height=11 style= ></td> <td rrunl=764 style= ></td> <td width=16 style= ></td> <td mcxpj=006 style= > Responds appropriately to questions</td> </tr> <tr> <td width=16 height=11 style= ></td> <td inwfg=372 style= > Affect</td> <td width=16 style= > :</td> <td ieyci=968 style= > Normal for patient</td> </tr> <tr> <td width=16 height=11 style= ></td> <td axjmr=775 style= ></td> <td width=16 style= ></td> <td mnqkw=867 style= > Calm</td> </tr> <tr> <td width=16 height=11 style= ></td> <td ymvyb=729 style= > Update Social Profile</td> <td width=16 style= > :</td> <td awvhw=235 style= > Complete</td> </tr> <tr> <td width=16 height=11 style= ></td> <td yctce=423 style= > Update Care Team</td> <td width=16 style= > :</td> <td zbxqa=261 style= > Complete</td> </tr></table> <div></div><b>Fall risk</b> <div></div><table class='tableFont' border=0 cellspacing=0 cellpadding=0 style= margin-left: 21pt;border-collapse: collapse; border: none> <tr> <td width=16 height=11 style= ></td> <td twxge=126 style= > [place] Fall Scale</td> <td width=16 style= > :</td> <td mdoci=490 style= > 08/21/2021 11:43:00 AM</td> </tr> <tr> <td width=16 height=11 style= ></td> <td toxba=084 style= ><div align=right > Risk Level</td> <td width=16 style= > :</td> <td lblzb=470 style= > 0 - No Risk</td> </tr></table> <div></div><b>Notes</b> <div></div><table class='tableFont' border=0 cellspacing=0 cellpadding=0 style= margin-left: 21pt;border-collapse: collapse; border: none> <tr> <td width=98 height=11 style= > <b>Charted Date</b> </td> <td gkqie=702 style= > 08/21/2021 12:49 </td> </tr> <tr> <td width=98 height=11 style= > <b>Charted By</b> </td> <td qvmas=566 style= > ALFONZO TANG </td> </tr> <tr> <td width=98 height=11 style= > <b>Type</b> </td> <td mutfq=049 style= > Nurses Note </td> </tr> <tr> <td width=98 height=11 style= > <b>Note</b> </td> <td gbzxr=823 style= > <div>Patient's pain has improved from a 01/16 to 06/16. Is visiting with family in room. Will monitor.</div> </td> </tr> <tr> <td width=98 height=11 style= > <b>Signed On</b> </td> <td ghdww=235 style= > 08/21/2021 12:49 </td> </tr> <tr> <td width=98 height=11 style= > <b>Signed by</b> </td> <td xtkgu=106 style= > ALFONZO TANG </td> </tr> <tr> <td width=98 height=11 style= > <b>Cosigned On</b> </td> <td travj=534 style= ></td> </tr> <tr> <td width=98 height=11 style= > <b>Cosigned by</b> </td> <td punkw=113 style= ></td> </tr></table> <div></div><table class='tableFont' border=0 cellspacing=0 cellpadding=0 style= margin-left: 21pt;border-collapse: collapse; border: none> <tr> <td width=98 height=11 style= > <b>Charted Date</b> </td> <td ujbqn=330 style= > 08/21/2021 12:10 </td> </tr> <tr> <td width=98 height=11 style= > <b>Charted By</b> </td> <td bcioq=154 style= > KITTY, ALFONZO A </td> </tr> <tr> <td width=98 height=11 style= > <b>Type</b> </td> <td fxhcq=497 style= > Nurses Note </td> </tr> <tr> <td width=98 height=11 style= > <b>Note</b> </td> <td oxdrd=948 style= > <div><renderedtemplate template=86><div style=text-indent:0pt><span style=font-size:12px><span style=font-family:[place],Helvetica,sans-serif><span style=color:#[id number]><strong>IV Start using aseptic technique.</strong></span></span></span></div><div style=text-indent:0pt><span style=font-size:12px><span style=font-family:[place],Helvetica,sans-serif><span style=color:#[id number]>Explained procedure to patient/family.</span></span></span></div><div style=text-indent:0pt><span style=font-size:12px><span style=font-family:[place],Helvetica,sans-serif><span style=color:#[id number]>Indication for PIV: Meds</span></span></span></div><div style=text-indent:0pt><span style=font-size:12px><span style=font-family:[place],Helvetica,sans-serif><span style=color:#[id number]>Site: Left AC</span></span></span></div><div style=text- indent:0pt><span style=font-size:12px><span style=font-family:[place],Helvetica,sans-serif><span style=color:#[id number]>Size: 20 g</span></span></span></div><div style=text-indent:0pt><span style=font-size:12px><span style=font-family:[place],Helvetica,sans-serif><span style=color:#[id number]>Solution and rate or Saline lock: S.L.</span></span></span></div><div style=text-indent:0pt><span style=font-size:12px><span style=font-family:[place],Helvetica,sans-serif><span style=color:#[id number]>Dressing type/securement: [place] Shield</span></span></span></div><div style=text-indent:0pt><span style=font-size:12px><span style=font-family:[place],Helvetica,sans-serif><span style=color:#[id number]>Number of attempts & location(s): 1</span></span></span></div><div style=text-indent:0pt><span style=font- size:12px><span style=font-family:[place],Helvetica,sans-serif><span style=color:#[id number]>Lidocaine used (no/yes per policy): No</span></span></span></div><div style=text-indent:0pt><span style=font- size:12px><span style=font-family:[place],Helvetica,sans-serif><span style=color:#[id number]>IV site, tubing labeled: Yes</span></span></span></div><div style=text-indent:0pt><span style=font-size:12px><span style=font-family:[place],Helvetica,sans-serif><span style=color:#[id number]>Patient tolerated procedure well without any complications or complaints. </span></span></span></div><div style=text-indent:0pt></div></renderedtemplate></div> </td> </tr> <tr> <td width=98 height=11 style= > <b>Signed On</b> </td> <td cbvuq=780 style= > 08/21/2021 12:11 </td> </tr> <tr> <td width=98 height=11 style= > <b>Signed by</b> </td> <td ximos=881 style= > ALFONZO TANG A </td> </tr> <tr> <td width=98 height=11 style= > <b>Cosigned On</b> </td> <td qzdyx=006 style= ></td> </tr> <tr> <td width=98 height=11 style= > <b>Cosigned by</b> </td> <td hrllg=069 style= ></td> </tr></table> <div></div><table class='tableFont' border=0 cellspacing=0 cellpadding=0 style= margin-left: 21pt;border-collapse: collapse; border: none> <tr> <td width=98 height=11 style= > <b>Charted Date</b> </td> <td yepap=360 style= > 08/21/2021 11:43 </td> </tr> <tr> <td width=98 height=11 style= > <b>Charted By</b> </td> <td zrhpi=654 style= > ALOFNZO TANG </td> </tr> <tr> <td width=98 height=11 style= > <b>Type</b> </td> <td xqelh=339 style= > Abnormal Assessment Note </td> </tr> <tr> <td width=98 height=11 style= > <b>Note</b> </td> <td sjodi=812 style= > <P>Assessment : </FONT> ED: Full Assessment</P><P>Gastrointestinal <FONT style=BACKGROUND-COLOR: #ffffff; FONT- SIZE: 9pt; face=[place]>: </FONT>Nausea <FONT style=BACKGROUND-COLOR: #ffffff; FONT-SIZE: 9pt; face=[place]>: </FONT> Intermittent</P> <P>Integumentary <FONT style=BACKGROUND-COLOR: #ffffff; FONT-SIZE: 9pt; face=[place]>: </FONT>Skin <FONT style=BACKGROUND- COLOR: #ffffff; FONT-SIZE: 9pt; face=[place]>: </FONT> Flushed/reddened</P> </td> </tr> <tr> <td width=98 height=11 style= > <b>Signed On</b> </td> <td wikcr=034 style= > 08/21/2021 11:45 </td> </tr> <tr> <td width=98 height=11 style= > <b>Signed by</b> </td> <td zouip=580 style= > ALFONZO TANG </td> </tr> <tr> <td width=98 height=11 style= > <b>Cosigned On</b> </td> <td gbnpk=981 style= ></td> </tr> <tr> <td width=98 height=11 style= > <b>Cosigned by</b> </td> <td eczsf=704 style= ></td> </tr></table> <div></div><b>Vital Signs</b> <div></div><table class='tableFont' [...] <tr> <td width=16 height=11 style= ></td> <td vfglp=651 style= > Intake</td> <td width=16 style= > :</td> <td rixuw=222 style= > 0</td> </tr></table> <div></div><b>Output:</b> <div></div><table class='tableFont' border=0 cellspacing=0 cellpadding=0 style= margin-left: 21pt;border-collapse: collapse; border: none> <tr> <td width=16 height=11 style= ></td> <td jnmis=627 style= > Output</td> <td width=16 style= > :</td> <td hzxwp=252 style= > 0</td> </tr></table> <div></div><b>FluidBalance:</b> <div></div><table class='tableFont' border=0 cellspacing=0 cellpadding=0 style= margin- left: 21pt;border-collapse: collapse; border: none> <tr> <td width=16 height=11 style= ></td> <td ejwyi=446 style= > FluidBalance</td> <td width=16 style= > :</td> <td xqhvc=174 style= > 0</td> </tr></table> <div></div><b>Other:</b> <div></div><table class='tableFont' border=0 cellspacing=0 cellpadding=0 style= margin-left: 21pt;border-collapse: collapse; border: none> <tr> <td width=16 height=11 style= ></td> <td iikcw=483 style= > Other</td> <td width=16 style= > :</td> <td skkjy=199 style= > 0</td> </tr></table> <div></div><b>Orders</b> <div></div><b>Medication Order</b> <div></div><table class='tableFont' border=0 cellspacing=0 cellpadding=0 style= margin-left: 21pt;border-collapse: collapse; border: none> <tr> <td colspan=4 yxahp=3239 height=11 style= > <b>IV Site Info</b> </td> </tr> <tr> <td width=82 height=11 style= ></td> <td fshgo=158 style= > No IV sites created </td> <td colspan=2 width=82 style= ></td> </tr> <tr> <td width=82></td> <td cspjn=176></td> <td width=82></td> <td imryp=480></td> </tr></table> <div></div><table class='tableFont' border=0 cellspacing=0 cellpadding=0 style= margin-left: 21pt;border-collapse: collapse; border: none> <tr> <td colspan=2 width=16 height=11 style= border- left:solid #233928 0px; border-top:solid #932314 1px; border-right:solid #627506 0px; border-bottom:solid #776081 0px;></td> <td colspan=3 hciop=803 style= border-left:solid #611350 0px; border-top:solid #084820 1px; border-right:solid #155513 0px; border- bottom:solid #137158 0px;> <div></div><b>Medication Order</b></td> <td width=16 style= border-left:solid #968046 0px; border- top:solid #438332 1px; border-right:solid #962661 0px; border-bottom:solid #761324 0px;></td> <td colspan=11 ithlz=521 style= border-left:solid #257320 0px; border-top:solid #068732 1px; border-right:solid #434502 0px; border-bottom:solid #985337 0px;> <b>: KETOROLAC [30MG/ML] VIAL (TORADOL)</b></td> </tr> <tr> <td colspan=2 width=16 height=11 style= border-left:solid #485443 0px; border-top:solid #306695 0px; border-right:solid #914782 0px; border-bottom:solid #235089 1px;></td> <td colspan=3 zogmp=937 style= border-left:solid #446082 0px; border-top:solid #366009 0px; border-right:solid #703718 0px; border-bottom:solid #910119 1px;> <b>Current Status</b></td> <td width=16 style= border-left:solid #[id number] 0px; border-top:solid #[id number] 0px; border-right:solid #[id number] 0px; border-bottom:solid #[id number] 1px;></td> <td colspan=11 nwiog=766 style= border-left:solid #[id number] 0px; border-top:solid #[id number] 0px; border-right:solid #[id number] 0px; border-bottom:solid #[id number] 1px;> <b>: Complete - 08/21/2021 12:08 </b></td> </tr> <tr> <td colspan=2 width=16 height=11 style= ></td> <td colspan=5 xuxvn=254 style= > Created By </td> <td colspan=4 xewgu=246 style= > : ALFONZO TANG </td> <td colspan=2 zyumn=750 style= > Created on </td> <td colspan=2 gryas=437 style= > : 08/21/2021 12:04 </td> <td kffon=258 style= > Receive Type </td> <td ejyet=377 style= > : Verbal </td> </tr> <tr> <td colspan=2 width=16 height=11 style= ></td> <td colspan=5 xydcl=414 style= > Ordering MD </td> <td colspan=4 bfwii=807 style= > : [place], [place] </td> <td colspan=2 pxddz=623 style= > Priority </td> <td colspan=2 wlcyf=187 style= > : STAT </td> <td yufml=259 style= > Frequency </td> <td ijnlo=146 style= > : ONCE </td> </tr> <tr> <td colspan=2 width=16 height=11 style= ></td> <td colspan=5 nrwdx=510 style= > Times </td> <td colspan=4 riwyn=049 style= > : 12:04 </td> <td colspan=2 hlbrw=019 style= > Special Instructions </td> <td colspan=2 tibdb=052 style= > : must document waste quantity in the waste log during administration </td> <td woamz=900 style= > Location </td> <td uayxh=646 style= > : ED </td> </tr> <tr> <td colspan=2 width=16 height=11 style= ></td> <td colspan=5 vpjfa=790 style= > Type </td> <td colspan=4 pwejm=616 style= > : Verbal </td> <td colspan=2 iiths=671 style= > Duration </td> <td colspan=2 lberj=155 style= > : 2 Days </td> <td bpjnp=073 style= > Reason </td> <td tgcxv=181 style= > : </td> </tr> <tr> <td colspan=2 width=16 height=11 style= ></td> <td colspan=5 stgxc=012 style= > Start DateTime </td> <td colspan=4 jrdrm=631 style= > 08/21/2021 12:04 </td> <td colspan=2 trmmv=806 style= > Stop DateTime </td> <td colspan=2 eralq=908 style= > 08/23/2021 12:04 </td> <td gzlib=581 style= > Strength </td> <td cekvm=466 style= > : 30 MG/ML Solution </td> </tr> <tr> <td colspan=2 width=16 height=11 style= ></td> <td colspan=5 ptblu=631 style= > Home Medication </td> <td colspan=4 ekdak=753 style= > : False </td> <td colspan=2 lonjb=208 style= > Route </td> <td colspan=2 oamwm=809 style= > : IVP IV PUSH </td> <td anhlq=751 style= > Dosage </td> <td kfkrk=919 style= > : 30 mg </td> </tr> <tr> <td colspan=2 width=16 height=11 style= ></td> <td colspan=15 ealwr=022 style= > Order Notes : - </td> </tr> <tr> <td width=0 height=11 style= ></td> <td width=0 style= > </td> <td width=0 style= ></td> <td width=0 style= ></td> <td width=0 style= ></td> <td width=0 style= ></td> <td width=0 style= ></td> </tr> <tr> <td colspan=2 width=16 height=11 style= ></td> <td colspan=9 enpxj=4554 style= > <b>Diagnosis</b> </td> <td colspan=2 pfett=167 style= ></td> <td colspan=4 sumhj=826 style= ></td> </tr> <tr> <td width=0 height=11 [...] colspan=2 width=16 height=11 style= ></td> <td colspan=3 tijsp=973 style= > <b>Validation</b></td> <td width=16 style= ></td> <td colspan=11 bluow=719 style= ></td> </tr> <tr> <td colspan=3 width=82 height=11 style= ></td> <td rupkq=695 style= > Validated On</td> <td colspan=13 amjrm=351 style= > : 08/21/2021 12:04 </td> </tr> <tr> <td colspan=3 width=82 height=11 style= ></td> <td kfxft=762 style= > Validated By </td> <td colspan=13 wmjji=775 style= > : ALFONZO TANG </td> </tr> <tr> <td colspan=3 width=82 height=11 style= ></td> <td mkplo=357 style= > Validation Notes </td> <td colspan=13 gsnkw=474 style= > : - </td> </tr> <tr> <td colspan=17 ajosj=0635 height=11 style= > <b>Administration</b> </td> </tr> <tr> <td width=0></td> <td width=16></td> <td width=66></td> <td jphed=070></td> <td width=16></td> <td width=16></td> <td width=66></td> <td jwtxr=602></td> <td width=0></td> <td width=0></td> <td blvbg=850></td> <td vxnya=226></td> <td oyvfm=808></td> <td bgxdh=981></td> <td bdrqi=425></td> <td dvuzn=006></td> <td nvvky=342></td> </tr></table> <div></div><table class='tableFont' border=0 cellspacing=0 cellpadding=0 style= margin-left: 21pt;border-collapse: collapse; border: none> <tr> <td width=82 height=11 style= ></td> <td wwdgw=758 style= > Started On </td> <td lasot=202 style= > : 08/21/2021 12:08 </td> </tr> <tr> <td width=82 height=11 style= ></td> <td umffc=679 style= > Administered By </td> <td vmoje=092 style= > : ALFONZO TANG RN </td> </tr> <tr> <td width=82 height=11 style= ></td> <td aosvh=649 style= > Route </td> <td dltcs=423 style= > : IVP IV PUSH </td> </tr> <tr> <td width=82 height=11 style= ></td> <td ybjgq=422 style= > Site </td> <td mqvlt=494 style= > : </td> </tr> <tr> <td width=82 height=11 style= ></td> <td kvnuu=123 style= > Administration Notes </td> <td xoxtw=940 style= > : - </td> </tr></table> <div></div><table class='tableFont' border=0 cellspacing=0 cellpadding=0 style= margin-left: 21pt;border-collapse: collapse; border: none> <tr> <td colspan=2 width=16 height=11 style= border-left:solid #[id number] 0px; border-top:solid #518435 1px; border-right:solid #870548 0px; border-bottom:solid #191627 0px;></td> <td colspan=3 goinm=806 style= border-left:solid #887182 0px; border-top:solid #580434 1px; border-right:solid #945318 0px; border-bottom:solid #917250 0px;> <div></div><b>Medication Order</b></td> <td width=16 style= border-left:solid #818977 0px; border-top:solid #228544 1px; border-right:solid #558270 0px; border- bottom:solid #746729 0px;></td> <td colspan=11 qmwvj=545 style= border-left:solid #709398 0px; border-top:solid #648941 1px; border- right:solid #642147 0px; border-bottom:solid #405361 0px;> <b>: TAMSULOSIN [0.4MG] CAPSULE (FLOMAX)</b></td> </tr> <tr> <td colspan=2 width=16 height=11 style= border-left:solid #270457 0px; border-top:solid #218742 0px; border-right:solid #782546 0px; border- bottom:solid #064850 1px;></td> <td colspan=3 dxmnw=690 style= border-left:solid #426176 0px; border-top:solid #513309 0px; border- right:solid #118357 0px; border-bottom:solid #061932 1px;> <b>Current Status</b></td> <td width=16 style= border-left:solid #544926 0px; border-top:solid #122573 0px; border-right:solid #345004 0px; border-bottom:solid #323804 1px;></td> <td colspan=11 snebe=438 style= border-left:solid #682449 0px; border-top:solid #347244 0px; border-right:solid #462528 0px; border-bottom:solid #271210 1px;> <b>: Complete - 08/21/2021 13:13 </b></td> </tr> <tr> <td colspan=2 width=16 height=11 style= ></td> <td colspan=5 snajj=872 style= > Created By </td> <td colspan=4 fyabt=186 style= > : ALFONZO TANG </td> <td colspan=2 onodg=273 style= > Created on </td> <td colspan=2 uzlxl=125 style= > : 08/21/2021 13:12 </td> <td ireyo=920 style= > Receive Type </td> <td cdbuf=214 style= > : Verbal </td> </tr> <tr> <td colspan=2 width=16 height=11 style= ></td> <td colspan=5 tafon=786 style= > Ordering MD </td> <td colspan=4 yndal=778 style= > : Lupillo Ashraf </td> <td colspan=2 rhffe=190 style= > Priority </td> <td colspan=2 wxyhj=318 style= > : STAT </td> <td ixtep=687 style= > Frequency </td> <td sjacr=243 style= > : ONCE </td> </tr> <tr> <td colspan=2 width=16 height=11 style= ></td> <td colspan=5 vabwa=860 style= > Times </td> <td colspan=4 xgxpb=718 style= > : 13:11 </td> <td colspan=2 wdwxo=039 style= > Special Instructions </td> <td colspan=2 cxjnl=754 style= > : </td> <td yziae=405 style= > Location </td> <td sqflt=017 style= > : ED </td> </tr> <tr> <td colspan=2 width=16 height=11 style= ></td> <td colspan=5 xmcys=489 style= > Type </td> <td colspan=4 nonhm=217 style= > : Verbal </td> <td colspan=2 whewr=178 style= > Duration </td> <td colspan=2 bnkbc=967 style= > : 2 Days </td> <td jstai=418 style= > Reason </td> <td cygkb=492 style= > : </td> </tr> <tr> <td colspan=2 width=16 height=11 style= ></td> <td colspan=5 sabuf=037 style= > Start DateTime </td> <td colspan=4 htsoe=973 style= > 08/21/2021 13:11 </td> <td colspan=2 mxvdx=801 style= > Stop DateTime </td> <td colspan=2 uvpae=124 style= > 08/23/2021 13:11 </td> <td hrpgl=929 style= > Strength </td> <td obkyd=107 style= > : 0.4 MG Capsule </td> </tr> <tr> <td colspan=2 width=16 height=11 style= ></td> <td colspan=5 jyybh=263 style= > Home Medication </td> <td colspan=4 srvee=299 style= > : False </td> <td colspan=2 uvgox=494 style= > Route </td> <td colspan=2 hukqp=633 style= > : PO Oral </td> <td ewxcv=919 style= > Dosage </td> <td oijac=848 style= > : 0.4 mg </td> </tr> <tr> <td colspan=2 width=16 height=11 style= ></td> <td colspan=5 jaewe=485 style= > Volume </td> <td colspan=4 qvqbv=744 style= > : 0.285924he </td> <td colspan=2 drfja=557 style= ></td> <td colspan=2 whfrv=599 style= ></td> <td nqnau=140 style= ></td> <td ioolu=416 style= ></td> </tr> <tr> <td colspan=2 width=16 height=11 style= ></td> <td colspan=15 owzyj=422 style= > Order Notes : - </td> </tr> <tr> <td width=0 height=11 style= ></td> <td width=0 style= > </td> <td width=0 style= ></td> <td width=0 style= ></td> <td width=0 style= ></td> <td width=0 style= ></td> <td width=0 style= ></td> </tr> <tr> <td colspan=2 width=16 height=11 style= ></td> <td colspan=9 manva=2067 style= > <b>Diagnosis</b> </td> <td colspan=2 dsfir=190 style= ></td> <td colspan=4 noguj=651 style= ></td> </tr> <tr> <td width=0 height=11 [...] colspan=2 width=16 height=11 style= ></td> <td colspan=3 chnce=607 style= > <b>Validation</b></td> <td width=16 style= ></td> <td colspan=11 xidcz=129 style= ></td> </tr> <tr> <td colspan=3 width=82 height=11 style= ></td> <td kdvre=941 style= > Validated On</td> <td colspan=13 wnmqc=999 style= > : 08/21/2021 13:12 </td> </tr> <tr> <td colspan=3 width=82 height=11 style= ></td> <td khmop=586 style= > Validated By </td> <td colspan=13 gpavv=512 style= > : ALFONZO TANG </td> </tr> <tr> <td colspan=3 width=82 height=11 style= ></td> <td wpfqq=157 style= > Validation Notes </td> <td colspan=13 bhlas=737 style= > : - </td> </tr> <tr> <td colspan=17 auazc=5575 height=11 style= > <b>Administration</b> </td> </tr> <tr> <td width=0></td> <td width=16></td> <td width=66></td> <td dsbsp=676></td> <td width=16></td> <td width=16></td> <td width=66></td> <td vvxvh=814></td> <td width=0></td> <td width=0></td> <td dhkxb=035></td> <td ogtga=143></td> <td kpxfe=817></td> <td nfuur=945></td> <td cpzcb=647></td> <td jfnas=572></td> <td dndsu=383></td> </tr></table> <div></div><table class='tableFont' border=0 cellspacing=0 cellpadding=0 style= margin-left: 21pt;border-collapse: collapse; border: none> <tr> <td width=82 height=11 style= ></td> <td lryal=604 style= > Started On </td> <td xfopd=579 style= > : 08/21/2021 13:13 </td> </tr> <tr> <td width=82 height=11 style= ></td> <td umqdf=036 style= > Administered By </td> <td xpvmk=162 style= > : ALFONZO TANG RN </td> </tr> <tr> <td width=82 height=11 style= ></td> <td twpwc=935 style= > Route </td> <td edhob=105 style= > : PO Oral </td> </tr> <tr> <td width=82 height=11 style= ></td> <td icgqa=495 style= > Site </td> <td eyacw=199 style= > : </td> </tr> <tr> <td width=82 height=11 style= ></td> <td kwwbz=842 style= > Administration Notes </td> <td ovosb=797 style= > : - </td> </tr></table> <div></div><b>Radiology Order</b> <div></div><table class='tableFont' border=0 cellspacing=0 cellpadding=0 style= margin-left: 21pt;border-collapse: collapse; border: none> <tr> <td colspan=2 width=16 height=11 style= border- left:solid #496605 0px; border-top:solid #393934 1px; border-right:solid #685953 0px; border-bottom:solid #807874 0px;></td> <td colspan=2 hphet=722 style= border-left:solid #652556 0px; border-top:solid #836906 1px; border-right:solid #468108 0px; border- bottom:solid #600063 0px;> <div></div><b>Radiology Order</b></td> <td width=16 style= border-left:solid #016455 0px; border- top:solid #858913 1px; border-right:solid #105398 0px; border-bottom:solid #395393 0px;></td> <td colspan=13 smqzx=691 style= border-left:solid #537097 0px; border-top:solid #981638 1px; border-right:solid #854963 0px; border-bottom:solid #632702 0px;> <b>: HSP_00001 (CT ABDOMEN/PELVIS WO CONTRAST)</b></td> </tr> <tr> <td colspan=2 width=16 height=11 style= border-left:solid #786634 0px; border-top:solid #838781 0px; border-right:solid #693515 0px; border-bottom:solid #161509 1px;></td> <td colspan=2 gxqog=521 style= border-left:solid #423083 0px; border-top:solid #343354 0px; border-right:solid #181639 0px; border-bottom:solid #904733 1px;> <b>Current Status</b></td> <td width=16 style= border-left:solid #063850 0px; border-top:solid #751791 0px; border-right:solid #545310 0px; border-bottom:solid #547309 1px;></td> <td colspan=13 vyhun=581 style= border-left:solid #108598 0px; border-top:solid #545901 0px; border-right:solid #254789 0px; border-bottom:solid #764012 1px;> <b>: Complete - 08/21/2021 12:24 </b></td> </tr> <tr> <td colspan=2 width=16 height=11 style= ></td> <td colspan=7 emyrv=582 style= > Created By </td> <td colspan=4 wuqes=792 style= > : ALFONZO TANG </td> <td hbnij=867 style= > Created on </td> <td colspan=2 uyonk=338 style= > : 08/21/2021 12:02 </td> <td luajr=447 style= > Receive Type </td> <td tpkfa=751 style= > : Verbal </td> </tr> <tr> <td colspan=2 width=16 height=11 style= ></td> <td colspan=7 frkbn=171 style= > Ordering MD </td> <td colspan=4 ecgno=487 style= > : Andriy, Lupillo </td> <td vskcv=614 style= > Priority </td> <td colspan=2 uogcg=378 style= > : STAT </td> <td dpacd=822 style= > Frequency </td> <td yqegz=645 style= > : ONCE </td> </tr> <tr> <td colspan=2 width=16 height=11 style= ></td> <td colspan=7 gibay=217 style= > Times </td> <td colspan=4 kxaeb=979 style= > : 12:01 </td> <td jmcxf=904 style= > Special Instructions </td> <td colspan=2 ytbls=147 style= > : </td> <td cfdsx=222 style= > Location </td> <td cuzbw=149 style= > : ED </td> </tr> <tr> <td colspan=2 width=16 height=11 style= ></td> <td colspan=7 eseia=221 style= > Type </td> <td colspan=4 mxxfl=387 style= > : Verbal </td> <td eklas=260 style= > Duration </td> <td colspan=2 jiofv=942 style= > : 2 Days </td> <td nhtrb=150 style= > Reason </td> <td erxcf=608 style= > : Right flank pain </td> </tr> <tr> <td colspan=2 width=16 height=11 style= ></td> <td colspan=7 udhxb=879 style= > Start DateTime </td> <td colspan=4 ttaeb=286 style= > 08/21/2021 12:01 </td> <td foyaq=689 style= > Stop DateTime </td> <td colspan=2 oidrg=522 style= > 08/23/2021 12:01 </td> <td zlrjk=238 style= > Strength </td> <td wdlmh=449 style= > : </td> </tr> <tr> <td colspan=2 width=16 height=11 style= ></td> <td colspan=7 agcmt=313 style= > Order Notes </td> <td colspan=9 azjjd=009 style= > : *No Prev VRad prleim hx of appendectomy </td> </tr> <tr> <td width=0 height=11 style= ></td> <td width=0 style= > </td> <td width=0 style= ></td> <td width=0 style= ></td> <td width=0 style= ></td> <td width=0 style= ></td> <td width=0 style= ></td> </tr> <tr> <td colspan=2 width=16 height=11 style= ></td> <td colspan=11 bknto=1492 style= > <b>Diagnosis</b> </td> <td avhjb=608 style= ></td> <td colspan=4 rmcjh=166 style= ></td> </tr> <tr> <td width=0 height=11 [...] colspan=2 width=16 height=11 style= ></td> <td colspan=5 skscf=119 style= > <b>Validation</b></td> <td width=16 style= ></td> <td colspan=10 lmixt=982 style= ></td> </tr> <tr> <td colspan=3 width=82 height=11 style= ></td> <td colspan=3 irorw=774 style= > Validated On</td> <td colspan=12 shrql=323 style= > : 08/21/2021 12:02 </td> </tr> <tr> <td colspan=3 width=82 height=11 style= ></td> <td colspan=3 mtcxc=598 style= > Validated By </td> <td colspan=12 gmusg=722 style= > : KITTYALFONZO SOTO </td> </tr> <tr> <td colspan=3 width=82 height=11 style= ></td> <td colspan=3 fkqxj=668 style= > Validation Notes </td> <td colspan=12 uqhem=142 style= > : - </td> </tr> <tr> <td colspan=2 width=16 height=11 style= ></td> <td colspan=5 ptclv=733 style= > <b>Radiology Results</b></td> <td width=16 style= ></td> <td colspan=10 kmrdq=415 style= ></td> </tr> <tr> <td colspan=3 width=82 height=11 style= ></td> <td colspan=7 ouczj=251 style= > No results yet</td> <td colspan=8 width=82 style= ></td> </tr> <tr> <td width=0></td> <td width=16></td> <td width=66></td> <td width=98></td> <td width=16></td> <td width=49></td> <td width=16></td> <td width=16></td> <td width=66></td> <td jrdtq=008></td> <td width=82></td> <td width=0></td> <td wwwer=177></td> <td uhelp=343></td> <td xlfhq=047></td> <td lcopn=424></td> <td azldf=777></td> <td fhkrv=244></td> </tr></table> <div></div><b>Laboratory Order</b> <div></div><table class='tableFont' border=0 cellspacing=0 cellpadding=0 style= margin-left: 11pt;border-collapse: collapse; border: none> <tr> <td colspan=2 width=16 height=11 style= border-left:solid #250155 0px; border-top:solid #008755 1px; border-right:solid #074901 0px; border-bottom:solid #847935 0px;></td> <td colspan=3 zvypi=653 style= border-left:solid #657384 0px; border-top:solid #232808 1px; border-right:solid #420149 0px; border-bottom:solid #684560 0px;> <div></div><b>Laboratory Order</b></td> <td width=16 style= border-left:solid #282403 0px; border-top:solid #397712 1px; border-right:solid #683220 0px; border- bottom:solid #094074 0px;></td> <td colspan=20 pyhkb=610 style= border-left:solid #813358 0px; border-top:solid #188562 1px; border- right:solid #023794 0px; border-bottom:solid #253330 0px;> <b>: UA W MICRO RFLX (URINALYSIS (UA) W MICRO, UC REFLEX)</b></td> </tr> <tr> <td colspan=2 width=16 height=11 style= border-left:solid #899093 0px; border-top:solid #186390 0px; border-right:solid #097316 0px; border-bottom:solid #784651 1px;></td> <td colspan=3 vtrif=038 style= border-left:solid #575954 0px; border-top:solid #310052 0px; border-right:solid #575352 0px; border-bottom:solid #439141 1px;> <b>Current Status</b></td> <td width=16 style= border-left:solid #458124 0px; border-top:solid #253526 0px; border-right:solid #689222 0px; border-bottom:solid #912337 1px;></td> <td colspan=20 fmdyz=945 style= border-left:solid #839797 0px; border-top:solid #987523 0px; border-right:solid #870418 0px; border-bottom:solid #335266 1px;> <b>: Complete - 08/21/2021 13:05 </b></td> </tr> <tr> <td colspan=2 width=16 height=11 style= ></td> <td colspan=10 xngsy=830 style= > Created By </td> <td colspan=9 hehgy=787 style= > : ALFONZO TANG </td> <td gbdwi=074 style= > Created on </td> <td colspan=2 hhskk=606 style= > : 08/21/2021 12:40 </td> <td zllfd=934 style= > Receive Type </td> <td nxqmt=812 style= > : Verbal </td> </tr> <tr> <td colspan=2 width=16 height=11 style= ></td> <td colspan=10 gziuu=579 style= > Ordering MD </td> <td colspan=9 oercq=632 style= > : Lupillo Ashraf </td> <td ategt=751 style= > Priority </td> <td colspan=2 weggw=237 style= > : STAT </td> <td anssp=630 style= > Frequency </td> <td jcmat=077 style= > : ONCE </td> </tr> <tr> <td colspan=2 width=16 height=11 style= ></td> <td colspan=10 xmhxq=467 style= > Times </td> <td colspan=9 fbtzo=742 style= > : 12:39 </td> <td wxfxt=963 style= > Special Instructions </td> <td colspan=2 nnwpm=244 style= > : </td> <td qybgn=189 style= > Location </td> <td nzrke=027 style= > : ED </td> </tr> <tr> <td colspan=2 width=16 height=11 style= ></td> <td colspan=10 vcfuy=820 style= > Type </td> <td colspan=9 pewhb=712 style= > : Verbal </td> <td ryvfz=985 style= > Duration </td> <td colspan=2 mscou=697 style= > : 2 Days </td> <td gjnps=233 style= > Reason </td> <td uqeyu=628 style= > : </td> </tr> <tr> <td colspan=2 width=16 height=11 style= ></td> <td colspan=10 unqnz=084 style= > Start DateTime </td> <td colspan=9 rhdpn=667 style= > 08/21/2021 12:39 </td> <td eeovx=992 style= > Stop DateTime </td> <td colspan=2 efhkh=595 style= > 08/23/2021 12:39 </td> <td cdlar=660 style= > Strength </td> <td vuetf=228 style= > : </td> </tr> <tr> <td colspan=2 width=16 height=11 style= ></td> <td colspan=24 octfj=624 style= > Order Notes : - </td> </tr> <tr> <td width=0 height=11 style= ></td> <td width=0 style= > </td> <td width=0 style= ></td> <td width=0 style= ></td> <td width=0 style= ></td> <td width=0 style= ></td> <td width=0 style= ></td> </tr> <tr> <td colspan=2 width=16 height=11 style= ></td> <td colspan=19 fqxik=1839 style= > <b>Diagnosis</b> </td> <td byusj=105 style= ></td> <td colspan=4 ffacz=887 style= ></td> </tr> <tr> <td width=0 height=11 [...] colspan=2 width=16 height=11 style= ></td> <td colspan=7 tssoe=835 style= > <b>Validation</b></td> <td width=16 style= ></td> <td colspan=16 riwqk=103 style= ></td> </tr> <tr> <td colspan=3 width=82 height=11 style= ></td> <td colspan=5 ssmwb=360 style= > Validated On</td> <td colspan=18 aqvaj=835 style= > : 08/21/2021 12:40 </td> </tr> <tr> <td colspan=3 width=82 height=11 style= ></td> <td colspan=5 blgzb=383 style= > Validated By </td> <td colspan=18 rlikl=394 style= > : ALFONZO TANG </td> </tr> <tr> <td colspan=3 width=82 height=11 style= ></td> <td colspan=5 sntmd=724 style= > Validation Notes </td> <td colspan=18 qqpht=950 style= > : - </td> </tr> <tr> <td colspan=2 width=16 height=11 style= ></td> <td colspan=7 fgfsb=742 style= > <b>Laboratory Results</b></td> <td width=16 style= ></td> <td colspan=16 ysbba=366 style= ></td> </tr> <tr> <td colspan=2 width=16 height=11 style= ></td> <td colspan=2 nsbim=557 > <b>Test</b></td> <td colspan=3 width=82 > <b>Result</b> </td> <td colspan=4 width=65 > <b>Units</b> </td> <td colspan=2 dhuwp=415 > <b>Reference Ranges</b> </td> <td width=41 > <b>Flag</b> </td> <td width=82 > <b>Status</b> </td> <td width=82 > <b>Verified By</b> </td> <td width=82 > <b>Canceled By</b> </td> <td colspan=9 rcmmy=872 > <b>Canceled Reason</b> </td> </tr> <tr> <td colspan=2 width=16 height=11 style= ></td> <td colspan=2 bbivd=377 style= > COLOR UA </td> <td colspan=3 width=82 style= > yellow </td> <td colspan=4 width=65 style= ></td> <td colspan=2 dltqk=343 style= > YELLOW </td> <td width=41 style= > N </td> <td width=82 style= > Final </td> <td width=82 style= > ILYA DIEGO </td> <td width=82 style= ></td> <td colspan=9 mmepf=267 style= ></td> </tr> <tr> <td colspan=2 width=16 height=11 style= ></td> <td colspan=2 dhiia=347 style= > APPEARANCE UA </td> <td colspan=3 width=82 style= > sl.cloudy </td> <td colspan=4 width=65 style= ></td> <td colspan=2 qngch=434 style= > CLEAR </td> <td width=41 style= ></td> <td width=82 style= > Final </td> <td width=82 style= > ILYA DIEGO </td> <td width=82 style= ></td> <td colspan=9 brobx=354 style= ></td> </tr> <tr> <td colspan=2 width=16 height=11 style= ></td> <td colspan=2 wpoag=922 style= > SPECIFIC GRAVITY UA </td> <td colspan=3 width=82 style= > 1.020 </td> <td colspan=4 width=65 style= ></td> <td colspan=2 xhmie=700 style= > 1.000 - 1.030 </td> <td width=41 style= > N </td> <td width=82 style= > Final </td> <td width=82 style= > ILYA DIEGO </td> <td width=82 style= ></td> <td colspan=9 cyudn=421 style= ></td> </tr> <tr> <td colspan=2 width=16 height=11 style= ></td> <td colspan=2 iuixx=355 style= > PH UA </td> <td colspan=3 width=82 style= > 6 </td> <td colspan=4 width=65 style= ></td> <td colspan=2 xkvgg=721 style= > 5.0 - 9.0 </td> <td width=41 style= ></td> <td width=82 style= > Final </td> <td width=82 style= > ILYA DIEGO </td> <td width=82 style= ></td> <td colspan=9 glvjn=901 style= ></td> </tr> <tr> <td colspan=2 width=16 height=11 style= ></td> <td colspan=2 irxea=614 style= > LEUKOCYTE UA </td> <td colspan=3 width=82 style= > 25 </td> <td colspan=4 width=65 style= > Leuk-uL </td> <td colspan=2 dpdvq=623 style= > 0-5 </td> <td width=41 style= > AB </td> <td width=82 style= > Final </td> <td width=82 style= > ILYA DIEGO </td> <td width=82 style= ></td> <td colspan=9 bldbw=558 style= ></td> </tr> <tr> <td colspan=2 width=16 height=11 style= ></td> <td colspan=2 hlqyo=567 style= > NITRITE UA </td> <td colspan=3 width=82 style= > neg </td> <td colspan=4 width=65 style= ></td> <td colspan=2 xhwjj=871 style= > NEGATIVE </td> <td width=41 style= ></td> <td width=82 style= > Final </td> <td width=82 style= > ILYA DIEGO </td> <td width=82 style= ></td> <td colspan=9 iystf=512 style= ></td> </tr> <tr> <td colspan=2 width=16 height=11 style= ></td> <td colspan=2 ibfju=756 style= > PROTEIN UA </td> <td colspan=3 width=82 style= > 30 </td> <td colspan=4 width=65 style= > mg-dL </td> <td colspan=2 vnscf=338 style= > 0-30 </td> <td width=41 style= > N </td> <td width=82 style= > Final </td> <td width=82 style= > ILYA DIEGO </td> <td width=82 style= ></td> <td colspan=9 hkdrz=803 style= ></td> </tr> <tr> <td colspan=2 width=16 height=11 style= ></td> <td colspan=2 bztzq=258 style= > GLUCOSE UA </td> <td colspan=3 width=82 style= > norm </td> <td colspan=4 width=65 style= > mg-dL </td> <td colspan=2 ouhwm=441 style= > 0-49 </td> <td width=41 style= > N </td> <td width=82 style= > Final </td> <td width=82 style= > ILYA DIEGO </td> <td width=82 style= ></td> <td colspan=9 bidal=316 style= ></td> </tr> <tr> <td colspan=2 width=16 height=11 style= ></td> <td colspan=2 mgxoq=991 style= > KETONES UA </td> <td colspan=3 width=82 style= > neg </td> <td colspan=4 width=65 style= > mg-dL </td> <td colspan=2 pxqen=227 style= > 0-4 </td> <td width=41 style= ></td> <td width=82 style= > Final </td> <td width=82 style= > ILYA DIEGO </td> <td width=82 style= ></td> <td colspan=9 wjhhs=471 style= ></td> </tr> <tr> <td colspan=2 width=16 height=11 style= ></td> <td colspan=2 thkyu=151 style= > UROBILINOGEN UA </td> <td colspan=3 width=82 style= > norm </td> <td colspan=4 width=65 style= > mg-dL </td> <td colspan=2 gsfzo=184 style= > 0-1 </td> <td width=41 style= > N </td> <td width=82 style= > Final </td> <td width=82 style= > ILYA DIEGO </td> <td width=82 style= ></td> <td colspan=9 hgzou=612 style= ></td> </tr> <tr> <td colspan=2 width=16 height=11 style= ></td> <td colspan=2 zfecf=223 style= > BILIRUBIN UA </td> <td colspan=3 width=82 style= > neg </td> <td colspan=4 width=65 style= > mg-dL </td> <td colspan=2 aadbo=384 style= > 0.0-0.9 </td> <td width=41 style= ></td> <td width=82 style= > Final </td> <td width=82 style= > ILYA DIEGO </td> <td width=82 style= ></td> <td colspan=9 diszk=995 style= ></td> </tr> <tr> <td colspan=2 width=16 height=11 style= ></td> <td colspan=2 cqhfi=992 style= > BLOOD UA </td> <td colspan=3 width=82 style= > 250 </td> <td colspan=4 width=65 style= > Bernardo-uL </td> <td colspan=2 prran=777 style= > 0-3 </td> <td width=41 style= > AB </td> <td width=82 style= > Final </td> <td width=82 style= > ILYA DIEGO </td> <td width=82 style= ></td> <td colspan=9 hcqlp=598 style= ></td> </tr> <tr> <td colspan=2 width=16 height=11 style= ></td> <td colspan=2 cmrbp=724 style= > U WBC MICRO </td> <td colspan=3 width=82 style= > 0-5 </td> <td colspan=4 width=65 style= > per HPF </td> <td colspan=2 jxwhy=119 style= > 0-5 </td> <td width=41 style= > N </td> <td width=82 style= > Final </td> <td width=82 style= > ILYA DIEGO </td> <td width=82 style= ></td> <td colspan=9 ziiek=665 style= ></td> </tr> <tr> <td colspan=2 width=16 height=11 style= ></td> <td colspan=2 axjsp=096 style= > U RBC MICRO </td> <td colspan=3 width=82 style= > 51-99 </td> <td colspan=4 width=65 style= > per HPF </td> <td colspan=2 jckzz=376 style= > 0-5 </td> <td width=41 style= > AB </td> <td width=82 style= > Final </td> <td width=82 style= > ILYA DIEGO </td> <td width=82 style= ></td> <td colspan=9 elynl=822 style= ></td> </tr> <tr> <td colspan=2 width=16 height=11 style= ></td> <td colspan=2 nxmer=854 style= > U EPITHELIAL CELLS </td> <td colspan=3 width=82 style= > RARE </td> <td colspan=4 width=65 style= > per LPF </td> <td colspan=2 ynujl=813 style= > NONE SEEN - SMALL </td> <td width=41 style= > N </td> <td width=82 style= > Final </td> <td width=82 style= > ILYA DIEGO </td> <td width=82 style= ></td> <td colspan=9 mabkb=118 style= ></td> </tr> <tr> <td colspan=2 width=16 height=11 style= ></td> <td colspan=2 vugea=767 style= > U BACTERIA </td> <td colspan=3 width=82 style= > 1+ </td> <td colspan=4 width=65 style= > per HPF </td> <td colspan=2 fcgxh=556 style= > NONE SEEN - TRACE </td> <td width=41 style= > AB </td> <td width=82 style= > Final </td> <td width=82 style= > ILYA DIEGO </td> <td width=82 style= ></td> <td colspan=9 cghwk=007 style= ></td> </tr> <tr> <td colspan=2 width=16 height=11 style= ></td> <td colspan=2 mdfvj=575 style= > U MUCOUS THREADS </td> <td colspan=3 width=82 style= > MODERATE </td> <td colspan=4 width=65 style= > per HPF </td> <td colspan=2 eoasv=549 style= > SMALL </td> <td width=41 style= > AB </td> <td width=82 style= > Final </td> <td width=82 style= > ILYA DIEGO </td> <td width=82 style= ></td> <td colspan=9 lirop=007 style= ></td> </tr> <tr> <td colspan=2 width=16 height=11 style= ></td> <td colspan=2 zbhsp=656 style= > SPECIMEN REJECTED FOR CULTURE </td> <td colspan=3 width=82 style= > NO WBCS </td> <td colspan=4 width=65 style= ></td> <td colspan=2 ikupc=646 style= ></td> <td width=41 style= ></td> <td width=82 style= > Final </td> <td width=82 style= > ILYA DIEGO </td> <td width=82 style= ></td> <td colspan=9 hhleh=658 style= ></td> </tr> <tr> <td colspan=2 width=16 height=11 style= ></td> <td colspan=2 fhurs=011 style= > SPECIMEN REFLEXED TO CULTURE? </td> <td colspan=3 width=82 style= > NO </td> <td colspan=4 width=65 style= ></td> <td colspan=2 svwyq=184 style= ></td> <td width=41 style= > N </td> <td width=82 style= > Final </td> <td width=82 style= > ILYA DIEGO </td> <td width=82 style= ></td> <td colspan=9 mspez=332 style= ></td> </tr> <tr> <td colspan=2 width=16 style= ></td> <td colspan=24 hwqfs=324 style= border-left:solid #[id number] 0px; border-top:solid #810028 1px; border-right:solid #385550 0px; border-bottom:solid #630667 0px;></td> </tr> <tr> <td width=0></td> <td width=16></td> <td width=66></td> <td width=57></td> <td width=41></td> <td width=16></td> <td width=24></td> <td width=24></td> <td width=16></td> <td width=16></td> <td width=8></td> <td width=57></td> <td width=65></td> <td width=41></td> <td width=82></td> <td width=82></td> <td width=82></td> <td nghko=878></td> <td width=0></td> <td width=0></td> <td nxvly=685></td> <td uddjh=819></td> <td qngrq=487></td> <td frccx=865></td> <td vxfzk=665></td> <td ayhzw=727></td> </tr></table> <div></div><b>Department Order</b> <div></div><table class='tableFont' border=0 cellspacing=0 cellpadding=0 style= margin-left: 21pt;border-collapse: collapse; border: none> <tr> <td colspan=2 width=16 height=11 style= border-left:solid #[id number] 0px; border-top:solid #634584 1px; border-right:solid #407215 0px; border- bottom:solid #364559 0px;></td> <td colspan=2 hmpla=802 style= border-left:solid #446204 0px; border-top:solid #583183 1px; border- right:solid #044410 0px; border-bottom:solid #514388 0px;> <div></div><b>Department Order</b></td> <td width=16 style= border-left:solid #618146 0px; border-top:solid #376001 1px; border-right:solid #550097 0px; border-bottom:solid #308027 0px;></td> <td colspan=14 rrpuy=951 style= border-left:solid #492866 0px; border-top:solid #740935 1px; border-right:solid #733690 0px; border- bottom:solid #817173 0px;> <b>: [id number] (IV: Saline [facility])</b></td> </tr> <tr> <td colspan=2 width=16 height=11 style= border- left:solid #995502 0px; border-top:solid #129127 0px; border-right:solid #397494 0px; border-bottom:solid #012878 1px;></td> <td colspan=2 wxboa=673 style= border-left:solid #646025 0px; border-top:solid #550005 0px; border-right:solid #154435 0px; border- bottom:solid #314269 1px;> <b>Current Status</b></td> <td width=16 style= border-left:solid #270731 0px; border-top:solid #091279 0px; border-right:solid #446285 0px; border-bottom:solid #130929 1px;></td> <td colspan=14 oyxgx=858 style= border-left:solid #390132 0px; border-top:solid #127820 0px; border-right:solid #411652 0px; border-bottom:solid #494910 1px;> <b>: New - 08/21/2021 12:10 </b></td> </tr> <tr> <td colspan=2 width=16 height=11 style= ></td> <td colspan=7 udghw=834 style= > Created By </td> <td colspan=5 oolno=352 style= > : ALFONZO TANG </td> <td ewofy=185 style= > Created on </td> <td colspan=2 sexml=978 style= > : 08/21/2021 12:10 </td> <td nybvo=900 style= > Receive Type </td> <td ztyfh=570 style= > : Verbal </td> </tr> <tr> <td colspan=2 width=16 height=11 style= ></td> <td colspan=7 brhiz=442 style= > Ordering MD </td> <td colspan=5 utjur=575 style= > : [place], Lupillo </td> <td whglm=859 style= > Priority </td> <td colspan=2 sdeog=101 style= > : STAT </td> <td zpemn=516 style= > Frequency </td> <td mcepg=559 style= > : ONCE </td> </tr> <tr> <td colspan=2 width=16 height=11 style= ></td> <td colspan=7 hqjrk=480 style= > Times </td> <td colspan=5 xxziw=008 style= > : 12:10 </td> <td rkplu=303 style= > Special Instructions </td> <td colspan=2 zrblk=257 style= > : </td> <td cvzfe=660 style= > Location </td> <td vmebo=562 style= > : ED </td> </tr> <tr> <td colspan=2 width=16 height=11 style= ></td> <td colspan=7 gvkyp=505 style= > Type </td> <td colspan=5 qblkb=311 style= > : Verbal </td> <td ldztc=434 style= > Duration </td> <td colspan=2 lilgq=703 style= > : 2 Days </td> <td dpjok=383 style= > Reason </td> <td ijqzg=995 style= > : </td> </tr> <tr> <td colspan=2 width=16 height=11 style= ></td> <td colspan=7 iikpr=444 style= > Start DateTime </td> <td colspan=5 myljk=626 style= > 08/21/2021 12:10 </td> <td gqkaq=253 style= > Stop DateTime </td> <td colspan=2 bfpqy=683 style= > 08/23/2021 12:10 </td> <td amigp=195 style= > Strength </td> <td fjrvi=756 style= > : </td> </tr> <tr> <td colspan=2 width=16 height=11 style= ></td> <td colspan=17 tnyvu=208 style= > Order Notes : - </td> </tr> <tr> <td width=0 height=11 style= ></td> <td width=0 style= > </td> <td width=0 style= ></td> <td width=0 style= ></td> <td width=0 style= ></td> <td width=0 style= ></td> <td width=0 style= ></td> </tr> <tr> <td colspan=2 width=16 height=11 style= ></td> <td colspan=12 xadwq=0403 style= > <b>Diagnosis</b> </td> <td ojrsy=112 style= ></td> <td colspan=4 keuka=295 style= ></td> </tr> <tr> <td width=0 height=11 [...] colspan=2 width=16 height=11 style= ></td> <td colspan=5 ycvsz=581 style= > <b>Validation</b></td> <td width=16 style= ></td> <td colspan=11 uqypp=322 style= ></td> </tr> <tr> <td colspan=3 width=82 height=11 style= ></td> <td colspan=3 yvaeb=420 style= > Validated On</td> <td colspan=13 pkmip=742 style= > : 08/21/2021 12:10 </td> </tr> <tr> <td colspan=3 width=82 height=11 style= ></td> <td colspan=3 uqtsi=772 style= > Validated By </td> <td colspan=13 ntwvc=133 style= > : ALFONZO TANG </td> </tr> <tr> <td colspan=3 width=82 height=11 style= ></td> <td colspan=3 nutzt=350 style= > Validation Notes </td> <td colspan=13 lnxmg=892 style= > : - </td> </tr> <tr> <td colspan=2 width=16 height=11 style= ></td> <td colspan=5 utart=935 style= > <b>Sign- off</b></td> <td width=16 style= ></td> <td colspan=11 aupvr=962 style= ></td> </tr> <tr> <td colspan=3 width=82 height=11 style= ></td> <td colspan=7 zbozx=609 style= > Not yet Signed-off</td> <td colspan=9 width=82 style= ></td> </tr> <tr> <td width=0></td> <td width=16></td> <td width=66></td> <td width=98></td> <td width=16></td> <td width=49></td> <td width=16></td> <td width=16></td> <td width=66></td> <td ihcfo=314></td> <td width=82></td> <td width=0></td> <td width=0></td> <td bftnj=983></td> <td toqde=155></td> <td msfqz=623></td> <td ooorw=567></td> <td reqsk=190></td> <td dqtwe=847></td> </tr></table> <div></div><b>Respiratory Order</b> <div></div><b>Disposition </b> <div></div><table class='tableFont' border=0 cellspacing=0 cellpadding=0 style= margin-left: 21pt;border-collapse: collapse; border: none> <tr> <td width=16 height=11 style= ></td> <td uqpij=469 style= > Discharge Date/Time</td> <td width=16 style= > :</td> <td ttipy=320 style= > 08/21/2021 13:20</td> </tr> <tr> <td width=16 height=11 style= ></td> <td jhonj=927 style= > Disposition Type</td> <td width=16 style= > :</td> <td fbfhj=777 style= > 01 - Discharge to home or self care (routine discharge).</td> </tr> <tr> <td width=16 height=11 style= ></td> <td lvvjd=085 style= > Notes</td> <td width=16 style= > :</td> <td bjsbm=959 style= > -</td> </tr></table> ER Note - Provider 08/21/2021 13:20 Signed Date/ Time: 08/21/2021 16:28 Signed By: Lupillo Ashraf Entered By: Lupillo Ashraf <renderedtemplate template= 612><div style=text-align:center><strong>[facility]</strong></div><div></div><div><div></div><div><customfilter class=healthlandplugin notefilterhistoryid=47><span><strong>Chief Complaint:</strong>Right flank pain</span></customfilter></div></div><div></div><div><strong><span style=font- size:12px><span style=font-family:aleksey chen,suleman>HPI:</span></span></strong></div> <div><span style=font-size:12px><span style=font-family:aleksey chen,mindyserizzy>31-year-old male here with right lower abdominal pain over the last 1.5 hours. He had sudden onset of symptoms 1.5 hours ago. He has had recent history of kidney stones on the left successfully passed with increased oral fluids. He is from [facility] and is here visiting his father. He has no nausea. He has hydrocodone tablets at home and these have not been successful in getting him pain relief today. He does have some urinary urgency related to his increased oral fluids today. He does not have any dysuria or flank pain.</span></span></div><div></div><div><customfilter class=healthlandplugin notefilterhistoryid=14><span><strong>Problem List</strong>: No Problems Available</span></customfilter><div></div><div><customfilter class=[facility] notefilterhistoryid=30><span><strong>Surgery List</strong>: No Surgical History Available</span></customfilter><div></div></div></div><div><span style=font- size:12px><span style=font-family:arial,helvetica,sans-serif><customfilter class=[facility] notefilterhistoryid=13><table border=1> <thead> <tr> <th colspan=10 style=text-align: [...] </tbody></table></customfilter> </span></span><div><span style=font-size:12px><span style=font-family:arial,helvetica,sans-serif></span></span></div></div><div><s mcmahan style=font-size:12px><span style=font-family:arial,helvetica,sans-serif><customfilter [facility] notefilterhistoryid=7><span><span><strong>Allergy List</strong></span> No Known Food Allergies No Known Allergies</span></customfilter> </span></span><div></div></div><div><span style=font-size:12px><span style=font-family:arial,helvetica,sans-serif><customfilter class=[facility] notefilterhistoryid=28><span><strong>Family History List</strong>: No Family History Available</span></customfilter> </span></span><div></div><div><strong>SOCIAL HISTORY</strong></div><div></div></div><div><div><span style=font-size:12px><span style=font-family:arial,helvetica,sans-serif><customfilter class=[facility] notefilterhistoryid=39><span>No Social History Available</span></customfilter> </span></span></div><div></div></div><div><strong>ROS</strong></div><div></div>< div><span style=font-size:12px><span style=font-family:arial,helvetica,sans-serif><strong>OBJECTIVE:</strong></span ></span></div><div>Heart: RRR, no murmurs. Lungs: CTA Abdomen: Soft with mild to moderate right-sided lower abdominal tenderness. No masses palpable. No CVA tenderness bilaterally.</div><div>Neuro: WNL</div><div></div><div><customfilter class=[facility] notefilterhistoryid=23><table border=1> <thead> <tr> <th colspan=13 style=text-align: center;>Vital Signs: This Visit</th> </tr> <tr> <th style=width:61.62943582454247yy; text-align: center;>Date/Time</th> <th style=width:61.17627865964452xk; text-align: center;>Blood Pressure (mm/Hg)</th> <th style=width:61.71402398700649xh; text-align: center;>Heart Rate</th> <th style=width:61.52829505768210gc; text-align: center;>Respiration</th> <th style=width:61.26535507641668wh; text-align: center;>Temperature</th> <th style=width:61.90719129196502fo; text-align: center;>SPO2%</th> <th style=width:61.55856778897176vj; text-align: center;>O2 Device</th> <th style=width:61.72878570944122lp; text-align: center;>Blood Sugar (mg/dL)</th> <th style=width:61.87799294292875vu; text-align: center;>Pain Score</th> <th style=width:61.34371353623919ys; text-align: center;>Height</th> <th style=width:61.38750232170761pe; text-align: center;>Weight</th> <th style=width:61.67687454266232yk; text-align: center;>BMI</th> <th style=width:61.26487627141285re; text-align: center;>Head Circumference</th> </tr> </thead> <tbody> <tr> [...] ALFONZO TANG <div><renderedtemplate templ ate=85><div style=text-indent:0pt><span style=font-size:12px><span style=font-family:[place],Helvetica,sans-serif><span style=color:#[id number]>IV Discontinuation with aseptic technique</span></span></span></div><div style=text-indent:0pt><span style=font-size:12px><span style=font-family:[place],Helvetica,sans-serif><span style=color:#[id number]>Explained procedure to patient. </span></span></span></div><div style=text-indent:0pt><span style=font- size:12px><span style=font-family:[place],Helvetica,sans-serif><span style=color:#[id number]>Indication for DC of PIV: Discharge</span></span></span></div><div style=text-indent:0pt><span style=font-size:12px><span style=font-family:[place],Helvetica,sans-serif><span style=color:#[id number]>Site: Left AC</span></span></span></div><div style=text-indent:0pt><span style=font-size:12px><span style=font-family:[place],Helvetica,sans-serif><span style=color:#[id number]>Removed tape and other securement measures, removed IV catheter.</span></span></span></div><div style=text-indent:0pt><span style=font-size:12px><span style=font-family:[place],Helvetica,sans-serif><span style=color:#[id number]>Catheter intact: Yes</span></span></span></div><div style=text-indent:0pt><span style=font-size:12px><span style=font-family:[place],Helvetica,sans-serif><span style=color:#[id number]>IV site/skin status: WNL</span></span></span></div><div style=text-indent:0pt><span style=font-size:12px><span style=font-family:[place],Helvetica,sans-serif><span style=color:#[id number]>Pressure applied to site, clotting within acceptable parameters. Dressing applied over site. </span></span></span></div><div style=text-indent:0pt><span style=font- size:12px><span style=color:#[id number]; font-family:arial><span style=font-family:[place],Helvetica,sans-serif>Patient tolerated procedure well without complications. </span></span></span></div><div style=text-indent:0pt></div><div [...] ALFONZO TANG <div><renderedtemplate templ ate=86><div style=text-indent:0pt><span style=font-size:12px><span style=font-family:[place],Helvetica,sans-serif><span style=color:#[id number]><strong>IV Start using aseptic technique.</strong></span></span></span></div><div style=text-indent:0pt><span style=font-size:12px><span style=font-family:[place],Helvetica,sans-serif><span style=color:#[id number]>Explained procedure to patient/family.</span></span></span></div><div style=text-indent:0pt><span style=font-size:12px><span style=font-family:[place],Helvetica,sans-serif><span style=color:#[id number]>Indication for PIV: Meds</span></span></span></div><div style=text-indent:0pt><span style=font-size:12px><span style=font-family:[place],Helvetica,sans-serif><span style=color:#[id number]>Site: Left AC</span></span></span></div><div style=text- indent:0pt><span style=font-size:12px><span style=font-family:[place],Helvetica,sans-serif><span style=color:#[id number]>Size: 20 g</span></span></span></div><div style=text-indent:0pt><span style=font-size:12px><span style=font-family:[place],Helvetica,sans-serif><span style=color:#[id number]>Solution and rate or Saline lock: S.L.</span></span></span></div><div style=text-indent:0pt><span style=font-size:12px><span style=font-family:[place],Helvetica,sans-serif><span style=color:#[id number]>Dressing type/securement: Sorbaview Shield</span></span></span></div><div style=text-indent:0pt><span style=font-size:12px><span style=font-family:[place],Helvetica,sans-serif><span style=color:#[id number]>Number of attempts & location(s): 1</span></span></span></div><div style=text-indent:0pt><span style=font- size:12px><span style=font-family:[place],Helvetica,sans-serif><span style=color:#[id number]>Lidocaine used (no/yes per policy): No</span></span></span></div><div style=text-indent:0pt><span style=font- size:12px><span style=font-family:[place],Helvetica,sans-serif><span style=color:#[id number]>IV site, tubing labeled: Yes</span></span></span></div><div style=text-indent:0pt><span style=font-size:12px><span style=font-family:[place],Helvetica,sans-serif><span style=color:#[id number]>Patient tolerated procedure well without any complications or complaints. </span></span></span></div><div style=text-indent:0pt></div></renderedtemplate></div> Abnormal Assessment Note 08/21/2021 11:43 Signed Date/Time: 08/21/2021 11:45 Signed By: ALFONZO TANG Entered By: ALFONZO TANG <P>Assessment : </FONT> ED: Full Assessment</P><P>Gastrointestinal <FONT style=BACKGROUND-COLOR: #ffffff; FONT-SIZE: 9pt; face=[place]>: </FONT>Nausea <FONT style=BACKGROUND-COLOR: #ffffff; FONT-SIZE: 9pt; face=[place]>: </FONT> Intermittent</P> <P>Integumentary <FONT style=BACKGROUND-COLOR: #ffffff; FONT-SIZE: 9pt; face=[place]>: </FONT>Skin <FONT style=BACKGROUND-COLOR: #ffffff; FONT-SIZE: 9pt; face=[place]>: </FONT> Flushed/reddened</P> Transcribed Documents Name Date/Time Description [...]
--- OUTSIDE RECORDS SUMMARY | 2024-01-09 13:45 | XMS_ITS | Encounter Summary ---
Author Organization [facility] Address [address] [place] [address] Care Team Providers Care Wildlife Control Agent Name Role Phone Yuri Chow MD Primary Care Provider [phone] Encounter Details Date Type Department Care Team (Latest Contact Info) Description 06/14/2016 Consent for Procedure/Treatm ent [facility] [address] [place] [id number] Naveen Jones MD CONSENT FOR SURGICAL PROCEDURE Social History Tobacco Use Types Packs/Day Years Used Date Smoking Tobacco: Never Alcohol Use Standard Drinks/Week Comments [...] documented as of this encounter Care Teams Wildlife Control Agent Relationship Specialty [place] [address] [place] [address] PCP - General Family Practice 07/10/18 documented as of this encounter
== END 2024-01-08 12:52 | disposition home or self-care (01) ==
LOC: NFLDREF 01-09 13:42
PROVIDERS: PCP Family Medicine; Referring Provider Family Medicine; Visit Provider Family Medicine
DX: R39.9 Unspecified symptoms and signs involving the genitourinary system (principal); N39.0 Urinary tract infection, site not specified; J45.909 Unspecified asthma, uncomplicated
CPT/HCPCS: 87086

== ENCOUNTER 2024-04-15 22:10 | Emergency (ER) | payer OTHER, SELFPAY ==
--- OUTSIDE RECORDS SUMMARY | 2024-04-15 22:14 | XMS_ITS | Encounter Summary ---
[facility] Address [address] [place] [address] Care Team Providers Care State Patrol Officer Name Role Phone Yuri Chow MD Primary Care Provider Reason for Referral * Procedure/Equipment (Routine) - Incomplete Specialty Diagnoses / Procedures Referred By Contdragan t Referred To Contact Diagnoses Kidney stone Procedures US Renal W Bladder Musa Mojica MD [address] [place] [address] Referral ID Status Reason Start Date Expiration Date V isits Requested Visits Authorized [id number] Incomplete 04/18/2024 07/18/2025 1 1 METAL MIXER OPERATOR Encounter Details Date Type Department Care Team (Late st Contact Info) Description 03/18/2024 10:00 AM HOT METAL MIXER OPERATOR Office Visit [facility] [place] [address] [address] [address] [place] [address] Musa Mojica MD [address] [place] [address] Kidney stone (Primary Dx); Calculus of upper urinary tract Social History Tobacco Use Types Packs/Day Years [...] as of this encounter Progress Notes * Musa Mojica MD - 03/18/2024 10:00 AM CST History: 33-year-old male with a history of right-sided kidney stones status post right ureteroscopy with laser and stent placement on 03/08/2024. He had a right ureteral stone that was lasered and removed, as well as a right renal stone that was completely dusted. Calculi composed primarily of: 70% calcium oxalate dihydrate, and 30% calcium phosphate (hydroxy- and carbonate- apatite). Procedure performed: Cystourethroscopy with right ureteral stent removal Description of procedure: The patient was prepped and draped in the usual sterile fashion. The patient was given seamus-procedural antibiotics. A flexible cystoscope was advanced transurethrally into the bladder. The stent was visualized emanating from the RIGHT ureteral orifice. The stent was grasped with a grasper and removed without difficulty. The patient tolerated the procedure well. Follow-up plan: I reviewed the stone analysis with the patient. We discussed some general stone prevention recommendations. Followup in a few months with a renal ultrasound. He does have a history of kidney stones, so I would like to get him set up with a formal metabolic evaluation as well. I ordered the blood and urine studies for him today too. METAL MIXER OPERATOR documented in this encounter Plan of Treatment Upcoming Encounters Date Type Department Care Team (Late st Contact Info) Description 05/14/2024 2:30 PM HOT METAL MIXER OPERATOR Appointment [facility] [address] [address] [address] [place] [address] Musa Mojica MD [address] [place] [address] 05/26/2024 11:00 AM HOT METAL MIXER OPERATOR Appointment [facility] [address] [address] [address] [place] [phone] Trang Rowell, VP PRODUCTION, PHILANTHROPY OFFICER [address] [place], [place] [id number] 09/09/2024 2:30 PM CDT Appointment [facility] [address] [facility] [address] [place] [address] Torsten Chin, DPM [address] [place] [address] Scheduled Orders Name Type Priority Associated Diagnoses Orde r Schedule US Renal W Bladder Imaging New Routine Kidney stone Expected: 04/18/2024 (Approximate), Expires: 03/18/2025 Basic Metabolic Panel Lab Routine Calculus of upper urinary tract Expected: 03/18/2024, Expires: 06/16/2024 Uric Acid Lab Routine Calculus of upper urinary tract Expected: 03/18/2024, Expires: 06/16/2024 Intact PTH Lab Routine Calculus of upper urinary tract Expected: 03/18/2024, Expires: 06/16/2024 Supersaturation Profile, Urine Lab Routine Calculus of upper urinary tract Expected: 03/18/2024, Expires: 06/16/2024 documented as of this encounter Visit Diagnoses Diagnosis Kidney stone- Primary Calculus of kidney Calculus of upper urinary tract documented in this encounter Administered Medications Inactive Administered Medications - up to 3 most recent administrations Medication Order MAR Action Action Date Dose Rate Site lidocaine (UROJET) 2 % gel prefilled syringe Urethral, ONCE, On Tu03/18/24 at 1045, For 1 dose Given 03/18/2024 1:19 PM HOT METAL MIXER OPERATOR documented in this encounter Care Teams State Patrol Officer Relationship Specialty [place] [address] [place] [address] PCP - General Family Practice 07/10/18 documented as of this encounter
--- OUTSIDE RECORDS SUMMARY | 2024-04-15 22:14 | XMS_ITS | Encounter Summary ---
Author Organization [facility] Address [address] [place] [address] Care Team Providers Care Painter Ski Edge Name Role Phone Yuri Chow MD Primary Care Provider Reason for Visit * Reason Comments NAIL PROBLEM Recheck nail fungus Encounter Details Date Type Department Care Team ([facility] st Contact Info) Description 03/11/2024 2:15 PM HAND BUNCH MAKER Office Visit [facility] [address] [facility] [address] [address] [place] [phone] Torsten Chin, [place] [address] [place] [address] Onychomycosis (Primary Dx); Dystrophic nail Social History Tobacco Use Types Packs/Day Years [...] Progress Notes * Torsten Chin DPM - 03/11/2024 2:15 PM CST [facility]le Surgery Date of Service: 03/11/2024 CSN: [id number] PATIENT HISTORY: Bhavin Galaviz is a 33 y.o. old male being seen today for re-evaluation of dystrophic nails after 3months of Lamisil. He has had recent LFTs that are within normal limits. Patient has not noticed any difference with his great toenails or with his left 2nd toenail or right 3rd toenail. He is here today to discuss further treatment options. REVIEW OF SYSTEMS: Positive per HPI above. Ten point review of systems is otherwise negative. ALLERGIES: No Known Allergies EXAM: General appearance: [...] direction. Imaging: X-ray No new IMPRESSION: Onychomycosis without improvement PLAN: Patient seen and evaluated Discussed their condition and available treatment options We discussed further oral antifungal medication to include Diflucan for a period of 6 months. This would be taken weekly. We also discussed removal of painful nail should they not respond to conservative care. We discussed doing this in clinic versus under sedation in the operating room. Patient would like to wait on this, but should he pursue this he would like to have sedation. Given his medical comorbidities it is also likely he may need to be done at [facility]. Again discussed possible hepatic side effects of oral antifungal medication and the need for LFT monitoring should he wished to pursue this medication longer than 6 months. Patient wishes to pursue oral antifungal medication. Rx Diflucan 200 mg p.o. weekly for 6 months RTC 6 months Patient agrees to plan Torsten Chin DPM, FACFAS BUNCH MAKER documented in this encounter Plan of Treatment Upcoming Encounters Date Type Department Care Team (Late st Contact Info) Description 05/14/2024 2:30 PM HAND BUNCH MAKER Appointment [place] [facility] [address] Ul[address] [address] [place] [phone] Musa Mojica MD [address] [place], [place] [phone] 05/26/2024 11:00 AM HAND BUNCH MAKER Appointment [place] [facility] [address] Urology [address] [place] [phone] Trang Rowell APRN, CONSUMER SAFETY OFFICER [address] [place], [place] [phone] 09/09/2024 2:30 PM CDT Appointment [place] [facility] [address] Podiatric Med[facility] [address] [place] [phone] Torsten Chin DPM [address] [place], [place] [phone] documented as of this encounter Visit Diagnoses Diagnosis Onychomycosis- Primary Dermatophytosis of nail Dystrophic nail Other specified disease of nail documented in this encounter Care Teams Painter Ski Edge Relationship Specialty [place] [address] [place], [place] [phone] PCP - General Family Practice 07/10/18 documented as of this encounter
--- OUTSIDE RECORDS SUMMARY | 2024-04-15 22:14 | XMS_ITS | Encounter Summary ---
[facility] Address [address] [place] [address] Care Team Providers Care Mobile Developer Name Role Phone Yuri Chow MD Primary Care Provider [phone] Encounter Details Date Type Department Care Team (Late st Contact Info) Description 03/08/2024 10:35 AM DRAMATIC COACH Anesthesia Event [facility] [address] [facility] [place], [place] [address] [place] [address] [address] [place], [place] [address] Gregoria Marvin, EDUCATION PROGRAM ASSOCIATE, FIELD ARTILLERY OPERATIONS SPECIALIST [address] [place], [place] [address] Anesthesia Record Procedure Summary Procedure Name Responsible Anesthesiologist Anesthesia Start Time Anesthesia Stop Time URETEROSCOPY WITH LASER LITHOTRIPSY AND URETERAL STENT PLACEMENT (Right) Kb Foster MD 03/08/24 1035 03/08/24 1144 Events Date Time Event Comment 03/08/2024 1025 1035 An Start 1037 An Start Data 1040 An Induction 1043 An Intubation 1131 MD/DO Present 1138 An Extubation Purposeful mov ement with spontaneous respirations and adequate air exchange. Suctioned and ETT removed. Transferred with oxygen to recovery. 1138 / Present 1140 an stop data 1144 Care Handoff Note I discusse d with the receiving nurse and we: 1) Identified the patient, saenz family member(s) or patient surrogate 2) Identified the responsible practitioner 3) Reviewed the pertinent medical history 4) Discussed the surgical/procedure course 5) Reviewed intra-op anesthesia management and issues during anesthesia 6) Set expectations for the post-procedure period 7) Allowed opportunity for questions and acknowledgement of understanding of report Electronically signed by Gregoria Marvin APRN FIELD ARTILLERY OPERATIONS SPECIALIST 1144 An Stop Care transferre d. Meds Name Total midazolam injection 2 mg/2 mL (VERSED) 0 .5 mg fentaNYL injection (SUBLIMAZE) 25 mcg lidocaine 1% PF injection (XYLOCAINE) 10 0 mg propofol 10 mg/mL IV (DIPRIVAN) 150 mg rocuronium injection (ZEMURON) 40 mg sugammadex injection 100mg/mL (BRIDION) 120 mg ondansetron injection (ZOFRAN) 4 mg dexamethasone 4 mg/mL injection (DECADRO N) 4 mg ePHEDrine 10 mg/mL injection 10 mg ceFAZolin (ANCEF) 2 g in dextrose 100 mL premade IVPB 2 g lactated ringers infusion 600 mL * Agents Name Identified Agent Name O2 N2O Air Sevoflurane () Sevoflurane (inspired) Nitrous Oxide () * Blood No blood administrations on file. Lines, Drains, and Airways Type Details Placement Removal Ureteral/Stent Drain 03/08/24; 1120; No; Right ureter; 6 Fr.; Yes 03/08/24 1120 by Eben Brunner RN Peripheral IV Placement Date: 03/08/24; Placement Time: 0240; Pre-existing: No; Inserted by?: RN; Size (Gauge): 20 G; Orientation: Right; Site Prep: ChloraPrep; Local Anesthetic: None; Insertion attempts: 1; Blood draw with insertion?: yes; Patient Tolerance: Tolerated well; Removal Date: 03/08/24; Removal Time: 1624; Removal Reason: Patient discharged 03/08/24 0240 by Bart Pedraza RN 03/08/24 162 by Bhavin Lindsey RN ETT Placement Date: 03/08/24; Placement Time: 1043; Placed By: CHRISTOPHER; Induction Type: Pre-O2, IV; Masking: Easy; ETT Type: ETT; Orientation: Right; Size (mm): 7.5; Depth Secured (cm): 22 cm; Cuffed: Cuffed; Intubation Method: DL; Cormack_Lehane Glottic Grade: Grade 1; Glottic View: Cords Open, Cords Clear; Blade: MAC; Blade Size: 3; Insertion attempts: 1; Difficulty: Easy, Atraumatic; Adjunct Equipment: Stylet; Placement Verification: BBSE, auscultation, Positive EtCO2, capnometry; Teeth and Lips Unchanged: Unchanged; Removal Date: 03/08/24; Removal Time: 11303/08/24 1043 by Gregoria Marvin APRN, FIELD ARTILLERY OPERATIONS SPECIALIST 03/08/24 1138 by Gregoria Marvin APRN, CHRISTOPHER Incision/Surgical Site 03/08/24; 1054; # 1; Yes; Penis; 03/08/24; 1625 03/08/24 1054 by Eben Brunner RN 03/08/24 1625 by Bhavin Lindsey RN documented in this encounter Social History Tobacco Use Types Packs/Day Years [...] on file documented as of this encounter Miscellaneous Notes * Anesthesia Postprocedure Evaluation - Kb Foster MD - 03/08/2024 2:14 PM CST [facility] Anesthesia Post-op Note Patient: Bhavin Galaviz Post-Op Diagnosis: Pre-Op Diagnosis Codes: * Ureterolithiasis [N20.1] Procedures performed: URETEROSCOPY WITH LASER LITHOTRIPSY AND URETERAL STENT PLACEMENT (Right) Anesthesia Type: General Post-op vital signs: Vitals Value Taken Time BP 134/83 03/08/24 1230 Temp 36.3 ??C (97.4 ??F) 03/08/24 1230 Pulse 68 03/08/24 1254 Resp 19 03/08/24 1254 SpO2 98 % 03/08/24 1254 Vitals shown include unfiled device data. Pain Assessment Preferred Pain Scale: word (Verbal Rating Pain Scale) Last recorded pain score: 0 - no pain 0 Post-op assessment: Patient location: PACU Airway Status: Patent Cardiovascular function: Satisfactory Hydration status: Satisfactory PONV: None Level of Consciousness: Awake Fully Participates Postop Assessment: Patient tolerated procedure well. Electronically signed by: Kb Foster MD 03/08/2024 2:14 PM ATIC COACH * Anesthesia Preprocedure Evaluation - Kb Foster MD - 03/08/2024 9:27 AM CST [facility] Anesthesia Pre-op Evaluation Procedure: URETEROSCOPY WITH LASER LITHOTRIPSY AND URETERAL STENT PLACEMENT , Right HPI: 33 y.o. old male. Pre-Op Diagnosis Codes: * Ureterolithiasis [N20.1] Last Fluid Intake Time: 2199 Last Fluid Intake Date: 03/07/24 Last Food Intake Date: 03/07/24 Last Food Intake Time: 2199 No Known Allergies Past Medical History: Diagnosis Date Aortic aneurysm ([facility]) 04/10/2006 LW Modifier: Borderline - 3.1 LW Onset: Echo ; Dilated Aortic Root Appendicitis 07/13/2018 Added automatically from request for surgery [id number] Chronic kidney disease ([facility]) Kidney stones Herpes simplex of eye Kidney stone 04/09/2016 4mm left ureter stone, passed spontainously Marfan's syndrome 04/10/2006 LW Modifier: Probable 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 Pectus carinatum 04/10/2006 LW Modifier: R >> L Spontaneous pneumothorax 04/10/2006 LW Modifier: Multiple ; Pneumothorax Spontaneous Patient Active Problem List Diagnosis Marfan's syndrome 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 acyclovir (ZOVIRAX) 400 MG tablet Take 1 Tablet by mouth two times a day. ALBUterol sulfate HFA 108 (90 Base) MCG/ACT inhaler Inhale 2 Puffs every 4 hours as needed for Wheezing or Shortness of Breath. buPROPion (WELLBUTRIN XL) 300 MG 24 hour release tablet Take 1 Tablet (300 mg) by mouth daily. CONCERTA 18 MG controlled release tablet TAKE ONE TABLET BY MOUTH ONE TIME DAILY doxycycline (VIBRAMYCIN) 50 MG capsule Take 1 Capsule by mouth two times a day. Take with food please (Patient taking differently: Take 1 Capsule (50 mg) by mouth daily. Take with food please) ibuprofen (MOTRIN) 200 MG tablet Take 3 Tablets by mouth every 6 hours as needed for Pain. methylphenidate (RITALIN) 10 MG tablet TAKE ONE TABLET BY MOUTH ONE TIME DAILY Facility-Administered Medications as of 03/08/2024 Medication Dose Route Frequency acetaminophen (TYLENOL) tablet 650 mg 650 mg Oral Q6H PRN ALBUterol sulfate HFA inhaler 2 Puff 2 Puff Inhalation Q4H PRN [Transfer Hold] benzocaine-menthol (Chloraseptic) lozenge 1 Lozenge 1 Lozenge Oral Q2H PRN [Transfer Hold] senna (SENOKOT) tablet 2 Tablet 2 Tablet Oral BID PRN And [Transfer Hold] polyethylene glycol (MIRALAX) oral powder 17 g 17 g Oral DAILY PRN And [Transfer Hold] bisacodyl (DULCOLAX) rectal suppository 10 mg 10 mg Rectal DAILY PRN [Transfer Hold] calcium carbonate (TUMS) chewable tablet 500 mg 500 mg Oral Q4H PRN ceFAZolin (ANCEF) 2 g in dextrose 100 mL premade IVPB 2 g Intravenous Once fentaNYL (SUBLIMAZE) injection 25 mcg 25 mcg Intravenous Q5MIN PRN fentaNYL (SUBLIMAZE) injection 25-50 mcg 25-50 mcg Intravenous Q5MIN PRN [Transfer Hold] guaiFENesin (ROBITUSSIN) oral liquid 10 mL 10 mL Oral Q4H PRN hydrALAZINE (APRESOLINE) injection 5 mg 5 mg Intravenous Q10MIN PRN [Transfer Hold] HYDROmorphone (DILAUDID) injection 0.2-0.4 mg 0.2-0.4 mg Intravenous Q2H PRN HYDROmorphone (DILAUDID) injection 0.3 mg 0.3 mg Intravenous Q10MIN PRN [] HYDROmorphone (DILAUDID) injection 0.5-1 mg 0.5-1 mg Intravenous PRN [Transfer Hold] HYDROmorphone (DILAUDID) tablet 1-2 mg 1-2 mg Oral Q4H PRN [COMPLETED] iohexol (OMNIPAQUE 350) 350 MG/ML injection 75 mL 75 mL Intravenous Once lactated ringers infusion 25 mL/hr Intravenous Continuous [Transfer Hold] melatonin tablet 3 mg 3 mg Oral At bedtime PRN [Transfer Hold] methylphenidate (CONCERTA) extended release tablet 18 mg 18 mg Oral Daily [Transfer Hold] methylphenidate (RITALIN) tablet 10 mg 10 mg Oral Q24H (NS) midazolam (VERSED) injection 1-2 mg 1-2 mg Intravenous Q5MIN PRN naloxone (NARCAN) injection 0.4 mg 0.4 mg Intravenous Q2MIN PRN Or naloxone (NARCAN) injection 0.04 mg 0.04 mg Intravenous Q2MIN PRN [Transfer Hold] nystatin (MYCOSTATIN) [id number] UNIT/GM topical powder Topical BID PRN [COMPLETED] ondansetron (ZOFRAN) injection 4 mg 4 mg Intravenous Once ondansetron (ZOFRAN) injection 4 mg 4 mg Intravenous Q6H PRN ondansetron (ZOFRAN) injection 4 mg 4 mg Intravenous Q4H PRN ondansetron (ZOFRAN-ODT) disintegrating tablet 4 mg 4 mg Oral Q6H PRN [Transfer Hold] polyethyl-propylene glycol (SYSTANE) 0.4-0.3 % ophthalmic solution 1 Drop 1 Drop Both Eyes Q1H PRN [Transfer Hold] sodium chloride (OCEAN) 0.65 % nasal solution 1 [place] 1 [place] Both Nostrils Q2H PRN [COMPLETED] sodium chloride 0.9% injection 10 mL 10 mL Intravenous Once [Transfer Hold] tamsulosin (FLOMAX) capsule 0.4 mg 0.4 mg Oral Daily after a meal Labs: Lab Results Component Value Date/Time SODIUM 142 03/08/2024 02:40 AM K 3.4 (L) 03/08/2024 02:40 AM CHLORIDE 111 (H) 03/08/2024 02:40 AM BUN 14 03/08/2024 02:40 AM CREATININE 1.18 03/08/2024 02:40 AM GLUCOSE 104 (H) 03/08/2024 02:40 AM Lab Results Component Value Date/Time WBC 8.6 03/08/2024 02:40 AM HGB 14.6 03/08/2024 02:40 AM HCT 41.9 03/08/2024 02:40 AM PLTS 191 03/08/2024 02:40 AM No results found for: INR Blood Bank: No results found for: ABO, ABSCR EKG: No results found for this or any previous visit. Physical Exam: BP 134/84 Pulse 64 Temp 36.3 ??C (97.3 ??F) (Temporal Artery) Resp 18 Wt 60.5 kg (133 lb 6.4 oz) SpO2 100% BMI 19.14 kg/m?? Assessment/Plan: Review of Systems Patient does not have GERD. Patient is not a current smoker. The patient denies alcohol use. Patient denies any recent URI. History of PONV: No. History of motion sickness: No. Patient denies any personal or family history of anesthesia complications. NPO Status: Acceptable. Exam Mental Status: Alert and oriented. Mallampati score: I (One). Mouth opening: Normal Thyromental Distance: > 3 finger breadths and Normal Neck Extension: Full Neck Circumference > 40 cm?: No Previous airway assessment: Previously EASY intubation.,. Current airway assessment:Normal Cardiac Exam: Regular rate and rhythm. Respiratory Exam: Breath sounds clear to auscultation Assessment ASA Status: 3 . Plan Anesthesia type: General and ETT Induction: Intravenous Maintenance: Inhalation Postoperative pain management: Plan for postoperative opioid use PONV Risk Score Adult: 2 PONV Prophylaxis (planned): Ondansetron Anesthetic plan, risks, benefits and alternatives discussed with the patient who agrees to the anesthesia treatment plan. Mother states [place] r/o'ed marfan's just has myotonic dystrophy, unable to access [facility] records. Had echo 2005 note states repeat and f/u in one year has not had another since, min root dilatation noted 2005, recommended they have it repeated as outpt even though does not have Marfans's Dx, does haveMarfan appearance. No succinylcholine The patient and/or their sales representative [employer] were notified about the potential risks of damage to the lips, teeth, dental devices, mouth and airway. H&P Reviewed and Patient examined, no change observed IV access Antibiotics per surgery Electronically signed by: Kb Foster MD 03/08/2024 9:27 AM ATIC COACH documented in this encounter Plan of Treatment Upcoming Encounters Date Type Department Care Team (Late st Contact Info) Description 05/14/2024 2:30 PM DRAMATIC COACH Appointment [facility] [place] [address] Ul[address] [address] [place] [phone] Musa Mojica MD [address] [place], [place] [phone] 05/26/2024 11:00 AM DRAMATIC COACH Appointment [facility] [address] Urology [address] [place] [phone] Trang Rowell, EDUCATION PROGRAM ASSOCIATE, OCCUPATIONAL HEALTH AND SAFETY OFFICER [address] [place], [place] [phone] 09/09/2024 2:30 PM CDT Appointment [facility] [address] Podiatric Med[facility]urg [address] [place] [phone] Torsten Chin, DPM [address] [place], [place] [phone] documented as of this encounter Visit Diagnoses Not on filedocumented in this encounter Administered Medications Inactive Administered Medications - up to 3 most recent administrations Medication Order MAR Action Action Date Dose Rate Site ceFAZolin (ANCEF) 2 g in dextrose 100 mL premade IVPB 2 g, Intravenous, Administer over 30 Minutes, ONCE, On 03/08/24 at 0900, For 1 dose, Infuse within 60 minutes prior to incision. Re-dose 1g IV every 4 hours after initial dose until incision closed. Re-dose if more than 1.5 L of blood loss. Pharmacy may adjust for renal insufficiency., Pre-op Given 03/08/2024 10:44 AM DRAMATIC COACH 2 g dexAMETHasone (DECADRON) injection Intravenous, Starting on 03/08/24 at 1038, Until 03/08/24 at 1144 Given 03/08/2024 10:38 AM DRAMATIC COACH 4 mg ePHEDrine 10 mg/mL injection Intravenous, Starting on 03/08/24 at 1115, Until 03/08/24 at 1144 Given 03/08/2024 11:26 AM DRAMATIC COACH 2.5 mg Given 03/08/2024 11:19 AM DRAMATIC COACH 2.5 mg Given 03/08/2024 11:17 AM DRAMATIC COACH 2.5 mg fentaNYL (SUBLIMAZE) injection Intravenous, Starting on 03/08/24 at 1039, Until 03/08/24 at 1144 Given 03/08/2024 10:39 AM DRAMATIC COACH 25 mcg lactated ringers infusion 25 mL/hr, Intravenous, CONTINUOUS, Starting on 03/08/24 at 0945, Administer on all preop surgery patients, ages 12 and older, unless specified differently in the Protocol for Preop Initiation of IV fluids Order Set., Pre-op Restarted 03/08/2024 10:35 AM DRAMATIC COACH Started 03/08/2024 9:30 AM DRAMATIC COACH 25 mL/hr 25 mL/hr lidocaine PF (XYLOCAINE) 1 % injection Intravenous, Starting on 03/08/24 at 1040 Given 03/08/2024 10:40 AM DRAMATIC COACH 100 mg midazolam (VERSED) injection Intravenous, Starting on 03/08/24 at 1035, Until 03/08/24 at 1144 Given 03/08/2024 10:35 AM DRAMATIC COACH 0.5 mg ondansetron (ZOFRAN) injection Intravenous, Starting on 03/08/24 at 1038, Until 03/08/24 at 1144 Given 03/08/2024 10:38 AM DRAMATIC COACH 4 mg propofol (DIPRIVAN) 10 mg/mL injection Intravenous, Starting on 03/08/24 at 1040, Until 03/08/24 at 1144 Given 03/08/2024 10:40 AM DRAMATIC COACH 150 mg rocuronium (ZEMURON) injection Intravenous, Starting on 03/08/24 at 1041, Until 03/08/24 at 1144 Given 03/08/2024 10:41 AM DRAMATIC COACH 40 mg sugammadex (BRIDION) injection Intravenous, Starting on 03/08/24 at 1129, Until 03/08/24 at 1144 Given 03/08/2024 11:29 AM DRAMATIC COACH 120 mg documented in this encounter Care Teams Mobile Developer Relationship Specialty [place] [address] [place] [address] PCP - General Family Practice 07/10/18 documented as of this encounter
--- OUTSIDE RECORDS SUMMARY | 2024-04-15 22:14 | XMS_ITS | Clinical Summary ---
Author Organization [facility] Address [address] [place] [address] Care Team Providers Care Metal Expediter Name Role Phone Yuri Chow MD Primary Care Provider [phone] Source Comments You are receiving this document as you are listed as the primary care provider,follow-up provider, or the patient has been referred to you for consultation.This is in compliance with the Medicare and[facility] EHR Incentive Program,which states Providers who transition their patient to another setting of careor provider of care or refers their patient to another provider of care shouldprovide summary care record for each transition of care or referral. [facility] Allergies No known active allergies Medications Medication [...] food please 100 Capsule 4 05/28/2020 Active Additional Information Patient taking differently:50 mg OralDAILY, Take with food please, Reported on 03/08/2024 methylphenidate (RITALIN) 10 MG tabletIndications: Idiopathic hypersomnia TAKE ONE TABLET BY MOUTH ONE TIME DAILY 30 Tablet 04/29/2021 Active CONCERTA 18 MG controlled release tabletIndications: Idiopathic hypersomnia TAKE ONE TABLET BY MOUTH ONE TIME DAILY 30 Tablet 06/08/2021 Active buPROPion (WELLBUTRIN XL) 300 MG 24 hour release tablet Take 1 Tablet (300 mg) by mouth daily. Active traMADol (ULTRAM) 50 MG tablet Take 1 Tablet (50 mg) by mouth every 6 hours as needed for Pain. 12 Tablet 03/08/2024 Active fluconazole (DIFLUCAN) 200 MG tablet Take 1 Tablet (200 mg) by mouth once a week for 26 doses. 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 Doing well with concerta 18mg once qam and ritalin 10mg later in day if needed CAREPLAN: PLAN OF CARE 05/26/2016 Overview (05/26/2016): Takes concerta 18mg qam Ritalin 10mg qd later in day prn Dx hypersomnolence due to medical condition. [place] diagnosed and [place] [facility] Agrees to f/u at [facility] q6mo No early refills. 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 Overview (11/29/2016): LW Modifier: Borderline - 3.1 LW Onset: Echo ; Dilated Aortic Root Resolved Problems Problem Noted Date Diagnosed Date Resolved Date Appendicitis 07/13/2018 03/08/2024 Overview (07/14/2018): Added automatically from request for surgery [id number] Chest pain 04/10/2006 03/08/2024 Overview (11/29/2016): Pain Chest NOS Pectus carinatum 04/10/2006 03/08/2024 Overview (11/12/2015): LW Modifier: R >> L Encounters Date Type Department Care Team Description 03/18/2024 10:00 AM ENVIRONMENTAL STUDIES DEPARTMENT CHAIR Office Visit [facility] [address] Urology [address] [place] [phone] Musa Mojica MD Kidney stone (Primary Dx); Calculus of upper urinary tract 03/18/2024 Telephone [facility] - Urology [address] [place] [address] Musa Mojica MD QUESTIONS, GENERAL 03/12/2024 Telephone [facility] [address] [place], [place] [phone] Yuri Chow MD Hospital Discharge Follow-up 03/11/2024 2:15 PM ENVIRONMENTAL STUDIES DEPARTMENT CHAIR Office Visit [facility] [address] Podiatric MedSurg [address] [place] [phone] Torsten Chin DPM Onychomycosis (Primary Dx); Dystrophic nail 03/10/2024 Telephone [facility] - Urology [address] [place], [place] [phone] Musa Mojica MD Discharge Follow Up Call 03/08/2024 10:35 AM ENVIRONMENTAL STUDIES DEPARTMENT CHAIR Anesthesia Event [facility] [address] [facility] [place] [address] Kb Foster MD Selim, Mona M, APRN, CHRISTOPHER 03/08/2024 9:51 AM ENVIRONMENTAL STUDIES DEPARTMENT CHAIR - 03/08/2024 11:06 AM ENVIRONMENTAL STUDIES DEPARTMENT CHAIR Surgery [facility] [address] [facility] [address] Musa Mojica MD URETEROSCOPY WITH LASER LITHOTRIPSY AND URETERAL STENT PLACEMENT 03/08/2024 2:07 AM ENVIRONMENTAL STUDIES DEPARTMENT CHAIR - 03/08/2024 4:50 PM ENVIRONMENTAL STUDIES DEPARTMENT CHAIR Emergency [facility] General Med [address] [place] [address] Jonathan Deluna MD Grommesh, MD Maninder Kamara, Rodolfo Chi MD Hydronephrosis of right kidney (Primary Dx); Ureterolithiasis; Hydroureteronephrosis; Right ureteral calculus Discharge Disposition: Home from Last 3 Months Immunizations Name Administration Dates Next Due DTaP 03/13/1990,03/14/1989,1988 ,1988 Flu Vac (3+ yrs) 05/08/2017,03/12/2007 HepB, Unspecified Formulation 10/16/2000, 000,02/16/2000 Hib (ActHIB) 03/13/1990 MCV4 (Menactra) 01/25/2007 MMR 03/13/2000,11/07/1989 OPV, Trivalent (Orimune or tOPV) 03/13/1990,08/1988,1988 PPSV23 (Pneumovax) 01/25/2004 Pfizer Monovalent 12+ Purple Top 08/23/2020,07/09 Polio, Unspecified Formulation 03/13/1990,1988,1988 Tdap 08/23/2016,03/13/2000 Family [...] Sign Reading Time Taken Comments Blood Pressure 109/72 03/08/2024 3:00 PM ENVIRONMENTAL STUDIES DEPARTMENT CHAIR Pulse 76 03/08/2024 3:00 PM ENVIRONMENTAL STUDIES DEPARTMENT CHAIR Temperature 36.7 C (98 F) 03/08/2024 3:00 PM ENVIRONMENTAL STUDIES DEPARTMENT CHAIR Respiratory Rate 18 03/08/2024 3:00 PM ENVIRONMENTAL STUDIES DEPARTMENT CHAIR Oxygen Saturation 100% 03/08/2024 3:00 PM ENVIRONMENTAL STUDIES DEPARTMENT CHAIR Inhaled Oxygen Concentration - - Weight 60.5 kg (133 lb 6.4 oz) 03/08/2024 7:22 A M ENVIRONMENTAL STUDIES DEPARTMENT CHAIR Height 177.8 cm (5' 10) 03/08/2024 7:22 AM ENVIRONMENTAL STUDIES DEPARTMENT CHAIR Body Mass Index 19.14 03/08/2024 7:22 AM ENVIRONMENTAL STUDIES DEPARTMENT CHAIR Plan of Treatment Upcoming Encounters Date Type Department Care Team (Late st Contact Info) Description 05/14/2024 2:30 PM ENVIRONMENTAL STUDIES DEPARTMENT CHAIR Appointment [facility] [place] [address] Ultrasound [address] [place] [phone] Musa Mojica MD [address] [place], [place] [phone] 05/26/2024 11:00 AM ENVIRONMENTAL STUDIES DEPARTMENT CHAIR Appointment [place] [facility] [place] [address] Urology [address] [place] [phone] Trang Rowell, CORPORATE [employer]OB [employer]ITLES, CONTROL ROOM HELPER [address] [place], [place] [phone] 09/09/2024 2:30 PM CDT Appointment [place] [facility] [place] [address] Podiatric MedSurg [address] [place] [phone] Torsten Chin, DPM [address] [place], [place] [phone] Health Maintenance Due Date Last Done Comments Hep C Screening (Preventive Services) 1988 IPV (Polio) (5 of 5 - 5-dose series) 1992 03/13/1990, 03/13/1990, 1988, Additional history exists Adult Preventive Visit 2006 Cholesterol 2023 COVID-19 Vaccine ( - season) 2023 02/01/2023, 08/02/2021, 08/23/2020, Additional history [...] on patient's age to complete this topic Medical Devices Implanted Type Area Supervisor Transcribing Operators Device Identifier Shelf Expiration Date Model / Serial / Lot Stent Ureteral Inlay 6fr 26cm - [id number] Implanted:Qty: 1 on 03/08/2024 by Musa Mojica MD at [facility] DEVICE Right: U[employer]TER [employer] 11/06/2028 [id number] / / [id number] Procedures Procedure Name Priority Date/Time Associated Diagnosis Comments FL RETROGRADE PYELOGRAM Routine 03/08/2024 11:31 AM ENVIRONMENTAL STUDIES DEPARTMENT CHAIR CALCULI STONE ANALYSIS Routine 03/08/2024 11:28 AM ENVIRONMENTAL STUDIES DEPARTMENT CHAIR Ureterolithiasis CYSTOSCOPY,RETROGRAD E PYELOGRAM,URETEROSCO PY,HOLMIUM LASER LITHOTRIPSY OF STONE,URETERAL STENT PLACEMENT 03/08/2024 10:17 AM ENVIRONMENTAL STUDIES DEPARTMENT CHAIR Ureterolithiasis UA CONDITIONAL UC STAT 03/08/2024 4:4 0 AM ENVIRONMENTAL STUDIES DEPARTMENT CHAIR CT ABD PELVIS W IV CONT ONLY STAT 03/08/2024 4:04 AM ENVIRONMENTAL STUDIES DEPARTMENT CHAIR LIVER PANEL(HEPATIC FUNCTION PANEL) STAT Add-On 03/08/2024 2:40 AM ENVIRONMENTAL STUDIES DEPARTMENT CHAIR LIPASE STAT Add-On 03/08/2024 2:40 AM ENVIRONMENTAL STUDIES DEPARTMENT CHAIR COMPLETE BLOOD COUNT-W/DIFF STAT Add-On 03/08/2024 2:40 AM ENVIRONMENTAL STUDIES DEPARTMENT CHAIR LACTATE REFLEX PANEL Add-On 03/08/2024 2:40 AM ENVIRONMENTAL STUDIES DEPARTMENT CHAIR CBC AND DIFFERENTIAL PANEL STAT Add-On 03/08/2024 2:40 AM ENVIRONMENTAL STUDIES DEPARTMENT CHAIR BASIC METABOLIC PANEL STAT Add-On 03/08/2024 2:40 AM ENVIRONMENTAL STUDIES DEPARTMENT CHAIR EXTRA BLUE TOP TUBE Routine 03/08/2024 2 :40 AM ENVIRONMENTAL STUDIES DEPARTMENT CHAIR EXTRA LIGHT GREEN TOP ON ICE TUBE Routine 03/08/2024 2:40 AM ENVIRONMENTAL STUDIES DEPARTMENT CHAIR EXTRA LIGHT GREEN TUBE Routine 03/08/2024 2:40 AM ENVIRONMENTAL STUDIES DEPARTMENT CHAIR EXTRA LAVENDER TOP TUBE Routine 03/08/2024 2:40 AM ENVIRONMENTAL STUDIES DEPARTMENT CHAIR RAINBOW DRAW AND HOLD Routine 03/08/2024 2:40 AM ENVIRONMENTAL STUDIES DEPARTMENT CHAIR HIV 1/2 AG/AB 4TH GEN Routine 10/25/2018 11:54 AM CDT Screening for STDs (sexually transmitted diseases) from Last 3 Months or Most Recently Relevant to Health Maintenance Results * FL Retrograde Pyelogram (03/08/2024 11:31 AM ENVIRONMENTAL STUDIES DEPARTMENT CHAIR) Anatomical Region Laterality Modality Abdomen, Pelvis Radio Fluoroscop y Narrative 03/08/2024 12:18 PM ENVIRONMENTAL STUDIES DEPARTMENT CHAIR This is an imaging order that has been read externally. Musa Mojica MD RAD FL * Calculi Stone Analysis (03/08/2024 11:28 AM ENVIRONMENTAL STUDIES DEPARTMENT CHAIR) Calculi Composition See Note 03/11/2024 9:35 AM ENVIRONMENTAL STUDIES DEPARTMENT CHAIR [facility] Comment: Calculi composed primarily of: 70% calcium oxalate dihydrate, and 30% calcium phosphate (hydroxy- and carbonate- apatite). INTERPRETIVE INFORMATION: Calculi (Stone) analysis Calculi are the products of physiological processes that yield crystalline compounds in a matrix of biological compounds and blood. Matrix components are not reported. The clinically significant crystalline components identified in calculi specimens are reported. Gross description may not be consistent with composition determined by FTIR analysis. Performed By: [facility] [address] [place] [id number] Gardening Supervisor: Art Chiu MD, PhD CLIA Number: [id number] Calculi Description See Note 03/11/2024 9:35 AM ENVIRONMENTAL STUDIES DEPARTMENT CHAIR [facility] Comment: Specimen consists of one brown and negrete calculus. The total weight is 14 mg. Calculi Mass 14 mg 03/11/2024 9:35 AM ENVIRONMENTAL STUDIES DEPARTMENT CHAIR [place] Stone (Calculus) KIDNEY STONE / Unknown 03/08/2024 11:28 AM ENVIRONMENTAL STUDIES DEPARTMENT CHAIR 03/08/2024 11:44 AM ENVIRONMENTAL STUDIES DEPARTMENT CHAIR Musa Mojica MD LAB_1 [facility] [address] [place], [place] [address] [place] [address] * (ABNORMAL) UA Conditional UC: Clean Catch (03/08/2024 4:40 AM ENVIRONMENTAL STUDIES DEPARTMENT CHAIR) Urine Culture Comment 03/08/2024 5:00 AM ENVIRONMENTAL STUDIES DEPARTMENT CHAIR [facility] Urine Color Colorless 03/08/2024 5:00 AM ENVIRONMENTAL STUDIES DEPARTMENT CHAIR [facility] Urine Clarity Clear Clear 03/08/2024 5:00 AM ENVIRONMENTAL STUDIES DEPARTMENT CHAIR [facility] Specific Jacob, Urine 1.020 <1.030 03/08/2024 5:00 AM ENVIRONMENTAL STUDIES DEPARTMENT CHAIR [facility] PH Urine 6.0 5.0 - 8.0 03/08/2024 5:00 AM ENVIRONMENTAL STUDIES DEPARTMENT CHAIR [facility] Protein, Urine Qual (mg/dL) Negative Negative, 10 , 20 03/08/2024 5:00 AM ENVIRONMENTAL STUDIES DEPARTMENT CHAIR [facility] Glucose Urine Qual (mg/dL) Normal (Negative) Normal (Negative), 30 , 50 03/08/2024 5:00 AM ENVIRONMENTAL STUDIES DEPARTMENT CHAIR [facility] Ketones, Urine (mg/dL) Negative Negative, Trace 03/08/2024 5:00 AM ENVIRONMENTAL STUDIES DEPARTMENT CHAIR [facility] Urobilinogen, Urine (EU/dL) Normal (Negative) Normal (Negative) 03/08/2024 5:00 AM ENVIRONMENTAL STUDIES DEPARTMENT CHAIR [facility] Bilirubin Urine (mg/dL) Negative Negative 03/08/2024 5:00 AM ENVIRONMENTAL STUDIES DEPARTMENT CHAIR [facility] Blood, Urine (mg/dL) 0.50 (Moderate)(A) Negative, 0.03 (Trace) 03/08/2024 5:00 AM ENVIRONMENTAL STUDIES DEPARTMENT CHAIR [facility] Nitrite Urine Negative Negative 03/08/2024 5:00 AM ENVIRONMENTAL STUDIES DEPARTMENT CHAIR [facility] Leukocyte Esterase, Urine (Gracie/uL) Negative Negative, 25 (Trace) 03/08/2024 5:00 AM ENVIRONMENTAL STUDIES DEPARTMENT CHAIR [facility] Red Blood Cells 18(H) 0 - 3 /HPF 03/08/2024 5:00 AM ENVIRONMENTAL STUDIES DEPARTMENT CHAIR [facility] White Blood Cells 1 0 - 5 /HPF 03/08/2024 5:00 AM ENVIRONMENTAL STUDIES DEPARTMENT CHAIR [facility] Squamous Epithelial Cells Occasional None Seen, Occasional, Few /HPF 03/08/2024 5:00 AM ENVIRONMENTAL STUDIES DEPARTMENT CHAIR [facility] Mucus Present(A) None Seen /HPF 03/08/2024 5:00 AM ENVIRONMENTAL STUDIES DEPARTMENT CHAIR [facility] Source Clean Catch 03/08/2024 5:00 AM ENVIRONMENTAL STUDIES DEPARTMENT CHAIR [facility] Urine URINE SPECIMEN COLLECTION, CLEAN CATCH / Unknown Non-blood Collection / Unknown 03/08/2024 4:40 AM ENVIRONMENTAL STUDIES DEPARTMENT CHAIR 03/08/2024 4:47 AM ENVIRONMENTAL STUDIES DEPARTMENT CHAIR Narrative [facility] - 03/08/2024 5:00 AM ENVIRONMENTAL STUDIES DEPARTMENT CHAIR The qualitative interpretive guidance provided (e.g., small, moderate, large) is intended to aid in quantitative result interpretation. It is not itself an FDA-cleared test result. Jonathan Deluna MD LAB_1 [facility] [address] [place] [address] * CT Abd Pelvis W IV Cont Only (03/08/2024 4:04 AM ENVIRONMENTAL STUDIES DEPARTMENT CHAIR) Anatomical Region Laterality Modality Abdomen, Pelvis Computed Tomogra phy 03/08/2024 4:04 AM ENVIRONMENTAL STUDIES DEPARTMENT CHAIR Narrative 03/08/2024 4:38 AM ENVIRONMENTAL STUDIES DEPARTMENT CHAIR EXAM: CT ABDOMEN AND PELVIS WITH IV CONTRAST ONLY LOCATION: [facility] DATE: 03/08/2024 INDICATION: Right-sided pain, history of kidney stones, also has Marfan syndrome, has aortic aneurysm, status post appendectomy. COMPARISON: CT abdomen and pelvis with IV contrast 07/24/2018. TECHNIQUE: Helical enhanced CT scan of the abdomen and pelvis was performed following injection of IV contrast. Multiplanar reformats were obtained. Dose reduction techniques were used. CONTRAST: IOHEXOL 350 MG/ML IV SOLN 75 mL. FINDINGS: LOWER CHEST: Lung bases are clear. No pleural effusion on either side. Normal cardiac size. No pericardial effusion. Small hiatal hernia with reflux in the distal esophagus. HEPATOBILIARY: No discrete lesion, calcified gallstones or biliary dilatation. Patent hepatic and portal veins. No significant interval change. PANCREAS: Normal. SPLEEN: Slightly enlarged without discrete lesion, AP length measures 12.6 cm (image 24, series 2), stable. ADRENAL GLANDS: Normal. KIDNEYS/BLADDER: Interval development of mild right hydronephrosis and hydroureter to the distal ureter containing a 0.4 cm stone (image 73, series 2, image 28, series 4, image 21, series 5), accounting for patient's symptoms. Stone is located within 2 cm of the right ureterovesical junction. Hypoperfusion of the right kidney attributable to ongoing distal obstruction. Additional 0.9 x 0.8 cm stone in the upper aspect of the right kidney (image 26, series 2, image 28, series 4, image 17, series 5). No additional urinary tract calculi. No obstruction on the left. Normal urinary bladder. BOWEL: Interval appendectomy. Stool material within the colon. No mechanical obstruction, free gas or free fluid. Small hiatal hernia with reflux in the distal esophagus. Stomach is distended with residual food material. LYMPH NODES: No suspicious abdominopelvic adenopathy. VASCULATURE: Normal caliber abdominal aorta and the IVC. Mesenteric and bilateral renal vessels are well-perfused. Retroaortic left renal vein, normal vascular variant anatomy. No significant change. PELVIC ORGANS: Distal right ureteral stone. Interval appendectomy. No adenopathy or free fluid. MUSCULOSKELETAL: Slight right convex thoracolumbar curve. No fracture or CT evidence of avascular necrosis. IMPRESSION: 1. Interval development of mild right hydronephrosis and hydroureter to the distal ureter containing a small stone, within 2 cm of the right ureterovesical junction, accounting for patient's symptoms. Hypoperfusion of the right kidney attributable to ongoing distal obstruction. Small stone has developed in the upper pole of the right kidney. No stones or obstruction on the left. 2. Interval appendectomy. No mechanical bowel obstruction, free gas or free fluid. Small hiatal hernia with reflux in the distal esophagus. 3. Mild splenomegaly, stable. Procedure Note Felix Chacon MBBS - 03/08/2024 EXAM: CT ABDOMEN AND PELVIS WITH IV CONTRAST ONLY LOCATION: [facility] DATE: 03/08/2024 INDICATION: Right-sided pain, history of kidney stones, also has Marfansyndrome, has aortic aneurysm, status post appendectomy. COMPARISON: CT abdomen and pelvis with IV contrast 07/24/2018. TECHNIQUE: Helical enhanced CT scan of the abdomen and pelvis wasperformed following injection of IV contrast. Multiplanar reformats wereobtained. Dose reduction techniques were used. CONTRAST: IOHEXOL 350 MG/ML IV SOLN 75 mL. FINDINGS: LOWER CHEST: Lung bases are clear. No pleural effusion on either side.Normal cardiac size. No pericardial effusion. Small hiatal hernia withreflux in the distal esophagus. HEPATOBILIARY: No discrete lesion, calcified gallstones or biliarydilatation. Patent hepatic and portal veins. No significant intervalchange. PANCREAS: Normal. SPLEEN: Slightly enlarged without discrete lesion, AP length measures 12.6cm (image 24, series 2), stable. ADRENAL GLANDS: Normal. KIDNEYS/BLADDER: Interval development of mild right hydronephrosis andhydroureter to the distal ureter containing a 0.4 cm stone (image 73,series 2, image 28, series 4, image 21, series 5), accounting forpatient's symptoms. Stone is located within 2 cm of the rightureterovesical junction. Hypoperfusion of the right kidney attributable toongoing distal obstruction. Additional 0.9 x 0.8 cm stone in the upperaspect of the right kidney (image 26, series 2, image 28, series 4, image17, series 5). No additional urinary tract calculi. No obstruction on theleft. Normal urinary bladder. BOWEL: Interval appendectomy. Stool material within the colon. Nomechanical obstruction, free gas or free fluid. Small hiatal hernia withreflux in the distal esophagus. Stomach is distended with residual foodmaterial. LYMPH NODES: No suspicious abdominopelvic adenopathy. VASCULATURE: Normal caliber abdominal aorta and the IVC. Mesenteric andbilateral renal vessels are well-perfused. Retroaortic left renal vein,normal vascular variant anatomy. No significant change. PELVIC ORGANS: Distal right ureteral stone. Interval appendectomy. Noadenopathy or free fluid. MUSCULOSKELETAL: Slight right convex thoracolumbar curve. No fracture orCT evidence of avascular necrosis. IMPRESSION: 1. Interval development of mild right hydronephrosis and hydroureter tothe distal ureter containing a small stone, within 2 cm of the rightureterovesical junction, accounting for patient's symptoms. Hypoperfusionof the right kidney attributable to ongoing distal obstruction. Smallstone has developed in the upper pole of the right kidney. No stones orobstruction on the left. 2. Interval appendectomy. No mechanical bowel obstruction, free gas orfree fluid. Small hiatal hernia with reflux in the distal esophagus. 3. Mild splenomegaly, stable. Jonathan Deluna MD RAD CT * Extra Lavender top tube (03/08/2024 2:40 AM ENVIRONMENTAL STUDIES DEPARTMENT CHAIR) Extra Lavender Top Drawn Specimen will be held for 3 days 03/08/2024 4:00 AM ENVIRONMENTAL STUDIES DEPARTMENT CHAIR [facility] Blood Venipuncture / Unknown 03/08/2024 2:40 AM ENVIRONMENTAL STUDIES DEPARTMENT CHAIR 03/08/2024 2:44 AM ENVIRONMENTAL STUDIES DEPARTMENT CHAIR Jonathan Deluna MD LAB_1 Performing Organization Address City/[facility] Co de Phone Number [facility] [address] * Extra Blue top tube (03/08/2024 2:40 AM ENVIRONMENTAL STUDIES DEPARTMENT CHAIR) Extra Blue Top Drawn Specimen will be held for 24 hours 03/08/2024 4:00 AM ENVIRONMENTAL STUDIES DEPARTMENT CHAIR [facility] Blood Venipuncture / Unknown 03/08/2024 2:40 AM ENVIRONMENTAL STUDIES DEPARTMENT CHAIR 03/08/2024 2:44 AM ENVIRONMENTAL STUDIES DEPARTMENT CHAIR Jonathan Deluna MD LAB_1 Performing Organization Address [facility] de Phone Number [facility] [address] * Lactate Reflex Panel (03/08/2024 2:40 AM ENVIRONMENTAL STUDIES DEPARTMENT CHAIR) Pathologist [facility] Lactate, Whole Blood 0.60 0.50 - 2.00 mmol/L 03/08/2024 2:59 AM ENVIRONMENTAL STUDIES DEPARTMENT CHAIR [facility] Blood Venipuncture / Unknown 03/08/2024 2:40 AM ENVIRONMENTAL STUDIES DEPARTMENT CHAIR 03/08/2024 2:44 AM ENVIRONMENTAL STUDIES DEPARTMENT CHAIR Narrative [facility] - 03/08/2024 2:59 AM ENVIRONMENTAL STUDIES DEPARTMENT CHAIR Reference range for healthy individuals when sepsis is not suspected is 0.5-2.2 mmol/L Rk Ndiaye MD LAB_1 Performing Organization Address [facility] de Phone Number [facility] [address] * Extra Light Green Tube (03/08/2024 2:40 AM ENVIRONMENTAL STUDIES DEPARTMENT CHAIR) Extra Light Green Tube Drawn Specimen will be held for 5 days 03/08/2024 4:00 AM ENVIRONMENTAL STUDIES DEPARTMENT CHAIR [facility] Blood Venipuncture / Unknown 03/08/2024 2:40 AM ENVIRONMENTAL STUDIES DEPARTMENT CHAIR 03/08/2024 2:44 AM ENVIRONMENTAL STUDIES DEPARTMENT CHAIR Jonathan Deluna MD LAB_1 Performing Organization Address [facility] Phone Number [facility] [address] * Extra Light Green On Ice Tube (03/08/2024 2:40 AM ENVIRONMENTAL STUDIES DEPARTMENT CHAIR) Pathologist [facility] Extra Light Green On Ice Tube Drawn Specimen will be held for 5 days 03/08/2024 4:00 AM ENVIRONMENTAL STUDIES DEPARTMENT CHAIR [facility] Blood Venipuncture / Unknown 03/08/2024 2:40 AM ENVIRONMENTAL STUDIES DEPARTMENT CHAIR 03/08/2024 2:44 AM ENVIRONMENTAL STUDIES DEPARTMENT CHAIR Jonathan Deluna MD LAB_1 Performing Organization Address [facility] Phone Number [facility] [address] * (ABNORMAL) Complete Blood Count-W/Diff (03/08/2024 2:40 AM ENVIRONMENTAL STUDIES DEPARTMENT CHAIR) WBC 8.6 3.5 - 10.5 x10(9)/L 03/08/2024 3:00 AM ENVIRONMENTAL STUDIES DEPARTMENT CHAIR [facility] RBC 4.57 4.32 - 5.72 x10(12)/L 03/08/2024 3:00 AM ENVIRONMENTAL STUDIES DEPARTMENT CHAIR [facility] Hemoglobin 14.6 13.5 - 17.5 g/dL 03/08/2024 3:00 AM ENVIRONMENTAL STUDIES DEPARTMENT CHAIR [facility] HCT 41.9 38.8 - 50.0 % 03/08/2024 3:00 AM ENVIRONMENTAL STUDIES DEPARTMENT CHAIR [facility] MCV 91.7 80.0 - 100.0 fL 03/08/2024 3:00 AM ENVIRONMENTAL STUDIES DEPARTMENT CHAIR [facility] MCH 31.9 27.6 - 33.3 pg 03/08/2024 3:00 AM ENVIRONMENTAL STUDIES DEPARTMENT CHAIR [facility] MCHC 34.8 31.5 - 35.2 g/dL 03/08/2024 3:00 AM ENVIRONMENTAL STUDIES DEPARTMENT CHAIR [facility] RDW 12.4 11.9 - 15.5 % 03/08/2024 3:00 AM ENVIRONMENTAL STUDIES DEPARTMENT CHAIR [facility] Platelets 191 150 - 450 x10(9)/L 03/08/2024 3:00 AM ENVIRONMENTAL STUDIES DEPARTMENT CHAIR [facility] Automated NRBC 0 <=0 /100 WBC 03/08/2024 3:00 AM ENVIRONMENTAL STUDIES DEPARTMENT CHAIR [facility] Neutrophil Absolute 6.9 1.7 - 7.0 10(9)/L 03/08/2024 3:00 AM ENVIRONMENTAL STUDIES DEPARTMENT CHAIR [facility] Lymphocyte Absolute 0.9(L) 1.0 - 4.8 10(9)/L 03/08/2024 3:00 AM ENVIRONMENTAL STUDIES DEPARTMENT CHAIR [facility] Monocyte Absolute 0.7 0.2 - 0.9 10(9)/L 03/08/2024 3:00 AM ENVIRONMENTAL STUDIES DEPARTMENT CHAIR [facility] Eosinophil Absolute 0.1 0.0 - 0.5 10(9)/L 03/08/2024 3:00 AM ENVIRONMENTAL STUDIES DEPARTMENT CHAIR [facility] Basophil Absolute 0.0 0.0 - 0.3 10(9)/L 03/08/2024 3:00 AM ENVIRONMENTAL STUDIES DEPARTMENT CHAIR [facility] Immature Granulocyte % 0.4 0.0 - 0.5 % 03/08/2024 3:00 AM ENVIRONMENTAL STUDIES DEPARTMENT CHAIR [facility] Blood Venipuncture / Unknown 03/08/2024 2:40 AM ENVIRONMENTAL STUDIES DEPARTMENT CHAIR 03/08/2024 2:44 AM ENVIRONMENTAL STUDIES DEPARTMENT CHAIR Rk Ndiaye MD LAB_1 [facility] [address] * (ABNORMAL) Liver Panel (Hepatic Function Panel) (03/08/2024 2:40 AM ENVIRONMENTAL STUDIES DEPARTMENT CHAIR) Alkaline Phosphatase 46 40 - 150 U/L 03/08/2024 3:41 AM ENVIRONMENTAL STUDIES DEPARTMENT CHAIR [facility] Bilirubin, Total 0.6 0.2 - 1.2 mg/dL 03/08/2024 3:41 AM ENVIRONMENTAL STUDIES DEPARTMENT CHAIR [facility] Bilirubin, Direct 0.2 0.0 - 0.5 mg/dL 03/08/2024 3:41 AM ENVIRONMENTAL STUDIES DEPARTMENT CHAIR [facility] AST (SGOT) 33 10 - 40 U/L 03/08/2024 3:41 AM ENVIRONMENTAL STUDIES DEPARTMENT CHAIR [facility] ALT (SGPT) 36 <=55 U/L 03/08/2024 3:41 AM ENVIRONMENTAL STUDIES DEPARTMENT CHAIR [facility] Protein, Total 6.0(L) 6.4 - 8.3 g/dL 03/08/2024 3:41 AM ENVIRONMENTAL STUDIES DEPARTMENT CHAIR [facility] Albumin 3.9 3.5 - 5.0 g/dL 03/08/2024 3:41 AM ENVIRONMENTAL STUDIES DEPARTMENT CHAIR [facility] Blood Venipuncture / Unknown 03/08/2024 2:40 AM ENVIRONMENTAL STUDIES DEPARTMENT CHAIR 03/08/2024 2:44 AM ENVIRONMENTAL STUDIES DEPARTMENT CHAIR Jonathan Deluna MD LAB_1 Performing Organization Address City/State/[facility] Co de Phone Number [facility] [address] * (ABNORMAL) Basic Metabolic Panel (03/08/2024 2:40 AM ENVIRONMENTAL STUDIES DEPARTMENT CHAIR) Sodium 142 136 - 145 mmol/L 03/08/2024 3:12 AM ENVIRONMENTAL STUDIES DEPARTMENT CHAIR [facility] Potassium 3.4(L) 3.5 - 5.1 mmol/L 03/08/2024 3:12 AM ENVIRONMENTAL STUDIES DEPARTMENT CHAIR [facility] Chloride 111(H) 98 - 109 mmol/L 03/08/2024 3:12 AM ENVIRONMENTAL STUDIES DEPARTMENT CHAIR [facility] CO2 23 20 - 29 mmol/L 03/08/2024 3:12 AM ENVIRONMENTAL STUDIES DEPARTMENT CHAIR [facility] Anion Gap 8 6 - 16 mmol/L 03/08/2024 3:12 AM ENVIRONMENTAL STUDIES DEPARTMENT CHAIR [facility] Calcium 9.4 8.4 - 10.4 mg/dL 03/08/2024 3:12 AM ENVIRONMENTAL STUDIES DEPARTMENT CHAIR [facility] BUN 14 7 - 26 mg/dL 03/08/2024 3:12 AM ENVIRONMENTAL STUDIES DEPARTMENT CHAIR [facility] Creatinine 1.18 0.73 - 1.18 mg/dL 03/08/2024 3:12 AM ENVIRONMENTAL STUDIES DEPARTMENT CHAIR [facility] Glucose 104(H) 70 - 100 mg/dL 03/08/2024 3:12 AM ENVIRONMENTAL STUDIES DEPARTMENT CHAIR [facility] Comment:The given reference range is for the fasting state. Non-fasting reference range for glucose is 70 - 180 mg/dL. GFR, Estimated >60 >60 mL/min/1.7 3m2 03/08/2024 3:12 AM ENVIRONMENTAL STUDIES DEPARTMENT CHAIR [facility] Blood Venipuncture / Unknown 03/08/2024 2:40 AM ENVIRONMENTAL STUDIES DEPARTMENT CHAIR 03/08/2024 2:44 AM ENVIRONMENTAL STUDIES DEPARTMENT CHAIR Rk Ndiaye MD LAB_1 [facility] [address] * Lipase (03/08/2024 2:40 AM ENVIRONMENTAL STUDIES DEPARTMENT CHAIR) Pathologist [facility] Lipase 20 8 - 78 U/L 03/08/2024 3:41 AM ENVIRONMENTAL STUDIES DEPARTMENT CHAIR [facility] Blood Venipuncture / Unknown 03/08/2024 2:40 AM ENVIRONMENTAL STUDIES DEPARTMENT CHAIR 03/08/2024 2:44 AM ENVIRONMENTAL STUDIES DEPARTMENT CHAIR Jonathan Deluna MD LAB_1 Performing Organization Address [facility] Co de Phone Number [facility] [address] * HIV 1/2 Ag/Ab 4th Generation (10/25/2018 11:54 AM CDT) Pathologist [facility] HIV 1/2 Antigen/Anti body (4th generation) Negative (Non Reactive) Negative (Non Reactive) 10/25/2018 3:40 PM CDT [facility] Comment:HIV-1 p24 Antigen an d HIV-1/HIV-2 Antibody not detected Blood Venipuncture / Unknown 10/25/2018 11:54 AM CDT 10/25/2018 11:54 AM CDT Yuri Chow MD LAB_1 Performing Organization Address City/[facility]/ZIP Co de Phone Number [facility] [address] [phone] from Last 3 Months or Most Recently Relevant to Health Maintenance Advance Directives * Full Code (Latest Code Status on File) Date Activated Date Inactivated Comments 03/08/2024 7:05 AM 03/08/2024 6:55 PM * Full Code Date Activated Date Inactivated Comments 07/14/2018 2:03 AM 07/14/2018 6:27 PM Care Teams Metal Expediter Relationship Specialty [place] [address] [place] [address] PCP - General Family Practice 07/10/18
--- OUTSIDE RECORDS SUMMARY | 2024-04-15 22:14 | XMS_ITS | Encounter Summary ---
Author Organization [facility] Address [address] [place] [address] Care Team Providers Care Program Clinician Name Role Phone Yuri Chow MD Primary Care Provider [phone] Reason for Visit * Reason Comments QUESTIONS, GENERAL Encounter Details Date Type Department Care Team ([facility] st Contact Info) Description 03/18/[address] [facility] - Urology [address] [facility] [place], [place] [phone] Musa Mojica MD [address] [place], [place] [address] QUESTIONS, GENERAL Social History Tobacco Use Types Packs/Day Years [...] as of this encounter Nursing Notes * Jessie Rodríguez, ROSANA - 03/18/2024 1:06 PM CST Pt had stent removed earlier today. He reports excrutiating pain when he got home. Took 1 narcotic pain med w\hich helped a bit but still had some pain so took some tylenol. He continues to have pain. He was instructed to take 600mg ibuprofen and try some heat. If pain is still not managable, go to ER. R AUTHORIZATION NURSE documented in this encounter Plan of Treatment Upcoming Encounters Date Type Department Care Team (Late st Contact Info) Description 05/14/2024 2:30 PM PRIOR AUTHORIZATION NURSE Appointment [facility] [place] [address] [address] [address] [place] [phone] Musa Mojica MD [address] [place], [place] [address] 05/26/2024 11:00 AM PRIOR AUTHORIZATION NURSE Appointment [facility] [place] [address] Urology [address] [place] [phone] Trang Rowell APRN, OPERATIONS TEAM LEADER [address] [place] [address] 09/09/2024 2:30 PM CDT Appointment [facility] [address] Podiatric MedSurg [address] [place] [phone] Torsten Chin, DPM [address] [place], [place] [address] documented as of this encounter Visit Diagnoses Not on filedocumented in this encounter Care Teams Program Clinician Relationship Specialty [place] [address] [place], [place] [phone] PCP - General Family Practice 07/10/18 documented as of this encounter
--- OUTSIDE RECORDS SUMMARY | 2024-04-15 22:14 | XMS_ITS | Encounter Summary ---
Author Organization [facility] Address [address] [place] [address] Care Team Providers Care Crusher Loader Equipment Operator Name Role Phone Yuri Chow MD Primary Care Provider [phone] Reason for Visit * Reason Comments Discharge Follow Up Call Encounter Details Date Type Department Care Team (Late st Contact Info) Description 03/10/2024 Telephone [facility] - Urology [address] [place], [place] [phone] Musa Mojica MD [address] [place], [place] [phone] Discharge Follow Up Call Social History Tobacco Use Types Packs/Day Years [...] of this encounter Nursing Notes * Jessie Rodríguez LPN - 03/10/2024 9:42 AM CST Post-Surgical Discharge follow-up call completed. Please refer to DOC Flowsheet: SURGDC for details. RINTENDENT CIRCUS * Jessie Rodríguez LPN - 03/10/2024 9:39 AM CST ----- Message from Musa Mojica sent at 03/08/2024 11:39 AM SUPERINTENDENT CIRCUS ----- Had stone treated today. Will need a stent removal in about a week. They live in [place] so may be good to see him next Sunday in [place] to remove it. Thanks! musa RINTENDENT CIRCUS documented in this encounter Plan of Treatment Upcoming Encounters Date Type Department Care Team (Late st Contact Info) Description 05/14/2024 2:30 PM SUPERINTENDENT CIRCUS Appointment [facility] [address] [address] [address] [place] [phone] Musa Mojica MD [address] [place], [place] [address] 05/26/2024 11:00 AM SUPERINTENDENT CIRCUS Appointment [facility] [address] Urology [address] [place] [phone] Trang Rowell APRN, SUPERVISORY LIFEGUARD [address] [place] [address] 09/09/2024 2:30 PM CDT Appointment [facility] [place] [address] Podiatric MedSurg [address] [place] [phone] Torsten Chin, DPM [address] [place], [place] [phone] documented as of this encounter Visit Diagnoses Not on filedocumented in this encounter Care Teams Crusher Loader Equipment Operator Relationship Specialty [place] [address] [place] [address] PCP - General Family Practice 07/10/18 documented as of this encounter
--- OUTSIDE RECORDS SUMMARY | 2024-04-15 22:14 | XMS_ITS | Continuity of Care Document ---
Author Name [facility] Address Unknown Organization Unknown Address Unknown Encounters FILTER APPLIED:Only known Encounters with Admission Date within the last 5 years Encounter Location Admission Discharge Billing Code Radiation Control Health Physicist Attender Outpatient [facility] ARTUR DICKENS [facility]
--- OUTSIDE RECORDS SUMMARY | 2024-04-15 22:14 | XMS_ITS | Encounter Summary ---
Author Organization [facility] Address [address] [place] [address] Care Team Providers Care Manager Name Role Phone Yuri Chow MD Primary Care Provider [phone] Reason for Visit * Reason Comments Hospital Discharge Follow-up Encounter Details Date Type Department Care Team (Late st Contact Info) Description 03/12/2024 Telephone [facility] Practice [address] [place], [place] [phone] [place] [address] [place], [place] [phone] Hospital Discharge Follow-up Social History Tobacco Use Types Packs/Day Years [...] as of this encounter Nursing Notes * Katja Landin - 03/12/2024 4:20 PM CST Called patient for post discharge follow up to schedule with PCP, PCP retired and he needs to establish new care, he declined, states not at this time and has a follow up with Namita Landin 03/12/2024, 4:21 PM ICAL CONTOUR BAND SAW OPERATOR documented in this encounter Plan of Treatment Upcoming Encounters Date Type Department Care Team (Late st Contact Info) Description 05/14/2024 2:30 PM VERTICAL CONTOUR BAND SAW OPERATOR Appointment [facility] [address] [address] [address] [place] [phone] Musa Mojica MD [address] [place], [place] [address] 05/26/2024 11:00 AM VERTICAL CONTOUR BAND SAW OPERATOR Appointment [facility] [address] Urology [address] [place] [phone] Trang Rowell, SENIOR J2EE DEVELOPER, TILE SHADER [address] [place], [place] [address] 09/09/2024 2:30 PM CDT Appointment [facility] [address] Podiatric MedSurg [address] [place] [phone] Torsten Chin, DPM [address] [place] [address] documented as of this encounter Visit Diagnoses Not on filedocumented in this encounter Care Teams Manager Relationship Specialty [place] [address] [place] [address] PCP - General Family Practice 07/10/18 documented as of this encounter
--- OUTSIDE RECORDS SUMMARY | 2024-04-15 22:15 | XMS_ITS | Encounter Summary ---
Author Organization [facility] Address [address] [place] [address] Care Team Providers Care Flame Hardening Machine Setter Name Role Phone Yuri Chow MD Primary Care Provider Encounter Details Date Type Department Care Team (Late Contact Info) Description 01/02/2017 Consent for Procedure/Treatme [facility] Ophthalmology [address] [place], [place] [phone] Ha Richards MD [address] [place], [place] [phone] CONSENT FOR SURGICAL PROCEDURE Social History Tobacco [...] as of this encounter Plan of Treatment Upcoming Encounters Date Type Department Care Team (Late Contact Info) Description 05/14/2024 2:30 PM UTILIZATION REVIEW COORDINATOR [facility] [address] [facility] [address] [place] [phone] Musa Mojica MD [address] [place] [address] 05/26/2024 11:00 AM UTILIZATION REVIEW COORDINATOR Appointment [place] [facility] [place] [address] Urology [address] [place] [phone] Trang Rowell APRN, RIBBON SWEATBAND OPERATOR [address] [place] [address] 09/09/2024 2:30 PM CDT Appointment [place] [facility] [place] [address] Podiatric MedSurg [address] [place] [phone] Torsten Chin, DPM [address] [place], [place] [address] documented as of this encounter Visit Diagnoses Not on filedocumented in this encounter Additional Health Concerns Infection Onset Date Last Indicated Resolved Time R/O COVID19 12/05/2019 12/05/2019 12/06/2019 3:50 PM CDT R/O COVID19 01/13/2021 01/13/2021 01/13/2021 9:53 PM CDT documented as of this encounter Care Teams Flame Hardening Machine Setter Relationship Specialty [place] [address] [place] [address] PCP - General Family Practice 07/10/18 documented as of this encounter
--- OUTSIDE RECORDS SUMMARY | 2024-04-15 22:15 | XMS_ITS | Encounter Summary ---
Author Organization [facility] Address [address] [place] [address] Care Team Providers Care Adult Educator Name Role Phone Yuri Chow MD Primary Care Provider [phone] Reason for Referral * Consult/Transfer Care (Routine) - New Request Specialty Diagnoses / Procedures Referred By Griselda ayala Referred To Contact Diagnoses Hydronephrosis of right kidney Right ureteral calculus Rodolfo Dickens MD [address] [place] [address] Referral ID Status Reason Start Date Expiration Date V isits Requested Visits Authorized [id number] New Request 03/08/2024 06/07/2025 1 1 Scheduling Instructions Your clinician has recommended an appointment with [facility]. You can quickly make your appointment online at [email or web address]. You can also call [phone] for help scheduling your appointment. We suggest you call your health insurance company about your coverage and benefits for this appointment. Question Answer Appointment Urgency? Non-Urgent Outpatient Appt Need? Hospital Follow up Comments Urology will reach out to you on Sunday to set up stent removal--planned for approximately 1 week post discharge. PROTECTION INSPECTOR * Procedure/Equipment (Routine) - Incomplete Specialty Diagnoses / Procedures Referred By Griselda ayala Referred To Contact Procedures FL Retrograde Pyelogram Musa Mojica MD [address] [place] [address] Referral ID Status Reason Start Date Expiration Date V isits Requested Visits Authorized [id number] Incomplete 03/08/2024 06/07/2025 1 1 PROTECTION INSPECTOR * Procedure/Equipment (Routine) - Incomplete Specialty Diagnoses / Procedures Referred By Contac t Referred To Contact Diagnoses Ureterolithiasis Procedures Case Request OR - Urology Surgery: URETEROSCOPY WITH LASER LITHOTRIPSY AND URETERAL STENT PLACEMENT Musa Mojica MD [address] [place] [address] Referral ID Status Reason Start Date Expiration Date V isits Requested Visits Authorized [id number] Incomplete 03/08/2024 06/07/2025 1 1 PROTECTION INSPECTOR * Procedure/Equipment (Routine) - Incomplete Specialty Diagnoses / Procedures Referred By Contac t Referred To Contact Procedures CT Abd Pelvis W IV Cont Only Jonathan Deluna MD [address] [place] [id number] Referral ID Status Reason Start Date Expiration Date V isits Requested Visits Authorized [id number] Incomplete 03/08/2024 06/07/2025 1 1 PROTECTION INSPECTOR Reason for Visit * Reason Comments Abdominal Pain Nausea Constipation Encounter Details Date Type Department Care Team (Late st Contact Info) Description 03/08/2024 2:07 AM FIRE PROTECTION INSPECTOR - 03/08/2024 4:50 PM FIRE PROTECTION INSPECTOR Emergency [facility] [address] [facility] [address] [place] [place] [address] Jonathan Deluna MD [address] [place] [address] Bina Garcia MD [address] [place] [address] Rodolfo Dickens MD [address] [place] [address] Hydronephrosis of right kidney (Primary Dx); Ureterolithiasis; Hydroureteronephrosis; Right ureteral calculus Discharge Disposition: Home Social History Tobacco Use Types Packs/Day Years [...] on file documented as of this encounter Last Filed Vital Signs Vital Sign Reading Time Taken Comments Blood Pressure 109/72 03/08/2024 3:00 PM FIRE PROTECTION INSPECTOR Pulse 76 03/08/2024 3:00 PM FIRE PROTECTION INSPECTOR Temperature 36.7 C (98 F) 03/08/2024 3:00 PM FIRE PROTECTION INSPECTOR Respiratory Rate 18 03/08/2024 3:00 PM FIRE PROTECTION INSPECTOR Oxygen Saturation 100% 03/08/2024 3:00 PM FIRE PROTECTION INSPECTOR Inhaled Oxygen Concentration - - Weight 60.5 kg (133 lb 6.4 oz) 03/08/2024 7:22 A M FIRE PROTECTION INSPECTOR Height 177.8 cm (5' 10) 03/08/2024 7:22 AM FIRE PROTECTION INSPECTOR Body Mass Index 19.14 03/08/2024 7:22 AM FIRE PROTECTION INSPECTOR documented in this encounter Discharge Summaries * Rodolfo Dickens MD - 03/08/2024 3:58 PM CST Images from the original note were not included. [facility] Discharge Summary Patient ID: Bhavin Galaviz [id number] 33 y.o. 1990 Admit date: 03/08/2024 Discharge date: 03/08/2024 Final Discharge Diagnoses: Right ureteral calculus Hydronephrosis of right kidney Ureterolithiasis From Dr. Garcia's h+P: Bhavin Galaviz is a 33 y.o. 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 He has a history of kidney stones and has been able to pass them before. He did have blood in his urine a few days ago. He denies feversor dysuria. CT reveals hydronephrosis from the ureteral stone. He reports mild constipation. Please see the admission history and physical for full details. Hospital Course, by problem: Bhavin Galaviz was admitted as outlined above. Right ureteral and renal nephrolithiasis with hydronephrosis He was admitted to the floor treated with pain medications and IV emetics and seen by Urology in consultation. He ultimately underwent cystoscopy with right retrograde pyelogram with fluoroscopic interpretation and right ureteroscopy later laser lithotripsy and stone basket manipulation with ureteral stent placement performed by Urology. He did well and we will be discharging home. acute hypokalemia He did require potassium replacement for acute hypokalemia Primary care/TCU recommendations for follow up, including significant medication changes, medications being held, or recommended imaging or labs: Follow up with Urology within 1 week for stent replacement. - Pending Labs: Pending Labs Order Current Status Calculi Stone Analysis In process Discharge Medications: Done while pt still in hospital bed Medication List START taking these medications cephalexin 500 MG capsule Commonly known as: KEFLEX Take 1 Capsule (500 mg) by mouth three times a day for 3 days. traMADol 50 MG tablet Commonly known as: ULTRAM Take 1 Tablet (50 mg) by mouth every 6 hours as needed for Pain. CONTINUE taking these medications acetaminophen 325 MG tablet Commonly known as: TYLENOL Take 2 Tablets by mouth every 4 hours as needed for Pain. acyclovir 400 MG tablet Commonly known as: ZOVIRAX Take 1 Tablet by mouth two times a day. ALBUterol sulfate HFA 108 (90 Base) MCG/ACT inhaler Inhale 2 Puffs every 4 hours as needed for Wheezing or Shortness of Breath. buPROPion 300 MG 24 hour release tablet Commonly known as: WELLBUTRIN XL doxycycline 50 MG capsule Commonly known as: VIBRAMYCIN Take 1 Capsule by mouth two times a day. Take with food please ibuprofen 200 MG tablet Commonly known as: MOTRIN Take 3 Tablets by mouth every 6 hours as needed for Pain. * methylphenidate 10 MG tablet Commonly known as: RITALIN TAKE ONE TABLET BY MOUTH ONE TIME DAILY * Concerta 18 MG controlled release tablet Generic drug: methylphenidate TAKE ONE TABLET BY MOUTH ONE TIME DAILY * This list has 2 medication(s) that are the same as other medications prescribed for you. Read thedirections carefully, and ask your doctor or other care provider to review them with you. Where to Get Your Medications You can get these medications from any pharmacy Bring a paper prescription for each of these medications cephalexin 500 MG capsule traMADol 50 MG tablet - Consults: urology - Procedures and Surgeries: 1. Cystoscopy 2. Right retrograde pyelogram with fluoroscopic interpretation 3. right ureteroscopy, laser lithotripsy, stone basket manipulation and ureteral stent placement. Discharge Exam: BP 109/72 Pulse 76 Temp 36.7 ??C (98 ??F) (Oral) Resp 18 Ht 1.778 m (5' 10) Wt 60.5 kg (133 lb 6.4 oz) SpO2 100% BMI 19.14 kg/m?? General: nad HEENT:No facial asymmetry, EOMI Resp: CTA CV: RRR S1 S2 no murmurs Abdomen: Abdomen soft nt nd +BS Disposition: home Code Status: Full Code Follow up: Referrals (From admission, onward) Urology Referral - Adult Routine Future Appointments Provider Department Center 03/11/2024 2:15 PM Torsten Chin, [facility] [address] [place] [address] Significant Diagnostic Studies (imaging, labs, micro, etc), see EMR for full details: See EPIC Billing based on time: Total time for the visit was 35 minutes including, but not limited to, [id number] time spent reviewing records, counseling, and coordination of care. Rodolfo Dickens MD PROTECTION INSPECTOR documented in this encounter Discharge Instructions * Appointments* Bhavin Lindsey RN - 03/08/2024 2:27 PM FIRE PROTECTION INSPECTOR Per Dr. Musa Mojica ([facility]), We will set him up for a stent removal in about a week or so in the clinic. Our office will reach out to him on Sunday to get that set up. PROTECTION INSPECTOR * Attachments The following attachments cannot be sent through Care Everywhere. * Laser Lithotripsy: Post-op (Ivorian) * Ureteral Stent Placement: Post-op (Ivorian) * Tramadol Oral Tablet (TRAMADOL - ORAL) (Ivorian) * Cephalexin Oral Capsule (CEPHALEXIN - ORAL) (Ivorian) documented in this encounter Medications at Time of Discharge Medication Sig Dispensed Refills Start Date End Date acetaminophen (TYLENOL) 325 MG tablet Take 2 Tablets by mouth every 4 hours as needed for Pain. 100 Tablet 11/19/2017 acyclovir (ZOVIRAX) 400 MG tablet Take 1 Tablet by mouth two times a day. 90 Tablet 4 05/28/2020 ALBUterol sulfate HFA 108 (90 Base) MCG/ACT inhaler Inhale 2 Puffs every 4 hours as needed for Wheezing or Shortness of Breath. 8.5 g 12/05/2019 buPROPion (WELLBUTRIN XL) 300 MG 24 hour release tablet Take 1 Tablet (300 mg) by mouth daily. CONCERTA 18 MG controlled release tabletIndications:Idio pathic hypersomnia TAKE ONE TABLET BY MOUTH ONE TIME DAILY 30 Tablet 06/08/2021 doxycycline (VIBRAMYCIN) 50 MG capsule Take 1 Capsule by mouth two times a day. Take with food please 100 Capsule 4 05/28/2020 ibuprofen (MOTRIN) 200 MG tablet Take 3 Tablets by mouth every 6 hours as needed for Pain. 100 Tablet 11/19/2017 methylphenidate (RITALIN) 10 MG tabletIndications:Idio pathic hypersomnia TAKE ONE TABLET BY MOUTH ONE TIME DAILY 30 Tablet 04/29/2021 traMADol (ULTRAM) 50 MG tablet Take 1 Tablet (50 mg) by mouth every 6 hours as needed for Pain. 12 Tablet 03/08/2024 cephalexin (KEFLEX) 500 MG capsule Take 1 Capsule (500 mg) by mouth three times a day for 3 days. 9 Capsule 03/08/2024 03/11/2024 documented as of this encounter Procedure Notes * Musa Mojica MD - 03/08/2024 11:34 AM CST PATIENT NAME: Bhavin Galaviz DATE OF SERVICE: 03/08/2024 PREOPERATIVE DIAGNOSIS: RIGHT ureteral and renal stones POSTOPERATIVE DIAGNOSIS: Same OPERATION PERFORMED: 1. Cystoscopy 2. Right retrograde pyelogram with fluoroscopic interpretation 3. right ureteroscopy, laser lithotripsy, stone basket manipulation and ureteral stent placement. SURGEON: Musa Mojica MD ANESTHESIOLOGIST: Anesthesiologist: Kb Foster MD FOOD SAFETY MANAGER: Gregoria Marvin APRN, CRNA ANESTHESIA: General endotracheal. ESTIMATED BLOOD LOSS: <5 mL. INTRAVENOUS FLUIDS: See record DRAINS: 6-Iranian x 26 cm right double-J ureteral stent. COMPLICATIONS: None. FINDINGS: RIGHT ureteral stone, lasered and removed. RIGHT renal stone dusted. SPECIMEN: right kidney Stone fragments for analysis QUALITY INDICATORS: IV ancef INDICATION FOR PROCEDURE: Bhavin Galaviz is a 33 y.o. male with a history of an obstructing right ureteral stone who was brought to the OR today for the above procedure. PROCEDURE IN DETAIL: The patient was identified in Preoperative Holding and consents for the operation were confirmed. He was transferred to the Operating Room and placed in supine position. Anesthesia was then induced without complication. An upper body warmer and bilateral SCDs had been applied and IV abx were administered. Patient was repositioned in dorsal lithotomy and the genitalia were prepped and draped in the usual sterile fashion. A 22-Iranian rigid cystoscope was inserted atraumatically into the bladder and cystoscopy revealed bilateral ureteral orifices in orthotopic position. There were no mucosal abnormalities on brief pancystoscopy. The right ureteral orifice was cannulated with a Sensor wire and an open ended catheter. The wire was removed and a retrograde pyelogram was performed. Interpretation of right retrograde pyelogram: This revealed moderate hydronephrosis,and no ureteralstricture or filling defects. A Sensor guidewire was advanced through the catheter to the proximal collecting system under fluoroscopic guidance and the catheter and cystoscope were back- loaded off the wire. The wire was snapped as a safety wire. The semirigid ureteroscope was then inserted atraumatically through the urethra along the guidewireand into the ureteral orifice and a stone was identified in the distal ureter. A 200 micron laser fiber was inserted through the working port and the stone was fragmented into small pieces. The pieces were removed with a stone basket. Pullback ureteroscopy was performed and did not reveal any residual stone in the ureter distally. Then, a 0.035-inch Amplatz guidewire was advanced to the proximal collecting system under fluoroscopic guidance. An 11-Iranian x 13-Iranian x 46 cm ureteral access sheath was advanced over the Amplatz wire under fluoroscopic guidance. The inner obturator and Amplatz wire were removed. The flexible ureteroscope was advanced to the kidney. There was a stone in the upper pole. The stone was dusted completely usinga 200 micron laser fiber. All the pieces were removed with a basket. All calyces were then interrogated with the ureteroscope and revealed no evidence of remaining stones. Then pullback ureteroscopy was then performed to clear the ureter. There was no evidence of residual stones or ureteral injuries. The cystoscope was then re-loaded over the indwelling safety wire and a 6-Iranian x 26 cm double-J ureteral stent was advanced over the wire to the kidney under fluoro and direct vision. The bladder was then drained and the cystoscope was removed. A garrido catheter was not indicated. He was repositioned in supine and awoken from anesthesia, having tolerated the procedure well. DISPOSITION: PACU then back to floor. If feeling ok, then can DC later today. We will set him up for a stent removal in about a week or so in the clinic. Our office will reach out to him on Sunday toget that set up. PROTECTION INSPECTOR documented in this encounter Consult Notes * Musa Mojica MD - 03/08/2024 6:50 AM CSTAssociated Order(s): UROLOGY CONSULT Urology Department Consult Note Reason for Consult: Chief Complaint Patient presents with Abdominal Pain Nausea Constipation HPI: Bhavin Galaviz is a 33 y.o. male with a history of Marfan syndrome and myotonic dystrophy, and a history of kidney stones who presented overnight with right sided flank pain. No fevers, chills, or urinary symptoms. His creatine was normal, no leukocytosis, and a UA just showed microscopic hematuria without signs of infection. He had a CT that showed a 4mm right distal ureteral stone with hydronephrosis with an additional 9mm nonobstructing stone in the upperpole of the right kidney. Review of Systems A complete 14-point review of systems was completed and was otherwise negative, except for those symptoms noted in the HPI. History: Past Medical History: Diagnosis Date Aortic aneurysm ([facility]C) 04/10/2006 LW Modifier: Borderline - 3.1 LW Onset: Echo ; Dilated Aortic Root Appendicitis 07/13/2018 Added automatically from request for surgery [id number] Chronic kidney disease ([facility]) Kidney stones Herpes simplex of eye Kidney stone 04/09/2016 4mm left ureter stone, passed spontainously Marfan's syndrome 04/10/2006 LW Modifier: Probable 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[facility]) 04/10/2006 Myotonic Dystrophy Pectus carinatum 04/10/2006 LW Modifier: R >> L Spontaneous pneumothorax 04/10/2006 LW Modifier: Multiple ; Pneumothorax Spontaneous Past Surgical History: Procedure Laterality Date CHALAZION EXCISION Right 2 x in past pleurodesis Bilateral bilateral, previously had 5 spontaineous pneumothrasis Family History Problem Relation Name Age of [...] Family History Retinal Detachment Negative Family History Social History Socioeconomic History Marital status: Single Spouse name: Not on file Number of children: Not on file Years of education: Not on file Highest education level: Not on file Occupational History 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 [employer] Tobacco Use Smoking status: Never Smokeless tobacco: [...] on file Housing Stability: Not on file [] HYDROmorphone (DILAUDID) injection 0.5-1 mg, 0.5-1 mg, Intravenous, PRN, Jonathan Deluna MD, 0.5 mg at 03/08/24 0546 [COMPLETED] iohexol (OMNIPAQUE 350) 350 MG/ML injection 75 mL, 75 mL, Intravenous, Once, Jonathan Deluna MD, 75 mL at 03/08/24 0405 [COMPLETED] ondansetron (ZOFRAN) injection 4 mg, 4 mg, Intravenous, Once, Jonathan Deluna MD, 4 mg at 03/08/24 0342 [COMPLETED] sodium chloride 0.9% injection 10 mL, 10 mL, Intravenous, Once, Jonathan Deluna MD, 10 mL at 03/08/24 0404 acetaminophen (TYLENOL) 325 MG tablet, Take 2 Tablets by mouth every 4 hours as needed for Pain., Disp: 100 Tablet, Rfl: 0 acyclovir (ZOVIRAX) 400 MG tablet, Take 1 Tablet by mouth two times a day., Disp: 90 Tablet, Rfl: 4 ALBUterol sulfate HFA 108 (90 Base) MCG/ACT inhaler, Inhale 2 Puffs every 4 hours as needed for Wheezing or Shortness of Breath., Disp: 8.5 g, Rfl: 0 CONCERTA 18 MG controlled release tablet, TAKE ONE TABLET BY MOUTH ONE TIME DAILY, Disp: 30 Tablet,Rfl: 0 doxycycline (VIBRAMYCIN) 50 MG capsule, Take 1 Capsule by mouth two times a day. Take with food please, Disp: 100 Capsule, Rfl: 4 ibuprofen (MOTRIN) 200 MG tablet, Take 3 Tablets by mouth every 6 hours as needed for Pain., Disp: 100 Tablet, Rfl: 0 methylphenidate (RITALIN) 10 MG tablet, TAKE ONE TABLET BY MOUTH ONE TIME DAILY, Disp: 30 Tablet, Rfl: 0 terbinafine (LAMISIL) 250 MG tablet, Take 1 Tablet (250 mg) by mouth daily., Disp: 90 Tablet, Rfl: 0 Objective: Vitals: 03/08/24 0630 BP: 113/72 Pulse: 68 Resp: 16 Temp: Constitutional: Alert, cooperative, no distress, appears stated age Head: Normocephalic, without obvious abnormality, atraumatic Eyes: Extraocular eye movements intact, conjunctiva/corneas clear, no drainage. ENT: Nares normal, no drainage. Mucus membranes normal. Appropriate dentition. Respiratory: No increased work of breathing, no audible wheezing. Cardiovascular: No peripheral edema. Good peripheral circulation Musculoskeletal: No extremity abnormalities, appropriate range of motion. Abdomen/GI: Soft, non-tender, non-distended. No masses. Skin: Skin color, texture, turgor normal, no rashes or lesions Psychiatric: Normal mood, appropriate affect. Neurologic: No obvious neurologic defects, cranial nerves grossly intact. Lab Review Lab Results Component Value Date WBC 8.6 03/08/2024 WBC 5.0 11/19/2017 HGB 14.6 03/08/2024 HGB 16.0 11/19/2017 HCT 41.9 03/08/2024 HCT 46.0 11/19/2017 MCV 91.7 03/08/2024 MCV 93.5 11/19/2017 PLTS 191 03/08/2024 PLTS 186 11/19/2017 Lab Results Component Value Date CREATININE 1.18 03/08/2024 CREATININE 0.93 05/01/2018 BUN 14 03/08/2024 BUN 13 05/01/2018 Imaging Review: CT Abd Pelvis - 03/08/24 - IMPRESSION: 1. Interval development of mild right [...] the distal esophagus. 3. Mild splenomegaly, stable. The above imaging was personally reviewed and the results discussed with the patient. Assessment: RIGHT sided kidney stones with hydronephrosis. Plan: Imaging findings reviewed with patient. Discussed options of observation vs intervention. He decided he would like to have his stones treated. Will plan for ureteroscopy with laser and stent placement today. Risks of the procedure discussed. Discussed possibility of requiring more than 1 procedure.We will try to get him on the OR schedule sometime this morning. If everything goes as planned, he should be able to discharge later today. PROTECTION INSPECTOR documented in this encounter OR Notes * H&P - Bina Garcia MD - 03/08/2024 5:[address] [facility] History and Physical Date of Service: 03/08/2024 PCP: Yuri Chow MD HPI: Bhavin Galaviz is a 33 y.o. 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 He has a history of kidney stones and has been able to pass them before. He did have blood in his urine a few days ago. He denies fevers or dysuria. CT reveals hydronephrosis from the ureteral stone. He reports mild constipation. Consults/Care Discussions: Clinicians: ED Notes Reviewed: primary care Past Medical Hx, Social Hx and Family Hx have been reviewed in chart. Pertinent for this hospitalization is documented above. Current outpatient medications: Outpatient Medications as of 03/08/2024 Medication Sig acetaminophen (TYLENOL) 325 MG tablet Take 2 Tablets by mouth every 4 hours as needed for Pain. acyclovir (ZOVIRAX) 400 MG tablet Take 1 Tablet by mouth two times a day. ALBUterol sulfate HFA 108 (90 Base) MCG/ACT inhaler Inhale 2 Puffs every 4 hours as needed for Wheezing or Shortness of Breath. CONCERTA 18 MG controlled release tablet TAKE ONE TABLET BY MOUTH ONE TIME DAILY doxycycline (VIBRAMYCIN) 50 MG capsule Take 1 Capsule by mouth two times a day. Take with food please ibuprofen (MOTRIN) 200 MG tablet Take 3 Tablets by mouth every 6 hours as needed for Pain. methylphenidate (RITALIN) 10 MG tablet TAKE ONE TABLET BY MOUTH ONE TIME DAILY terbinafine (LAMISIL) 250 MG tablet Take 1 Tablet (250 mg) by mouth daily. Allergies: Patient has no known allergies. Review of Systems Pertinent items are noted in HPI. Objective: BP 116/71 Pulse 61 Temp 36.4 ??C (97.5 ??F) (Oral) Resp 12 SpO2 96% Weight: 05/31/20 : 58.5 kg (129 lb) Oxygen Therapy Device (Oxygen Therapy): room air Flow (L/min): 2 General appearance: sleepy HEENT: Sclera anicteric, no conjunctival injection.No cervical lymphadenopathy Lungs: clear to auscultation bilaterally Heart: regular rate and rhythm, S1, S2 normal, no murmur, click, rub or gallop - pectus excavatum Abdomen: soft, non-tender; bowel sounds normal; no masses, no organomegaly Extremities: extremities normal, atraumatic, no cyanosis or edema Pulses: 2+ and symmetric Skin: Skin color, texture, turgor normal. No rashes or lesions Neurologic: diffuse decreased muscle mass Results reviewed in Epic and pertinent results are as follows: Labs: Last BMP: Recent Labs 03/08/24 0240 CREATININE 1.18 GLUCOSE 104* BICARB 23 CHLORIDE 111* K 3.4* SODIUM 142 BUN 14 CA 9.4 GFR >60 Last CBC: Recent Labs 03/08/24 0240 WBC 8.6 RBC 4.57 HGB 14.6 HCT 41.9 MCV 91.7 RDW 12.4 PLTS 191 Last UA: Recent Labs 03/08/24 0440 URAP Clear LEUKU Negative UWBC 1 UMUC Present* Imaging: Per radiologist's reading, CT of abd/pelvis: IMPRESSION: 1. Interval development of mild right [...] the distal esophagus. 3. Mild splenomegaly, stable. ASSESSMENT/PLAN: Bhavin Galaviz is a 33 y.o. male with myotonic dystrophy and marfans who was admitted for obstructing right kidney stone. Principal Problem: Right ureteral calculus Hydronephrosis of right kidney - urology consult in the am for possible cysto/ ureteroscopy due to the hydronephrosis - start flomax - PRN low dose hydromorphone for pain Note he is high risk for hypoventilation and hypercapnia due to his myotonic dystrophy and would consider hypercapnia monitoring with any surgical procedure. - Continue methylphenidate as able during the day for hypersomnolence Diet: NPO IVF: None DVT Prophylaxis: Low risk Code Status: Full Code Code Status Information Source: Not discussed Med Rec Status: Fully completed by me personally at bedside Patient class: The patient is being admitted to the hospital for the management of needs urgent urology evaluation . Billing based on: Complexity Complexity: MDM Level: Moderate Bina Garcia MD PROTECTION INSPECTOR documented in this encounter ED Notes * Jonathan Deluna MD - 03/08/2024 3:35 AM CST Emergency Center Note History of Present Illness Chief Complaint Abdominal Pain, Nausea, and Constipation HPI Bhavin Galaviz is a 33 y.o. male presenting for right flank pain. Symptoms started relatively abruptly around 2:00 p.m. today, roughly 12 hours prior to arrival. Nontraumatic pain. He feels it most in his right posterior axillary line flank. He has had many kidney stones in the past and this feels somewhat similar but not exactly like a kidney stone. He has not had any hematuria in the last few days but did have hematuria about three days ago. No dysuria or frequency. No pain going into the penis or testicles. Status post appendectomy. No vomiting today but not very hungry and only ate a little bit. Drinking fluids okay. He had one kind of firm bowel movement this morning and thinks he might be constipated. With his history of Marfan he has had pneumothoraces when he was a kid but he is breathing fine and no respiratory complaints. No chest pain. No pain down the leg. With his ongoing pain he presents to the emergency department. 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 LW Modifier: R >> L Spontaneous pneumothorax 04/10/2006 LW Modifier: Multiple ; Pneumothorax Spontaneous Patient Active Problem List Diagnosis Marfan's syndrome 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[facility]) Spontaneous pneumothorax Aortic aneurysm ([facility]) Hypersomnia due to medical condition CAREPLAN: PLAN OF CARE Rosacea Dry eyes, bilateral Corneal scar, right eye Right ureteral calculus Hydronephrosis of right kidney Medications Current Outpatient Medications Medication acetaminophen (TYLENOL) 325 MG tablet acyclovir (ZOVIRAX) 400 MG tablet ALBUterol sulfate HFA 108 (90 Base) MCG/ACT inhaler CONCERTA 18 MG controlled release tablet doxycycline (VIBRAMYCIN) 50 MG capsule ibuprofen (MOTRIN) 200 MG tablet methylphenidate (RITALIN) 10 MG tablet terbinafine (LAMISIL) 250 MG tablet Surgical History Past Surgical History: Procedure Laterality Date CHALAZION EXCISION Right 2 x in past pleurodesis Bilateral bilateral, previously had 5 spontaineous pneumothrasis Physical Exam Triage Vitals [03/08/24 0204] Temp 36.4 ??C (97.5 ??F) Temp src Oral Pulse 75 Resp 18 BP 121/78 SpO2 97 % Physical Exam Patient lying in the bed, appears uncomfortable. His lungs are clear to auscultation bilaterally. Abdomen is protected from voluntary guarding limited sensitivity, no tympany or distention. Mild tenderness in the right posterior axillary flank and CVA area but the skin in the abdomen and flanks is normal. He is warm and well perfused and conversational on room air. Vitals Trending Patient Vitals for the past 24 hrs: BP Temp Temp src Pulse Resp SpO2 03/08/24 0500 116/71 -- -- 61 12 96 % 03/08/24 0444 115/75 -- -- 63 -- 98 % 03/08/24 0443 -- -- -- 60 13 98 % 03/08/24 0352 -- -- -- 70 -- 98 % 03/08/24 0349 -- -- -- 67 -- 93 % 03/08/24 0348 -- -- -- 65 -- (!) 91 % 03/08/24 0345 -- -- -- 68 -- 94 % 03/08/24 0300 123/84 -- -- 64 -- 96 % 03/08/24 0245 122/85 -- -- 65 -- 98 % 03/08/24 0215 128/85 -- -- 77 -- 98 % 03/08/24 0204 121/78 36.4 ??C (97.5 ??F) Oral 75 18 97 % Diagnostics Lab Results Results for orders placed or performed during the hospital encounter of 03/08/24 Extra Lavender top tube Result Value Ref Range Extra Lavender Top Drawn Specimen will be held for 3 days Extra Light Green Tube Result Value Ref Range Extra Light Green Tube Drawn Specimen will be held for 5 days Extra Light Green On Ice Tube Result Value Ref Range Extra Light Green On Ice Tube Drawn Specimen will be held for 5 days Extra Blue top tube Result Value Ref Range Extra Blue Top Drawn Specimen will be held for 24 hours Basic Metabolic Panel Result Value Ref Range Sodium 142 136 - 145 mmol/L Potassium 3.4 (L) 3.5 - 5.1 mmol/L Chloride 111 (H) 98 - 109 mmol/L CO2 23 20 - 29 mmol/L Anion Gap 8 6 - 16 mmol/L Calcium 9.4 8.4 - 10.4 mg/dL BUN 14 7 - 26 mg/dL Creatinine 1.18 0.73 - 1.18 mg/dL Glucose 104 (H) 70 - 100 mg/dL GFR, Estimated >60 >60 mL/min/1.73m2 Lactate Reflex Panel Result Value Ref Range Lactate, Whole Blood 0.60 0.50 - 2.00 mmol/L Complete Blood Count-W/Diff Result Value Ref Range WBC 8.6 3.5 - 10.5 x10(9)/L RBC 4.57 4.32 - 5.72 x10(12)/L Hemoglobin 14.6 13.5 - 17.5 g/dL HCT 41.9 38.8 - 50.0 % MCV 91.7 80.0 - 100.0 fL MCH 31.9 27.6 - 33.3 pg MCHC 34.8 31.5 - 35.2 g/dL RDW 12.4 11.9 - 15.5 % Platelets 191 150 - 450 x10(9)/L Automated NRBC 0 <=0 /100 WBC Neutrophil Absolute 6.9 1.7 - 7.0 10(9)/L Lymphocyte Absolute 0.9 (L) 1.0 - 4.8 10(9)/L Monocyte Absolute 0.7 0.2 - 0.9 10(9)/L Eosinophil Absolute 0.1 0.0 - 0.5 10(9)/L Basophil Absolute 0.0 0.0 - 0.3 10(9)/L Immature Granulocyte % 0.4 0.0 - 0.5 % Lipase Result Value Ref Range Lipase 20 8 - 78 U/L Liver Panel (Hepatic Function Panel) Result Value Ref Range Alkaline Phosphatase 46 40 - 150 U/L Bilirubin, Total 0.6 0.2 - 1.2 mg/dL Bilirubin, Direct 0.2 0.0 - 0.5 mg/dL AST (SGOT) 33 10 - 40 U/L ALT (SGPT) 36 <=55 U/L Protein, Total 6.0 (L) 6.4 - 8.3 g/dL Albumin 3.9 3.5 - 5.0 g/dL UA Conditional UC: Clean Catch Specimen: Clean Catch; Urine Result Value Ref Range Urine Culture Comment Urine Color Colorless Urine Clarity Clear Clear Specific [place], Urine 1.020 <1.030 PH Urine 6.0 5.0 - 8.0 Protein, Urine Qual (mg/dL) Negative Negative, 10 , 20 Glucose Urine Qual (mg/dL) Normal (Negative) Normal (Negative), 30 , 50 Ketones, Urine (mg/dL) Negative Negative, Trace Urobilinogen, Urine (EU/dL) Normal (Negative) Normal (Negative) Bilirubin Urine (mg/dL) Negative Negative Blood, Urine (mg/dL) 0.50 (Moderate) (A) Negative, 0.03 (Trace) Nitrite Urine Negative Negative Leukocyte Esterase, Urine (Gracie/uL) Negative Negative, 25 (Trace) Red Blood Cells 18 (H) 0 - 3 /HPF White Blood Cells 1 0 - 5 /HPF Squamous Epithelial Cells Occasional None Seen, Occasional, Few /HPF Mucus Present (A) None Seen /HPF Source Clean Catch Imaging CT Abd Pelvis W IV Cont Only Final Result EXAM: CT ABDOMEN AND PELVIS WITH IV CONTRAST ONLY LOCATION: [facility] DATE: 03/08/2024 INDICATION: Right-sided pain, [...] the distal esophagus. 3. Mild splenomegaly, stable. EKG ECG Results None Independent Interpretation None ED Course Medications Administered Medications As of 03/08/24 0554 HYDROmorphone (DILAUDID) injection 0.5-1 mg (mg) Total dose: 1.5 mg Date/Time Rate/Dose/Volume Action Route Admin User 03/08/24 0335 1 mg Given Intravenous Bart Pedraza RN 0546 0.5 mg Given Intravenous Bart Pedraza RN ondansetron (ZOFRAN) injection 4 mg (mg) Total dose: 4 mg Date/Time Rate/Dose/Volume Action Route Admin User 03/08/24 0342 4 mg Given Intravenous Bart Pedraza RN iohexol (OMNIPAQUE 350) 350 MG/ML injection 75 mL (mL) Total volume: 75 mL Date/Time Rate/Dose/Volume Action Route Admin User 03/08/24 0405 75 mL Given Intravenous Elfering, Sonia L sodium chloride 0.9% injection 10 mL (mL) Total volume: 10 mL Date/Time Rate/Dose/Volume Action Route Admin User 03/08/24 0404 10 mL Given Intravenous Elfering, Sonia L Procedures None Discussion of Management None ED Course Clinical Impressions as of 03/08/24 0554 Ureterolithiasis Hydroureteronephrosis Additional Documentation None Medical Decision Making / Diagnosis MIPS None [facility] Bhavin Galaviz is a 33 y.o. male presenting for the above complaint. His evaluation is positive for a kidney stone in the right distal ureter, approximately 2 cm from the bladder. It is causing proximal hydroureter and hydronephrosis, but thankfully his UA does not suggest an infection. Today his creatinine is 1.2, last creatinine was five years ago and was 0.9. TheCT scan also mentions potential hypoperfusion of the right kidney from the distal obstruction, but his lactate is normal and I doubt any significant ischemia. White count is also normal. He has a history of Marfan but he has a normal caliber aorta in his bilateral renal vessels are well perfused. I discussed these findings with him and upon repeat assessment after the above interventions he is feeling somewhat better but still having a fair bit of pain. Given his level of pain, obstruction, hydroureteronephrosis, and possible hypoperfusion I think admission to the hospital is warranted. I discussed the case with Dr. Garcia who accepted the patient's care. Disposition Admitted to hospitalist. Diagnosis Final diagnoses: [N20.1] Ureterolithiasis [N13.30] Hydroureteronephrosis Jonathan Deluna MD 03/08/24 0554 PROTECTION INSPECTOR * Bart Pedraza RN - 03/08/2024 2:45 AM CST Patient states he's had constipation in the past but not this bad. His last normal BM was two days ago. Mother of patient stated they've tried an at-home enema and it has only seem to make his painworse. He also states the only surgery he's ever had was an appendectomy which was about 2-3 years ago. Agricultural Mechanic briefly went through medication list with patient; medication list mostly current per patient. He also takes Buproprion and Taldalafil. PROTECTION INSPECTOR documented in this encounter Plan of Treatment Upcoming Encounters Date Type Department Care Team (Late st Contact Info) Description 05/14/2024 2:30 PM FIRE PROTECTION INSPECTOR Appointment Karen Woodard [id number] Ultrasound [address] [place] [phone] Musa Mojica MD [address] [place], [place] [phone] 05/26/2024 11:00 AM FIRE PROTECTION INSPECTOR Appointment Karen Woodard [id number] Urology [address] [place] [phone] Trang Rowell APRN, CUT OFF SAW SET UP OPERATOR [address] [place], [place] [phone] 09/09/2024 2:30 PM CDT Appointment Karen Woodard [id number] Podiatric MedSurg [address] [place] [phone] Torsten Chin, DPM [address] [place] [address] Scheduled Referrals Name Type Priority Associated Diagnoses Orde r Schedule Urology Referral - Adult Referral Routine Hydronephrosis of right kidney Right ureteral calculus Ordered: 03/08/2024 documented as of this encounter Procedures Procedure Name Priority Date/Time Associated Diagnosis Comments FL RETROGRADE PYELOGRAM Routine 03/08/2024 11:31 AM FIRE PROTECTION INSPECTOR CALCULI STONE ANALYSIS Routine 03/08/2024 11:28 AM FIRE PROTECTION INSPECTOR Ureterolithiasis CYSTOSCOPY,RETROGRAD E PYELOGRAM,URETEROSCO PY,HOLMIUM LASER LITHOTRIPSY OF STONE,URETERAL STENT PLACEMENT 03/08/2024 10:17 AM FIRE PROTECTION INSPECTOR Ureterolithiasis UA CONDITIONAL UC STAT 03/08/2024 4:4 0 AM FIRE PROTECTION INSPECTOR CT ABD PELVIS W IV CONT ONLY STAT 03/08/2024 4:04 AM FIRE PROTECTION INSPECTOR EXTRA LAVENDER TOP TUBE Routine 03/08/2024 2:40 AM FIRE PROTECTION INSPECTOR EXTRA BLUE TOP TUBE Routine 03/08/2024 2 :40 AM FIRE PROTECTION INSPECTOR LACTATE REFLEX PANEL Add-On 03/08/2024 2:40 AM FIRE PROTECTION INSPECTOR CBC AND DIFFERENTIAL PANEL STAT Add-On 03/08/2024 2:40 AM FIRE PROTECTION INSPECTOR RAINBOW DRAW AND HOLD Routine 03/08/2024 2:40 AM FIRE PROTECTION INSPECTOR EXTRA LIGHT GREEN TUBE Routine 03/08/2024 2:40 AM FIRE PROTECTION INSPECTOR EXTRA LIGHT GREEN TOP ON ICE TUBE Routine 03/08/2024 2:40 AM FIRE PROTECTION INSPECTOR COMPLETE BLOOD COUNT-W/DIFF STAT Add-On 03/08/2024 2:40 AM FIRE PROTECTION INSPECTOR LIVER PANEL(HEPATIC FUNCTION PANEL) STAT Add-On 03/08/2024 2:40 AM FIRE PROTECTION INSPECTOR BASIC METABOLIC PANEL STAT Add-On 03/08/2024 2:40 AM FIRE PROTECTION INSPECTOR LIPASE STAT Add-On 03/08/2024 2:40 AM FIRE PROTECTION INSPECTOR documented in this encounter Results * FL Retrograde Pyelogram (03/08/2024 11:31 AM FIRE PROTECTION INSPECTOR) Anatomical Region Laterality Modality Abdomen, Pelvis Radio Fluoroscop y Narrative 03/08/2024 12:18 PM FIRE PROTECTION INSPECTOR This is an imaging order that has been read externally. Musa Mojica MD RAD FL * Calculi Stone Analysis (03/08/2024 11:28 AM FIRE PROTECTION INSPECTOR) Calculi Composition See Note 03/11/2024 9:35 AM FIRE PROTECTION INSPECTOR [facility] Comment: Calculi composed primarily of: 70% calcium [...] composition determined by FTIR analysis. Performed By: [facility] [address] [place] [address] Growth Media Mixer Mushroom: Art Chiu MD, PhD CLIA Number: [id number] Calculi Description See Note 03/11/2024 9:35 AM FIRE PROTECTION INSPECTOR [facility] Comment: Specimen consists of one brown and negrete calculus. The total weight is 14 mg. Calculi Mass 14 mg 03/11/2024 9:35 AM FIRE PROTECTION INSPECTOR [facility] Stone (Calculus) KIDNEY STONE / Unknown 03/08/2024 11:28 AM FIRE PROTECTION INSPECTOR 03/08/2024 11:44 AM FIRE PROTECTION INSPECTOR Musa Mojica MD LAB_1 [facility] [address] [place], [place] [address] [place] [address] * (ABNORMAL) UA Conditional UC: Clean Catch (03/08/2024 4:40 AM FIRE PROTECTION INSPECTOR) Urine Culture Comment 03/08/2024 5:00 AM FIRE PROTECTION INSPECTOR [facility] Urine Color Colorless 03/08/2024 5:00 AM FIRE PROTECTION INSPECTOR [facility] Urine Clarity Clear Clear 03/08/2024 5:00 AM FIRE PROTECTION INSPECTOR [facility] Specific [place], Urine 1.020 <1.030 03/08/2024 5:00 AM FIRE PROTECTION INSPECTOR [facility] PH Urine 6.0 5.0 - 8.0 03/08/2024 5:00 AM FIRE PROTECTION INSPECTOR [facility] Protein, Urine Qual (mg/dL) Negative Negative, 10 , 20 03/08/2024 5:00 AM FIRE PROTECTION INSPECTOR [facility] Glucose Urine Qual (mg/dL) Normal (Negative) Normal (Negative), 30 , 50 03/08/2024 5:00 AM FIRE PROTECTION INSPECTOR [facility] Ketones, Urine (mg/dL) Negative Negative, Trace 03/08/2024 5:00 AM FIRE PROTECTION INSPECTOR [facility] Urobilinogen, Urine (EU/dL) Normal (Negative) Normal (Negative) 03/08/2024 5:00 AM FIRE PROTECTION INSPECTOR [facility] Bilirubin Urine (mg/dL) Negative Negative 03/08/2024 5:00 AM FIRE PROTECTION INSPECTOR [facility] Blood, Urine (mg/dL) 0.50 (Moderate)(A) Negative, 0.03 (Trace) 03/08/2024 5:00 AM FIRE PROTECTION INSPECTOR [facility] Nitrite Urine Negative Negative 03/08/2024 5:00 AM FIRE PROTECTION INSPECTOR [facility] Leukocyte Esterase, Urine (Gracie/uL) Negative Negative, 25 (Trace) 03/08/2024 5:00 AM FIRE PROTECTION INSPECTOR [facility] Red Blood Cells 18(H) 0 - 3 /HPF 03/08/2024 5:00 AM FIRE PROTECTION INSPECTOR [facility] White Blood Cells 1 0 - 5 /HPF 03/08/2024 5:00 AM FIRE PROTECTION INSPECTOR [facility] Squamous Epithelial Cells Occasional None Seen, Occasional, Few /HPF 03/08/2024 5:00 AM FIRE PROTECTION INSPECTOR [facility] Mucus Present(A) None Seen /HPF 03/08/2024 5:00 AM FIRE PROTECTION INSPECTOR [facility] Source Clean Catch 03/08/2024 5:00 AM FIRE PROTECTION INSPECTOR [facility] Urine URINE SPECIMEN COLLECTION, CLEAN CATCH / Unknown Non-blood Collection / Unknown 03/08/2024 4:40 AM FIRE PROTECTION INSPECTOR 03/08/2024 4:47 AM FIRE PROTECTION INSPECTOR Narrative [facility] - 03/08/2024 5:00 AM FIRE PROTECTION INSPECTOR The qualitative interpretive guidance provided (e.g., small, moderate, large) is intended to aid in quantitative result interpretation. It is not itself an FDA-cleared test result. Jonathan Deluna MD [facility] [address] [place] [address], [facility] * CT Abd Pelvis W IV Cont Only (03/08/2024 4:04 AM FIRE PROTECTION INSPECTOR) Anatomical Region Laterality Modality Abdomen, Pelvis Computed Tomogra phy 03/08/2024 4:04 AM FIRE PROTECTION INSPECTOR Narrative 03/08/2024 4:38 AM FIRE PROTECTION INSPECTOR EXAM: CT ABDOMEN AND PELVIS WITH IV CONTRAST ONLY LOCATION: [facility] DATE: 03/08/2024 INDICATION: Right-sided pain, [...] AND PELVIS WITH IV CONTRAST ONLY LOCATION: [facility] DATE: 03/08/2024 INDICATION: Right-sided pain, [...] stable. Jonathan Deluna MD RAD CT * (ABNORMAL) Liver Panel (Hepatic Function Panel) (03/08/2024 2:40 AM FIRE PROTECTION INSPECTOR) Alkaline Phosphatase 46 40 - 150 U/L 03/08/2024 3:41 AM FIRE PROTECTION INSPECTOR [facility] Bilirubin, Total 0.6 0.2 - 1.2 mg/dL 03/08/2024 3:41 AM FIRE PROTECTION INSPECTOR [facility] Bilirubin, Direct 0.2 0.0 - 0.5 mg/dL 03/08/2024 3:41 AM FIRE PROTECTION INSPECTOR [facility] AST (SGOT) 33 10 - 40 U/L 03/08/2024 3:41 AM FIRE PROTECTION INSPECTOR [facility] ALT (SGPT) 36 <=55 U/L 03/08/2024 3:41 AM FIRE PROTECTION INSPECTOR [facility] Protein, Total 6.0(L) 6.4 - 8.3 g/dL 03/08/2024 3:41 AM FIRE PROTECTION INSPECTOR [facility] Albumin 3.9 3.5 - 5.0 g/dL 03/08/2024 3:41 AM FIRE PROTECTION INSPECTOR [facility] Blood Venipuncture / Unknown 03/08/2024 2:40 AM FIRE PROTECTION INSPECTOR 03/08/2024 2:44 AM FIRE PROTECTION INSPECTOR Jonathan Deluna MD LAB_1 Performing Organization Address [facility] de Phone Number [facility] [address] [place] [address] * Lipase (03/08/2024 2:40 AM FIRE PROTECTION INSPECTOR) [facility] Lipase 20 8 - 78 U/L 03/08/2024 3:41 AM FIRE PROTECTION INSPECTOR [facility] Blood Venipuncture / Unknown 03/08/2024 2:40 AM FIRE PROTECTION INSPECTOR 03/08/2024 2:44 AM FIRE PROTECTION INSPECTOR Jonathan Deluna MD LAB_1 Performing Organization Address [facility] de Phone Number [facility] [address] [place] [address] * (ABNORMAL) Complete Blood Count-W/Diff (03/08/2024 2:40 AM FIRE PROTECTION INSPECTOR) [facility] WBC 8.6 3.5 - 10.5 x10(9)/L 03/08/2024 3:00 AM FIRE PROTECTION INSPECTOR [facility] RBC 4.57 4.32 - 5.72 x10(12)/L 03/08/2024 3:00 AM [facility] Hemoglobin 14.6 13.5 - 17.5 g/dL 03/08/2024 3:00 AM [facility] HCT 41.9 38.8 - 50.0 % 03/08/2024 3:00 AM [facility] MCV 91.7 80.0 - 100.0 fL 03/08/2024 3:00 AM [facility] MCH 31.9 27.6 - 33.3 pg 03/08/2024 3:00 AM [facility] MCHC 34.8 31.5 - 35.2 g/dL 03/08/2024 3:00 AM [facility] RDW 12.4 11.9 - 15.5 % 03/08/2024 3:00 AM [facility] Platelets 191 150 - 450 x10(9)/L 03/08/2024 3:00 AM [facility] Automated NRBC 0 <=0 /100 WBC 03/08/2024 3:00 AM [facility] Neutrophil Absolute 6.9 1.7 - 7.0 10(9)/L 03/08/2024 3:00 AM [facility] Lymphocyte Absolute 0.9(L) 1.0 - 4.8 10(9)/L 03/08/2024 3:00 AM [facility] Monocyte Absolute 0.7 0.2 - 0.9 10(9)/L 03/08/2024 3:00 AM [facility] Eosinophil Absolute 0.1 0.0 - 0.5 10(9)/L 03/08/2024 3:00 AM [facility] Basophil Absolute 0.0 0.0 - 0.3 10(9)/L 03/08/2024 3:00 AM [facility] Immature Granulocyte % 0.4 0.0 - 0.5 % 03/08/2024 3:00 AM [facility] Blood Venipuncture / Unknown 03/08/2024 2:40 AM FIRE PROTECTION INSPECTOR 03/08/2024 2:44 AM FIRE PROTECTION INSPECTOR Rk Ndiaye MD [facility] [address] * Lactate Reflex Panel (03/08/2024 2:40 AM FIRE PROTECTION INSPECTOR) [facility] Lactate, Whole Blood 0.60 0.50 - 2.00 mmol/L 03/08/2024 2:59 AM FIRE PROTECTION INSPECTOR [facility] Blood Venipuncture / Unknown 03/08/2024 2:40 AM FIRE PROTECTION INSPECTOR 03/08/2024 2:44 AM FIRE PROTECTION INSPECTOR Narrative [facility] - 03/08/2024 2:59 AM FIRE PROTECTION INSPECTOR Reference range for healthy individuals when sepsis is not suspected is 0.5-2.2 mmol/L Rk Ndiaye MD [facility] [address] * (ABNORMAL) Basic Metabolic Panel (03/08/2024 2:40 AM FIRE PROTECTION INSPECTOR) [facility] Sodium 142 136 - 145 mmol/L 03/08/2024 3:12 AM FIRE PROTECTION INSPECTOR [facility] Potassium 3.4(L) 3.5 - 5.1 mmol/L 03/08/2024 3:12 AM FIRE PROTECTION INSPECTOR [facility] Chloride 111(H) 98 - 109 mmol/L 03/08/2024 3:12 AM FIRE PROTECTION INSPECTOR [facility] CO2 23 20 - 29 mmol/L 03/08/2024 3:12 AM FIRE PROTECTION INSPECTOR [facility] Anion Gap 8 6 - 16 mmol/L 03/08/2024 3:12 AM FIRE PROTECTION INSPECTOR [facility] Calcium 9.4 8.4 - 10.4 mg/dL 03/08/2024 3:12 AM FIRE PROTECTION INSPECTOR [facility] BUN 14 7 - 26 mg/dL 03/08/2024 3:12 AM FIRE PROTECTION INSPECTOR [facility] Creatinine 1.18 0.73 - 1.18 mg/dL 03/08/2024 3:12 AM FIRE PROTECTION INSPECTOR [facility] Glucose 104(H) 70 - 100 mg/dL 03/08/2024 3:12 AM FIRE PROTECTION INSPECTOR [facility] Comment:The given reference range is for the fasting state. Non-fasting reference range for glucose is 70 - 180 mg/dL. GFR, Estimated >60 >60 mL/min/1.7 3m2 03/08/2024 3:12 AM FIRE PROTECTION INSPECTOR [facility] Blood Venipuncture / Unknown 03/08/2024 2:40 AM FIRE PROTECTION INSPECTOR 03/08/2024 2:44 AM FIRE PROTECTION INSPECTOR Rk Ndiaye MD LAB_1 Performing Organization Address [facility] Phone Number [facility] [address] * Extra Blue top tube (03/08/2024 2:40 AM FIRE PROTECTION INSPECTOR) Extra Blue Top Drawn Specimen will be held for 24 hours 03/08/2024 4:00 AM FIRE PROTECTION INSPECTOR [facility] Blood Venipuncture / Unknown 03/08/2024 2:40 AM FIRE PROTECTION INSPECTOR 03/08/2024 2:44 AM FIRE PROTECTION INSPECTOR Jonathan Deluna MD [facility]_1 Performing Organization Address [facility] Phone Number [facility] [address] * Extra Light Green On Ice Tube (03/08/2024 2:40 AM FIRE PROTECTION INSPECTOR) Extra Light Green On Ice Tube Drawn Specimen will be held for 5 days 03/08/2024 4:00 AM FIRE PROTECTION INSPECTOR [facility] Blood Venipuncture / Unknown 03/08/2024 2:40 AM FIRE PROTECTION INSPECTOR 03/08/2024 2:44 AM FIRE PROTECTION INSPECTOR Jonathan Deluna MD [facility]1 Performing Organization Address [facility] Phone Number [facility] [address] * Extra Light Green Tube (03/08/2024 2:40 AM FIRE PROTECTION INSPECTOR) Extra Light Green Tube Drawn Specimen will be held for 5 days 03/08/2024 4:00 AM FIRE PROTECTION INSPECTOR [facility] Blood Venipuncture / Unknown 03/08/2024 2:40 AM FIRE PROTECTION INSPECTOR 03/08/2024 2:44 AM FIRE PROTECTION INSPECTOR Jonathan Deluna MD [facility]_1 Performing Organization Address City/[facility]/ZIP Co de Phone Number [facility] [address] * Extra Lavender top tube (03/08/2024 2:40 AM FIRE PROTECTION INSPECTOR) Extra Lavender Top Drawn Specimen will be held for 3 days 03/08/2024 4:00 AM FIRE PROTECTION INSPECTOR [facility] Blood Venipuncture / Unknown 03/08/2024 2:40 AM FIRE PROTECTION INSPECTOR 03/08/2024 2:44 AM FIRE PROTECTION INSPECTOR Jonathan Deluna MD [facility]_1 Performing Organization Address [facility] Co de Phone Number [facility] [address] documented in this encounter Visit Diagnoses Diagnosis Right ureteral calculus- Primary Calculus of ureter Ureterolithiasis Calculus of ureter Hydroureteronephrosis Hydronephrosis Hydronephrosis of right kidney Hydronephrosis Right ureteral calculus Calculus of ureter Hydronephrosis of right kidney Hydronephrosis Ureterolithiasis Calculus of ureter * Plan of Care - Bhavin Lindsey RN - 03/08/2024 4:41 PM CST DISCHARGE O: Patient safely discharged to home. D: Patient is alert and oriented x 4. Pt up independently . Discharge criteria met. Vaccines addressed prior to discharge. A: Discharge instructions and medications reviewed and given to patient and family. Written medication education material provided on Tramadol, Keflex, Ureterlithiasis, Ureteral Calculus including possible side effects. Prescriptions filled by [facility] pharmacy. Belongings checklist reviewed with patien t and family and belongings sent. Equipment sent: None . Supplies sent None. Care plan issues addressed and education record updated. R: Patient and family verbalizes understanding and teaches back discharge instructions. Patient discharged by: ambulation with family. PROTECTION INSPECTOR * Plan of Care - Bhavin Franklin - 03/08/2024 7:25 AM CST [facility] Medication History Note 1. Source(s) of Medication Information: Patient, Patient's family member, Araceli/Dr. Hillman 2. Pertinent Information: Recent prior to admission medication changes: Medications added: Bupropion 300 mg tablets Medications deleted: - Medications changed: Doxycycline (Changed frequency from BID to DAILY), Lamisil (Marked Not Taking) Compliance considerations: Patient stated that they were taking doxycycline DAILY instead of BID, but documentation and fill history suggests that they should be taking it BID. 3. Outpatient Medications Marked as Taking: Outpatient Medications Marked as Taking for the 03/08/24 encounter (Hospital Encounter) Medication Sig Last Dose acetaminophen (TYLENOL) 325 MG tablet Take 2 Tablets by mouth every 4 hours as needed for Pain. As Directed-PRN acyclovir (ZOVIRAX) 400 MG tablet Take 1 Tablet by mouth two times a day. 03/07/2024 at am ALBUterol sulfate HFA 108 (90 Base) MCG/ACT inhaler Inhale 2 Puffs every 4 hours as needed for Wheezing or Shortness of Breath. As Directed-PRN buPROPion (WELLBUTRIN XL) 300 MG 24 hour release tablet Take 1 Tablet (300 mg) by mouth daily. 03/07/2024 at am CONCERTA 18 MG controlled release tablet TAKE ONE TABLET BY MOUTH ONE TIME DAILY 03/07/2024 at am doxycycline (VIBRAMYCIN) 50 MG capsule Take 1 Capsule by mouth two times a day. Take with food please (Patient taking differently: Take 1 Capsule (50 mg) by mouth daily. Take with food please) 03/07/2024 at am ibuprofen (MOTRIN) 200 MG tablet Take 3 Tablets by mouth every 6 hours as needed for Pain. As Directed-PRN methylphenidate (RITALIN) 10 MG tablet TAKE ONE TABLET BY MOUTH ONE TIME DAILY 03/06/2024 at 1400 Thank you. This list represents the best possible medication history available at the time of note completion and should be used as a guide in reconciling home medications for hospital use. ? PROTECTION INSPECTOR * Plan of Care - Bhavin Lindsey RN - 03/08/2024 7:10 AM CST ADMIT O: Admitted patient via cart from EC to bed # OR Room Pool/OR Rm Pool. D: Patient is alert and oriented x 4; family present. See Admission Assessments. A: Discussed plan of care. See education record for admission education. Oriented to room. Call light in reach. Bed alarm: off R: Patient status: Calm and cooperative. Complains of right flank pain and nausea. PRN dilaudid andzofran given with effect. NPO for urology consult and possible procedure. Mother attentive at bedside. Will monitor. PROTECTION INSPECTOR * Triage Assessment Note - Shirin Hall RN - 03/08/2024 2:00 AM FIRE PROTECTION INSPECTOR Patient presents to the [facility] for abdominal pain, nausea, and constipation since noon today. Patient is alert and oriented x4, breathing is even and unlabored, ambulates with a steady gait. PROTECTION INSPECTOR documented in this encounter Admitting Diagnoses Diagnosis Ureterolithiasis Calculus of ureter documented in this encounter Administered Medications Inactive Administered Medications - up to 3 most recent administrations Medication Order MAR Action Action Date Dose Rate Site acetaminophen (TYLENOL) tablet 650 mg 650 mg, Oral, Q6H PRN, Other, Mild Pain (pain score 1-4), Starting on 03/08/24 at 1217, Until 03/08/24 at 1850, Give for mild pain or if patient prefers acetaminophen over other options for pain (all pain scores)., Post-op Given 03/08/2024 3:51 PM FIRE PROTECTION INSPECTOR 650 mg bisacodyl (DULCOLAX) rectal suppository 10 mg 10 mg, Rectal, DAILY PRN, Constipation, No stool in the last 3 days, Starting on 03/08/24 at 0705, Until 03/08/24 at 1850, Cumulative bowel medication orders. Administer based on medications available on JUN. If no stool in last day start Senna BID PRN no stool, if no stool in last 2 days add Miralax DAILY PRN no stool, if no stool in last 3 days add bisacodyl suppository DAILY PRN until patient stools. When patient stools, stop giving PRN meds and continue monitoring for bowel activity. When no stools X 1 day, begin regimen again until patient stools. Do not give if Absolute Neutrophil Count (ANC) is 1 k/cmm or less OR platelet count is 50 k/cmm or less. fentaNYL (SUBLIMAZE) injection 25-50 mcg 25-50 mcg, Intravenous, [id number], Pain, Procedure, Starting on 03/08/24 at 0915, Until 03/08/24 at 1216, For 2 doses, As directed by anesthesiologist, Pre-op Given 03/08/2024 9:49 AM FIRE PROTECTION INSPECTOR 50 mcg HYDROmorphone (DILAUDID) injection 0.2-0.4 mg 0.2-0.4 mg, Intravenous, Q2H PRN, Other, Moderate Pain (pain score 5-7) or Severe Pain (pain score 8-10), Starting on 03/08/24 at 0705, Until 03/08/24 at 1228, For moderate or severe pain not controlled by oral opioids or if patient is unable to take PO. Do NOT administer at the same time as PO opioids. May administer 2 hours after PO opioid administration if needed. Do not give if RR less than 8. Given 03/08/2024 7:54 AM FIRE PROTECTION INSPECTOR 0.4 mg HYDROmorphone (DILAUDID) injection 0.5-1 mg 0.5-1 mg, Intravenous, PRN, Pain, Starting on 03/08/24 at 0319, Until 03/08/24 at 0618, For 3 hours Given 03/08/2024 5:46 AM FIRE PROTECTION INSPECTOR 0.5 mg Given 03/08/2024 3:35 AM FIRE PROTECTION INSPECTOR 1 mg iohexol (OMNIPAQUE 350) 350 MG/ML injection 75 mL 75 mL, Intravenous, ONCE, On 03/08/24 at 0430, For 1 dose, Radiology Given 03/08/2024 4:05 AM FIRE PROTECTION INSPECTOR 75 mL lactated ringers infusion 25 mL/hr, Intravenous, CONTINUOUS, Starting on 03/08/24 at 0945, Administer on all preop surgery patients, ages 12 and older, unless specified differently in the Protocol for Preop Initiation of IV fluids Order Set., Pre-op Restarted 03/08/2024 10:35 AM FIRE PROTECTION INSPECTOR Started 03/08/2024 9:30 AM FIRE PROTECTION INSPECTOR 25 mL/hr 25 mL/hr ondansetron (ZOFRAN) injection 4 mg 4 mg, Intravenous, ONCE, On 03/08/24 at 0400, For 1 dose, For nausea or vomiting Given 03/08/2024 3:42 AM FIRE PROTECTION INSPECTOR 4 m g ondansetron (ZOFRAN-ODT) disintegrating tablet 4 mg 4 mg, Oral, Q6H PRN, Nausea, Vomiting, Starting on 03/08/24 at 0705, Until 03/08/24 at 1850, Give 1st line medications, then 2nd line, then 3rd line. Progress to next line if medication is ineffective after 15 minutes, or has been previously ineffective, or if a medication for a line is not ordered. May use medication from any line if patient preference indicates. If 3rd line agent is ineffective, call Practitioner. If unable to give IV medications contact Practitioner. Aromatherapy may be used at any time as adjunct therapy. 1st Line - ondansetron (give ondansetron ODT (oral) if able to take oral, otherwise give IV) 2nd Line -prochlorperazine 3rd Line - metoclopramide Given 03/08/2024 7:53 AM FIRE PROTECTION INSPECTOR 4 mg oxyCODONE (ROXICODONE) immediate release tablet 5-10 mg 5-10 mg, Oral, Q4H PRN, Other, Moderate Pain (pain score 5-7), Severe Pain (pain score 8-10), Starting on 03/08/24 at 1217, Until 03/08/24 at 1850, Do not give both IV and ORAL opioids for pain. Give oral if patient is able to take oral medications., Post-op Given 03/08/2024 12:49 PM FIRE PROTECTION INSPECTOR 5 mg polyethylene glycol (MIRALAX) oral powder 17 g 17 g, Oral, DAILY PRN, Constipation, No stool in the last 2 days, Starting on 03/08/24 at 0705, Until 03/08/24 at 1850, Cumulative bowel medication orders. Administer based on medications available on JUN. If no stool in last day start Senna BID PRN no stool, if no stool in last 2 days add Miralax DAILY PRN no stool, if no stool in last 3 days add bisacodyl suppository DAILY PRN until patient stools. When patient stools, stop giving PRN meds and continue monitoring for bowel activity. When no stools X 1 day, begin regimen again until patient stools. potassium bicarbonate-citric acid (EFFER-K) effervescent tablet 40 mEq 40 mEq, Oral, ONCE, On 03/08/24 at 1600, For 1 dose, Dissolve tablets completely in 3 to 4 ounces of cold/ice water or juice. May further dilute if GI adverse effects occur. May take 3-4 minutes to completely dissolve. Given 03/08/2024 3:46 PM FIRE PROTECTION INSPECTOR 40 mEq senna (SENOKOT) tablet 2 Tablet 2 Tablet, Oral, BID PRN, Constipation, No stool in the last day, Starting on 03/08/24 at 0705, Until 03/08/24 at 1850, Cumulative bowel medication orders. Administer based on medications available on JUN. If no stool in last day start Senna BID PRN no stool, if no stool in last 2 days add Miralax DAILY PRN no stool, if no stool in last 3 days add bisacodyl suppository DAILY PRN until patient stools. When patient stools, stop giving PRN meds and continue monitoring for bowel activity. When no stools X 1 day, begin regimen again until patient stools. sodium chloride 0.9% injection 10 mL 10 mL, Intravenous, ONCE, On 03/08/24 at 0430, For 1 dose, Radiology Given 03/08/2024 4:04 AM FIRE PROTECTION INSPECTOR 10 mL tamsulosin (FLOMAX) capsule 0.4 mg 0.4 mg, Oral, QDAY PC, First dose on 03/08/24 at 0900, Until Discontinued, Swallow whole. Do not chew, crush, or dissolve the granules inside of the capsule. Given 03/08/2024 7:53 AM FIRE PROTECTION INSPECTOR 0.4 mg documented in this encounter Active and Recently Administered Medications Times are shown in FIRE PROTECTION INSPECTOR. Scheduled Medication Order 03/06/2024 03/07/2024 03/08/2024 ceFAZolin (ANCEF) 2 g in dextrose 100 mL premade IVPB (COMPLETED) 2 g, Intravenous, Administer over 30 Minutes, ONCE, On 03/08/24 at 0900, For 1 dose, Infuse within 60 minutes prior to incision. Re-dose 1g IV every 4 hours after initial dose until incision closed. Re-dose if more than 1.5 L of blood loss. Pharmacy may adjust for renal insufficiency., Pre-op 1044 (Given - Provid er: Gregoria Marvin APRN, CHRISTOPHER) iohexol (OMNIPAQUE 350) 350 MG/ML injection 75 mL (COMPLETED) 75 mL, Intravenous, ONCE, On 03/08/24 at 0430, For 1 dose, Radiology 0405 (Given - Provid er: Sonia Cat) methylphenidate (CONCERTA) extended release tablet 18 mg 18 mg, Oral, DAILY, First dose on 03/08/24 at 0900, Until Discontinued, Tablet/Capsule should be swallowed whole. 0900 (Not Given - Pr ovider: Bhavin Lindsey RN - Reason: Patient not available)0911 (MAR Hold - Provider: Automatichold - Reason: Other (Enter Reason in Comment Area))1216 (MAR Unhold - Provider: Automatichold) methylphenidate (RITALIN) tablet 10 mg 10 mg, Oral, Q24H (NON-STND), First dose on 03/08/24 at 1400, Until Discontinued 0911 (MAR Hold - Pro vider: Automatichold - Reason: Other (Enter Reason in Comment Area))1216 (MAR Unhold - Provider: Automatichold)1403 (Not Given - Provider: Bhavin Lindsey RN - Reason: Patient/family refused - Comment: Pt states he only uses it when he needs to focus on things. Does not need at the moment.) ondansetron (ZOFRAN) injection 4 mg (COMPLETED) 4 mg, Intravenous, ONCE, On 03/08/24 at 0400, For 1 dose, For nausea or vomiting 0342 (Given - Provid er: Bart Pedraza RN) potassium bicarbonate-citric acid (EFFER-K) effervescent tablet 40 mEq (COMPLETED) 40 mEq, Oral, ONCE, On 03/08/24 at 1600, For 1 dose, Dissolve tablets completely in 3 to 4 ounces of cold/ice water or juice. May further dilute if GI adverse effects occur. May take 3-4 minutes to completely dissolve. 1546 (Given - Provid er: Bhavin Lindsey RN) sodium chloride 0.9% injection 10 mL (COMPLETED) 10 mL, Intravenous, ONCE, On 03/08/24 at 0430, For 1 dose, Radiology 0404 (Given - Provid er: Sonia Cat) tamsulosin (FLOMAX) capsule 0.4 mg 0.4 mg, Oral, QDAY PC, First dose on 03/08/24 at 0900, Until Discontinued, Swallow whole. Do not chew, crush, or dissolve the granules inside of the capsule. 0753 (Given - Provid er: Bhavin Lindsey RN)0808 (Noted - Provider: Bhavin Lindsey RN)0911 (MAR Hold - Provider: Automatichold - Reason: Other (Enter Reason in Comment Area))1216 (MAR Unhold - Provider: Automatichold) Continuous Medication Order 03/06/2024 03/07/2024 03/08/2024 lactated ringers infusion (CANCELED) 25 mL/hr, Intravenous, CONTINUOUS, Starting on 03/08/24 at 0945, Administer on all preop surgery patients, ages 12 and older, unless specified differently in the Protocol for Preop Initiation of IV fluids Order Set., Pre-op 0930 (Started - Prov ider: Tasneem Hill RN)1034 (Stopped - Provider: Gregoria Marvin APRN, CRNA - Comment: Switch to gravity)1035 (Restarted - Provider: Gregoria Marvin APRN, CRNA)1143 (Anesthesia Fluid - Provider: Gregoria Marvin APRN, CRNA) PRN Medication Order 03/06/2024 03/07/2024 03/08/2024 acetaminophen (TYLENOL) tablet 650 mg 650 mg, Oral, Q6H PRN, Other, Mild Pain (pain score 1-4), Starting on 03/08/24 at 1217, Until 03/08/24 at 1850, Give for mild pain or if patient prefers acetaminophen over other options for pain (all pain scores)., Post-op 1551 (Given - Provid er: Bhavin Lindsey RN) ALBUterol sulfate HFA inhaler 2 Puff 2 Puff, Inhalation, Q4H PRN, Shortness of Breath, Bronchospasm, Starting on 03/08/24 at 0705, Until 03/08/24 at 1850, Shake well benzocaine-menthol (Chloraseptic) lozenge 1 Lozenge 1 Lozenge, Oral, Q2H PRN, Throat Pain, Starting on 03/08/24 at 0705, Until 03/08/24 at 1850 0911 ([facility] Hold - Pro vider: Automatichold - Reason: Other (Enter Reason in Comment Area))1216 ([facility] Unhold - Provider: Automatichold) bisacodyl (DULCOLAX) rectal suppository 10 mg(Linked Group 1) 10 mg, Rectal, DAILY PRN, Constipation, No stool in the last 3 days, Starting on 03/08/24 at 0705, Until 03/08/24 at 1850, Cumulative bowel medication orders. Administer based on medications available on JUN. If no stool in last day start Senna BID PRN no stool, if no stool in last 2 days add Miralax DAILY PRN no stool, if no stool in last 3 days add bisacodyl suppository DAILY PRN until patient stools. When patient stools, stop giving PRN meds and continue monitoring for bowel activity. When no stools X 1 day, begin regimen again until patient stools. Do not give if Absolute Neutrophil Count (ANC) is 1 k/cmm or less OR platelet count is 50 k/cmm or less. 0911 ([facility] Hold - Pro vider: Automatichold - Reason: Other (Enter Reason in Comment Area))1216 ([facility] Unhold - Provider: Automatichold) calcium carbonate (TUMS) chewable tablet 500 mg 500 mg, Oral, Q4H PRN, Heartburn, Upset Stomach, Starting on 03/08/24 at 0705, Until 03/08/24 at 1850, Each tablet provides 200 mg elemental calcium 0911 ([facility] Hold - Pro vider: Automatichold - Reason: Other (Enter Reason in Comment Area))1216 ([facility] Unhold - Provider: Automatichold) fentaNYL (SUBLIMAZE) injection 25-50 mcg (CANCELED) 25-50 mcg, Intravenous, [id number], Pain, Procedure, Starting on 03/08/24 at 0915, Until 03/08/24 at 1216, For 2 doses, As directed by anesthesiologist, Pre-op 0949 (Given - Provid er: Tasneem Hill RN) guaiFENesin (ROBITUSSIN) oral liquid 10 mL 10 mL, Oral, Q4H PRN, Cough, Starting on 03/08/24 at 0705, Until 03/08/24 at 1850 0911 ([facility] Hold - Pro vider: Automatichold - Reason: Other (Enter Reason in Comment Area))1216 ([facility] Unhold - Provider: Automatichold) HYDROmorphone (DILAUDID) injection 0.2-0.4 mg (CANCELED) 0.2-0.4 mg, Intravenous, Q2H PRN, Other, Moderate Pain (pain score 5-7) or Severe Pain (pain score 8-10), Starting on 03/08/24 at 0705, Until 03/08/24 at 1228, For moderate or severe pain not controlled by oral opioids or if patient is unable to take PO. Do NOT administer at the same time as PO opioids. May administer 2 hours after PO opioid administration if needed. Do not give if RR less than 8. 0754 (Given - Provid er: Bhavin Lindsey RN)0911 ([facility] Hold - Provider: Automatichold - Reason: Other (Enter Reason in Comment Area))1216 ([facility] Unhold - Provider: Automatichold) HYDROmorphone (DILAUDID) injection 0.3-0.5 mg 0.3-0.5 mg, Intravenous, Q3H PRN, Other, Severe Pain (pain score 8-10) if patient unable to take PO, Starting on 03/08/24 at 1217, Until 03/08/24 at 1850, Severe Pain (pain score 8-10) if patient unable to take PO. Hold if on ADMINISTRATIVE TECHNICIAN, Post-op HYDROmorphone (DILAUDID) injection 0.5-1 mg () 0.5-1 mg, Intravenous, PRN, Pain, Starting on 03/08/24 at 0319, Until 03/08/24 at 0618, For 3 hours 0335 (Given - Provid er: Bart Pedraza RN)0546 (Given - Provider: Bart Pedraza RN) iohexol (OMNIPAQUE 300) 300 MG/ML injection (CANCELED) ONCE PRN, Starting on 03/08/24 at 1126, Until 03/08/24 at 1216, Intra-op 1126 (Given - Provid er: Musa Mojica MD) lidocaine (UROJET) 2 % gel prefilled syringe (CANCELED) ONCE PRN, Starting on 03/08/24 at 1129, Intra-op 1129 (Given - Provid er: Musa Mojica MD) melatonin tablet 3 mg 3 mg, Oral, HS PRN, Other, Mild insomnia, Starting on 03/08/24 at 0705, Until 03/08/24 at 1850 0911 (MAR Hold - Pro vider: Automatichold - Reason: Other (Enter Reason in Comment Area))1216 (MAR Unhold - Provider: Automatichold) nystatin (MYCOSTATIN) [id number] UNIT/GM topical powder Topical, BID PRN, Other, for rash due to yeast, Starting on 03/08/24 at 0705, Apply topically to affected area. Hazardous waste disposal required. 0911 (MAR Hold - Pro vider: Automatichold - Reason: Other (Enter Reason in Comment Area))1216 ([facility] Unhold - Provider: Automatichold) ondansetron (ZOFRAN) injection 4 mg 4 mg, Intravenous, Q6H PRN, Nausea, Vomiting, Starting on 03/08/24 at 0705, Until 03/08/24 at 1850, Give 1st line medications, then 2nd line, then 3rd line. Progress to next line if medication is ineffective after 15 minutes, or has been previously ineffective, or if a medication for a line is not ordered. May use medication from any line if patient preference indicates. If 3rd line agent is ineffective, call Practitioner. If unable to give IV medications contact Practitioner. Aromatherapy may be used at any time as adjunct therapy. 1st Line - ondansetron (give ondansetron ODT (oral) if able to take oral, otherwise give IV) 2nd Line -prochlorperazine 3rd Line - metoclopramide ondansetron (ZOFRAN-ODT) disintegrating tablet 4 mg 4 mg, Oral, Q6H PRN, Nausea, Vomiting, Starting on 03/08/24 at 0705, Until 03/08/24 at 1850, Give 1st line medications, then 2nd line, then 3rd line. Progress to next line if medication is ineffective after 15 minutes, or has been previously ineffective, or if a medication for a line is not ordered. May use medication from any line if patient preference indicates. If 3rd line agent is ineffective, call Practitioner. If unable to give IV medications contact Practitioner. Aromatherapy may be used at any time as adjunct therapy. 1st Line - ondansetron (give ondansetron ODT (oral) if able to take oral, otherwise give IV) 2nd Line -prochlorperazine 3rd Line - metoclopramide 0753 (Given - Provid er: Bhavin Lindsey RN) oxyCODONE (ROXICODONE) immediate release tablet 5-10 mg 5-10 mg, Oral, Q4H PRN, Other, Moderate Pain (pain score 5-7), Severe Pain (pain score 8-10), Starting on 03/08/24 at 1217, Until 03/08/24 at 1850, Do not give both IV and ORAL opioids for pain. Give oral if patient is able to take oral medications., Post-op 1249 (Given - Provid er: Bhavin Lindsey RN) polyethyl-propylene glycol (SYSTANE) 0.4-0.3 % ophthalmic solution 1 Drop 1 Drop, Both Eyes, Q1H PRN, Dry Eyes, Itchy Eyes, Starting on 03/08/24 at 0705, Until 03/08/24 at 1850 0911 (JUN Hold - Pro vider: Automatichold - Reason: Other (Enter Reason in Comment Area))121 (MAR Unhold - Provider: Automatichold) polyethylene glycol (MIRALAX) oral powder 17 g(Linked Group 1) 17 g, Oral, DAILY PRN, Constipation, No stool in the last 2 days, Starting on 03/08/24 at 0705, Until 03/08/24 at 1850, Cumulative bowel medication orders. Administer based on medications available on JUN. If no stool in last day start Senna BID PRN no stool, if no stool in last 2 days add Miralax DAILY PRN no stool, if no stool in last 3 days add bisacodyl suppository DAILY PRN until patient stools. When patient stools, stop giving PRN meds and continue monitoring for bowel activity. When no stools X 1 day, begin regimen again until patient stools. 0911 (JUN Hold - Pro vider: Automatichold - Reason: Other (Enter Reason in Comment Area))1216 ([facility] Unhold - Provider: Automatichold) senna (SENOKOT) tablet 2 Tablet(Linked Group 1) 2 Tablet, Oral, BID PRN, Constipation, No stool in the last day, Starting on 03/08/24 at 0705, Until 03/08/24 at 1850, Cumulative bowel medication orders. Administer based on medications available on JUN. If no stool in last day start Senna BID PRN no stool, if no stool in last 2 days add Miralax DAILY PRN no stool, if no stool in last 3 days add bisacodyl suppository DAILY PRN until patient stools. When patient stools, stop giving PRN meds and continue monitoring for bowel activity. When no stools X 1 day, begin regimen again until patient stools. 0911 (JUN Hold - Pro vider: Automatichold - Reason: Other (Enter Reason in Comment Area))1216 ([facility] Unhold - Provider: Automatichold) sodium chloride (OCEAN) 0.65 % nasal solution 1 [place] 1 [place], Both Nostrils, Q2H PRN, Dry Nose, Starting on 03/08/24 at 0705, Until 03/08/24 at 1850 0911 (JUN Hold - Pro vider: Automatichold - Reason: Other (Enter Reason in Comment Area))1216 ([facility] Unhold - Provider: Automatichold) sterile water for irrigation (CANCELED) ONCE PRN, Starting on 03/08/24 at 1121, Intra-op 1121 (Given - Provid er: Musa Mojica MD) Linked Groups Order Group 1: senna (SENOKOT) tablet 2 TabletJump to med 2 Tablet, Oral, BID PRN, Constipation, No stool in the last day, Starting on 03/08/24 at 0705, Until 03/08/24 at 1850, Cumulative bowel medication orders. Administer based on medications available on JUN. If no stool in last day start Senna BID PRN no stool, if no stool in last 2 days add Miralax DAILY PRN no stool, if no stool in last 3 days add bisacodyl suppository DAILY PRN until patient stools. When patient stools, stop giving PRN meds and continue monitoring for bowel activity. When no stools X 1 day, begin regimen again until patient stools. And polyethylene glycol (MIRALAX) oral powder 17 gJump to med 17 g, Oral, DAILY PRN, Constipation, No stool in the last 2 days, Starting on 03/08/24 at 0705, Until 03/08/24 at 1850, Cumulative bowel medication orders. Administer based on medications available on JUN. If no stool in last day start Senna BID PRN no stool, if no stool in last 2 days add Miralax DAILY PRN no stool, if no stool in last 3 days add bisacodyl suppository DAILY PRN until patient stools. When patient stools, stop giving PRN meds and continue monitoring for bowel activity. When no stools X 1 day, begin regimen again until patient stools. And bisacodyl (DULCOLAX) rectal suppository 10 mgJump to med 10 mg, Rectal, DAILY PRN, Constipation, No stool in the last 3 days, Starting on 03/08/24 at 0705, Until 03/08/24 at 1850, Cumulative bowel medication orders. Administer based on medications available on JUN. If no stool in last day start Senna BID PRN no stool, if no stool in last 2 days add Miralax DAILY PRN no stool, if no stool in last 3 days add bisacodyl suppository DAILY PRN until patient stools. When patient stools, stop giving PRN meds and continue monitoring for bowel activity. When no stools X 1 day, begin regimen again until patient stools. Do not give if Absolute Neutrophil Count (ANC) is 1 k/cmm or less OR platelet count is 50 k/cmm or less. documented in this encounter Care Teams Adult Educator Relationship Specialty [place] [address] [place] [address] PCP - General Family Practice 07/10/18 documented as of this encounter
--- OUTSIDE RECORDS SUMMARY | 2024-04-15 22:15 | XMS_ITS | Encounter Summary ---
Author Organization [facility] Address [address] [place] [address] Care Team Providers Care Pet Resort Concierge Name Role Phone Yuri Chow MD Primary Care Provider [phone] Encounter Details Date Type Department Care Team (Latest Contact Info) Description 06/14/2016 Consent for Procedure/Treatm ent [facility] [address] [place] [address]. [place], [place] [id number] Naveen Jones MD CONSENT FOR SURGICAL PROCEDURE [...] st Contact Info) Description 05/14/2024 2:30 PM PAYMENT SPECIALIST Appointment Karen Woodard [address] [address] [address] [place] [phone] Musa Mojica MD [address] [place], [place] [address] 05/26/2024 11:00 AM PAYMENT SPECIALIST Appointment Karen Woodard [address] Urology [address] [place] [phone] Trang Rowell, TISSUE SPECIALIST, WINDROWER OPERATOR [address] [place] [address] 09/09/2024 2:30 PM CDT [facility] [address] Podiatric MedSurg [address] [place] [phone] Torsten Chin, DPM [address] [place] [address] documented as of this encounter Visit Diagnoses Not on filedocumented in this encounter Additional Health Concerns Infection Onset Date Last Indicated Resolved Time R/O COVID19 12/05/2019 12/05/2019 12/06/2019 3:50 PM CDT R/O COVID19 01/13/2021 01/13/2021 01/13/2021 9:53 PM CDT documented as of this encounter Care Teams Pet Resort Concierge Relationship Specialty [place] [address] [place] [address] PCP - General Family Practice 07/10/18 documented as of this encounter
--- OUTSIDE RECORDS SUMMARY | 2024-04-15 22:15 | XMS_ITS | Encounter Summary ---
Author Organization [facility] Address [address] [place] [address] Care Team Providers Care Cripple Worker Name Role Phone Yuri Chow MD Primary Care Provider Reason for Visit * Reason Comments EYE PAIN Encounter Details Date Type Department Care Team (Late st Contact Info) Description 12/23/2016 Nurse Triage Careline [address] [place] [address] [place] [address] [place], [place] [phone] EYE PAIN Social History Tobacco Use Types [...] nasal discharge, facial rash) Protocols used: EYE [id number] Patient/caller encouraged to call back to the Careline at # [phone] with any questions and advised to call back or seek immediate care for worsening symptoms. Patient/caller encouraged to follow up with PCP/Clinic as needed. Patient/caller verbalized understanding of recommendations and is agreeable with plan. Marielle Gomez RN * Marielle Gomez RN - 12/23/2016 9:12 AM CDT Call transferred from the [facility] center. Pt calling stating he has eye [...] st Contact Info) Description 05/14/2024 2:30 PM ENGINEERING TECHNICIAN PARKING Appointment [facility] [address] [address] [address] [place] [phone] Musa Mojica MD [address] [place], [place] [phone] 05/26/2024 11:00 AM ENGINEERING TECHNICIAN PARKING Appointment [facility] [place] [address] Urology [address] [place] [phone] Trang Rowell APRN, OFFICE CORRESPONDENT [address] [place], [place] [address] 09/09/2024 2:30 PM CDT Appointment [facility] [address] Podiatric MedSurg [address] [place] [phone] Torsten Chin, DPM [address] [place], [place] [address] documented as of this encounter Visit Diagnoses Not on filedocumented in this encounter Additional Health Concerns Infection Onset Date Last Indicated Resolved Time R/O COVID19 12/05/2019 12/05/2019 12/06/2019 3:50 PM CDT R/O COVID19 01/13/2021 01/13/2021 01/13/2021 9:53 PM CDT documented as of this encounter Care Teams Cripple Worker Relationship Specialty [place] [address] [place] [address] PCP - General Family Practice 07/10/18 documented as of this encounter
--- OUTSIDE RECORDS SUMMARY | 2024-04-15 22:15 | XMS_ITS | Encounter Summary ---
Author Organization [facility] Address [address] [place] [address] Care Team Providers Care Track Production Engineer Name Role Phone Yuri Chow MD Primary Care Provider [phone] Encounter Details Date Type Department Care Team (Latest Contact Info) Description 12/03/2015 Consent for Procedure/Treatm ent [facility] [address] [place] [address]. [place], [place] [phone] Naveen Jones MD CONSENT FOR SURGICAL LASER [...] st Contact Info) Description 05/14/2024 2:30 PM ROUGE SIFTER Appointment Karen Woodard [address] [address]trasound [address] [place] [phone] Musa Mojica MD [address] [place] [address] 05/26/2024 11:00 AM ROUGE SIFTER Appointment Karen Woodard [address] Urology [address] [place] [phone] Trang Rowell, HOSPITAL ADMINISTRATOR, SECURITY MONITOR [address] [place] [address] 09/09/2024 2:30 PM CDT Appointment Karen Woodard [address] Podiatric MedSurg [address] [place] [phone] Torsten Chin, DPM [address] [place] [address] documented as of this encounter Visit Diagnoses Not on filedocumented in this encounter Additional Health Concerns Infection Onset Date Last Indicated Resolved Time R/O COVID19 12/05/2019 12/05/2019 12/06/2019 3:50 PM CDT R/O COVID19 01/13/2021 01/13/2021 01/13/2021 9:53 PM CDT documented as of this encounter Care Teams Track Production Engineer Relationship Specialty [place] [address] [place] [address] PCP - General Family Practice 07/10/18 documented as of this encounter
--- OUTSIDE RECORDS SUMMARY | 2024-04-15 22:15 | XMS_ITS | Encounter Summary ---
Author Organization [facility] Address [address] [place] [address] Care Team Providers Care Bilingual Secretary Name Role Phone Yuri Chow MD Primary Care Provider Reason for Visit * Reason Comments Abdominal Pain Nausea Constipation Encounter Details Date Type Department Care Team (Late st Contact Info) Description 03/08/2024 9:51 AM SPOILAGE WORKER - 03/08/2024 11:06 AM SPOILAGE WORKER Surgery [facility] [address] [facility] [place] [address] Musa Mojica MD [address] [place] [address] URETEROSCOPY WITH LASER LITHOTRIPSY AND URETERAL STENT PLACEMENT Social History Tobacco Use Types Packs/Day Years [...] Sign Reading Time Taken Comments Blood Pressure 134/84 03/08/2024 9:22 AM SPOILAGE WORKER Pulse 65 03/08/2024 9:51 AM SPOILAGE WORKER Temperature 36.3 C (97.3 F) 03/08/2024 9:22 AM SPOILAGE WORKER Respiratory Rate 18 03/08/2024 9:22 AM SPOILAGE WORKER Oxygen Saturation 100% 03/08/2024 9:51 AM SPOILAGE WORKER Inhaled Oxygen Concentration - - Weight 60.5 kg (133 lb 6.4 oz) 03/08/2024 7:22 A M SPOILAGE WORKER Height 177.8 cm (5' 10) 03/08/2024 7:22 AM SPOILAGE WORKER Body Mass Index 19.14 03/08/2024 7:22 AM SPOILAGE WORKER documented in this encounter Discharge Summaries * Rodolfo Dickens MD - 03/08/2024 3:58 PM CST Images from the original note were not included. [facility] Medicine Discharge Summary Patient ID: Bhavin Galaviz [id number] y.o. 1990 Admit date: 03/08/2024 Discharge [...] Department Center 03/11/2024 2:15 PM Torsten Chin, LUIS EDUARDO [facility] [address] [place] [id number] Significant Diagnostic Studies (imaging, labs, micro, etc), see EMR for full details: See EPIC Billing based on time: Total time for the visit was 35 minutes including, but not limited to, [id number] time spent reviewing records, counseling, and coordination of care. Rodolfo Dickens MD LAGE WORKER documented in this encounter Discharge Instructions * Appointments* Bhavin Lindsey RN - 03/08/2024 2:27 PM SPOILAGE WORKER Per Dr. Musa Mojica ([facility]), We will set him up for a stent removal in about a week or so in the clinic. Our office will reach out to him on Sunday to get that set up. LAGE WORKER * Attachments The following attachments cannot be sent through Care Everywhere. * Laser Lithotripsy: Post-op (Hungarian) * Ureteral Stent Placement: Post-op (Hungarian) * Tramadol Oral Tablet (TRAMADOL - ORAL) (Hungarian) * Cephalexin Oral Capsule (CEPHALEXIN - ORAL) (Hungarian) documented in this encounter Medications at Time [...] Mojica MD ANESTHESIOLOGIST: Anesthesiologist: Kb Foster MD STATION INSTALLATION SUPERVISOR: Gregoria Marvin APRN, CRNA ANESTHESIA: General endotracheal. ESTIMATED BLOOD LOSS: <5 mL. INTRAVENOUS FLUIDS: See record DRAINS: 6-Bahraini x 26 cm right double-J ureteral stent. [...] draped in the usual sterile fashion. A 22-Bahraini rigid cystoscope was inserted atraumatically into the [...] proximal collecting system under fluoroscopic guidance. An 11-Bahraini x 13-Bahraini x 46 cm ureteral access sheath was [...] over the indwelling safety wire and a 6-Bahraini x 26 cm double-J ureteral stent was [...] him on Sunday toget that set up. 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 LAGE WORKER documented in this encounter OR Notes * H&P - Bina Garcia MD - 03/08/2024 5:43 AM CST [facility] Medicine History and Physical Date of Service: [...] Complexity: MDM Level: Moderate Bina Garcia MD LAGE WORKER documented in this encounter ED Notes * [...] 07/13/2018 Added automatically from request for surgery [id number] Chronic kidney disease ([facility]) Kidney stones Herpes [...] 116/71 -- -- 61 12 96 % 03/08/244 115/75 -- -- 63 -- 98 % [...] Color Colorless Urine Clarity Clear Clear Specific [place], Urine 1.020 <1.030 PH Urine 6.0 5.0 [...] AND PELVIS WITH IV CONTRAST ONLY LOCATION: [facility] DATE: 03/08/2024 INDICATION: Right-sided pain, history of [...] User 03/08/24 0405 75 mL Given Intravenous ShaheenferSelwyn hernandezle L sodium chloride 0.9% injection 10 mL (mL) Total volume: 10 mL Date/Time Rate/Dose/Volume Action Route Admin User 03/08/24 0404 10 mL Given Intravenous Elfering, Sonia L Procedures None Discussion of Management None ED Course Clinical Impressions as of 03/08/24 0554 Ureterolithiasis Hydroureteronephrosis Additional Documentation None Medical Decision Making / Diagnosis MIPS None [facility] Bhavin Galaviz is a 33 y.o. male [...] [N13.30] Hydroureteronephrosis Jonathan Deluna MD 03/08/24 0554 LAGE WORKER * Bart Pedraza RN - 03/08/2024 2:45 [...] appendectomy which was about 2-3 years ago. Buckle Sewer briefly went through medication list with patient; medication list mostly current per patient. He also takes Buproprion and Taldalafil. LAGE WORKER documented in this encounter Plan of Treatment Upcoming Encounters Date Type Department Care Team (Late st Contact Info) Description 05/14/2024 2:30 PM SPOILAGE WORKER [facility] [address] Ultrasound [address] [place] [phone] Musa Mojica MD [address] [place], [place] [phone] 05/26/2024 11:00 AM SPOILAGE WORKER [facility] [address] Urology [address] [place] [phone] Trang Rowell, BUSINESS REPORTER, LEATHER SORTER [address] [place] [address] 09/09/2024 2:30 PM CDT Appointment [facility] [address] Podiatric MedSurg [address] [place] [phone] Torsten Chin, DPM [address] [place], [place] [phone] Scheduled Referrals Name Type Priority Associated Diagnoses Orde r Schedule Urology Referral - Adult Referral Routine Hydronephrosis of right kidney Right ureteral calculus Ordered: 03/08/2024 documented as of this encounter Procedures Procedure Name Priority Date/Time Associated Diagnosis Comments FL RETROGRADE PYELOGRAM Routine 03/08/2024 11:31 AM SPOILAGE WORKER CALCULI STONE ANALYSIS Routine 03/08/2024 11:28 AM SPOILAGE WORKER Ureterolithiasis CYSTOSCOPY,RETROGRAD E PYELOGRAM,URETEROSCO PY,HOLMIUM LASER LITHOTRIPSY OF STONE,URETERAL STENT PLACEMENT 03/08/2024 10:17 AM SPOILAGE WORKER Ureterolithiasis UA CONDITIONAL UC STAT 03/08/2024 4:[address] ABD PELVIS W IV CONT ONLY STAT 03/08/2024 4:04 AM SPOILAGE WORKER EXTRA LAVENDER TOP TUBE Routine 03/08/2024 2:40 AM SPOILAGE WORKER EXTRA BLUE TOP TUBE Routine 03/08/2024 2 :40 AM SPOILAGE WORKER LACTATE REFLEX PANEL Add-On 03/08/2024 2:40 AM SPOILAGE WORKER CBC AND DIFFERENTIAL PANEL STAT Add-On 03/08/2024 2:40 AM SPOILAGE WORKER RAINBOW DRAW AND HOLD Routine 03/08/2024 2:40 AM SPOILAGE WORKER EXTRA LIGHT GREEN TUBE Routine 03/08/2024 2:40 AM SPOILAGE WORKER EXTRA LIGHT GREEN TOP ON ICE TUBE Routine 03/08/2024 2:40 AM SPOILAGE WORKER COMPLETE BLOOD COUNT-W/DIFF STAT Add-On 03/08/2024 2:40 AM SPOILAGE WORKER LIVER PANEL(HEPATIC FUNCTION PANEL) STAT Add-On 03/08/2024 2:40 AM SPOILAGE WORKER BASIC METABOLIC PANEL STAT Add-On 03/08/2024 2:40 AM SPOILAGE WORKER LIPASE STAT Add-On 03/08/2024 2:40 AM SPOILAGE WORKER documented in this encounter Results * FL Retrograde Pyelogram (03/08/2024 11:31 AM SPOILAGE WORKER) Anatomical Region Laterality Modality Abdomen, Pelvis Radio Fluoroscop y Narrative 03/08/2024 12:18 PM SPOILAGE WORKER This is an imaging order that has been read externally. Musa Mojica MD RAD FL * Calculi Stone Analysis (03/08/2024 11:28 AM SPOILAGE WORKER) Calculi Composition See Note 03/11/2024 9:35 AM SPOILAGE WORKER fluid Operations Comment: Calculi composed primarily of: 70% calcium [...] composition determined by FTIR analysis. Performed By: [facility] [address] [place] [address] Watermelon Harvesting Supervisor: Art Chiu MD, PhD CLIA Number: [id number] Calculi Description See Note 03/11/2024 9:35 AM SPOILAGE WORKER fluid Operations Comment: Specimen consists of one brown and negrete calculus. The total weight is 14 mg. Calculi Mass 14 mg 03/11/2024 9:35 AM SPOILAGE WORKER fluid Operations Stone (Calculus) KIDNEY STONE / Unknown 03/08/2024 11:28 AM SPOILAGE WORKER 03/08/2024 11:44 AM SPOILAGE WORKER Musa Mojica MD LAB_1 Performing Organization Address [facility]/State/[facility] Co de Phone Number [facility] Operations [address] [place], [place] [address] [place] [address] * (ABNORMAL) UA Conditional UC: Clean Catch (03/08/2024 4:40 AM SPOILAGE WORKER) Urine Culture Comment 03/08/2024 5:00 AM SPOILAGE WORKER [facility] Urine Color Colorless 03/08/2024 5:00 AM SPOILAGE WORKER [facility] Urine Clarity Clear Clear 03/08/2024 5:00 AM SPOILAGE WORKER [facility] Specific [place], Urine 1.020 <1.030 03/08/2024 5:00 AM SPOILAGE WORKER [facility] PH Urine 6.0 5.0 - 8.0 03/08/2024 5:00 AM SPOILAGE WORKER [facility] Protein, Urine Qual (mg/dL) Negative Negative, 10 , 20 03/08/2024 5:00 AM SPOILAGE WORKER [facility] Glucose Urine Qual (mg/dL) Normal (Negative) Normal (Negative), 30 , 50 03/08/2024 5:00 AM SPOILAGE WORKER [facility] Ketones, Urine (mg/dL) Negative Negative, Trace 03/08/2024 5:00 AM SPOILAGE WORKER [facility] Urobilinogen, Urine (EU/dL) Normal (Negative) Normal (Negative) 03/08/2024 5:00 AM SPOILAGE WORKER [facility] Bilirubin Urine (mg/dL) Negative Negative 03/08/2024 5:00 AM SPOILAGE WORKER [facility] Blood, Urine (mg/dL) 0.50 (Moderate)(A) Negative, 0.03 (Trace) 03/08/2024 5:00 AM SPOILAGE WORKER [facility] Nitrite Urine Negative Negative 03/08/2024 5:00 AM SPOILAGE WORKER [facility] Leukocyte Esterase, Urine (Gracie/uL) Negative Negative, 25 (Trace) 03/08/2024 5:00 AM SPOILAGE WORKER [facility] Red Blood Cells 18(H) 0 - 3 /HPF 03/08/2024 5:00 AM SPOILAGE WORKER [facility] White Blood Cells 1 0 - 5 /HPF 03/08/2024 5:00 AM SPOILAGE WORKER [facility] Squamous Epithelial Cells Occasional None Seen, Occasional, Few /HPF 03/08/2024 5:00 AM SPOILAGE WORKER [facility] Mucus Present(A) None Seen /HPF 03/08/2024 5:00 AM SPOILAGE WORKER [facility] Source Clean Catch 03/08/2024 5:00 AM SPOILAGE WORKER [facility] Urine URINE SPECIMEN COLLECTION, CLEAN CATCH / Unknown Non-blood Collection / Unknown 03/08/2024 4:40 AM SPOILAGE WORKER 03/08/2024 4:47 AM SPOILAGE WORKER Narrative [facility] - 03/08/2024 5:00 AM SPOILAGE WORKER The qualitative interpretive guidance provided (e.g., small, moderate, large) is intended to aid in quantitative result interpretation. It is not itself an FDA-cleared test result. Jonathan Deluna MD LAB_1 Performing Organization Address City/State/[facility] Co de Phone Number [facility] [address] * CT Abd Pelvis W IV Cont Only (03/08/2024 4:04 AM SPOILAGE WORKER) Anatomical Region Laterality Modality Abdomen, Pelvis Computed Tomogra phy 03/08/2024 4:04 AM SPOILAGE WORKER Narrative 03/08/2024 4:38 AM SPOILAGE WORKER EXAM: CT ABDOMEN AND PELVIS WITH IV CONTRAST ONLY LOCATION: [facility] DATE: 03/08/2024 INDICATION: Right-sided pain, history of [...] 3. Mild splenomegaly, stable. Procedure Note Felix ChaconEDEN - 03/08/2024 EXAM: CT ABDOMEN AND PELVIS WITH IV CONTRAST ONLY LOCATION: [facility] DATE: 03/08/2024 INDICATION: Right-sided pain, history of [...] Panel (Hepatic Function Panel) (03/08/2024 2:40 AM SPOILAGE WORKER) Alkaline Phosphatase 46 40 - 150 U/L 03/08/2024 3:41 AM SPOILAGE WORKER [facility] Bilirubin, Total 0.6 0.2 - 1.2 mg/dL 03/08/2024 3:41 AM SPOILAGE WORKER [facility] Bilirubin, Direct 0.2 0.0 - 0.5 mg/dL 03/08/2024 3:41 AM SPOILAGE WORKER [facility] AST (SGOT) 33 10 - 40 U/L 03/08/2024 3:41 AM SPOILAGE WORKER [facility] ALT (SGPT) 36 <=55 U/L 03/08/2024 3:41 AM SPOILAGE WORKER [facility] Protein, Total 6.0(L) 6.4 - 8.3 g/dL 03/08/2024 3:41 AM SPOILAGE WORKER [facility] Albumin 3.9 3.5 - 5.0 g/dL 03/08/2024 3:41 AM SPOILAGE WORKER [facility] Blood Venipuncture / Unknown 03/08/2024 2:40 AM SPOILAGE WORKER 03/08/2024 2:44 AM SPOILAGE WORKER Jonathan Deluna MD LAB_1 [facility] [address] * Lipase (03/08/2024 2:40 AM SPOILAGE WORKER) [facility] Lipase 20 8 - 78 U/L 03/08/2024 3:41 AM SPOILAGE WORKER [facility] Blood Venipuncture / Unknown 03/08/2024 2:40 AM SPOILAGE WORKER 03/08/2024 2:44 AM SPOILAGE WORKER Jonathan Deluna MD LAB_1 Performing Organization Address [facility] de Phone Number [facility] [address] * (ABNORMAL) Complete Blood Count-W/Diff (03/08/2024 2:40 AM SPOILAGE WORKER) [facility] WBC 8.6 3.5 - 10.5 x10(9)/L 03/08/2024 3:00 AM SPOILAGE WORKER [facility] RBC 4.57 4.32 - 5.72 x10(12)/L 03/08/2024 3:00 AM SPOILAGE WORKER [facility] Hemoglobin 14.6 13.5 - 17.5 g/dL 03/08/2024 3:00 AM SPOILAGE WORKER [facility] HCT 41.9 38.8 - 50.0 % 03/08/2024 3:00 AM SPOILAGE WORKER [facility] MCV 91.7 80.0 - 100.0 fL 03/08/2024 3:00 AM SPOILAGE WORKER [facility] MCH 31.9 27.6 - 33.3 pg 03/08/2024 3:00 AM SPOILAGE WORKER [facility] MCHC 34.8 31.5 - 35.2 g/dL 03/08/2024 3:00 AM SPOILAGE WORKER [facility] RDW 12.4 11.9 - 15.5 % 03/08/2024 3:00 AM SPOILAGE WORKER [facility] Platelets 191 150 - 450 x10(9)/L 03/08/2024 3:00 AM SPOILAGE WORKER [facility] Automated NRBC 0 <=0 /100 WBC 03/08/2024 3:00 AM SPOILAGE WORKER [facility] Neutrophil Absolute 6.9 1.7 - 7.0 10(9)/L 03/08/2024 3:00 AM SPOILAGE WORKER [facility] Lymphocyte Absolute 0.9(L) 1.0 - 4.8 10(9)/L 03/08/2024 3:00 AM SPOILAGE WORKER [facility] Monocyte Absolute 0.7 0.2 - 0.9 10(9)/L 03/08/2024 3:00 AM SPOILAGE WORKER [facility] Eosinophil Absolute 0.1 0.0 - 0.5 10(9)/L 03/08/2024 3:00 AM SPOILAGE WORKER [facility] Basophil Absolute 0.0 0.0 - 0.3 10(9)/L 03/08/2024 3:00 AM SPOILAGE WORKER [facility] Immature Granulocyte % 0.4 0.0 - 0.5 % 03/08/2024 3:00 AM SPOILAGE WORKER [facility] Blood Venipuncture / Unknown 03/08/2024 2:40 AM SPOILAGE WORKER 03/08/2024 2:44 AM SPOILAGE WORKER Rk Ndiaye MD LAB_1 Performing Organization Address [facility] de Phone Number [facility] [address] [place] [address] * Lactate Reflex Panel (03/08/2024 2:40 AM SPOILAGE WORKER) Pathologist [facility] Lactate, Whole Blood 0.60 0.50 - 2.00 mmol/L 03/08/2024 2:59 AM SPOILAGE WORKER [facility] Blood Venipuncture / Unknown 03/08/2024 2:40 AM SPOILAGE WORKER 03/08/2024 2:44 AM SPOILAGE WORKER Narrative [facility] - 03/08/2024 2:59 AM SPOILAGE WORKER Reference range for healthy individuals when sepsis is not suspected is 0.5-2.2 mmol/L Rk Ndiaye MD LAB_1 Performing Organization Address [facility] de Phone Number [facility] [address] [place] [address] * (ABNORMAL) Basic Metabolic Panel (03/08/2024 2:40 AM SPOILAGE WORKER) Sodium 142 136 - 145 mmol/L 03/08/2024 3:12 AM SPOILAGE WORKER [facility] Potassium 3.4(L) 3.5 - 5.1 mmol/L 03/08/2024 3:12 AM SPOILAGE WORKER [facility] Chloride 111(H) 98 - 109 mmol/L 03/08/2024 3:12 AM SPOILAGE WORKER [facility] CO2 23 20 - 29 mmol/L 03/08/2024 3:12 AM SPOILAGE WORKER [facility] Anion Gap 8 6 - 16 mmol/L 03/08/2024 3:12 AM SPOILAGE WORKER [facility] Calcium 9.4 8.4 - 10.4 mg/dL 03/08/2024 3:12 AM SPOILAGE WORKER [facility] BUN 14 7 - 26 mg/dL 03/08/2024 3:12 AM SPOILAGE WORKER [facility] Creatinine 1.18 0.73 - 1.18 mg/dL 03/08/2024 3:12 AM SPOILAGE WORKER [facility] Glucose 104(H) 70 - 100 mg/dL 03/08/2024 3:12 AM SPOILAGE WORKER [facility] Comment:The given reference range is for the fasting state. Non-fasting reference range for glucose is 70 - 180 mg/dL. GFR, Estimated >60 >60 mL/min/1.7 3m2 03/08/2024 3:12 AM SPOILAGE WORKER [facility] Blood Venipuncture / Unknown 03/08/2024 2:40 AM SPOILAGE WORKER 03/08/2024 2:44 AM SPOILAGE WORKER Rk Ndiaye MD LAB_1 Performing Organization Address [facility] Co de Phone Number [facility] [address] [place] [address] * Extra Blue top tube (03/08/2024 2:40 AM SPOILAGE WORKER) Extra Blue Top Drawn Specimen will be held for 24 hours 03/08/2024 4:00 AM SPOILAGE WORKER [facility] Blood Venipuncture / Unknown 03/08/2024 2:40 AM SPOILAGE WORKER 03/08/2024 2:44 AM SPOILAGE WORKER Jonathan Deluna MD LAB_1 Performing Organization Address [facility]/ZIP Co de Phone Number [facility] [address] [employer] [address] * Extra Light Green On Ice Tube (03/08/2024 2:40 AM SPOILAGE WORKER) Extra Light Green On Ice Tube Drawn Specimen will be held for 5 days 03/08/2024 4:00 AM SPOILAGE WORKER [facility] Blood Venipuncture / Unknown 03/08/2024 2:40 AM SPOILAGE WORKER 03/08/2024 2:44 AM SPOILAGE WORKER Jonathan Deluna MD LAB_1 Performing Organization Address [facility] de Phone Number [facility] [address] * Extra Light Green Tube (03/08/2024 2:40 AM SPOILAGE WORKER) Extra Light Green Tube Drawn Specimen will be held for 5 days 03/08/2024 4:00 AM SPOILAGE WORKER [facility] Blood Venipuncture / Unknown 03/08/2024 2:40 AM SPOILAGE WORKER 03/08/2024 2:44 AM SPOILAGE WORKER Jonathan Deluna MD LAB_1 Performing Organization Address [facility] de Phone Number [facility] [address] * Extra Lavender top tube (03/08/2024 2:40 AM SPOILAGE WORKER) Extra Lavender Top Drawn Specimen will be held for 3 days 03/08/2024 4:00 AM SPOILAGE WORKER [facility] Blood Venipuncture / Unknown 03/08/2024 2:40 AM SPOILAGE WORKER 03/08/2024 2:44 AM SPOILAGE WORKER Jonathan Deluna MD LAB_1 Performing Organization Address [facility] de Phone Number [facility] [address] [place] [address] documented in this encounter Visit Diagnoses Diagnosis Right ureteral calculus- Primary Calculus of ureter Ureterolithiasis Calculus of ureter Hydroureteronephrosis Hydronephrosis Hydronephrosis of right kidney Hydronephrosis Right ureteral calculus Calculus of ureter Hydronephrosis of right kidney Hydronephrosis Ureterolithiasis Calculus of ureter Ureterolithiasis Calculus of ureter * Plan of [...] including possible side effects. Prescriptions filled by [facility] pharmacy. Belongings checklist reviewed with patien t and family and belongings sent. Equipment sent: None . Supplies sent None. Care plan issues addressed and education record updated. R: Patient and family verbalizes understanding and teaches back discharge instructions. Patient discharged by: ambulation with family. LAGE WORKER * Plan of Care - Bhavin Franklin - 03/08/2024 7:25 AM CST [facility] Medication History Note 1. [...] reconciling home medications for hospital use. ? LAGE WORKER * Plan of Care - Bhavin Lindsey [...] procedure. Mother attentive at bedside. Will monitor. LAGE WORKER * Triage Assessment Note - Shirin Hall RN - 03/08/2024 2:00 AM SPOILAGE WORKER Patient presents to the [facility] for abdominal pain, nausea, and constipation since noon today. Patient is alert and oriented x4, breathing is even and unlabored, ambulates with a steady gait. LAGE WORKER documented in this encounter Admitting Diagnoses Diagnosis [...] pain scores)., Post-op Given 03/08/2024 3:51 PM SPOILAGE WORKER 650 mg bisacodyl (DULCOLAX) rectal suppository 10 [...] (SUBLIMAZE) injection 25-50 mcg 25-50 mcg, Intravenous, [id number], Pain, Procedure, Starting on 03/08/24 at 0915, Until 03/08/24 at 1216, For 2 doses, As directed by anesthesiologist, Pre-op Given 03/08/2024 9:49 AM SPOILAGE WORKER 50 mcg HYDROmorphone (DILAUDID) injection 0.2-0.4 mg [...] less than 8. Given 03/08/2024 7:54 AM SPOILAGE WORKER 0.4 mg HYDROmorphone (DILAUDID) injection 0.5-1 mg 0.5-1 mg, Intravenous, PRN, Pain, Starting on 03/08/24 at 0319, Until 03/08/24 at 0618, For 3 hours Given 03/08/2024 5:46 AM SPOILAGE WORKER 0.5 mg Given 03/08/2024 3:35 AM SPOILAGE WORKER 1 mg iohexol (OMNIPAQUE 300) 300 MG/ML injection ONCE PRN, Starting on 03/08/24 at 1126, Until 03/08/24 at 1216, Intra-op Given 03/08/2024 11:26 AM SPOILAGE WORKER 10 mL Wound Site iohexol (OMNIPAQUE 350) 350 MG/ML injection 75 mL 75 mL, Intravenous, ONCE, On 03/08/24 at 0430, For 1 dose, Radiology Given 03/08/2024 4:05 AM SPOILAGE WORKER 75 mL lactated ringers infusion 25 mL/hr, Intravenous, CONTINUOUS, Starting on 03/08/24 at 0945, Administer on all preop surgery patients, ages 12 and older, unless specified differently in the Protocol for Preop Initiation of IV fluids Order Set., Pre-op Restarted 03/08/2024 10:35 AM SPOILAGE WORKER Started 03/08/2024 9:30 AM SPOILAGE WORKER 25 mL/hr 25 mL/hr lidocaine (UROJET) 2 % gel prefilled syringe ONCE PRN, Starting on 03/08/24 at 1129, Intra-op Given 03/08/2024 11:29 AM SPOILAGE WORKER 10 mL Wound Site ondansetron (ZOFRAN) injection 4 mg 4 mg, Intravenous, ONCE, On 03/08/24 at 0400, For 1 dose, For nausea or vomiting Given 03/08/2024 3:42 AM SPOILAGE WORKER 4 mg ondansetron (ZOFRAN-ODT) disintegrating tablet 4 mg 4 [...] Line - metoclopramide Given 03/08/2024 7:53 AM SPOILAGE WORKER 4 mg oxyCODONE (ROXICODONE) immediate release tablet 5-10 mg 5-10 mg, Oral, Q4H PRN, Other, Moderate Pain (pain score 5-7), Severe Pain (pain score 8-10), Starting on 03/08/24 at 1217, Until 03/08/24 at 1850, Do not give both IV and ORAL opioids for pain. Give oral if patient is able to take oral medications., Post-op Given 03/08/2024 12:49 PM SPOILAGE WORKER 5 mg polyethylene glycol (MIRALAX) oral powder [...] to completely dissolve. Given 03/08/2024 3:46 PM SPOILAGE WORKER 40 mEq senna (SENOKOT) tablet 2 Tablet [...] 1 dose, Radiology Given 03/08/2024 4:04 AM SPOILAGE WORKER 10 mL sterile water for irrigation ONCE PRN, Starting on 03/08/24 at 1121, Intra-op Given 03/08/2024 11:21 AM SPOILAGE WORKER 2,000 mL Wound Site tamsulosin (FLOMAX) capsule 0.4 mg 0.4 mg, Oral, QDAY PC, First dose on 03/08/24 at 0900, Until Discontinued, Swallow whole. Do not chew, crush, or dissolve the granules inside of the capsule. Given 03/08/2024 7:53 AM SPOILAGE WORKER 0.4 mg documented in this encounter Active and Recently Administered Medications Times are shown in SPOILAGE WORKER. Scheduled Medication Order 03/06/2024 03/07/2024 03/08/2024 ceFAZolin [...] Pre-op 1044 (Given - Provid er: Gregoria Marvin, BUSINESS REPORTER, STATION INSTALLATION SUPERVISOR) iohexol (OMNIPAQUE 350) 350 MG/ML injection 75 [...] RN)0808 (Noted - Provider: Bhavin Lindsey RN)0911 (JUN Hold - Provider: Automatichold - Reason: Other (Enter Reason in Comment Area))1216 (JUN Unhold - Provider: Automatichold) Continuous Medication Order [...] Reason: Other (Enter Reason in Comment Area))1216 (JUN Unhold - Provider: Automatichold) bisacodyl (DULCOLAX) rectal [...] count is 50 k/cmm or less. 0911 (JUN Hold - Pro vider: Automatichold - Reason: Other (Enter Reason in Comment Area))1216 ([facility] Unhold - Provider: Automatichold) calcium carbonate (TUMS) chewable tablet 500 mg 500 mg, Oral, Q4H PRN, Heartburn, Upset Stomach, Starting on 03/08/24 at 0705, Until 03/08/24 at 1850, Each tablet provides 200 mg elemental calcium 0911 (JUN Hold - Pro vider: Automatichold - Reason: Other (Enter Reason in Comment Area))1216 ([facility] Unhold - Provider: Automatichold) fentaNYL (SUBLIMAZE) injection 25-50 mcg (CANCELED) 25-50 mcg, Intravenous, [id number], Pain, Procedure, Starting on 03/08/24 at 0915, Until 03/08/24 at 1216, For 2 doses, As directed by anesthesiologist, Pre-op 0949 (Given - Provid er: Tasneem Hill RN) guaiFENesin (ROBITUSSIN) oral liquid 10 mL 10 mL, Oral, Q4H PRN, Cough, Starting on 03/08/24 at 0705, Until 03/08/24 at 1850 0911 ([facility] Hold - Pro vider: Automatichold - Reason: Other (Enter Reason in Comment Area))1216 ([facility] Unhold - Provider: Automatichold) HYDROmorphone (DILAUDID) injection [...] (Given - Provid er: Bhavin Lindsey RN)0911 ([facility] Hold - Provider: Automatichold - Reason: Other (Enter Reason in Comment Area))1216 ([facility] Unhold - Provider: Automatichold) HYDROmorphone (DILAUDID) injection 0.3-0.5 mg 0.3-0.5 mg, Intravenous, Q3H PRN, Other, Severe Pain (pain score 8-10) if patient unable to take PO, Starting on 03/08/24 at 1217, Until 03/08/24 at 1850, Severe Pain (pain score 8-10) if patient unable to take PO. Hold if on ESTIMATOR PROJECT MANAGER, Post-op HYDROmorphone (DILAUDID) injection 0.5-1 mg () [...] Reason: Other (Enter Reason in Comment Area))1216 ([facility] Unhold - Provider: Automatichold) nystatin (MYCOSTATIN) [id number] UNIT/GM topical powder Topical, BID PRN, Other, for rash due to yeast, Starting on 03/08/24 at 0705, Apply topically to affected area. Hazardous waste disposal required. 0911 ([facility] Hold - Pro vider: Automatichold - Reason: Other (Enter Reason in Comment Area))1216 ([facility] Unhold - Provider: Automatichold) ondansetron (ZOFRAN) injection [...] 03/08/24 at 0705, Until 03/08/24 at 1850 09 (JUN Hold - Pro vider: Automatichold - Reason: Other (Enter Reason in Comment Area))121 ([facility] Unhold - Provider: Automatichold) polyethylene glycol (MIRALAX) [...] day, begin regimen again until patient stools. 910 (MAR Hold - Pro vider: Automatichold - Reason: Other (Enter Reason in Comment Area))121 (MAR Unhold - Provider: Automatichold) senna (SENOKOT) tablet [...] Reason: Other (Enter Reason in Comment Area))1216 ([facility] Unhold - Provider: Automatichold) sodium chloride (OCEAN) 0.65 % nasal solution 1 [place] 1 [place], Both Nostrils, Q2H PRN, Dry Nose, Starting on 03/08/24 at 0705, Until 03/08/24 at 1850 09 (JUN Hold - Pro vider: Automatichold - Reason: Other (Enter Reason in Comment Area))121 ([facility] Unhold - Provider: Automatichold) sterile water for irrigation (CANCELED) ONCE PRN, Starting on 03/08/24 at 1121, Intra-op 1121 (Given - Provid er: Musa Moijca MD) Linked Groups Order Group 1: senna [...] less. documented in this encounter Care Teams Bilingual Secretary Relationship Specialty [place] [address] [place] [address] PCP - General Family Practice 07/10/18 documented as of this encounter
--- OUTSIDE RECORDS SUMMARY | 2024-04-15 22:15 | XMS_ITS | Encounter Summary ---
[facility] Organization [facility] Address [address], [place] [address] Care Team Providers Care Climatology Teacher Name Role Phone Yuri Chow MD Primary Care Provider Encounter Details Date Type Department Care Team (Late Contact Info) Description 07/26/2018 Correspondence None No [...] (Late Contact Info) Description 05/14/2024 2:30 PM AUTOMATIC RIVETING MACHINE OPERATOR Appointment Karen Woodard [address] [address] [address] [place] [phone] Musa Mojica MD [address] [place] [address] 05/26/2024 11:00 AM AUTOMATIC RIVETING MACHINE OPERATOR Appointment Karen Woodard [address] [address]rology [address] [place] [phone] Trang Rowell, POWER PLANT MANAGER, PUBLICATIONS MANAGER [address] [place] [address] 09/09/2024 2:30 PM CDT Appointment Karen Woodard [address] Podiatric MedSurg [address] [place] [phone] Torsten Chin, DPM [address] [place] [address] documented as of this encounter Visit Diagnoses Not on filedocumented in this encounter Additional Health Concerns Infection Onset Date Last Indicated Resolved Time R/O COVID19 12/05/2019 12/05/2019 12/06/2019 3:50 PM CDT R/O COVID19 01/13/2021 01/13/2021 01/13/2021 9:53 PM CDT documented as of this encounter Care Teams Climatology Teacher Relationship Specialty [place] [address] [place] [address] PCP - General Family Practice 07/10/18 documented as of this encounter
--- OUTSIDE RECORDS SUMMARY | 2024-04-15 22:15 | XMS_ITS | Encounter Summary ---
Author Organization [facility] Address [address] [address] Care Team Providers Care Acquisition Associate Name Role Phone Yuri Chow MD Primary Care Provider Encounter Details Date Type Department Care Team (Late Contact Info) Description 12/28/2017 Correspondence [facility] Practice [address] [place], [place] [phone] Jose Guadalupe Parker PA-C [address] [place], [place] [phone] ATTENDING PHYSICIANS STATEMENT Social History Tobacco Use [...] (Late Contact Info) Description 05/14/2024 2:30 PM METAL TECHNICIAN Appointment Karen Woodard [address] [address] [address] [place] [phone] Musa Mojica MD [address] [place] [address] 05/26/2024 11:00 AM METAL TECHNICIAN Appointment Karen Woodard [address] Urology [address] [place] [phone] Trang Rowell, RING FACER, INBOUND SALES CONSULTANT [address] [place] [address] 09/09/2024 2:30 PM CDT [facility]ointment [facility] [address] Pod[facility] MedSurg [address] [place] [phone] Torsten Chin, DPM [address] [place], [place] [phone] documented as of this encounter Visit Diagnoses Not on filedocumented in this encounter Additional Health Concerns Infection Onset Date Last Indicated Resolved Time R/O COVID19 12/05/2019 12/05/2019 12/06/2019 3:50 PM CDT R/O COVID19 01/13/2021 01/13/2021 01/13/2021 9:53 PM CDT documented as of this encounter Care Teams Acquisition Associate Relationship Specialty [place] [address] [place] [address] PCP - General Family Practice 07/10/18 documented as of this encounter
[2024-04-15 22:37] VITALS: BP 136/74; PULSE 84; RESP 18; TEMP 37.6; O2SAT 97; BMI 19.4
--- NOTE | 2024-04-15 23:04 | ED_ITS ---
HPI - General Adult General Chief complaint: Lower Extremity Swelling Stated complaint: Swollen, numb, tingling right ankle Time Seen by Provider: 04/15/24 22:53 History of Present Illness HPI narrative: This 33-year-old male comes in stating that he feels like both of his ankles and lower legs are swollen. He does not report any injury event. He states that he started to feel this way about an hour prior to arrival. He also reports a generalized nonpruritic rash on his trunk mostly. Related Data Home Medications ?Medication ?Instructions ?Recorded ?Confirmed acyclovir 400 mg tablet 400 mg PO DAILY 10/04/22 04/15/24 doxycycline hyclate 100 mg capsule 100 mg PO BID 10/04/22 04/15/24 multivitamin (Daily Multi-Vitamin 1 tab PO QDAY 10/04/22 04/15/24 tablet) tadalafil 8.5 mg PO QDAY 09/17/23 04/15/24 ketorolac 10 mg tablet 10 mg PO Q6H PRN pain 04/15/24 04/15/24 lotilaner 0.25 % eye drops (Xdemvy) drp ophthalmic (eye) 04/15/24 Previous Rx's ?Medication ?Instructions ?Recorded bupropion HCl 300 mg 24 hr tablet, 300 mg PO QAM #90 tabs 08/09/23 extended release albuterol sulfate 90 mcg/actuation 2 puff inhalation Q4-6H PRN 01/08/24 aerosol inhaler shortness of breath or wheezing #8.5 grams sulfamethoxazole 800 1 tab PO BID #6 tabs 01/08/24 mg-trimethoprim 160 mg tablet methylphenidate HCl 18 mg 18 mg PO DAILY #30 tabs 03/17/24 tablet,extended release 24 hr methylphenidate HCl 10 mg tablet 10 mg PO DAILY #30 tabs 04/10/24 Allergies Allergy/AdvReac Type Severity Reaction Status Date / Time No Known Allergies Allergy Verified 04/15/24 22:50 Review of Systems Status of ROS: Reports: 10 or more systems reviewed and unremarkable except as noted in History and below Narrative: Constitutional: No fevers, no weight gain or loss. Eyes: No discharge. No vision changes. HENT: No congestion, no sore throat, no ear pain. Cardiovascular: No chest pain, no palpitations. Respiratory: No shortness of breath, no wheezes, no cough. Gastrointestinal: No abdominal pain, no vomiting, no diarrhea. Genitourinary: No dysuria, no hematuria. Musculoskeletal: Normal range of motion. Skin: Rash as described above. Neurological: No dizziness, weakness, sensory change, speech change. Endo/Heme/Allergies: No bruising or bleeding. No polydipsia. Pysch: no suicidality, no anxiety, no insomnia. All other systems reviewed and are negative. [facility] Medical History (Updated 04/15/24 @ 23:36 by Ha Eldridge MD) History of renal calculi (2017) ?Z87.442 - Personal history of urinary calculi (ICD-10) History of herpes simplex keratitis ?Z86.19 - Personal history of other infectious and parasitic diseases (ICD- 10) History of chronic kidney disease ?Z87.448 - Personal history of other diseases of urinary system (ICD-10) Surgical History (Updated 08/13/22 @ 18:14 by Nancy Mariscal) History of appendectomy (07/13/18) ?Z90.49 - Acquired absence of other specified parts of digestive tract (ICD- 10) Family History Unknown Bladder disorder Kidney disorder Genetic disorder Hyperlipidemia High blood pressure Mental disorder Scoliosis Substance abuse Social History (Updated 08/09/23 @ 16:01 by Octavia Beach~[facility], [facility]) What is your current living situation?: I presently have a place to live Problems where you live: no known problems In the past 12 months, utilities in danger of being shut off: no In past 12 months, lack of transportation kept you from medical appts, meetings, work, or getting things needed for daily living: no In the past 12 mos, have been you worried that your food would run out before you had money to buy more?: never true In the past 12 mos, the food you bought just didn't last and you didn't have money to buy more?: never true Smoking Status: Never smoker How often do you have a drink containing alcohol: never How often do you have six or more drinks on one occasion: Never AUDIT-C Alcohol total score: 0 Non-prescribed substance use: denies use How often does anyone, including family, friends and others, physically hurt you : never How often does anyone, including family, friends and others, insult or talk down to you: never How often does anyone, including family, friends and others, threaten you with harm: never How often does anyone, including family, friends and others, scream or curse at you: never service: No Exam Narrative: Exam Narrative: Constitutional: Well-developed, well-nourished, no acute distress. HEENT: Normocephalic, atraumatic. Neck: Normal range of motion. Nontender. Supple. Heart: Regular. No murmurs. Normal rate. Intact distal pulses. Lungs: Clear to auscultation. No chest discomfort. No wheezes, rhonchi, or rales. Abdomen: Normal bowel sounds. Nontender. No rebound tenderness. Genitalia: Deferred. Back: No midline tenderness. Normal range of motion. Extremities: Normal range of motion. No injury. There is no sign of swelling or injury. Skin: Intact. Warm. No erythema or pallor. Scattered maculopapular rash that is nonpruritic mostly on his trunk. Neurologic: No altered sensation. No weakness. Alert and oriented. Psychiatric: No suicidality. No anxiety or depression. No insomnia. Nursing notes and vitals signs are reviewed. Const: Vital Signs, click to edit/add: Vital Signs - 24 hr 04/15/24 22:37 Temperature 99.7 F H Pulse Rate [Pulse Oximeter] 84 Respiratory Rate 18 Blood Pressure [Ri ght Upper Arm] 136/74 Pulse Oximetry 97 Oxygen Delivery Me thod Room Air Course Vital Signs Vital signs: Initial Vital Signs Temperature 99.7 F H 04/15/24 22:37 Temperature Source Temporal Artery Scan 04/15/24 22:37 Pulse Rate 84 04/15/24 22:37 Pulse Rhythm Regular 04/15/24 22:37 Respiratory Rate 18 04/15/24 22:37 Blood Pressure 136/74 04/15/24 22:37 Blood Pressure Mean 94 04/15/24 22:37 Pulse Oximetry 97 04/15/24 22:37 Oxygen Delivery Method Room Air 04/15/24 22:37 Vital Signs Temperature 99.7 F H 04/15/24 22:37 Pulse Rate 84 04/15/24 22:37 Respiratory Rate 18 04/15/24 22:37 Blood Pressure 136/74 04/15/24 22:37 Pulse Oximetry 97 04/15/24 22:37 Oxygen Delivery Method Room Air 04/15/24 22:37 Temperature 99.7 F H 04/15/24 22:37 Pulse Rate 84 04/15/24 22:37 Respiratory Rate 18 04/15/24 22:37 Blood Pressure 136/74 04/15/24 22:37 Pulse Oximetry 97 04/15/24 22:37 Oxygen Delivery Method Room Air 04/15/24 22:37 Medical Decision Making MDM Narrative Medical decision making narrative: This patient comes in reporting swelling in his lower extremities however there is absolutely no evidence of swelling rather he has rather thin lower extremities. There was no recent injury event and he is able to ambulate normally. The patient does have a rash on his trunk. He states that that began yesterday. He does not report any new exposures accepts he states that he does have a new blanket. He did receive an oral dose of dexamethasone. He is okay to be discharged home. I advised using [id number] antihistamines also as needed and directed. Discharge Plan Discharge Clinical Impression: Rash Patient Disposition: Home, Self-Care Condition: Stable Additional Instructions: Use [id number] antihistamines as needed and directed for treating rash symptoms. Follow up with MD return if worsening. Prescriptions: No Action doxycycline hyclate 100 mg capsule 100 mg PO BID acyclovir 400 mg tablet 400 mg PO DAILY tadalafil 8.5 mg PO QDAY sulfamethoxazole-trimethoprim 800-160 mg tablet 1 tab PO BID Qty: 6 0RF albuterol sulfate 90 mcg/actuation HFA aerosol inhaler 2 puff inhalation Q4-6H PRN (Reason: shortness of breath or wheezing) Qty: 8.5 2RF multivitamin [Daily Multi-Vitamin] Tablet 1 tab PO QDAY bupropion HCl 300 mg tablet extended release 24 hr 300 mg PO QAM Qty: 90 3RF ketorolac 10 mg tablet 10 mg PO Q6H PRN (Reason: pain) Xdemvy 0.25 % drops ophthalmic (eye) methylphenidate HCl 18 mg tablet extended release 24hr 18 mg PO DAILY Qty: 30 0RF methylphenidate HCl 10 mg tablet 10 mg PO DAILY Qty: 30 0RF Rx Instructions: take in afternoon in addition to long-acting morning methylphenidate Follow Up/Referrals: Ailabsharlenei,Dharmesh D, MD [Primary Care Provider] - Stand Alone Forms: [facility] Info Instructions
--- OUTSIDE RECORDS SUMMARY | 2024-04-15 23:17 | XMS_ITS | Encounter Summary ---
Author Organization [facility] Address [address] [place] [address] Care Team Providers Care Wire Drawing Die Maker Name Role Phone Yuri Chow MD Primary Care Provider Reason for Visit * Reason Comments Hospital Discharge Follow-up Encounter Details Date Type Department Care Team (Late st Contact Info) Description 03/12/2024 Telephone [facility] Practice [address] [place], [place] [phone] [place] [address] [place], [place] [phone] Hospital Discharge Follow-up Social History Tobacco Use [...] up with Namita Landin 03/12/2024, 4:21 PM DRILL OPERATOR documented in this encounter Plan of Treatment Upcoming Encounters Date Type Department Care Team (Late st Contact Info) Description 05/14/2024 2:30 PM ROCK DRILL OPERATOR Appointment [facility] [address] [address] [address] [place] [phone] Musa Mojica MD [address] [place], [place] [address] 05/26/2024 11:00 AM ROCK DRILL OPERATOR Appointment [facility] [address] Urology [address] [place] [phone] Trang Rowell, MARBLE MECHANIC HELPER, COLLECTOR [address] [place], [place] [phone] 09/09/2024 2:30 PM CDT Appointment [facility] [address] Podiatric MedSurg [address] [place] [phone] Torsten Chin, DPM [address] [place] [address] documented as of this encounter Visit Diagnoses Not on filedocumented in this encounter Care Teams Wire Drawing Die Maker Relationship Specialty [place] [address] [place] [address] PCP - General Family Practice 07/10/18 documented as of this encounter
--- OUTSIDE RECORDS SUMMARY | 2024-04-15 23:17 | XMS_ITS | Encounter Summary ---
Author Organization [facility] Address [address] [place] [address] Care Team Providers Care Cellular Equipment Installer Name Role Phone Yuri Chow MD Primary Care Provider Reason for Referral * Consult/Transfer Care (Routine) - New Request Specialty Diagnoses / Procedures Referred By Griselda ayala Referred To Contact Diagnoses Hydronephrosis of right kidney Right ureteral calculus Rodolfo Dickens MD [address] [place] [address] Referral ID Status Reason Start Date Expiration Date V isits Requested Visits Authorized [id number] New Request 03/08/2024 06/07/2025 1 1 Scheduling Instructions Your clinician has recommended an appointment with [facility]. You can quickly make your appointment online at [employer]/schedule. You can also call [phone] for help scheduling your appointment. We suggest you call your health insurance company about your coverage and benefits for this appointment. Question Answer Appointment Urgency? Non-Urgent Outpatient Appt Need? Hospital Follow up Comments Urology will reach out to you on Sunday to set up stent removal--planned for approximately 1 week post discharge. L OR MOTEL CLEANING SUPERVISOR * Procedure/Equipment (Routine) - Incomplete Specialty Diagnoses / Procedures Referred By Griselda ayala Referred To Contact Procedures FL Retrograde Pyelogram Musa Mojica MD [address] [place] [address] Referral ID Status Reason Start Date Expiration Date V isits Requested Visits Authorized [id number] Incomplete 03/08/2024 06/07/2025 1 1 L OR MOTEL CLEANING SUPERVISOR * Procedure/Equipment (Routine) - Incomplete Specialty Diagnoses / Procedures Referred By Contac t Referred To Contact Diagnoses Ureterolithiasis Procedures Case Request OR - Urology Surgery: URETEROSCOPY WITH LASER LITHOTRIPSY AND URETERAL STENT PLACEMENT Musa Mojica MD [address] [place] [address] Referral ID Status Reason Start Date Expiration Date V isits Requested Visits Authorized [id number] Incomplete 03/08/2024 06/07/2025 1 1 L OR MOTEL CLEANING SUPERVISOR * Procedure/Equipment (Routine) - Incomplete Specialty Diagnoses / Procedures Referred By Contac t Referred To Contact Procedures CT Abd Pelvis W IV Cont Only Jonathan Deluna MD [address] [place] [id number] Referral ID Status Reason Start Date Expiration Date V isits Requested Visits Authorized [id number] Incomplete 03/08/2024 06/07/2025 1 1 L OR MOTEL CLEANING SUPERVISOR Reason for Visit * Reason Comments Abdominal Pain Nausea Constipation Encounter Details Date Type Department Care Team (Late st Contact Info) Description 03/08/2024 2:07 AM HOTEL OR MOTEL CLEANING SUPERVISOR - 03/08/2024 4:50 PM HOTEL OR MOTEL CLEANING SUPERVISOR [facility] [place] [address] Jonathan Deluna MD [address] [place] [address] Bina Garcia MD [address] [place] [address] Rodolfo Dickens MD [address] [place] [address] Hydronephrosis of right kidney (Primary Dx); Ureterolithiasis; [...] Comments Blood Pressure 109/72 03/08/2024 3:00 PM HOTEL OR MOTEL CLEANING SUPERVISOR Pulse 76 03/08/2024 3:00 PM HOTEL OR MOTEL CLEANING SUPERVISOR Temperature 36.7 C (98 F) 03/08/2024 3:00 PM HOTEL OR MOTEL CLEANING SUPERVISOR Respiratory Rate 18 03/08/2024 3:00 PM HOTEL OR MOTEL CLEANING SUPERVISOR Oxygen Saturation 100% 03/08/2024 3:00 PM HOTEL OR MOTEL CLEANING SUPERVISOR Inhaled Oxygen Concentration - - Weight 60.5 kg (133 lb 6.4 oz) 03/08/2024 7:22 A M HOTEL OR MOTEL CLEANING SUPERVISOR Height 177.8 cm (5' 10) 03/08/2024 7:22 AM HOTEL OR MOTEL CLEANING SUPERVISOR Body Mass Index 19.14 03/08/2024 7:22 AM HOTEL OR MOTEL CLEANING SUPERVISOR documented in this encounter Discharge Summaries * Rodolfo Dickens MD - 03/08/2024 3:58 PM CST Images from the original note were not included. [facility] Medicine Discharge Summary Patient ID: Bhavin Galaviz [id number] y.o. 1990 Admit date: 03/08/2024 Discharge [...] Center 03/11/2024 2:15 PM Torsten Chin, DPJoe [facility] [address] [place] [id number] Significant Diagnostic Studies (imaging, labs, micro, etc), see EMR for full details: See EPIC Billing based on time: Total time for the visit was 35 minutes including, but not limited to, siv-bbrf-sw-face time spent reviewing records, counseling, and coordination of care. Rodolfo Dickens MD L OR MOTEL CLEANING SUPERVISOR documented in this encounter Discharge Instructions * Appointments* Bhavin Lindsey RN - 03/08/2024 2:27 PM HOTEL OR MOTEL CLEANING SUPERVISOR Per Dr. Musa Mojica ([facility]), We will set him up for a stent removal in about a week or so in the clinic. Our office will reach out to him on Sunday to get that set up. L OR MOTEL CLEANING SUPERVISOR * Attachments The following attachments cannot be sent through Care Everywhere. * Laser Lithotripsy: Post-op (Tanzanian) * Ureteral Stent Placement: Post-op (Tanzanian) * Tramadol Oral Tablet (TRAMADOL - ORAL) (Tanzanian) * Cephalexin Oral Capsule (CEPHALEXIN - ORAL) (Tanzanian) documented in this encounter Medications at Time [...] Mojica MD ANESTHESIOLOGIST: Anesthesiologist: Kb Foster MD WRAPPING CLERK: Gregoria Marvin APRN, CRNA ANESTHESIA: General endotracheal. ESTIMATED BLOOD LOSS: <5 mL. INTRAVENOUS FLUIDS: See record DRAINS: 6-Kenyan x 26 cm right double-J ureteral stent. [...] draped in the usual sterile fashion. A 22-Kenyan rigid cystoscope was inserted atraumatically into the [...] proximal collecting system under fluoroscopic guidance. An 11-Kenyan x 13-Kenyan x 46 cm ureteral access sheath was [...] over the indwelling safety wire and a 6-Kenyan x 26 cm double-J ureteral stent was [...] him on Sunday toget that set up. 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 Tobacco Use Smoking status: Never Smokeless tobacco: [...] should be able to discharge later today. L OR MOTEL CLEANING SUPERVISOR documented in this encounter OR Notes * H&P - Bina Garcia MD - 03/08/2024 5:43 AM CST [facility] Medicine History and Physical Date of [...] Complexity: MDM Level: Moderate Bina Garcia MD L OR MOTEL CLEANING SUPERVISOR documented in this encounter ED Notes * [...] Past Medical History: Diagnosis Date Aortic aneurysm ([facility]) 04/10/2006 LW Modifier: Borderline - 3.1 LW Onset: Echo ; Dilated Aortic Root Appendicitis 07/13/2018 Added automatically from request for surgery [id number] Chronic kidney disease ([facility]) Kidney stones Herpes simplex of eye Kidney stone 04/09/2016 4mm left ureter stone, passed spontainously Marfan's syndrome 04/10/2006 LW Modifier: Probable 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 male [...] [N13.30] Hydroureteronephrosis Jonathan Deluna MD 03/08/24 0554 L OR MOTEL CLEANING SUPERVISOR * Bart Pedraza RN - 03/08/2024 2:45 [...] appendectomy which was about 2-3 years ago. Remelt Sugar Boiler briefly went through medication list with patient; medication list mostly current per patient. He also takes Buproprion and Taldalafil. L OR MOTEL CLEANING SUPERVISOR documented in this encounter Plan of Treatment Upcoming Encounters Date Type Department Care Team (Late st Contact Info) Description 05/14/2024 2:30 PM HOTEL OR MOTEL CLEANING SUPERVISOR Appointment Karen Wood[facility] [address] [address] [address] [place] [phone] Musa Mojica MD [address] [place], [place] [address] 05/26/2024 11:00 AM HOTEL OR MOTEL CLEANING SUPERVISOR Appointment Karen Woodard [address] Urology [address] [place] [phone] Trang Rowell APRN, AUTO RENTAL SUPERVISOR [address] [place], [place] [address] 09/09/2024 2:30 PM CDT Appointment Karen Woodard [address] Pod[address] Med[address]urg [address] [place] [phone] Torsten Chin, DPM [address] [place] [address] Scheduled Referrals Name Type Priority Associated Diagnoses Orde r Schedule Urology Referral - Adult Referral Routine Hydronephrosis of right kidney Right ureteral calculus Ordered: 03/08/2024 documented as of this encounter Procedures Procedure Name Priority Date/Time Associated Diagnosis Comments FL RETROGRADE PYELOGRAM Routine 03/08/2024 11:31 AM HOTEL OR MOTEL CLEANING SUPERVISOR CALCULI STONE ANALYSIS Routine 03/08/2024 11:28 AM HOTEL OR MOTEL CLEANING SUPERVISOR Ureterolithiasis CYSTOSCOPY,RETROGRAD E PYELOGRAM,URETEROSCO PY,HOLMIUM LASER LITHOTRIPSY OF STONE,URETERAL STENT PLACEMENT 03/08/2024 10:17 AM HOTEL OR MOTEL CLEANING SUPERVISOR Ureterolithiasis UA CONDITIONAL UC STAT 03/08/2024 4:4 0 AM HOTEL OR MOTEL CLEANING SUPERVISOR CT ABD PELVIS W IV CONT ONLY STAT 03/08/2024 4:04 AM HOTEL OR MOTEL CLEANING SUPERVISOR EXTRA LAVENDER TOP TUBE Routine 03/08/2024 2:40 AM HOTEL OR MOTEL CLEANING SUPERVISOR EXTRA BLUE TOP TUBE Routine 03/08/2024 2 :40 AM HOTEL OR MOTEL CLEANING SUPERVISOR LACTATE REFLEX PANEL Add-On 03/08/2024 2:40 AM HOTEL OR MOTEL CLEANING SUPERVISOR CBC AND DIFFERENTIAL PANEL STAT Add-On 03/08/2024 2:40 AM HOTEL OR MOTEL CLEANING SUPERVISOR RAINBOW DRAW AND HOLD Routine 03/08/2024 2:40 AM HOTEL OR MOTEL CLEANING SUPERVISOR EXTRA LIGHT GREEN TUBE Routine 03/08/2024 2:40 AM HOTEL OR MOTEL CLEANING SUPERVISOR EXTRA LIGHT GREEN TOP ON ICE TUBE Routine 03/08/2024 2:40 AM HOTEL OR MOTEL CLEANING SUPERVISOR COMPLETE BLOOD COUNT-W/DIFF STAT Add-On 03/08/2024 2:40 AM HOTEL OR MOTEL CLEANING SUPERVISOR LIVER PANEL(HEPATIC FUNCTION PANEL) STAT Add-On 03/08/2024 2:40 AM HOTEL OR MOTEL CLEANING SUPERVISOR BASIC METABOLIC PANEL STAT Add-On 03/08/2024 2:40 AM HOTEL OR MOTEL CLEANING SUPERVISOR LIPASE STAT Add-On 03/08/2024 2:40 AM HOTEL OR MOTEL CLEANING SUPERVISOR documented in this encounter Results * FL Retrograde Pyelogram (03/08/2024 11:31 AM HOTEL OR MOTEL CLEANING SUPERVISOR) Anatomical Region Laterality Modality Abdomen, Pelvis Radio Fluoroscop y Narrative 03/08/2024 12:18 PM HOTEL OR MOTEL CLEANING SUPERVISOR This is an imaging order that has been read externally. Musa Mojica MD RAD FL * Calculi Stone Analysis (03/08/2024 11:28 AM HOTEL OR MOTEL CLEANING SUPERVISOR) Calculi Composition See Note 03/11/2024 9:35 AM HOTEL OR MOTEL CLEANING SUPERVISOR [facility] Comment: Calculi composed primarily of: 70% calcium [...] composition determined by FTIR analysis. Performed By: [facility] [address] [place] [address] Aircraft Powertrain Repairer: Art Chiu MD, PhD CLIA Number: [id number] Calculi Description See Note 03/11/2024 9:35 AM HOTEL OR MOTEL CLEANING SUPERVISOR [employer] Comment: Specimen consists of one brown and negrete calculus. The total weight is 14 mg. Calculi Mass 14 mg 03/11/2024 9:35 AM HOTEL OR MOTEL CLEANING SUPERVISOR [employer] Stone (Calculus) KIDNEY STONE / Unknown 03/08/2024 11:28 AM HOTEL OR MOTEL CLEANING SUPERVISOR 03/08/2024 11:44 AM HOTEL OR MOTEL CLEANING SUPERVISOR Musa Mojica MD LAB_1 [facility] [address] [place], [place] [address] [place] [address] * (ABNORMAL) UA Conditional UC: Clean Catch (03/08/2024 4:40 AM HOTEL OR MOTEL CLEANING SUPERVISOR) Urine Culture Comment 03/08/2024 5:00 AM HOTEL OR MOTEL CLEANING SUPERVISOR [facility] Urine Color Colorless 03/08/2024 5:00 AM HOTEL OR MOTEL CLEANING SUPERVISOR [facility] Urine Clarity Clear Clear 03/08/2024 5:00 AM HOTEL OR MOTEL CLEANING SUPERVISOR [facility] Specific [place], Urine 1.020 <1.030 03/08/2024 5:00 AM HOTEL OR MOTEL CLEANING SUPERVISOR [facility] PH Urine 6.0 5.0 - 8.0 03/08/2024 5:00 AM HOTEL OR MOTEL CLEANING SUPERVISOR [facility] Protein, Urine Qual (mg/dL) Negative Negative, 10 , 20 03/08/2024 5:00 AM HOTEL OR MOTEL CLEANING SUPERVISOR [facility] Glucose Urine Qual (mg/dL) Normal (Negative) Normal (Negative), 30 , 50 03/08/2024 5:00 AM HOTEL OR MOTEL CLEANING SUPERVISOR [facility] Ketones, Urine (mg/dL) Negative Negative, Trace 03/08/2024 5:00 AM HOTEL OR MOTEL CLEANING SUPERVISOR [facility] Urobilinogen, Urine (EU/dL) Normal (Negative) Normal (Negative) 03/08/2024 5:00 AM HOTEL OR MOTEL CLEANING SUPERVISOR [facility] Bilirubin Urine (mg/dL) Negative Negative 03/08/2024 5:00 AM HOTEL OR MOTEL CLEANING SUPERVISOR [facility] Blood, Urine (mg/dL) 0.50 (Moderate)(A) Negative, 0.03 (Trace) 03/08/2024 5:00 AM HOTEL OR MOTEL CLEANING SUPERVISOR [facility] Nitrite Urine Negative Negative 03/08/2024 5:00 AM HOTEL OR MOTEL CLEANING SUPERVISOR [facility] Leukocyte Esterase, Urine (Gracie/uL) Negative Negative, 25 (Trace) 03/08/2024 5:00 AM HOTEL OR MOTEL CLEANING SUPERVISOR [facility] Red Blood Cells 18(H) 0 - 3 /HPF 03/08/2024 5:00 AM HOTEL OR MOTEL CLEANING SUPERVISOR [facility] White Blood Cells 1 0 - 5 /HPF 03/08/2024 5:00 AM HOTEL OR MOTEL CLEANING SUPERVISOR [facility] Squamous Epithelial Cells Occasional None Seen, Occasional, Few /HPF 03/08/2024 5:00 AM HOTEL OR MOTEL CLEANING SUPERVISOR [facility] Mucus Present(A) None Seen /HPF 03/08/2024 5:00 AM HOTEL OR MOTEL CLEANING SUPERVISOR [facility] Source Clean Catch 03/08/2024 5:00 AM HOTEL OR MOTEL CLEANING SUPERVISOR [facility] Urine URINE SPECIMEN COLLECTION, CLEAN CATCH / Unknown Non-blood Collection / Unknown 03/08/2024 4:40 AM HOTEL OR MOTEL CLEANING SUPERVISOR 03/08/2024 4:47 AM HOTEL OR MOTEL CLEANING SUPERVISOR Narrative [facility] - 03/08/2024 5:00 AM HOTEL OR MOTEL CLEANING SUPERVISOR The qualitative interpretive guidance provided (e.g., small, moderate, large) is intended to aid in quantitative result interpretation. It is not itself an FDA-cleared test result. Jonathan Deluna MD LAB_1 [facility] [address] [place] [address], [facility] * CT Abd Pelvis W IV Cont Only (03/08/2024 4:04 AM HOTEL OR MOTEL CLEANING SUPERVISOR) Anatomical Region Laterality Modality Abdomen, Pelvis Computed Tomogra phy 03/08/2024 4:04 AM HOTEL OR MOTEL CLEANING SUPERVISOR Narrative 03/08/2024 4:38 AM HOTEL OR MOTEL CLEANING SUPERVISOR EXAM: CT ABDOMEN AND PELVIS WITH IV CONTRAST ONLY LOCATION: [facility] DATE: 03/08/2024 INDICATION: Right-sided pain, history of [...] AND PELVIS WITH IV CONTRAST ONLY LOCATION: [facility] DATE: 03/08/2024 INDICATION: Right-sided pain, history of [...] Panel (Hepatic Function Panel) (03/08/2024 2:40 AM HOTEL OR MOTEL CLEANING SUPERVISOR) Alkaline Phosphatase 46 40 - 150 U/L 03/08/2024 3:41 AM HOTEL OR MOTEL CLEANING SUPERVISOR [facility] Bilirubin, Total 0.6 0.2 - 1.2 mg/dL 03/08/2024 3:41 AM HOTEL OR MOTEL CLEANING SUPERVISOR [facility] Bilirubin, Direct 0.2 0.0 - 0.5 mg/dL 03/08/2024 3:41 AM HOTEL OR MOTEL CLEANING SUPERVISOR [facility] AST (SGOT) 33 10 - 40 U/L 03/08/2024 3:41 AM HOTEL OR MOTEL CLEANING SUPERVISOR [facility] ALT (SGPT) 36 <=55 U/L 03/08/2024 3:41 AM HOTEL OR MOTEL CLEANING SUPERVISOR [facility] Protein, Total 6.0(L) 6.4 - 8.3 g/dL 03/08/2024 3:41 AM HOTEL OR MOTEL CLEANING SUPERVISOR [facility] Albumin 3.9 3.5 - 5.0 g/dL 03/08/2024 3:41 AM HOTEL OR MOTEL CLEANING SUPERVISOR [facility] Blood Venipuncture / Unknown 03/08/2024 2:40 AM HOTEL OR MOTEL CLEANING SUPERVISOR 03/08/2024 2:44 AM HOTEL OR MOTEL CLEANING SUPERVISOR Jonathan Deluna MD LAB_1 Performing Organization Address [facility] de Phone Number [facility] [address] [place] [address] * Lipase (03/08/2024 2:40 AM HOTEL OR MOTEL CLEANING SUPERVISOR) [facility] Lipase 20 8 - 78 U/L 03/08/2024 3:41 AM HOTEL OR MOTEL CLEANING SUPERVISOR [facility] Blood Venipuncture / Unknown 03/08/2024 2:40 AM HOTEL OR MOTEL CLEANING SUPERVISOR 03/08/2024 2:44 AM HOTEL OR MOTEL CLEANING SUPERVISOR Jonathan Deluna MD LAB_1 Performing Organization Address [facility] de Phone Number [facility] [address] [place] [address] * (ABNORMAL) Complete Blood Count-W/Diff (03/08/2024 2:40 AM HOTEL OR MOTEL CLEANING SUPERVISOR) [facility] WBC 8.6 3.5 - 10.5 x10(9)/L 03/08/2024 3:00 AM HOTEL OR MOTEL CLEANING SUPERVISOR [facility] RBC 4.57 4.32 - 5.72 x10(12)/L 03/08/2024 3:00 AM [facility] Hemoglobin 14.6 13.5 - 17.5 g/dL 03/08/2024 3:00 AM [facility] HCT 41.9 38.8 - 50.0 % 03/08/2024 3:00 AM [facility] MCV 91.7 80.0 - 100.0 fL 03/08/2024 3:00 AM [facility] MCH 31.9 27.6 - 33.3 pg 03/08/2024 3:00 AM [facility] MCHC 34.8 31.5 - 35.2 g/dL 03/08/2024 3:00 AM [facility] RDW 12.4 11.9 - 15.5 % 03/08/2024 3:00 AM [facility] Platelets 191 150 - 450 x10(9)/L 03/08/2024 3:00 AM [facility] Automated NRBC 0 <=0 /100 WBC 03/08/2024 3:00 AM [facility] Neutrophil Absolute 6.9 1.7 - 7.0 10(9)/L 03/08/2024 3:00 AM [facility] Lymphocyte Absolute 0.9(L) 1.0 - 4.8 10(9)/L 03/08/2024 3:00 AM [facility] Monocyte Absolute 0.7 0.2 - 0.9 10(9)/L 03/08/2024 3:00 AM [facility] Eosinophil Absolute 0.1 0.0 - 0.5 10(9)/L 03/08/2024 3:00 AM [facility] Basophil Absolute 0.0 0.0 - 0.3 10(9)/L 03/08/2024 3:00 AM [facility] Immature Granulocyte % 0.4 0.0 - 0.5 % 03/08/2024 3:00 AM [facility] Blood Venipuncture / Unknown 03/08/2024 2:40 AM HOTEL OR MOTEL CLEANING SUPERVISOR 03/08/2024 2:44 AM HOTEL OR MOTEL CLEANING SUPERVISOR Rk Ndiaye MD LAB_1 [facility] [address] * Lactate Reflex Panel (03/08/2024 2:40 AM HOTEL OR MOTEL CLEANING SUPERVISOR) [facility] Lactate, Whole Blood 0.60 0.50 - 2.00 mmol/L 03/08/2024 2:59 AM HOTEL OR MOTEL CLEANING SUPERVISOR [facility] Blood Venipuncture / Unknown 03/08/2024 2:40 AM HOTEL OR MOTEL CLEANING SUPERVISOR 03/08/2024 2:44 AM HOTEL OR MOTEL CLEANING SUPERVISOR Narrative [facility] - 03/08/2024 2:59 AM HOTEL OR MOTEL CLEANING SUPERVISOR Reference range for healthy individuals when sepsis is not suspected is 0.5-2.2 mmol/L Rk Ndiaye MD LAB_1 [facility] [address] * (ABNORMAL) Basic Metabolic Panel (03/08/2024 2:40 AM HOTEL OR MOTEL CLEANING SUPERVISOR) [facility] Sodium 142 136 - 145 mmol/L 03/08/2024 3:12 AM HOTEL OR MOTEL CLEANING SUPERVISOR [facility] Potassium 3.4(L) 3.5 - 5.1 mmol/L 03/08/2024 3:12 AM HOTEL OR MOTEL CLEANING SUPERVISOR [facility] Chloride 111(H) 98 - 109 mmol/L 03/08/2024 3:12 AM HOTEL OR MOTEL CLEANING SUPERVISOR [facility] CO2 23 20 - 29 mmol/L 03/08/2024 3:12 AM HOTEL OR MOTEL CLEANING SUPERVISOR [facility] Anion Gap 8 6 - 16 mmol/L 03/08/2024 3:12 AM HOTEL OR MOTEL CLEANING SUPERVISOR [facility] Calcium 9.4 8.4 - 10.4 mg/dL 03/08/2024 3:12 AM HOTEL OR MOTEL CLEANING SUPERVISOR [facility] BUN 14 7 - 26 mg/dL 03/08/2024 3:12 AM HOTEL OR MOTEL CLEANING SUPERVISOR [facility] Creatinine 1.18 0.73 - 1.18 mg/dL 03/08/2024 3:12 AM HOTEL OR MOTEL CLEANING SUPERVISOR [facility] Glucose 104(H) 70 - 100 mg/dL 03/08/2024 3:12 AM HOTEL OR MOTEL CLEANING SUPERVISOR [facility] Comment:The given reference range is for the fasting state. Non-fasting reference range for glucose is 70 - 180 mg/dL. GFR, Estimated >60 >60 mL/min/1.7 3m2 03/08/2024 3:12 AM HOTEL OR MOTEL CLEANING SUPERVISOR [facility] Blood Venipuncture / Unknown 03/08/2024 2:40 AM HOTEL OR MOTEL CLEANING SUPERVISOR 03/08/2024 2:44 AM HOTEL OR MOTEL CLEANING SUPERVISOR Rk Ndiaye MD LAB_1 Performing Organization Address [facility] Phone Number [facility] [address] * Extra Blue top tube (03/08/2024 2:40 AM HOTEL OR MOTEL CLEANING SUPERVISOR) Extra Blue Top Drawn Specimen will be held for 24 hours 03/08/2024 4:00 AM HOTEL OR MOTEL CLEANING SUPERVISOR [facility] Blood Venipuncture / Unknown 03/08/2024 2:40 AM HOTEL OR MOTEL CLEANING SUPERVISOR 03/08/2024 2:44 AM HOTEL OR MOTEL CLEANING SUPERVISOR Jonathan Deluna MD LAB_1 Performing Organization Address [facility] Phone Number [facility] [address] * Extra Light Green On Ice Tube (03/08/2024 2:40 AM HOTEL OR MOTEL CLEANING SUPERVISOR) Extra Light Green On Ice Tube Drawn Specimen will be held for 5 days 03/08/2024 4:00 AM HOTEL OR MOTEL CLEANING SUPERVISOR [facility] Blood Venipuncture / Unknown 03/08/2024 2:40 AM HOTEL OR MOTEL CLEANING SUPERVISOR 03/08/2024 2:44 AM HOTEL OR MOTEL CLEANING SUPERVISOR Jonathan Deluna MD LAB_1 Performing Organization Address [facility] Phone Number [facility] [address] * Extra Light Green Tube (03/08/2024 2:40 AM HOTEL OR MOTEL CLEANING SUPERVISOR) Extra Light Green Tube Drawn Specimen will be held for 5 days 03/08/2024 4:00 AM HOTEL OR MOTEL CLEANING SUPERVISOR [facility] Blood Venipuncture / Unknown 03/08/2024 2:40 AM HOTEL OR MOTEL CLEANING SUPERVISOR 03/08/2024 2:44 AM HOTEL OR MOTEL CLEANING SUPERVISOR Jonathan Deluna MD LAB_1 Performing Organization Address City/[facility]/ZIP Co de Phone Number [facility] [address] * Extra Lavender top tube (03/08/2024 2:40 AM HOTEL OR MOTEL CLEANING SUPERVISOR) Extra Lavender Top Drawn Specimen will be held for 3 days 03/08/2024 4:00 AM HOTEL OR MOTEL CLEANING SUPERVISOR [facility] Blood Venipuncture / Unknown 03/08/2024 2:40 AM HOTEL OR MOTEL CLEANING SUPERVISOR 03/08/2024 2:44 AM HOTEL OR MOTEL CLEANING SUPERVISOR Jonathan Deluna MD LAB_1 Performing Organization Address [facility] Co de Phone Number [facility] [address] documented in this encounter Visit Diagnoses [...] including possible side effects. Prescriptions filled by [facility] pharmacy. Belongings checklist reviewed with patien t and family and belongings sent. Equipment sent: None . Supplies sent None. Care plan issues addressed and education record updated. R: Patient and family verbalizes understanding and teaches back discharge instructions. Patient discharged by: ambulation with family. L OR MOTEL CLEANING SUPERVISOR * Plan of Care - Bhavin [place] - 03/08/2024 7:25 AM CST [facility] Medication History Note 1. Source(s) of [...] reconciling home medications for hospital use. ? L OR MOTEL CLEANING SUPERVISOR * Plan of Care - Bhavin Lindsey [...] procedure. Mother attentive at bedside. Will monitor. L OR MOTEL CLEANING SUPERVISOR * Triage Assessment Note - Shirin Hall RN - 03/08/2024 2:00 AM HOTEL OR MOTEL CLEANING SUPERVISOR Patient presents to the [facility] for abdominal pain, nausea, and constipation since noon today. Patient is alert and oriented x4, breathing is even and unlabored, ambulates with a steady gait. L OR MOTEL CLEANING SUPERVISOR documented in this encounter Admitting Diagnoses Diagnosis [...] pain scores)., Post-op Given 03/08/2024 3:51 PM HOTEL OR MOTEL CLEANING SUPERVISOR 650 mg bisacodyl (DULCOLAX) rectal suppository 10 [...] (SUBLIMAZE) injection 25-50 mcg 25-50 mcg, Intravenous, [id number], Pain, Procedure, Starting on 03/08/24 at 0915, Until 03/08/24 at 1216, For 2 doses, As directed by anesthesiologist, Pre-op Given 03/08/2024 9:49 AM HOTEL OR MOTEL CLEANING SUPERVISOR 50 mcg HYDROmorphone (DILAUDID) injection 0.2-0.4 mg [...] less than 8. Given 03/08/2024 7:54 AM HOTEL OR MOTEL CLEANING SUPERVISOR 0.4 mg HYDROmorphone (DILAUDID) injection 0.5-1 mg 0.5-1 mg, Intravenous, PRN, Pain, Starting on 03/08/24 at 0319, Until 03/08/24 at 0618, For 3 hours Given 03/08/2024 5:46 AM HOTEL OR MOTEL CLEANING SUPERVISOR 0.5 mg Given 03/08/2024 3:35 AM HOTEL OR MOTEL CLEANING SUPERVISOR 1 mg iohexol (OMNIPAQUE 350) 350 MG/ML injection 75 mL 75 mL, Intravenous, ONCE, On 03/08/24 at 0430, For 1 dose, Radiology Given 03/08/2024 4:05 AM HOTEL OR MOTEL CLEANING SUPERVISOR 75 mL lactated ringers infusion 25 mL/hr, Intravenous, CONTINUOUS, Starting on 03/08/24 at 0945, Administer on all preop surgery patients, ages 12 and older, unless specified differently in the Protocol for Preop Initiation of IV fluids Order Set., Pre-op Restarted 03/08/2024 10:35 AM HOTEL OR MOTEL CLEANING SUPERVISOR Started 03/08/2024 9:30 AM HOTEL OR MOTEL CLEANING SUPERVISOR 25 mL/hr 25 mL/hr ondansetron (ZOFRAN) injection 4 mg 4 mg, Intravenous, ONCE, On 03/08/24 at 0400, For 1 dose, For nausea or vomiting Given 03/08/2024 3:42 AM HOTEL OR MOTEL CLEANING SUPERVISOR 4 m g ondansetron (ZOFRAN-ODT) disintegrating tablet [...] Line - metoclopramide Given 03/08/2024 7:53 AM HOTEL OR MOTEL CLEANING SUPERVISOR 4 mg oxyCODONE (ROXICODONE) immediate release tablet 5-10 mg 5-10 mg, Oral, Q4H PRN, Other, Moderate Pain (pain score 5-7), Severe Pain (pain score 8-10), Starting on 03/08/24 at 1217, Until 03/08/24 at 1850, Do not give both IV and ORAL opioids for pain. Give oral if patient is able to take oral medications., Post-op Given 03/08/2024 12:49 PM HOTEL OR MOTEL CLEANING SUPERVISOR 5 mg polyethylene glycol (MIRALAX) oral powder [...] to completely dissolve. Given 03/08/2024 3:46 PM HOTEL OR MOTEL CLEANING SUPERVISOR 40 mEq senna (SENOKOT) tablet 2 Tablet [...] 1 dose, Radiology Given 03/08/2024 4:04 AM HOTEL OR MOTEL CLEANING SUPERVISOR 10 mL tamsulosin (FLOMAX) capsule 0.4 mg 0.4 mg, Oral, QDAY PC, First dose on 03/08/24 at 0900, Until Discontinued, Swallow whole. Do not chew, crush, or dissolve the granules inside of the capsule. Given 03/08/2024 7:53 AM HOTEL OR MOTEL CLEANING SUPERVISOR 0.4 mg documented in this encounter Active and Recently Administered Medications Times are shown in HOTEL OR MOTEL CLEANING SUPERVISOR. Scheduled Medication Order 03/06/2024 03/07/2024 03/08/2024 ceFAZolin [...] at 0705, Until 03/08/24 at 1850 0911 ([facility] Hold - Pro vider: Automatichold - Reason: Other (Enter Reason in Comment Area))1216 ([facility] Unhold - Provider: Automatichold) bisacodyl [...] count is 50 k/cmm or less. 0911 ([facility] Hold - Pro vider: Automatichold - Reason: Other (Enter Reason in Comment Area))1216 ([facility] Unhold - Provider: Automatichold) calcium carbonate (TUMS) chewable tablet 500 mg 500 mg, Oral, Q4H PRN, Heartburn, Upset Stomach, Starting on 03/08/24 at 0705, Until 03/08/24 at 1850, Each tablet provides 200 mg elemental calcium 0911 ([facility] Hold - Pro vider: Automatichold - Reason: Other (Enter Reason in Comment Area))1216 ([facility] Unhold - Provider: Automatichold) fentaNYL (SUBLIMAZE) injection 25-50 mcg (CANCELED) 25-50 mcg, Intravenous, [id number], Pain, Procedure, Starting on 03/08/24 at 0915, Until 03/08/24 at 1216, For 2 doses, As directed by anesthesiologist, Pre-op 0949 (Given - Provid er: Tasneem Hill RN) guaiFENesin (ROBITUSSIN) oral liquid 10 mL 10 mL, Oral, Q4H PRN, Cough, Starting on 03/08/24 at 0705, Until 03/08/24 at 1850 0911 ([facility] Hold - Pro vider: Automatichold - Reason: Other (Enter Reason in Comment Area))1216 ([facility] Unhold - Provider: Automatichold) HYDROmorphone [...] (Given - Provid er: Bhavin Lindsey RN)0911 ([facility] Hold - Provider: Automatichold - Reason: Other (Enter Reason in Comment Area))1216 ([facility] Unhold - Provider: Automatichold) HYDROmorphone (DILAUDID) injection 0.3-0.5 mg 0.3-0.5 mg, Intravenous, Q3H PRN, Other, Severe Pain (pain score 8-10) if patient unable to take PO, Starting on 03/08/24 at 1217, Until 03/08/24 at 1850, Severe Pain (pain score 8-10) if patient unable to take PO. Hold if on MANUFACTURING DEVELOPMENT ENGINEER, Post-op HYDROmorphone (DILAUDID) injection 0.5-1 mg () [...] ([facility] Unhold - Provider: Automatichold) nystatin (MYCOSTATIN) 531551 UNIT/GM topical powder Topical, BID PRN, Other, for rash due to yeast, Starting on 03/08/24 at 0705, Apply topically to affected area. Hazardous waste disposal required. 0911 ([facility] Hold - Pro vider: Automatichold - Reason: Other (Enter Reason in Comment Area))1216 ([facility] Unhold - Provider: Automatichold) ondansetron [...] Reason: Other (Enter Reason in Comment Area))1216 ([facility] Unhold - Provider: Automatichold) senna [...] Reason: Other (Enter Reason in Comment Area))1216 ([facility] Unhold - Provider: Automatichold) sodium chloride (OCEAN) 0.65 % nasal solution 1 [place] 1 [place], Both Nostrils, Q2H PRN, Dry Nose, Starting on 03/08/24 at 0705, Until 03/08/24 at 1850 0911 ([facility] Hold - Pro vider: Automatichold - Reason: Other (Enter Reason in Comment Area))1216 ([facility] Unhold - Provider: Automatichold) sterile [...] less. documented in this encounter Care Teams Cellular Equipment Installer Relationship Specialty [place] [address] [place] [address] PCP - General Family Practice 07/10/18 documented as of this encounter
--- OUTSIDE RECORDS SUMMARY | 2024-04-15 23:17 | XMS_ITS | Encounter Summary ---
[facility] Address [address], [place] [address] Care Team Providers Care Call Center Support Representative Name Role Phone Yuri Chow MD Primary Care Provider [phone] Encounter Details Date Type Department Care Team (Late Contact Info) Description 12/28/2017 Correspondence [facility] Practice [address] [place], [place] [phone] Jose Guadalupe Parker PA-C [address] [place], [place] [phone] ATTENDING PHYSICIANS STATEMENT Social History Tobacco Use [...] (Late Contact Info) Description 05/14/2024 2:30 PM TERRITORY OUTSIDE SALES MANAGER Appointment Karen Woodard [address] Ultrasound [address] [place] [phone] Musa Mojica MD [address] [place] [address] 05/26/2024 11:00 AM TERRITORY OUTSIDE SALES MANAGER Appointment Karen Woodard [address] Urology [address] [place] [phone] Trang Rowell, EMERGENCY ROOM CLINICIAN, DRUM STRAIGHTENER [address] [place] [address] 09/09/2024 2:30 PM CDT [facility] [address] [facility] Med[facility] [address] [place] [phone] Torsten Chin, DPM [address] [place], [place] [phone] documented as of this encounter Visit Diagnoses Not on filedocumented in this encounter Additional Health Concerns Infection Onset Date Last Indicated Resolved Time R/O COVID19 12/05/2019 12/05/2019 12/06/2019 3:50 PM CDT R/O COVID19 01/13/2021 01/13/2021 01/13/2021 9:53 PM CDT documented as of this encounter Care Teams Call Center Support Representative Relationship Specialty [place] [address] [place] [address] PCP - General Family Practice 07/10/18 documented as of this encounter
--- OUTSIDE RECORDS SUMMARY | 2024-04-15 23:17 | XMS_ITS | Encounter Summary ---
Author Organization [facility]ending sale to [facility] Address [address] [place] [address] Care Team Providers Care Physical Therapy Manager Name Role Phone Yuri Chow MD Primary Care Provider Encounter Details Date Type Department Care Team (Late Contact Info) Description 01/02/2017 Consent for Procedure/Treatme [facility] Ophthalmology [address] [place], [place] [phone] Ha Richards MD [address] [place], [place] [phone] CONSENT FOR SURGICAL PROCEDURE Social History Tobacco [...] (Late Contact Info) Description 05/14/2024 2:30 PM CORPORATE STATISTICAL FINANCIAL ANALYST [facility]ointment [place] [facility] [address] [facility] [address] [place] [phone] Musa Mojica MD [address] [place] [address] 05/26/2024 11:00 AM CORPORATE STATISTICAL FINANCIAL ANALYST Appointment [place] [facility] Drury [address] Urology [address] [place] [phone] Trang Rowell APRN, STAFF WRITER [address] [place] [address] 09/09/2024 2:30 PM CDT Appointment [place] [facility] Drury [address] Podiatric MedSurg [address] [place] [phone] Torsten Chin, DPM [address] [place], [place] [address] documented as of this encounter Visit Diagnoses Not on filedocumented in this encounter Additional Health Concerns Infection Onset Date Last Indicated Resolved Time R/O COVID19 12/05/2019 12/05/2019 12/06/2019 3:50 PM CDT R/O COVID19 01/13/2021 01/13/2021 01/13/2021 9:53 PM CDT documented as of this encounter Care Teams Physical Therapy Manager Relationship Specialty [place] [address] [place] [address] PCP - General Family Practice 07/10/18 documented as of this encounter
--- OUTSIDE RECORDS SUMMARY | 2024-04-15 23:17 | XMS_ITS | Encounter Summary ---
Author Organization [facility] Address [address] [place] [address] Care Team Providers Care Lens And Frames Prescription Clerk Name Role Phone Yuri Chow MD Primary Care Provider Encounter Details Date Type Department Care Team (Late st Contact Info) Description 03/08/2024 10:35 AM PIPE FITTER SOFT COPPER Anesthesia Event Religion Operating Room [address] [facility] [place], [place] [phone] [place] [address] [address] [place], [place] [address] Gregoria Marvin, GREY INSPECTOR, OIL RIG DRILLER [address] [place], [place] [address] Anesthesia Record Procedure Summary Procedure Name Responsible [...] report Electronically signed by Gregoria Marvin APRN OIL RIG DRILLER [address] An Stop Care transferre d. Meds [...] Time: 11303/08/24 1043 by Gregoria Marvin APRN, OIL RIG DRILLER 03/08/24 1138 by Gregoria Marvin APRN, CHRISTOPHER [...] Foster MD - 03/08/2024 2:14 PM CST [facility] Anesthesia Post-op Note Patient: Bhaivn Galaviz Post-Op Diagnosis: Pre-Op Diagnosis Codes: * [...] by: Kb Foster MD 03/08/2024 2:14 PM FITTER SOFT COPPER * Anesthesia Preprocedure Evaluation - Kb Foster MD - 03/08/2024 9:27 AM CST [facility] Anesthesia Pre-op Evaluation Procedure: URETEROSCOPY WITH LASER [...] 07/13/2018 Added automatically from request for surgery [id number] Chronic kidney disease ([facility]) Kidney stones Herpes simplex of eye Kidney stone 04/09/2016 4mm left ureter stone, passed spontainously Marfan's syndrome 04/10/2006 LW Modifier: Probable 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 Pectus carinatum 04/10/2006 LW Modifier: R >> L Spontaneous pneumothorax 04/10/2006 LW Modifier: Multiple ; Pneumothorax Spontaneous Patient Active Problem List Diagnosis Marfan's syndrome 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 Mother states [facility] r/o'ed marfan's just has myotonic dystrophy, unable to access [facility] records. Had echo 2005 note states repeat and f/u in one year has not had another since, min root dilatation noted 2005, recommended they have it repeated as outpt even though does not have Marfans's Dx, does haveMarfan appearance. No succinylcholine The patient and/or their construction sales representative were notified about the potential risks of damage to the lips, teeth, dental devices, mouth and airway. H&P Reviewed and Patient examined, no change observed IV access Antibiotics per surgery Electronically signed by: Kb Foster MD 03/08/2024 9:27 AM FITTER SOFT COPPER documented in this encounter Plan of Treatment Upcoming Encounters Date Type Department Care Team (Late st Contact Info) Description 05/14/2024 2:30 PM PIPE FITTER SOFT COPPER Appointment [place] [facility] [place] [address] [address]tras[address] [address] [place] [phone] Musa Mojica MD [address] [place], [place] [phone] 05/26/2024 11:00 AM PIPE FITTER SOFT COPPER Appointment [place] Kenyetta Ellerbe [address] Urology [address] [place] [phone] Trang Rowell, GREY INSPECTOR, CORPORATE RECEPTIONIST [address] [place], [place] [phone] 09/09/2024 2:30 PM CDT Appointment [facility] [address] Podiatric MedSurg [address] [place] [phone] Torsten Chin, DPM [address] [place], [place] [phone] documented as of this encounter Visit Diagnoses [...] renal insufficiency., Pre-op Given 03/08/2024 10:44 AM PIPE FITTER SOFT COPPER 2 g dexAMETHasone (DECADRON) injection Intravenous, Starting on 03/08/24 at 1038, Until 03/08/24 at 1144 Given 03/08/2024 10:38 AM PIPE FITTER SOFT COPPER 4 mg ePHEDrine 10 mg/mL injection Intravenous, Starting on 03/08/24 at 1115, Until 03/08/24 at 1144 Given 03/08/2024 11:26 AM PIPE FITTER SOFT COPPER 2.5 mg Given 03/08/2024 11:19 AM PIPE FITTER SOFT COPPER 2.5 mg Given 03/08/2024 11:17 AM PIPE FITTER SOFT COPPER 2.5 mg fentaNYL (SUBLIMAZE) injection Intravenous, Starting on 03/08/24 at 1039, Until 03/08/24 at 1144 Given 03/08/2024 10:39 AM PIPE FITTER SOFT COPPER 25 mcg lactated ringers infusion 25 mL/hr, Intravenous, CONTINUOUS, Starting on 03/08/24 at 0945, Administer on all preop surgery patients, ages 12 and older, unless specified differently in the Protocol for Preop Initiation of IV fluids Order Set., Pre-op Restarted 03/08/2024 10:35 AM PIPE FITTER SOFT COPPER Started 03/08/2024 9:30 AM PIPE FITTER SOFT COPPER 25 mL/hr 25 mL/hr lidocaine PF (XYLOCAINE) 1 % injection Intravenous, Starting on 03/08/24 at 1040 Given 03/08/2024 10:40 AM PIPE FITTER SOFT COPPER 100 mg midazolam (VERSED) injection Intravenous, Starting on 03/08/24 at 1035, Until 03/08/24 at 1144 Given 03/08/2024 10:35 AM PIPE FITTER SOFT COPPER 0.5 mg ondansetron (ZOFRAN) injection Intravenous, Starting on 03/08/24 at 1038, Until 03/08/24 at 1144 Given 03/08/2024 10:38 AM PIPE FITTER SOFT COPPER 4 mg propofol (DIPRIVAN) 10 mg/mL injection Intravenous, Starting on 03/08/24 at 1040, Until 03/08/24 at 1144 Given 03/08/2024 10:40 AM PIPE FITTER SOFT COPPER 150 mg rocuronium (ZEMURON) injection Intravenous, Starting on 03/08/24 at 1041, Until 03/08/24 at 1144 Given 03/08/2024 10:41 AM PIPE FITTER SOFT COPPER 40 mg sugammadex (BRIDION) injection Intravenous, Starting on 03/08/24 at 1129, Until 03/08/24 at 1144 Given 03/08/2024 11:29 AM PIPE FITTER SOFT COPPER 120 mg documented in this encounter Care Teams Lens And Frames Prescription Clerk Relationship Specialty [place] [address] [place] [address] PCP - General Family Practice 07/10/18 documented as of this encounter
--- OUTSIDE RECORDS SUMMARY | 2024-04-15 23:17 | XMS_ITS | Clinical Summary ---
Author Organization Critical access hospital Address [address] [place] [address] Care Team Providers Care Pediatric Physiatrist Name Role Phone Yuri Chow MD Primary Care Provider [phone] Source Comments You are receiving this document as you are listed as the primary care provider,follow-up provider, or the patient has been referred to you for consultation.This is in compliance with the Medicare and[facility] E[facility]centive [facility],which states Providers who transition [...] diagnosed and treated through sleep neurology at [facility]. Agrees to f/u at AV [...] (07/14/2018): Added automatically from request for surgery [id number] Chest pain 04/10/2006 03/08/2024 Overview (11/29/2016): Pain Chest NOS Pectus carinatum 04/10/2006 03/08/2024 Overview (11/12/2015): LW Modifier: R >> L Encounters Date Type Department Care Team Description 03/18/2024 10:00 AM TRUCK DRIVER INSTRUCTOR Office Visit [facility] [address] Urology [address] [place] [phone] Musa Mojica MD Kidney stone (Primary Dx); Calculus of upper urinary tract 03/18/2024 Telephone - Urology [address] [place] [address] Musa Mojica MD QUESTIONS, GENERAL 03/12/2024 Telephone [facility] [address] [place], [place] [phone] Yuri Chow MD Hospital Discharge Follow-up 03/11/2024 2:15 PM TRUCK DRIVER INSTRUCTOR Office Visit [facility] [address] Podiatric MedSurg [address] [place] [phone] Torsten Chin DPM Onychomycosis (Primary Dx); Dystrophic nail 03/10/2024 Telephone - Urology [address] [place], [place] [address] Musa Mojica MD Discharge Follow Up Call 03/08/2024 10:35 AM TRUCK DRIVER INSTRUCTOR Anesthesia Event [facility] [address] [facility] [place] [address] Kb Foster MD Selim, Mona M, APRN, CHRISTOPHER 03/08/2024 9:51 AM TRUCK DRIVER INSTRUCTOR - 03/08/2024 11:06 AM TRUCK DRIVER INSTRUCTOR Surgery [facility] [address] [place] [address] Musa Mojica MD URETEROSCOPY WITH LASER LITHOTRIPSY AND URETERAL STENT PLACEMENT 03/08/2024 2:07 AM TRUCK DRIVER INSTRUCTOR - 03/08/2024 4:50 PM TRUCK DRIVER INSTRUCTOR Emergency [facility] 8W General Med [address] [place] [address] Jonathan Deluna MD Grommesh, MD Maninder Kamara, [...] Comments Blood Pressure 109/72 03/08/2024 3:00 PM TRUCK DRIVER INSTRUCTOR Pulse 76 03/08/2024 3:00 PM TRUCK DRIVER INSTRUCTOR Temperature 36.7 C (98 F) 03/08/2024 3:00 PM TRUCK DRIVER INSTRUCTOR Respiratory Rate 18 03/08/2024 3:00 PM TRUCK DRIVER INSTRUCTOR Oxygen Saturation 100% 03/08/2024 3:00 PM TRUCK DRIVER INSTRUCTOR Inhaled Oxygen Concentration - - Weight 60.5 kg (133 lb 6.4 oz) 03/08/2024 7:22 A M TRUCK DRIVER INSTRUCTOR Height 177.8 cm (5' 10) 03/08/2024 7:22 AM TRUCK DRIVER INSTRUCTOR Body Mass Index 19.14 03/08/2024 7:22 AM TRUCK DRIVER INSTRUCTOR Plan of Treatment Upcoming Encounters Date Type Department Care Team (Late st Contact Info) Description 05/14/2024 2:30 PM TRUCK DRIVER INSTRUCTOR Appointment [facility] [place] [address] Ultrasound [address] [place] [address] Musa Mojica MD [address] [place], [place] [address] 05/26/2024 11:00 AM TRUCK DRIVER INSTRUCTOR Appointment [place] [facility] [place] [address] Urology [address] [place] [address] Trang Rowell, CONTRACT GRAPHIC DESIGNER, SOFTWARE LICENSING EXECUTIVE [address] [place], [place] [phone] 09/09/2024 2:30 PM CDT Appointment [place] [facility] [place] [address] Podiatric Med[facility] [address] [place] [address] Torsten Chin, DPM [address] [place], [place] [phone] Health Maintenance Due Date Last Done Comments [...] this topic Medical Devices Implanted Type Area Alcohol And Drug Counselor Device Identifier Shelf Expiration Date Model / Serial / Lot Stent Ureteral Inlay 6fr 26cm - [id number] Implanted:Qty: 1 on 03/08/2024 by Musa Mojica MD at [facility] DEVICE Right: URETER [employer] 11/06/2028 [id number] / / [id number] Procedures Procedure Name Priority Date/Time Associated Diagnosis Comments FL RETROGRADE PYELOGRAM Routine 03/08/2024 11:31 AM TRUCK DRIVER INSTRUCTOR CALCULI STONE ANALYSIS Routine 03/08/2024 11:28 AM TRUCK DRIVER INSTRUCTOR Ureterolithiasis CYSTOSCOPY,RETROGRAD E PYELOGRAM,URETEROSCO PY,HOLMIUM LASER LITHOTRIPSY OF STONE,URETERAL STENT PLACEMENT 03/08/2024 10:17 AM TRUCK DRIVER INSTRUCTOR Ureterolithiasis UA CONDITIONAL UC STAT 03/08/2024 4:4 [address] ABD PELVIS W IV CONT ONLY STAT 03/08/2024 4:04 AM TRUCK DRIVER INSTRUCTOR LIVER PANEL(HEPATIC FUNCTION PANEL) STAT Add-On 03/08/2024 2:40 AM TRUCK DRIVER INSTRUCTOR LIPASE STAT Add-On 03/08/2024 2:40 AM TRUCK DRIVER INSTRUCTOR COMPLETE BLOOD COUNT-W/DIFF STAT Add-On 03/08/2024 2:40 AM TRUCK DRIVER INSTRUCTOR LACTATE REFLEX PANEL Add-On 03/08/2024 2:40 AM TRUCK DRIVER INSTRUCTOR CBC AND DIFFERENTIAL PANEL STAT Add-On 03/08/2024 2:40 AM TRUCK DRIVER INSTRUCTOR BASIC METABOLIC PANEL STAT Add-On 03/08/2024 2:40 AM TRUCK DRIVER INSTRUCTOR EXTRA BLUE TOP TUBE Routine 03/08/2024 2 :40 AM TRUCK DRIVER INSTRUCTOR EXTRA LIGHT GREEN TOP ON ICE TUBE Routine 03/08/2024 2:40 AM TRUCK DRIVER INSTRUCTOR EXTRA LIGHT GREEN TUBE Routine 03/08/2024 2:40 AM TRUCK DRIVER INSTRUCTOR EXTRA LAVENDER TOP TUBE Routine 03/08/2024 2:40 AM TRUCK DRIVER INSTRUCTOR RAINBOW DRAW AND HOLD Routine 03/08/2024 2:40 AM TRUCK DRIVER INSTRUCTOR HIV 1/2 AG/AB 4TH GEN Routine 10/25/2018 11:54 AM CDT Screening for STDs (sexually transmitted diseases) from Last 3 Months or Most Recently Relevant to Health Maintenance Results * FL Retrograde Pyelogram (03/08/2024 11:31 AM TRUCK DRIVER INSTRUCTOR) Anatomical Region Laterality Modality Abdomen, Pelvis Radio Fluoroscop y Narrative 03/08/2024 12:18 PM TRUCK DRIVER INSTRUCTOR This is an imaging order that has been read externally. Musa Mojica MD RAD FL * Calculi Stone Analysis (03/08/2024 11:28 AM TRUCK DRIVER INSTRUCTOR) Calculi Composition See Note 03/11/2024 9:35 AM TRUCK DRIVER INSTRUCTOR [employer] Comment: Calculi composed primarily of: 70% calcium [...] composition determined by FTIR analysis. Performed By: [facility] [address] [place] [id number] Dairy Technician: Art Chiu MD, PhD CLIA Number: [id number] Calculi Description See Note 03/11/2024 9:35 AM TRUCK DRIVER INSTRUCTOR [employer] Comment: Specimen consists of one brown and negrete calculus. The total weight is 14 mg. Calculi Mass 14 mg 03/11/2024 9:35 AM TRUCK DRIVER INSTRUCTOR [employer] Stone (Calculus) KIDNEY STONE / Unknown 03/08/2024 11:28 AM TRUCK DRIVER INSTRUCTOR 03/08/2024 11:44 AM TRUCK DRIVER INSTRUCTOR Musa Mojica MD LAB_1 [facility] [address] [place], [place] [address] [place] [address] * (ABNORMAL) UA Conditional UC: Clean Catch (03/08/2024 4:40 AM TRUCK DRIVER INSTRUCTOR) Urine Culture Comment 03/08/2024 5:00 AM TRUCK DRIVER INSTRUCTOR [facility] Urine Color Colorless 03/08/2024 5:00 AM TRUCK DRIVER INSTRUCTOR [facility] Urine Clarity Clear Clear 03/08/2024 5:00 AM TRUCK DRIVER INSTRUCTOR [facility] Specific [place], Urine 1.020 <1.030 03/08/2024 5:00 AM TRUCK DRIVER INSTRUCTOR [facility] PH Urine 6.0 5.0 - 8.0 03/08/2024 5:00 AM TRUCK DRIVER INSTRUCTOR [facility] Protein, Urine Qual (mg/dL) Negative Negative, 10 , 20 03/08/2024 5:00 AM TRUCK DRIVER INSTRUCTOR [facility] Glucose Urine Qual (mg/dL) Normal (Negative) Normal (Negative), 30 , 50 03/08/2024 5:00 AM TRUCK DRIVER INSTRUCTOR [facility] Ketones, Urine (mg/dL) Negative Negative, Trace 03/08/2024 5:00 AM TRUCK DRIVER INSTRUCTOR [facility] Urobilinogen, Urine (EU/dL) Normal (Negative) Normal (Negative) 03/08/2024 5:00 AM TRUCK DRIVER INSTRUCTOR [facility] Bilirubin Urine (mg/dL) Negative Negative 03/08/2024 5:00 AM TRUCK DRIVER INSTRUCTOR [facility] Blood, Urine (mg/dL) 0.50 (Moderate)(A) Negative, 0.03 (Trace) 03/08/2024 5:00 AM TRUCK DRIVER INSTRUCTOR [facility] Nitrite Urine Negative Negative 03/08/2024 5:00 AM TRUCK DRIVER INSTRUCTOR [facility] Leukocyte Esterase, Urine (Gracie/uL) Negative Negative, 25 (Trace) 03/08/2024 5:00 AM TRUCK DRIVER INSTRUCTOR [facility] Red Blood Cells 18(H) 0 - 3 /HPF 03/08/2024 5:00 AM TRUCK DRIVER INSTRUCTOR [facility] White Blood Cells 1 0 - 5 /HPF 03/08/2024 5:00 AM TRUCK DRIVER INSTRUCTOR [facility] Squamous Epithelial Cells Occasional None Seen, Occasional, Few /HPF 03/08/2024 5:00 AM TRUCK DRIVER INSTRUCTOR [facility] Mucus Present(A) None Seen /HPF 03/08/2024 5:00 AM TRUCK DRIVER INSTRUCTOR [facility] Source Clean Catch 03/08/2024 5:00 AM TRUCK DRIVER INSTRUCTOR [facility] Urine URINE SPECIMEN COLLECTION, CLEAN CATCH / Unknown Non-blood Collection / Unknown 03/08/2024 4:40 AM TRUCK DRIVER INSTRUCTOR 03/08/2024 4:47 AM TRUCK DRIVER INSTRUCTOR Narrative [facility] - 03/08/2024 5:00 AM TRUCK DRIVER INSTRUCTOR The qualitative interpretive guidance provided (e.g., small, moderate, large) is intended to aid in quantitative result interpretation. It is not itself an FDA-cleared test result. Jonathan Deluna MD LAB_1 [facility] [address] [employer] [address] * CT Abd Pelvis W IV Cont Only (03/08/2024 4:04 AM TRUCK DRIVER INSTRUCTOR) Anatomical Region Laterality Modality Abdomen, Pelvis Computed Tomogra phy 03/08/2024 4:04 AM TRUCK DRIVER INSTRUCTOR Narrative 03/08/2024 4:38 AM TRUCK DRIVER INSTRUCTOR EXAM: CT ABDOMEN AND PELVIS WITH IV CONTRAST ONLY LOCATION: [facility] DATE: 03/08/2024 INDICATION: Right-sided pain, history of [...] AND PELVIS WITH IV CONTRAST ONLY LOCATION: [facility] DATE: 03/08/2024 INDICATION: Right-sided pain, history of [...] Extra Lavender top tube (03/08/2024 2:40 AM TRUCK DRIVER INSTRUCTOR) Extra Lavender Top Drawn Specimen will be held for 3 days 03/08/2024 4:00 AM TRUCK DRIVER INSTRUCTOR [facility] Blood Venipuncture / Unknown 03/08/2024 2:40 AM TRUCK DRIVER INSTRUCTOR 03/08/2024 2:44 AM TRUCK DRIVER INSTRUCTOR Jonathan Deluna MD LAB_1 Performing Organization Address City/[facility] Co de Phone Number [facility] [address] * Extra Blue top tube (03/08/2024 2:40 AM TRUCK DRIVER INSTRUCTOR) Extra Blue Top Drawn Specimen will be held for 24 hours 03/08/2024 4:00 AM TRUCK DRIVER INSTRUCTOR [facility] Blood Venipuncture / Unknown 03/08/2024 2:40 AM TRUCK DRIVER INSTRUCTOR 03/08/2024 2:44 AM TRUCK DRIVER INSTRUCTOR Jonathan Deluna MD LAB_1 Performing Organization Address [facility] de Phone Number [facility] [address] * Lactate Reflex Panel (03/08/2024 2:40 AM TRUCK DRIVER INSTRUCTOR) Pathologist [facility] Lactate, Whole Blood 0.60 0.50 - 2.00 mmol/L 03/08/2024 2:59 AM TRUCK DRIVER INSTRUCTOR [facility] Blood Venipuncture / Unknown 03/08/2024 2:40 AM TRUCK DRIVER INSTRUCTOR 03/08/2024 2:44 AM TRUCK DRIVER INSTRUCTOR Narrative [facility] - 03/08/2024 2:59 AM TRUCK DRIVER INSTRUCTOR Reference range for healthy individuals when sepsis is not suspected is 0.5-2.2 mmol/L Rk Ndiaye MD LAB_1 Performing Organization Address [facility] de Phone Number [facility] [address] * Extra Light Green Tube (03/08/2024 2:40 AM TRUCK DRIVER INSTRUCTOR) Extra Light Green Tube Drawn Specimen will be held for 5 days 03/08/2024 4:00 AM TRUCK DRIVER INSTRUCTOR [facility] Blood Venipuncture / Unknown 03/08/2024 2:40 AM TRUCK DRIVER INSTRUCTOR 03/08/2024 2:44 AM TRUCK DRIVER INSTRUCTOR Jonathan Deluna MD LAB_1 Performing Organization Address [facility] Phone Number [facility] [address] * Extra Light Green On Ice Tube (03/08/2024 2:40 AM TRUCK DRIVER INSTRUCTOR) Pathologist [facility] Extra Light Green On Ice Tube Drawn Specimen will be held for 5 days 03/08/2024 4:00 AM TRUCK DRIVER INSTRUCTOR [facility] Blood Venipuncture / Unknown 03/08/2024 2:40 AM TRUCK DRIVER INSTRUCTOR 03/08/2024 2:44 AM TRUCK DRIVER INSTRUCTOR Jonathan Deluna MD LAB_1 Performing Organization Address [facility] Phone Number [facility] [address] * (ABNORMAL) Complete Blood Count-W/Diff (03/08/2024 2:40 AM TRUCK DRIVER INSTRUCTOR) WBC 8.6 3.5 - 10.5 x10(9)/L 03/08/2024 3:00 AM TRUCK DRIVER INSTRUCTOR [facility] RBC 4.57 4.32 - 5.72 x10(12)/L 03/08/2024 3:00 AM TRUCK DRIVER INSTRUCTOR [facility] Hemoglobin 14.6 13.5 - 17.5 g/dL 03/08/2024 3:00 AM TRUCK DRIVER INSTRUCTOR [facility] HCT 41.9 38.8 - 50.0 % 03/08/2024 3:00 AM TRUCK DRIVER INSTRUCTOR [facility] MCV 91.7 80.0 - 100.0 fL 03/08/2024 3:00 AM TRUCK DRIVER INSTRUCTOR [facility] MCH 31.9 27.6 - 33.3 pg 03/08/2024 3:00 AM TRUCK DRIVER INSTRUCTOR [facility] MCHC 34.8 31.5 - 35.2 g/dL 03/08/2024 3:00 AM TRUCK DRIVER INSTRUCTOR [facility] RDW 12.4 11.9 - 15.5 % 03/08/2024 3:00 AM TRUCK DRIVER INSTRUCTOR [facility] Platelets 191 150 - 450 x10(9)/L 03/08/2024 3:00 AM TRUCK DRIVER INSTRUCTOR [facility] Automated NRBC 0 <=0 /100 WBC 03/08/2024 3:00 AM TRUCK DRIVER INSTRUCTOR [facility] Neutrophil Absolute 6.9 1.7 - 7.0 10(9)/L 03/08/2024 3:00 AM TRUCK DRIVER INSTRUCTOR [facility] Lymphocyte Absolute 0.9(L) 1.0 - 4.8 10(9)/L 03/08/2024 3:00 AM TRUCK DRIVER INSTRUCTOR [facility] Monocyte Absolute 0.7 0.2 - 0.9 10(9)/L 03/08/2024 3:00 AM TRUCK DRIVER INSTRUCTOR [facility] Eosinophil Absolute 0.1 0.0 - 0.5 10(9)/L 03/08/2024 3:00 AM TRUCK DRIVER INSTRUCTOR [facility] Basophil Absolute 0.0 0.0 - 0.3 10(9)/L 03/08/2024 3:00 AM TRUCK DRIVER INSTRUCTOR [facility] Immature Granulocyte % 0.4 0.0 - 0.5 % 03/08/2024 3:00 AM TRUCK DRIVER INSTRUCTOR [facility] Blood Venipuncture / Unknown 03/08/2024 2:40 AM TRUCK DRIVER INSTRUCTOR 03/08/2024 2:44 AM TRUCK DRIVER INSTRUCTOR Rk Ndiaye MD LAB_1 [facility] [address] * (ABNORMAL) Liver Panel (Hepatic Function Panel) (03/08/2024 2:40 AM TRUCK DRIVER INSTRUCTOR) Alkaline Phosphatase 46 40 - 150 U/L 03/08/2024 3:41 AM TRUCK DRIVER INSTRUCTOR [facility] Bilirubin, Total 0.6 0.2 - 1.2 mg/dL 03/08/2024 3:41 AM TRUCK DRIVER INSTRUCTOR [facility] Bilirubin, Direct 0.2 0.0 - 0.5 mg/dL 03/08/2024 3:41 AM TRUCK DRIVER INSTRUCTOR [facility] AST (SGOT) 33 10 - 40 U/L 03/08/2024 3:41 AM TRUCK DRIVER INSTRUCTOR [facility] ALT (SGPT) 36 <=55 U/L 03/08/2024 3:41 AM TRUCK DRIVER INSTRUCTOR [facility] Protein, Total 6.0(L) 6.4 - 8.3 g/dL 03/08/2024 3:41 AM TRUCK DRIVER INSTRUCTOR [facility] Albumin 3.9 3.5 - 5.0 g/dL 03/08/2024 3:41 AM TRUCK DRIVER INSTRUCTOR [facility] Blood Venipuncture / Unknown 03/08/2024 2:40 AM TRUCK DRIVER INSTRUCTOR 03/08/2024 2:44 AM TRUCK DRIVER INSTRUCTOR Jonathan Deluna MD LAB_1 Performing Organization Address City/State/[facility] Co de Phone Number [facility] [address] * (ABNORMAL) Basic Metabolic Panel (03/08/2024 2:40 AM TRUCK DRIVER INSTRUCTOR) Sodium 142 136 - 145 mmol/L 03/08/2024 3:12 AM TRUCK DRIVER INSTRUCTOR [facility] Potassium 3.4(L) 3.5 - 5.1 mmol/L 03/08/2024 3:12 AM TRUCK DRIVER INSTRUCTOR [facility] Chloride 111(H) 98 - 109 mmol/L 03/08/2024 3:12 AM TRUCK DRIVER INSTRUCTOR [facility] CO2 23 20 - 29 mmol/L 03/08/2024 3:12 AM TRUCK DRIVER INSTRUCTOR [facility] Anion Gap 8 6 - 16 mmol/L 03/08/2024 3:12 AM TRUCK DRIVER INSTRUCTOR [facility] Calcium 9.4 8.4 - 10.4 mg/dL 03/08/2024 3:12 AM TRUCK DRIVER INSTRUCTOR [facility] BUN 14 7 - 26 mg/dL 03/08/2024 3:12 AM TRUCK DRIVER INSTRUCTOR [facility] Creatinine 1.18 0.73 - 1.18 mg/dL 03/08/2024 3:12 AM TRUCK DRIVER INSTRUCTOR [facility] Glucose 104(H) 70 - 100 mg/dL 03/08/2024 3:12 AM TRUCK DRIVER INSTRUCTOR [facility] Comment:The given reference range is for the fasting state. Non-fasting reference range for glucose is 70 - 180 mg/dL. GFR, Estimated >60 >60 mL/min/1.7 3m2 03/08/2024 3:12 AM TRUCK DRIVER INSTRUCTOR [facility] Blood Venipuncture / Unknown 03/08/2024 2:40 AM TRUCK DRIVER INSTRUCTOR 03/08/2024 2:44 AM TRUCK DRIVER INSTRUCTOR Rk Ndiaye MD LAB_1 [facility] [address] * Lipase (03/08/2024 2:40 AM TRUCK DRIVER INSTRUCTOR) Pathologist [facility] Lipase 20 8 - 78 U/L 03/08/2024 3:41 AM TRUCK DRIVER INSTRUCTOR [facility] Blood Venipuncture / Unknown 03/08/2024 2:40 AM TRUCK DRIVER INSTRUCTOR 03/08/2024 2:44 AM TRUCK DRIVER INSTRUCTOR Jonathan Deluna MD LAB_1 Performing Organization Address [facility] Co de Phone Number [facility] [address] * HIV 1/2 Ag/Ab 4th Generation (10/25/2018 11:54 AM CDT) Pathologist [facility] HIV 1/2 Antigen/Anti body (4th generation) Negative (Non Reactive) Negative (Non Reactive) 10/25/2018 3:40 PM CDT [facility] Comment:HIV-1 p24 Antigen an d HIV-1/HIV-2 Antibody not detected Blood Venipuncture / Unknown 10/25/2018 11:54 AM CDT 10/25/2018 11:54 AM CDT Yuri Chow MD LAB_1 Performing Organization Address City/[facility]/ZIP Co de Phone Number [facility] [address] [phone] from Last 3 Months or Most Recently Relevant to Health Maintenance Advance Directives * Full Code (Latest Code Status on File) Date Activated Date Inactivated Comments 03/08/2024 7:05 AM 03/08/2024 6:55 PM * Full Code Date Activated Date Inactivated Comments 07/14/2018 2:03 AM 07/14/2018 6:27 PM Care Teams Pediatric Physiatrist Relationship Specialty [place] [address] [place] [address] PCP - General Family Practice 07/10/18
--- OUTSIDE RECORDS SUMMARY | 2024-04-15 23:17 | XMS_ITS | Encounter Summary ---
Author [facility] Address [address] [place] [address] Care Team Providers Care Vp Outcomes Name Role Phone Yuri Chow MD Primary Care Provider Reason for Referral * Procedure/Equipment (Routine) - Incomplete Specialty Diagnoses / Procedures Referred By Contdragan t Referred To Contact Diagnoses Kidney stone Procedures US Renal W Bladder Musa Mojica MD [address] [place] [address] Referral ID Status Reason Start Date Expiration Date V isits Requested Visits Authorized [id number] Incomplete 04/18/2024 07/18/2025 1 1 Encounter Details Date Type Department Care Team (Late st Contact Info) Description 03/18/2024 10:00 AM LGSW Office Visit [place] [address] Urology [address] [place] [address] Musa Mojica MD [address] [place] [address] Kidney stone (Primary Dx); Calculus [...] and urine studies for him today too. documented in this encounter Plan of Treatment Upcoming Encounters Date Type Department Care Team (Late st Contact Info) Description 05/14/2024 2:30 PM LGSW Appointment [place] [address] [address]trasound [address] [place] [address] Musa Mojica MD [address] [place] [address] 05/26/2024 11:00 AM LGSW Appointment [facility] [place] [address] Urology [address] [place] [phone] Trang Rowell, PACKAGE DESIGNER, HELPDESK ANALYST [address] [place], [place] [phone] 09/09/2024 2:30 PM CDT Appointment [facility] [address] Podiatric MedSurg [address] [place] [address] Torsten Chin, DPM [address] [place] [address] Scheduled Orders Name Type Priority [...] For 1 dose Given 03/18/2024 1:19 PM LGSW documented in this encounter Care Teams Vp Outcomes Relationship Specialty [place] [address] [place] [address] PCP - General Family Practice 07/10/18 documented as of this encounter
--- OUTSIDE RECORDS SUMMARY | 2024-04-15 23:17 | XMS_ITS | Encounter Summary ---
Author Organization [facility] Address [address] [place] [address] Care Team Providers Care Repeater Operator Name Role Phone Yuri Chow MD Primary Care Provider [phone] Reason for Visit * Reason Comments EYE PAIN Encounter Details Date Type Department Care Team (Late st Contact Info) Description 12/23/2016 Nurse Triage Careline [address] [place] [address] [place] [address] [place], [place] [phone] EYE PAIN Social History Tobacco Use Types [...] nasal discharge, facial rash) Protocols used: EYE [id number] Patient/caller encouraged to call back to the Careline at # [phone] with any questions and advised to call back or seek immediate care for worsening symptoms. Patient/caller encouraged to follow up with PCP/Clinic as needed. Patient/caller verbalized understanding of recommendations and is agreeable with plan. Marielle Gomez RN * Marielle Gomez RN - 12/23/2016 9:12 AM CDT Call transferred from the [facility] center. Pt calling stating he has [...] st Contact Info) Description 05/14/2024 2:30 PM ALUM OPERATOR Appointment [place] [address] Ultrasound [address] [place] [phone] Musa Mojica MD [address] [place], [place] [phone] 05/26/2024 11:00 AM ALUM OPERATOR Appointment [place] [address] Urology [address] [place] [phone] Trang Rowell APRN, ROVING SIZER [address] [place], [place] [address] 09/09/2024 2:30 PM CDT Appointment [facility] [address] Podiatric MedSurg [address] [place] [phone] Torsten Chin, DPM [address] [place], [place] [address] documented as of this encounter Visit Diagnoses Not on filedocumented in this encounter Additional Health Concerns Infection Onset Date Last Indicated Resolved Time R/O COVID19 12/05/2019 12/05/2019 12/06/2019 3:50 PM CDT R/O COVID19 01/13/2021 01/13/2021 01/13/2021 9:53 PM CDT documented as of this encounter Care Teams Repeater Operator Relationship Specialty [place] [address] [place] [address] PCP - General Family Practice 07/10/18 documented as of this encounter
--- OUTSIDE RECORDS SUMMARY | 2024-04-15 23:17 | XMS_ITS | Encounter Summary ---
[facility] Organization [email or web address] Address [address] [place] [address] Care Team Providers Care Detail Manager Name Role Phone Yuri Chow MD Primary Care Provider [phone] Reason for Visit * Reason Comments QUESTIONS, GENERAL Encounter Details Date Type Department Care Team ([facility] st Contact Info) Description 03/18/2024 Telephone [facility] - Urology [address] [facility] [place], [place] [phone] Musa Mojica MD [address] [place], [place] [phone] QUESTIONS, GENERAL Social History Tobacco Use Types [...] is still not managable, go to ER. CONDUCTOR PACKAGES TESTER documented in this encounter Plan of Treatment Upcoming Encounters Date Type Department Care Team (Late st Contact Info) Description 05/14/2024 2:30 PM SEMICONDUCTOR PACKAGES TESTER Appointment [facility] [place] [address] Ultrasound [address] [place] [phone] Musa Mojica MD [address] [place], [place] [address] 05/26/2024 11:00 AM SEMICONDUCTOR PACKAGES TESTER Appointment [facility] [place] [address] Urology [address] [place] [phone] Trang Rowell APRN, MEDICAL DELIVERY TECHNICIAN [address] [place] [address] 09/09/2024 2:30 PM CDT Appointment [facility] [address] Podiatric MedSurg [address] [place] [phone] Torsten Chin, DPM [address] [place], [place] [address] documented as of this encounter Visit Diagnoses Not on filedocumented in this encounter Care Teams Detail Manager Relationship Specialty [place] [address] [place], [place] [phone] PCP - General Family Practice 07/10/18 documented as of this encounter
--- OUTSIDE RECORDS SUMMARY | 2024-04-15 23:17 | XMS_ITS | Encounter Summary ---
Author Organization [facility] Address [address] [place] [address] Care Team Providers Care Greens Tier Name Role Phone Yuri Chow MD Primary Care Provider Reason for Visit * Reason Comments NAIL PROBLEM Recheck nail fungus Encounter Details Date Type Department Care Team ([facility] st Contact Info) Description 03/11/2024 2:15 PM CHIP FRIER Office Visit [facility] [address] Podiatric MedSur [address] [place] [address] Torsten Chin, KHUSHBOOM [address] [place] [address] Onychomycosis (Primary Dx); Dystrophic nail Social History [...] Chin DPM - 03/11/2024 2:15 PM CST [facility] Date of Service: 03/11/2024 CSN: [id number] PATIENT HISTORY: Bhavin Galaviz is a 33 [...] he may need to be done at [facility]. Again discussed possible hepatic side effects of oral antifungal medication and the need for LFT monitoring should he wished to pursue this medication longer than 6 months. Patient wishes to pursue oral antifungal medication. Rx Diflucan 200 mg p.o. weekly for 6 months RTC 6 months Patient agrees to plan Torsten Chin DPM, FACFAS FRIER documented in this encounter Plan of Treatment Upcoming Encounters Date Type Department Care Team (Late st Contact Info) Description 05/14/2024 2:30 PM CHIP FRIER Appointment [facility] [place] [address] Ultrasound [address] [place] [phone] Musa Mojica MD [address] [place], [place] [address] 05/26/2024 11:00 AM CHIP FRIER Appointment [facility] [place] [address] Urology [address] [place] [phone] Trang Rowell APRN, PRESS SET UP [address] [place], [place] [phone] 09/09/2024 2:30 PM CDT Appointment [facility] [place] [address] Podiatric MedSurg [address] [place] [phone] Torsten Chin DPM [address] [place], [place] [address] documented as of this encounter Visit Diagnoses Diagnosis Onychomycosis- Primary Dermatophytosis of nail Dystrophic nail Other specified disease of nail documented in this encounter Care Teams Greens Tier Relationship Specialty [place] [address] [place], [place] [phone] PCP - General Family Practice 07/10/18 documented as of this encounter
--- OUTSIDE RECORDS SUMMARY | 2024-04-15 23:17 | XMS_ITS | Encounter Summary ---
Author Organization [facility] Address [address], [place] [address] Care Team Providers Care Sharepoint Web Developer Name Role Phone Yuri Chow MD [...] (Late Contact Info) Description 05/14/2024 2:30 PM CONCRETE BUCKET LOADER Appointment Karen Woodard [address] Ultrasound [address] [place] [phone] Musa Mojica MD [address] [place] [address] 05/26/2024 11:00 AM CONCRETE BUCKET LOADER Appointment Karen Woodard [address] Urology [address] [place] [phone] Trang Rowell, PUBLICITY PERSON, DOG SITTER [address] [place] [address] 09/09/2024 2:30 PM CDT Appointment Karen Woodard [address] Podiatric MedSurg [address] [place] [phone] Torsten Chin, DPM [address] [place] [address] documented as of this encounter Visit Diagnoses Not on filedocumented in this encounter Additional Health Concerns Infection Onset Date Last Indicated Resolved Time R/O COVID19 12/05/2019 12/05/2019 12/06/2019 3:50 PM CDT R/O COVID19 01/13/2021 01/13/2021 01/13/2021 9:53 PM CDT documented as of this encounter Care Teams Sharepoint Web Developer Relationship Specialty [place] [address] [place] [address] PCP - General Family Practice 07/10/18 documented as of this encounter
--- OUTSIDE RECORDS SUMMARY | 2024-04-15 23:17 | XMS_ITS | Encounter Summary ---
Author Organization [facility] Address [address] [place] [address] Care Team Providers Care Solid Waste Technician Name Role Phone Yuri Chow MD Primary Care Provider Reason for Visit * Reason Comments Discharge Follow Up Call Encounter Details Date Type Department Care Team (Late st Contact Info) Description 03/10/2024 Telephone - Urology [address] [place], [place] [phone] Musa Mojica MD [address] [place], [place] [phone] Discharge Follow Up Call Social History Tobacco [...] refer to DOC Flowsheet: SURGDC for details. CTOR RECORDS MANAGEMENT * Jessie Rodríguez LPN - 03/10/2024 9:39 AM CST ----- Message from Musa Mojica sent at 03/08/2024 11:39 AM DIRECTOR RECORDS MANAGEMENT ----- Had stone treated today. Will need a stent removal in about a week. They live in [place] so may be good to see him next Sunday in [place] to remove it. Thanks! musa CTOR RECORDS MANAGEMENT documented in this encounter Plan of Treatment Upcoming Encounters Date Type Department Care Team (Late st Contact Info) Description 05/14/2024 2:30 PM DIRECTOR RECORDS MANAGEMENT Appointment Karen Woodard [address] Ultrasound [address] [place] [phone] Musa Mojica MD [address] [place], [place] [phone] 05/26/2024 11:00 AM DIRECTOR RECORDS MANAGEMENT Appointment Karen Woodard [address] Urology [address] [place] [phone] Trang Rowell APRN, FARM EQUIPMENT TECHNICIAN [address] [place] [address] 09/09/2024 2:30 PM CDT Appointment [place] [facility] [place] [address] Podiatric MedSurg [address] [place] [phone] Torsten Chin, DPM [address] [place], [place] [phone] documented as of this encounter Visit Diagnoses Not on filedocumented in this encounter Care Teams Solid Waste Technician Relationship Specialty [place] [address] [place] [address] PCP - General Family Practice 07/10/18 documented as of this encounter
--- OUTSIDE RECORDS SUMMARY | 2024-04-15 23:17 | XMS_ITS | Encounter Summary ---
Author Organization [facility] Address [address] [place] [address] Care Team Providers Care Glass Melt Operator Name Role Phone Yuri Chow MD Primary Care Provider [phone] Reason for Visit * Reason Comments Abdominal Pain Nausea Constipation Encounter Details Date Type Department Care Team (Late st Contact Info) Description 03/08/2024 9:51 AM HEALTHCARE RECRUITER - 03/08/2024 11:06 AM HEALTHCARE RECRUITER Surgery [facility] Operating Room [address] [facility] [place] [address] Musa Mojica MD [address] [place] [address] URETEROSCOPY WITH LASER LITHOTRIPSY AND [...] Comments Blood Pressure 134/84 03/08/2024 9:22 AM HEALTHCARE RECRUITER Pulse 65 03/08/2024 9:51 AM HEALTHCARE RECRUITER Temperature 36.3 C (97.3 F) 03/08/2024 9:22 AM HEALTHCARE RECRUITER Respiratory Rate 18 03/08/2024 9:22 AM HEALTHCARE RECRUITER Oxygen Saturation 100% 03/08/2024 9:51 AM HEALTHCARE RECRUITER Inhaled Oxygen Concentration - - Weight 60.5 kg (133 lb 6.4 oz) 03/08/2024 7:22 A M HEALTHCARE RECRUITER Height 177.8 cm (5' 10) 03/08/2024 7:22 AM HEALTHCARE RECRUITER Body Mass Index 19.14 03/08/2024 7:22 AM HEALTHCARE RECRUITER documented in this encounter Discharge Summaries * Rodolfo Dickens MD - 03/08/2024 3:58 PM CST Images from the original note were not included. [facility] Discharge Summary Patient ID: Bhavin Galaviz [id number] 33 y.o. 1990 Admit date: 03/08/2024 Discharge [...] 03/11/2024 2:15 PM Torsten Chin, LUIS EDUARDO [facility] [address] [place] [id number] Significant Diagnostic Studies (imaging, labs, micro, etc), see EMR for full details: See EPIC Billing based on time: Total time for the visit was 35 minutes including, but not limited to, [id number] time spent reviewing records, counseling, and coordination of care. Rodolfo Dickens MD THCARE RECRUITER documented in this encounter Discharge Instructions * Appointments* Bhavin Lindsey RN - 03/08/2024 2:27 PM HEALTHCARE RECRUITER Per Dr. Musa Mojica ([facility]), We will set him up for a stent removal in about a week or so in the clinic. Our office will reach out to him on Sunday to get that set up. THCARE RECRUITER * Attachments The following attachments cannot be sent through Care Everywhere. * Laser Lithotripsy: Post-op ([place]) * Ureteral Stent Placement: Post-op ([place]) * Tramadol Oral Tablet (TRAMADOL - ORAL) ([place]) * Cephalexin Oral Capsule (CEPHALEXIN - ORAL) ([place]) documented in this encounter Medications at Time [...] Mojica MD ANESTHESIOLOGIST: Anesthesiologist: Kb Foster MD AEROSOL LINE OPERATOR: Gregoria Marvin APRN, CRNA ANESTHESIA: General endotracheal. [...] him on Sunday toget that set up. 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 THCARE RECRUITER documented in this encounter OR Notes * H&P - Bina Garcia MD - 03/08/2024 5:43 AM CST [facility] History and Physical Date of Service: 03/08/2024 PCP: Yuri Chow MD HPI: Bahvin Galaviz is a 33 y.o. male with [...] Complexity: MDM Level: Moderate Bina Garcia MD THCARE RECRUITER documented in this encounter ED Notes * [...] 07/13/2018 Added automatically from request for surgery [id number] Chronic kidney disease ([facility]) Kidney stones Herpes [...] Color Colorless Urine Clarity Clear Clear Specific [place], Urine 1.020 <1.030 PH Urine 6.0 5.0 [...] AND PELVIS WITH IV CONTRAST ONLY LOCATION: [facility] DATE: 03/08/2024 INDICATION: Right-sided pain, history of [...] Medical Decision Making / Diagnosis MIPS None [facility] Bhavin Galaviz is a 33 y.o. [...] [N13.30] Hydroureteronephrosis Jonathan Deluna MD 03/08/24 0554 THCARE RECRUITER * Bart Pedraza RN - 03/08/2024 2:45 [...] appendectomy which was about 2-3 years ago. Community Specialist briefly went through medication list with patient; medication list mostly current per patient. He also takes Buproprion and Taldalafil. THCARE RECRUITER documented in this encounter Plan of Treatment Upcoming Encounters Date Type Department Care Team (Late st Contact Info) Description 05/14/2024 2:30 PM HEALTHCARE RECRUITER [facility]ment [place] [facility] [address] [address] [address] [place] [phone] Musa Mojica MD [address] [place], [place] [address] 05/26/2024 11:00 AM HEALTHCARE RECRUITER [facility]ment [place] [facility] [address] Urology [address] [place] [phone] Trang Rowell, MORTGAGE PROFESSIONAL, GEOGRAPHIC AREA INTELLIGENCE OFFICER [address] [place] [address] 09/09/2024 2:30 PM CDT Appointment [facility] [address] Podiatric MedSurg [address] [place] [phone] Torsten Chin, DPM [address] [place], [place] [phone] Scheduled Referrals Name Type Priority Associated Diagnoses Orde r Schedule Urology Referral - Adult Referral Routine Hydronephrosis of right kidney Right ureteral calculus Ordered: 03/08/2024 documented as of this encounter Procedures Procedure Name Priority Date/Time Associated Diagnosis Comments FL RETROGRADE PYELOGRAM Routine 03/08/2024 11:31 AM HEALTHCARE RECRUITER CALCULI STONE ANALYSIS Routine 03/08/2024 11:28 AM HEALTHCARE RECRUITER Ureterolithiasis CYSTOSCOPY,RETROGRAD E PYELOGRAM,URETEROSCO PY,HOLMIUM LASER LITHOTRIPSY OF STONE,URETERAL STENT PLACEMENT 03/08/2024 10:17 AM HEALTHCARE RECRUITER Ureterolithiasis UA CONDITIONAL UC STAT 03/08/2024 4:[address] ABD PELVIS W IV CONT ONLY STAT 03/08/2024 4:04 AM HEALTHCARE RECRUITER EXTRA LAVENDER TOP TUBE Routine 03/08/2024 2:40 AM HEALTHCARE RECRUITER EXTRA BLUE TOP TUBE Routine 03/08/2024 2 :40 AM HEALTHCARE RECRUITER LACTATE REFLEX PANEL Add-On 03/08/2024 2:40 AM HEALTHCARE RECRUITER CBC AND DIFFERENTIAL PANEL STAT Add-On 03/08/2024 2:40 AM HEALTHCARE RECRUITER RAINBOW DRAW AND HOLD Routine 03/08/2024 2:40 AM HEALTHCARE RECRUITER EXTRA LIGHT GREEN TUBE Routine 03/08/2024 2:40 AM HEALTHCARE RECRUITER EXTRA LIGHT GREEN TOP ON ICE TUBE Routine 03/08/2024 2:40 AM HEALTHCARE RECRUITER COMPLETE BLOOD COUNT-W/DIFF STAT Add-On 03/08/2024 2:40 AM HEALTHCARE RECRUITER LIVER PANEL(HEPATIC FUNCTION PANEL) STAT Add-On 03/08/2024 2:40 AM HEALTHCARE RECRUITER BASIC METABOLIC PANEL STAT Add-On 03/08/2024 2:40 AM HEALTHCARE RECRUITER LIPASE STAT Add-On 03/08/2024 2:40 AM HEALTHCARE RECRUITER documented in this encounter Results * FL Retrograde Pyelogram (03/08/2024 11:31 AM HEALTHCARE RECRUITER) Anatomical Region Laterality Modality Abdomen, Pelvis Radio Fluoroscop y Narrative 03/08/2024 12:18 PM HEALTHCARE RECRUITER This is an imaging order that has been read externally. Musa Mojica MD RAD FL * Calculi Stone Analysis (03/08/2024 11:28 AM HEALTHCARE RECRUITER) Calculi Composition See Note 03/11/2024 9:35 AM HEALTHCARE RECRUITER [facility] Comment: Calculi composed primarily of: 70% [...] composition determined by FTIR analysis. Performed By: [facility] [address] [place] [address] Box Icer: Art Chiu MD, PhD CLIA Number: [id number] Calculi Description See Note 03/11/2024 9:35 AM HEALTHCARE RECRUITER [facility] [facility] Comment: Specimen consists of one brown and negrete calculus. The total weight is 14 mg. Calculi Mass 14 mg 03/11/2024 9:35 AM HEALTHCARE RECRUITER [employer] [facility] Stone (Calculus) KIDNEY STONE / Unknown 03/08/2024 11:28 AM HEALTHCARE RECRUITER 03/08/2024 11:44 AM HEALTHCARE RECRUITER Musa Mojica MD LAB_1 Performing Organization Address [facility]/State/[facility] Co de Phone Number [facility] [address] [place], [place] [address] [place] [address] * (ABNORMAL) UA Conditional UC: Clean Catch (03/08/2024 4:40 AM HEALTHCARE RECRUITER) Urine Culture Comment 03/08/2024 5:00 AM HEALTHCARE RECRUITER [facility] Urine Color Colorless 03/08/2024 5:00 AM HEALTHCARE RECRUITER [facility] Urine Clarity Clear Clear 03/08/2024 5:00 AM HEALTHCARE RECRUITER [facility] Specific [place], Urine 1.020 <1.030 03/08/2024 5:00 AM HEALTHCARE RECRUITER [facility] PH Urine 6.0 5.0 - 8.0 03/08/2024 5:00 AM HEALTHCARE RECRUITER [facility] Protein, Urine Qual (mg/dL) Negative Negative, 10 , 20 03/08/2024 5:00 AM HEALTHCARE RECRUITER [facility] Glucose Urine Qual (mg/dL) Normal (Negative) Normal (Negative), 30 , 50 03/08/2024 5:00 AM HEALTHCARE RECRUITER [facility] Ketones, Urine (mg/dL) Negative Negative, Trace 03/08/2024 5:00 AM HEALTHCARE RECRUITER [facility] Urobilinogen, Urine (EU/dL) Normal (Negative) Normal (Negative) 03/08/2024 5:00 AM HEALTHCARE RECRUITER [facility] Bilirubin Urine (mg/dL) Negative Negative 03/08/2024 5:00 AM HEALTHCARE RECRUITER [facility] Blood, Urine (mg/dL) 0.50 (Moderate)(A) Negative, 0.03 (Trace) 03/08/2024 5:00 AM HEALTHCARE RECRUITER [facility] Nitrite Urine Negative Negative 03/08/2024 5:00 AM HEALTHCARE RECRUITER [facility] Leukocyte Esterase, Urine (Gracie/uL) Negative Negative, 25 (Trace) 03/08/2024 5:00 AM HEALTHCARE RECRUITER [facility] Red Blood Cells 18(H) 0 - 3 /HPF 03/08/2024 5:00 AM HEALTHCARE RECRUITER [facility] White Blood Cells 1 0 - 5 /HPF 03/08/2024 5:00 AM HEALTHCARE RECRUITER [facility] Squamous Epithelial Cells Occasional None Seen, Occasional, Few /HPF 03/08/2024 5:00 AM HEALTHCARE RECRUITER [facility] Mucus Present(A) None Seen /HPF 03/08/2024 5:00 AM HEALTHCARE RECRUITER [facility] Source Clean Catch 03/08/2024 5:00 AM HEALTHCARE RECRUITER [facility] Urine URINE SPECIMEN COLLECTION, CLEAN CATCH / Unknown Non-blood Collection / Unknown 03/08/2024 4:40 AM HEALTHCARE RECRUITER 03/08/2024 4:47 AM HEALTHCARE RECRUITER Narrative [facility] - 03/08/2024 5:00 AM HEALTHCARE RECRUITER The qualitative interpretive guidance provided (e.g., small, moderate, large) is intended to aid in quantitative result interpretation. It is not itself an FDA-cleared test result. Jonathan Deluna MD LAB_1 Performing Organization Address City/State/[facility] Co de Phone Number [facility] [address] * CT Abd Pelvis W IV Cont Only (03/08/2024 4:04 AM HEALTHCARE RECRUITER) Anatomical Region Laterality Modality Abdomen, Pelvis Computed Tomogra phy 03/08/2024 4:04 AM HEALTHCARE RECRUITER Narrative 03/08/2024 4:38 AM HEALTHCARE RECRUITER EXAM: CT ABDOMEN AND PELVIS WITH IV CONTRAST ONLY LOCATION: [facility] DATE: 03/08/2024 INDICATION: Right-sided pain, history of [...] AND PELVIS WITH IV CONTRAST ONLY LOCATION: [facility] DATE: 03/08/2024 INDICATION: Right-sided pain, history of [...] Panel (Hepatic Function Panel) (03/08/2024 2:40 AM HEALTHCARE RECRUITER) Alkaline Phosphatase 46 40 - 150 U/L 03/08/2024 3:41 AM HEALTHCARE RECRUITER [facility] Bilirubin, Total 0.6 0.2 - 1.2 mg/dL 03/08/2024 3:41 AM HEALTHCARE RECRUITER [facility] Bilirubin, Direct 0.2 0.0 - 0.5 mg/dL 03/08/2024 3:41 AM HEALTHCARE RECRUITER [facility] AST (SGOT) 33 10 - 40 U/L 03/08/2024 3:41 AM HEALTHCARE RECRUITER [facility] ALT (SGPT) 36 <=55 U/L 03/08/2024 3:41 AM HEALTHCARE RECRUITER [facility] Protein, Total 6.0(L) 6.4 - 8.3 g/dL 03/08/2024 3:41 AM HEALTHCARE RECRUITER [facility] Albumin 3.9 3.5 - 5.0 g/dL 03/08/2024 3:41 AM HEALTHCARE RECRUITER [facility] Blood Venipuncture / Unknown 03/08/2024 2:40 AM HEALTHCARE RECRUITER 03/08/2024 2:44 AM HEALTHCARE RECRUITER Jonathan Deluna MD LAB_1 [facility] [address] * Lipase (03/08/2024 2:40 AM HEALTHCARE RECRUITER) [facility] Lipase 20 8 - 78 U/L 03/08/2024 3:41 AM HEALTHCARE RECRUITER [facility] Blood Venipuncture / Unknown 03/08/2024 2:40 AM HEALTHCARE RECRUITER 03/08/2024 2:44 AM HEALTHCARE RECRUITER Jonathan Deluna MD LAB_1 Performing Organization Address [facility] de Phone Number [facility] [address] * (ABNORMAL) Complete Blood Count-W/Diff (03/08/2024 2:40 AM HEALTHCARE RECRUITER) [facility] WBC 8.6 3.5 - 10.5 x10(9)/L 03/08/2024 3:00 AM HEALTHCARE RECRUITER [facility] RBC 4.57 4.32 - 5.72 x10(12)/L 03/08/2024 3:00 AM HEALTHCARE RECRUITER [facility] Hemoglobin 14.6 13.5 - 17.5 g/dL 03/08/2024 3:00 AM HEALTHCARE RECRUITER [facility] HCT 41.9 38.8 - 50.0 % 03/08/2024 3:00 AM HEALTHCARE RECRUITER [facility] MCV 91.7 80.0 - 100.0 fL 03/08/2024 3:00 AM HEALTHCARE RECRUITER [facility] MCH 31.9 27.6 - 33.3 pg 03/08/2024 3:00 AM HEALTHCARE RECRUITER [facility] MCHC 34.8 31.5 - 35.2 g/dL 03/08/2024 3:00 AM HEALTHCARE RECRUITER [facility] RDW 12.4 11.9 - 15.5 % 03/08/2024 3:00 AM HEALTHCARE RECRUITER [facility] Platelets 191 150 - 450 x10(9)/L 03/08/2024 3:00 AM HEALTHCARE RECRUITER [facility] Automated NRBC 0 <=0 /100 WBC 03/08/2024 3:00 AM HEALTHCARE RECRUITER [facility] Neutrophil Absolute 6.9 1.7 - 7.0 10(9)/L 03/08/2024 3:00 AM HEALTHCARE RECRUITER [facility] Lymphocyte Absolute 0.9(L) 1.0 - 4.8 10(9)/L 03/08/2024 3:00 AM HEALTHCARE RECRUITER [facility] Monocyte Absolute 0.7 0.2 - 0.9 10(9)/L 03/08/2024 3:00 AM HEALTHCARE RECRUITER [facility] Eosinophil Absolute 0.1 0.0 - 0.5 10(9)/L 03/08/2024 3:00 AM HEALTHCARE RECRUITER [facility] Basophil Absolute 0.0 0.0 - 0.3 10(9)/L 03/08/2024 3:00 AM HEALTHCARE RECRUITER [facility] Immature Granulocyte % 0.4 0.0 - 0.5 % 03/08/2024 3:00 AM HEALTHCARE RECRUITER [facility] Blood Venipuncture / Unknown 03/08/2024 2:40 AM HEALTHCARE RECRUITER 03/08/2024 2:44 AM HEALTHCARE RECRUITER Rk Ndiaye MD LAB_1 Performing Organization Address [facility] de Phone Number [facility] [address] [place] [address] * Lactate Reflex Panel (03/08/2024 2:40 AM HEALTHCARE RECRUITER) Pathologist [facility] Lactate, Whole Blood 0.60 0.50 - 2.00 mmol/L 03/08/2024 2:59 AM HEALTHCARE RECRUITER [facility] Blood Venipuncture / Unknown 03/08/2024 2:40 AM HEALTHCARE RECRUITER 03/08/2024 2:44 AM HEALTHCARE RECRUITER Narrative [facility] - 03/08/2024 2:59 AM HEALTHCARE RECRUITER Reference range for healthy individuals when sepsis is not suspected is 0.5-2.2 mmol/L Rk Ndiaye MD LAB_1 Performing Organization Address [facility] de Phone Number [facility] [address] [place] [address] * (ABNORMAL) Basic Metabolic Panel (03/08/2024 2:40 AM HEALTHCARE RECRUITER) Sodium 142 136 - 145 mmol/L 03/08/2024 3:12 AM HEALTHCARE RECRUITER [facility] Potassium 3.4(L) 3.5 - 5.1 mmol/L 03/08/2024 3:12 AM HEALTHCARE RECRUITER [facility] Chloride 111(H) 98 - 109 mmol/L 03/08/2024 3:12 AM HEALTHCARE RECRUITER [facility] CO2 23 20 - 29 mmol/L 03/08/2024 3:12 AM HEALTHCARE RECRUITER [facility] Anion Gap 8 6 - 16 mmol/L 03/08/2024 3:12 AM HEALTHCARE RECRUITER [facility] Calcium 9.4 8.4 - 10.4 mg/dL 03/08/2024 3:12 AM HEALTHCARE RECRUITER [facility] BUN 14 7 - 26 mg/dL 03/08/2024 3:12 AM HEALTHCARE RECRUITER [facility] Creatinine 1.18 0.73 - 1.18 mg/dL 03/08/2024 3:12 AM HEALTHCARE RECRUITER [facility] Glucose 104(H) 70 - 100 mg/dL 03/08/2024 3:12 AM HEALTHCARE RECRUITER [facility] Comment:The given reference range is for the fasting state. Non-fasting reference range for glucose is 70 - 180 mg/dL. GFR, Estimated >60 >60 mL/min/1.7 3m2 03/08/2024 3:12 AM HEALTHCARE RECRUITER [facility] Blood Venipuncture / Unknown 03/08/2024 2:40 AM HEALTHCARE RECRUITER 03/08/2024 2:44 AM HEALTHCARE RECRUITER Rk Ndiaye MD LAB_1 Performing Organization Address [facility] Co de Phone Number [facility] [address] * Extra Blue top tube (03/08/2024 2:40 AM HEALTHCARE RECRUITER) Extra Blue Top Drawn Specimen will be held for 24 hours 03/08/2024 4:00 AM HEALTHCARE RECRUITER [facility] Blood Venipuncture / Unknown 03/08/2024 2:40 AM HEALTHCARE RECRUITER 03/08/2024 2:44 AM HEALTHCARE RECRUITER Jonathan Deluna MD LAB_1 Performing Organization Address [facility]/ZIP Co de Phone Number [facility] [address] [employer] [address] * Extra Light Green On Ice Tube (03/08/2024 2:40 AM HEALTHCARE RECRUITER) Extra Light Green On Ice Tube Drawn Specimen will be held for 5 days 03/08/2024 4:00 AM HEALTHCARE RECRUITER [facility] Blood Venipuncture / Unknown 03/08/2024 2:40 AM HEALTHCARE RECRUITER 03/08/2024 2:44 AM HEALTHCARE RECRUITER Jonathan Deluna MD LAB_1 Performing Organization Address [facility] de Phone Number [facility] [address] * Extra Light Green Tube (03/08/2024 2:40 AM HEALTHCARE RECRUITER) Extra Light Green Tube Drawn Specimen will be held for 5 days 03/08/2024 4:00 AM HEALTHCARE RECRUITER [facility] Blood Venipuncture / Unknown 03/08/2024 2:40 AM HEALTHCARE RECRUITER 03/08/2024 2:44 AM HEALTHCARE RECRUITER Jonathan Deluna MD LAB_1 Performing Organization Address [facility] de Phone Number [facility] [address] * Extra Lavender top tube (03/08/2024 2:40 AM HEALTHCARE RECRUITER) Extra Lavender Top Drawn Specimen will be held for 3 days 03/08/2024 4:00 AM HEALTHCARE RECRUITER [facility] Blood Venipuncture / Unknown 03/08/2024 2:40 AM HEALTHCARE RECRUITER 03/08/2024 2:44 AM HEALTHCARE RECRUITER Jonathan Deluna MD LAB_1 Performing Organization Address [facility] de Phone Number [facility] [address] [place] [address] documented in this encounter Visit Diagnoses Diagnosis [...] effects. Prescriptions filled by [facility] pharmacy. Belongings checklist reviewed with patien t and family and belongings sent. Equipment sent: None . Supplies sent None. Care plan issues addressed and education record updated. R: Patient and family verbalizes understanding and teaches back discharge instructions. Patient discharged by: ambulation with family. THCARE RECRUITER * Plan of Care - Bhavin Franklin - 03/08/2024 7:25 AM CST [facility] Medication History Note 1. Source(s) of [...] reconciling home medications for hospital use. ? THCARE RECRUITER * Plan of Care - Bhavin Lindsey [...] procedure. Mother attentive at bedside. Will monitor. THCARE RECRUITER * Triage Assessment Note - Shirin Hall RN - 03/08/2024 2:00 AM HEALTHCARE RECRUITER Patient presents to the [facility] for abdominal pain, nausea, and constipation since noon today. Patient is alert and oriented x4, breathing is even and unlabored, ambulates with a steady gait. THCARE RECRUITER documented in this encounter Admitting Diagnoses Diagnosis [...] pain scores)., Post-op Given 03/08/2024 3:51 PM HEALTHCARE RECRUITER 650 mg bisacodyl (DULCOLAX) rectal suppository 10 [...] (SUBLIMAZE) injection 25-50 mcg 25-50 mcg, Intravenous, [id number], Pain, Procedure, Starting on 03/08/24 at 0915, Until 03/08/24 at 1216, For 2 doses, As directed by anesthesiologist, Pre-op Given 03/08/2024 9:49 AM HEALTHCARE RECRUITER 50 mcg HYDROmorphone (DILAUDID) injection 0.2-0.4 mg [...] less than 8. Given 03/08/2024 7:54 AM HEALTHCARE RECRUITER 0.4 mg HYDROmorphone (DILAUDID) injection 0.5-1 mg 0.5-1 mg, Intravenous, PRN, Pain, Starting on 03/08/24 at 0319, Until 03/08/24 at 0618, For 3 hours Given 03/08/2024 5:46 AM HEALTHCARE RECRUITER 0.5 mg Given 03/08/2024 3:35 AM HEALTHCARE RECRUITER 1 mg iohexol (OMNIPAQUE 300) 300 MG/ML injection ONCE PRN, Starting on 03/08/24 at 1126, Until 03/08/24 at 1216, Intra-op Given 03/08/2024 11:26 AM HEALTHCARE RECRUITER 10 mL Wound Site iohexol (OMNIPAQUE 350) 350 MG/ML injection 75 mL 75 mL, Intravenous, ONCE, On 03/08/24 at 0430, For 1 dose, Radiology Given 03/08/2024 4:05 AM HEALTHCARE RECRUITER 75 mL lactated ringers infusion 25 mL/hr, Intravenous, CONTINUOUS, Starting on 03/08/24 at 0945, Administer on all preop surgery patients, ages 12 and older, unless specified differently in the Protocol for Preop Initiation of IV fluids Order Set., Pre-op Restarted 03/08/2024 10:35 AM HEALTHCARE RECRUITER Started 03/08/2024 9:30 AM HEALTHCARE RECRUITER 25 mL/hr 25 mL/hr lidocaine (UROJET) 2 % gel prefilled syringe ONCE PRN, Starting on 03/08/24 at 1129, Intra-op Given 03/08/2024 11:29 AM HEALTHCARE RECRUITER 10 mL Wound Site ondansetron (ZOFRAN) injection 4 mg 4 mg, Intravenous, ONCE, On 03/08/24 at 0400, For 1 dose, For nausea or vomiting Given 03/08/2024 3:42 AM HEALTHCARE RECRUITER 4 mg ondansetron (ZOFRAN-ODT) disintegrating tablet 4 [...] Line - metoclopramide Given 03/08/2024 7:53 AM HEALTHCARE RECRUITER 4 mg oxyCODONE (ROXICODONE) immediate release tablet 5-10 mg 5-10 mg, Oral, Q4H PRN, Other, Moderate Pain (pain score 5-7), Severe Pain (pain score 8-10), Starting on 03/08/24 at 1217, Until 03/08/24 at 1850, Do not give both IV and ORAL opioids for pain. Give oral if patient is able to take oral medications., Post-op Given 03/08/2024 12:49 PM HEALTHCARE RECRUITER 5 mg polyethylene glycol (MIRALAX) oral powder [...] to completely dissolve. Given 03/08/2024 3:46 PM HEALTHCARE RECRUITER 40 mEq senna (SENOKOT) tablet 2 Tablet [...] 1 dose, Radiology Given 03/08/2024 4:04 AM HEALTHCARE RECRUITER 10 mL sterile water for irrigation ONCE PRN, Starting on 03/08/24 at 1121, Intra-op Given 03/08/2024 11:21 AM HEALTHCARE RECRUITER 2,000 mL Wound Site tamsulosin (FLOMAX) capsule 0.4 mg 0.4 mg, Oral, QDAY PC, First dose on 03/08/24 at 0900, Until Discontinued, Swallow whole. Do not chew, crush, or dissolve the granules inside of the capsule. Given 03/08/2024 7:53 AM HEALTHCARE RECRUITER 0.4 mg documented in this encounter Active and Recently Administered Medications Times are shown in HEALTHCARE RECRUITER. Scheduled Medication Order 03/06/2024 03/07/2024 03/08/2024 ceFAZolin [...] 1044 (Given - Provid er: Gregoria Marvin, MORTGAGE PROFESSIONAL, AEROSOL LINE OPERATOR) iohexol (OMNIPAQUE 350) 350 MG/ML injection 75 [...] Reason: Other (Enter Reason in Comment Area))1216 ([facility] Unhold - Provider: [employer]) calcium carbonate (TUMS) chewable tablet 500 mg 500 mg, Oral, Q4H PRN, Heartburn, Upset Stomach, Starting on 03/08/24 at 0705, Until 03/08/24 at 1850, Each tablet provides 200 mg elemental calcium 0911 (JUN Hold - Pro vider: [employer] - Reason: Other (Enter Reason in Comment Area))1216 ([facility] Unhold - Provider: [employer]) fentaNYL (SUBLIMAZE) injection 25-50 mcg (CANCELED) 25-50 mcg, Intravenous, [id number], Pain, Procedure, Starting on 03/08/24 at 0915, Until 03/08/24 at 1216, For 2 doses, As directed by anesthesiologist, Pre-op 0949 (Given - Provid er: Tasneem Hill RN) guaiFENesin (ROBITUSSIN) oral liquid 10 mL 10 mL, Oral, Q4H PRN, Cough, Starting on 03/08/24 at 0705, Until 03/08/24 at 1850 0911 ([facility] Hold - Pro vider: [employer] - Reason: Other (Enter Reason in Comment Area))1216 ([facility] Unhold - Provider: Automatichold) HYDROmorphone (DILAUDID) injection [...] unable to take PO. Hold if on NETWORK COMMUNICATIONS ENGINEER, Post-op HYDROmorphone (DILAUDID) injection 0.5-1 mg [...] Reason: Other (Enter Reason in Comment Area))1216 ([facility] Unhold - Provider: Automatichold) nystatin (MYCOSTATIN) [id number] UNIT/GM topical powder Topical, BID PRN, Other, for rash due to yeast, Starting on 03/08/24 at 0705, Apply topically to affected area. Hazardous waste disposal required. 0911 ([facility] Hold - Pro vider: Automatichold - Reason: Other (Enter Reason in Comment Area))1216 ([facility] Unhold - Provider: Automatichold) ondansetron (ZOFRAN) injection [...] chloride (OCEAN) 0.65 % nasal solution 1 [place] 1 [place], Both Nostrils, Q2H PRN, Dry Nose, [...] less. documented in this encounter Care Teams Glass Melt Operator Relationship Specialty [place] [address] [place] [address] PCP - General Family Practice 07/10/18 documented as of this encounter
--- OUTSIDE RECORDS SUMMARY | 2024-04-15 23:17 | XMS_ITS | Encounter Summary ---
Author Organization [facility] Address [address] [place] [address] Care Team Providers Care Preventive Maintenance Coordinator Name Role Phone Yuri Chow MD Primary Care Provider Encounter Details Date Type Department Care Team (Latest Contact Info) Description 06/14/2016 Consent for Procedure/Treatm ent [facility] [address] [place] [address]. [place], [place] [phone] Naveen Jones MD CONSENT FOR SURGICAL PROCEDURE [...] st Contact Info) Description 05/14/2024 2:30 PM AUTO INSPECTION SPECIALIST Appointment Karen Woodard [address] Ultrasound [address] [place] [phone] Musa Mojica MD [address] [place], [place] [address] 05/26/2024 11:00 AM AUTO INSPECTION SPECIALIST Appointment Karen Woodard [address] Urology [address] [place] [phone] Trang Rowell, PATROL SUPERVISOR, COMMUNITY HEALTH NAVIGATOR [address] [place] [address] 09/09/2024 2:30 PM CDT Appointment Ram[facility] [address] Podiatric MedSurg [address] [place] [phone] Torsten Chin, DPM [address] [place] [address] documented as of this encounter Visit Diagnoses Not on filedocumented in this encounter Additional Health Concerns Infection Onset Date Last Indicated Resolved Time R/O COVID19 12/05/2019 12/05/2019 12/06/2019 3:50 PM CDT R/O COVID19 01/13/2021 01/13/2021 01/13/2021 9:53 PM CDT documented as of this encounter Care Teams Preventive Maintenance Coordinator Relationship Specialty [place] [address] [place] [address] PCP - General Family Practice 07/10/18 documented as of this encounter
--- OUTSIDE RECORDS SUMMARY | 2024-04-15 23:18 | XMS_ITS | Continuity of Care Document ---
Author Name [facility] User [facility] Address Unknown Organization Unknown Address Unknown Encounters FILTER APPLIED:Only known Encounters with Admission Date within the last 5 years Encounter Location Admission Discharge Billing Code Voice Teacher Attender Outpatient [facility] ARTUR DICKENS [facility]
--- OUTSIDE RECORDS SUMMARY | 2024-04-15 23:18 | XMS_ITS | Encounter Summary ---
Author Organization [facility] Address [address] [place] [address] Care Team Providers Care Hogshead Filler Name Role Phone Yuri Chow MD Primary Care Provider Encounter Details Date Type Department Care Team (Latest Contact Info) Description 12/03/2015 Consent for Procedure/Treatm ent [facility] [address] [place] [address]. [place], [place] [phone] Naveen Jones MD CONSENT FOR SURGICAL LASER [...] Contact Info) Description 05/14/2024 2:30 PM ROCK CRUSHING MACHINE OPERATOR Appointment Karen Woodard [address] [address]trasound [address] [place] [phone] Musa Mojica MD [address] [place] [address] 05/26/2024 11:00 AM ROCK CRUSHING MACHINE OPERATOR Appointment Karen Woodard [address] Urology [address] [place] [phone] Trang Rowell, CERTIFIED NUTRITIONIST, DIRECTOR OF MEDICARE [address] [place] [address] 09/09/2024 2:30 PM CDT Appointment Karen Woodard [address] Podiatric MedSurg [address] [place] [phone] Torsten Chin, DPM [address] [place] [address] documented as of this encounter Visit Diagnoses Not on filedocumented in this encounter Additional Health Concerns Infection Onset Date Last Indicated Resolved Time R/O COVID19 12/05/2019 12/05/2019 12/06/2019 3:50 PM CDT R/O COVID19 01/13/2021 01/13/2021 01/13/2021 9:53 PM CDT documented as of this encounter Care Teams Hogshead Filler Relationship Specialty [place] [address] [place] [address] PCP - General Family Practice 07/10/18 documented as of this encounter
[2024-04-15] MEDS: dexAMETHasone 10 MG/ML inj PO (23:32)
== END 2024-04-16 00:39 | disposition home or self-care (01) ==
PROVIDERS: Emergency Provider Emergency Medicine Emergency Medical Services; PCP Family Medicine
DX: R21 Rash and other nonspecific skin eruption (principal)
CPT/HCPCS: 99283; 99284; J1100

== ENCOUNTER 2024-04-17 15:09 | Outpatient (CLI) | payer OTHER, SELFPAY | END 2024-04-17 15:10 | disposition home or self-care (01) | LOC: NFLDREF 15:11 | PROVIDERS: PCP Family Medicine; Visit Provider Family Medicine | DX: E87.6 Hypokalemia (principal) | CPT/HCPCS: 80048 ==

== ENCOUNTER 2024-10-13 09:45 | Outpatient (CLI) | payer OTHER, SELFPAY | END 2024-10-13 09:46 | disposition home or self-care (01) | LOC: NFLDREF 09:46 | PROVIDERS: PCP Family Medicine; Visit Provider Family Medicine | DX: E87.6 Hypokalemia (principal) | CPT/HCPCS: 84132 ==